=== PATIENT | female | born 1955 | race Caucasian/White ===

== ENCOUNTER 2016-07-22 10:35 | Inpatient (IN) | payer BC ==
[2016-07-22] MEDS ORDERED: FUROSEMIDE 10 MG/ML 4 ML VIAL IV STA (11:05)
[2016-07-22 11:24] LABS: Anisocytosis Slight; Aty Lym Flag Slight; HGB 11.8 gm/dL (11.4-16.0); Macrocytosis Slight
[2016-07-22 11:31] LABS: ALT 51 U/L (9-52); AST 56 U/L (14-36); Alkaline Phosphatase 90 U/L (38-126); Anion Gap 9 mmol/L; Blood Urea Nitrogen 12 mg/dL (7-17); Calcium 8.8 mg/dL (8.4-10.2); Carbon Dioxide 23 mmol/L (22-30); Chloride 110 mmol/L (98-107); Glucose 114 mg/dL (74-99); Magnesium 1.8 mg/dL (1.6-2.3); Non-African American GFR(MDRD) >60 (>60 ml/min/1.73 sqM); Potassium 4.3 mmol/L (3.5-5.1); Sodium 142 mmol/L (137-145); Total Bilirubin 2.7 mg/dL (0.2-1.3); Total Protein 6.2 g/dL (6.3-8.2)
[2016-07-22 11:39] LABS: INR 1.4 (<1.1); Partial Thromboplastin Time 23.1 sec (22.0-30.0); Prothrombin Time 13.5 sec (9.0-12.0)
[2016-07-22 11:41] LABS: CH 33.4; CHCM 34.5; HCT 34.5 % (34.0-46.0); HDW 3.15; MCH 33.3 pg (25.0-35.0); MCHC 34.1 g/dL (31.0-37.0); MCV 97.5 fL (80.0-100.0); Mean Platelet Volume 7.5; RBC 3.54 m/uL (3.80-5.40); RDW 15.9 % (11.5-15.5); WBC (Perox) 5.25
[2016-07-22 11:42] LABS: Creatine Kinase 50 U/L (30-135)
[2016-07-22] MEDS ORDERED: RX INFO: IV CONTRAST WAS GIVEN 1 EACH MISC MISCELLANE PRN (11:50)
[2016-07-22 11:53] LABS: Creatine Kinase MB 0.7 ng/mL (0.0-2.4); Troponin I <0.012 ng/mL (0.000-0.034)
[2016-07-22 12:09] LABS: Add Differential Manual Differential
[2016-07-22 12:12] LABS: Manual Review Performed; Nucleated Red Blood Cells 0 /100 WBC (0-0); Total Cells Counted 100
--- NOTE | 2016-07-22 12:26 | XR ---
EXAMINATION TYPE: XR chest 2V DATE OF EXAM: 07/22/2016 12:08 PM COMPARISON: 11/11/2015 HISTORY: 60-year-old female with shortness of breath and chest pain TECHNIQUE: AP and lateral views FINDINGS: Heart is upper limits of normal in size. Aorta within normal limits. There are small right greater th an left pleural effusions with slight elevation of the right hemidiaphragm. Mild interstitial promine nce. Cholecystectomy clips are present. IMPRESSION: Small right and trace left pleural effusions with adjacent atelectasis and/or consolidation on the ri ght. Correlate for possible mild CHF.
--- NOTE | 2016-07-22 13:18 | CT ---
EXAMINATION TYPE: CT chest angio for PE DATE OF EXAM: 07/22/2016 12:59 PM COMPARISON: Chest x-ray same day HISTORY: Chest pressure, SOB, abnormal chest x-ray CT DLP: 599 mGycm Automated exposure control for dose reduction was used. CONTRAST: CT Chest for pulmonary embolism performed with with IV Contrast, patient injected with 100 ml mL of O mnipaque 350. Three-dimensional reconstructions on the same workstation. FINDINGS: LUNGS: There are bilateral pleural effusions present. Pleural effusion on the right is greater than l eft, there is associated compressive atelectasis. Lungs show no mass. There is no interstitial edema. MEDIASTINUM: There is satisfactory enhancement of the pulmonary artery and its branches, there is no CT evidence for pulmonary embolism. There are no greater than 1 cm hilar or mediastinal lymph nodes. No pericardial effusion is seen. AORTA: No additional significant abnormality is seen. OTHER: Suspect there are varices in the subcutaneous fat over the anterior abdominal wall, correlate . The upper abdomen shows the liver to have a nodular contour and heterogeneous signal, difficult to exclude an underlying mass. Patient is postcholecystectomy. The spleen is borderline enlarged. No pne umoperitoneum or evidence of bowel obstruction. There is some ascites about the liver. IMPRESSION: No evidence of pulmonary embolism. Pleural effusions right greater than left. Correlate for cirrhosis , probable portal hypertension, difficult to exclude an underlying liver mass.
--- NOTE | 2016-07-22 13:43 | ED ---
Chest Pain HPI - General Chief Complaint: Chest Pain Stated Complaint: chest pressure, SOB Time Seen by Provider: 07/22/16 10:50 Source: patient Mode of arrival: wheelchair Limitations: no limitations - History of Present Illness Initial Comments: She presented with shortness of breath, she does have a history of liver disease. She was thoroughly evaluated by her aviation project manager attending for him a she had a cardiac cath done yesterday and she was told that her heart is fine him a she is quite short winded is hard for her to take a deep breath she been coughing for the last few days and does complain about pleuritic chest pain. Denies any fever no chills no sputum denies any nausea any vomiting or any symptoms of upper respiratory tract infection. No symptoms of TIA or CVA no neck stiffness no frequency urgency dysuria - Related Data Home Medications Medication Instructions Recorded Confirmed Atenolol/Chlorthalidone [Tenoretic 1 tab PO DAILY 11/30/13 07/22/16 50 Tablet] Cholecalciferol [Vitamin D3] 2,000 unit PO DAILY 11/11/15 07/22/16 Ferrous Sulfate [Feosol] 325 mg PO BID 11/11/15 07/22/16 metFORMIN HCL [Glucophage] 500 mg PO BID 11/11/15 07/22/16 Aspirin 81 mg PO DAILY 07/22/16 07/22/16 B Complex-Vit C-Vit E-Zinc [Z-Bec] 1 tab PO DAILY 07/22/16 07/22/16 Folic Acid 1 mg PO DAILY 07/22/16 07/22/16 Lactulose [Cephulac] 10 gm PO TID 07/22/16 07/22/16 Multivitamin Liquid 5 ml PO DAILY 07/22/16 07/22/16 Phytonadione [Vitamin K] 5 mg PO DAILY 07/22/16 07/22/16 Rifaximin [Xifaxan] 550 mg PO BID 07/22/16 07/22/16 Spironolactone [Aldactone] 25 mg PO DAILY 07/22/16 07/22/16 Thiamine [Vitamin B-1] 100 mg PO DAILY 07/22/16 07/22/16 traMADol HCl [Ultram] 50 mg PO Q6H PRN 07/22/16 07/22/16 Allergies Allergy/AdvReac Type Severity Reaction Status Date / Time No Known Allergies Allergy Verified 07/22/16 11:12 Review of Systems ROS Statement: Those systems with pertinent positive or pertinent negative responses have been documented in the HPI. ROS Other: All systems not noted in ROS Statement are negative. EKG Findings - EKG Comments: EKG Findings:: EKG was reviewed it is sinus bradycardia ventricular rate is 50 MO interval is 156 QRS duration is 78 QT/QTc is 536/488 review of this EKG reveals some T-wave inversion in V1 no ST elevation or ST depression noticed she does have a bradycardia Past Medical History Past Medical History: Blood Disorder, Diabetes Mellitus, GERD/Reflux, Hyperlipidemia, Hypertension Additional Past Medical History / Comment(s): PT'S LAST HGB 7.5 -HAD 2 IRON TRANSFUSIONS & ON IRON DAILY. TYPE 2 DIABETIC- ORAL RX ONLY liver cirrhosis unk cause on liver transplant list History of Any Multi-Drug Resistant Organisms: None Reported Past Surgical History: Cholecystectomy, Hysterectomy, Tonsillectomy Additional Past Surgical History / Comment(s): ectopic outside of uterus Past Anesthesia/Blood Transfusion Reactions: Motion Sickness Additional Past Anesthesia/Blood Transfusion Reaction / Comment(s): SOMETIMES IN CAR Past Psychological History: No Psychological Hx Reported Smoking Status: Never smoker Past Alcohol Use History: None Reported Past Drug Use History: None Reported - Past Family History Father Family Medical History: Myocardial Infarction ([place]) Additional Family Medical History / Comment(s): HAD MASSIVE [place] Mother Family Medical History: Cancer Additional Family Medical History / Comment(s): COLON CA Brother(s) Family Medical History: Cancer Additional Family Medical History / Comment(s): LEUKEMIA- AND ALSO BROTHER HAD BLOOD CLOT IN LEG AFTER FX General Exam - General Exam Comments Initial Comments: General: The patient is awake and alert, in mild distress Skin: Skin is warm and dry and no rashes or lesions are noted. Eye: Pupils are equal, round and reactive to light, extra-ocular movements are intact; there is normal conjunctiva bilaterally. Ears, nose, mouth and throat: There are moist mucous membranes and no oral lesions. Neck: The neck is supple, there is no tenderness or JVD. Cardiovascular: There is a regular rate and rhythm. No murmur, rub or gallop is appreciated. Noticed bradycardia Respiratory: To auscultation bilateral, breath sounds are decreased bilaterally Gastrointestinal: Is mild tenderness and mild erythema on the belly Back: There is no tenderness to palpation in the midline. There is no obvious deformity. Musculoskeletal: Normal ROM, no tenderness, There is no edema bilaterally Neurological: CN II-XII intact, Cranial nerves III through XII are intact. There are no obvious motor or sensory deficits. Coordination appears grossly intact. Speech is normal. Psychiatric: Cooperative, appropriate mood & affect, normal judgment. Limitations: no limitations Course Vital Signs 07/22/16 07/22/16 07/22/16 10:46 11:44 13:04 Temperature 97.0 F L 98.0 F Pulse Rate 79 51 L Pulse Rate [ 74 Healthcare Liaison ] Respiratory 18 18 Rate Blood Pressure 122/60 122/60 O2 Sat by Pulse 95 99 Oximetry 07/22/16 13:13 Temperature Pulse Rate 48 L Pulse Rate [ Healthcare Liaison ] Respiratory 16 Rate Blood Pressure 136/55 O2 Sat by Pulse 99 Oximetry Patient was reassessed 3 times last assessment was done at 1814, a CBC troponin and PE studies are negative she was given Lasix 40 mg IV in the ER that's helping her with her breathing, she does have a bradycardia heart rate dips down to 4142 and she also has a congestive heart failure considering a chance or possibility of infiltrate I offered patient took for observation she agreed she'll be admitted under 's group for further evaluation and patient agreed with Disposition Clinical Impression: Shortness of breath, Pleuritic chest pain, Bradycardia, Congestive heart failure Disposition: ADMITTED IP TO THIS [facility] Condition: Good
[2016-07-22] MEDS ORDERED: traMADol 50 MG TAB PO PRN (13:49)
[2016-07-22] MEDS: LACTULOSE 20 GM/30 ML CUP PO SCH ×2 (17:53→21:03)
[2016-07-22] MEDS: FERROUS SULFATE 325 MG TAB PO SCH (21:03)
[2016-07-22] MEDS: FUROSEMIDE 40 MG TAB PO SCH (21:03)
[2016-07-22] MEDS: RIFAXIMIN 550 MG TABLET PO SCH (21:03)
[2016-07-22 21:17] LABS: Glucose,Whole Blood 94 mg/dL (75-99)
[2016-07-23 06:27] LABS: Glucose,Whole Blood 79 mg/dL (75-99)
[2016-07-23 06:55] LABS: ALT 47 U/L (9-52); AST 48 U/L (14-36); Alkaline Phosphatase 76 U/L (38-126); Anion Gap 8 mmol/L; Blood Urea Nitrogen 12 mg/dL (7-17); Calcium 8.4 mg/dL (8.4-10.2); Carbon Dioxide 24 mmol/L (22-30); Chloride 109 mmol/L (98-107); Glucose 83 mg/dL (74-99); Magnesium 1.6 mg/dL (1.6-2.3); Non-African American GFR(MDRD) >60 (>60 ml/min/1.73 sqM); Potassium 3.9 mmol/L (3.5-5.1); Sodium 141 mmol/L (137-145); Total Bilirubin 2.1 mg/dL (0.2-1.3); Total Protein 5.4 g/dL (6.3-8.2)
[2016-07-23 06:56] LABS: Anisocytosis Slight; Aty Lym Flag Slight; CHCM 33.6; HCT 33.2 % (34.0-46.0); HDW 3.15; MCH 32.8 pg (25.0-35.0); MCHC 33.2 g/dL (31.0-37.0); MCV 98.8 fL (80.0-100.0); Macrocytosis Slight; Mean Platelet Volume 7.3; RBC 3.36 m/uL (3.80-5.40); WBC 4.9 k/uL (3.8-10.6); WBC (Perox) 5.02
[2016-07-23 07:49] LABS: Add Differential Manual Differential
[2016-07-23 07:52] LABS: Nucleated Red Blood Cells 0 /100 WBC (0-0); Polychromasia Present; Total Cells Counted 100
[2016-07-23 07:54] LABS: Large Platelets Present
[2016-07-23] MEDS ORDERED: CHLORTHALIDONE PO SCH (09:00)
[2016-07-23] MEDS ORDERED: SPIRONOLACTONE 25 MG TAB PO SCH ×2 (09:00)
[2016-07-23] MEDS ORDERED: ATENOLOL PO SCH (09:00)
[2016-07-23] MEDS ORDERED: PNEUMOCOCCAL VACC-PNEUMOVAX 23 25 MCG/0.5 ML VIAL IM ONE (09:00)
[2016-07-23] MEDS: FERROUS SULFATE 325 MG TAB PO SCH ×2 (09:23→21:00)
[2016-07-23] MEDS: CHLORTHALIDONE 25 MG TAB PO SCH (09:23)
[2016-07-23] MEDS: FUROSEMIDE 40 MG TAB PO SCH (09:23)
[2016-07-23] MEDS: RIFAXIMIN 550 MG TABLET PO SCH ×2 (09:23→21:00)
[2016-07-23] MEDS: LACTULOSE 20 GM/30 ML CUP PO SCH ×3 (09:24→21:01)
[2016-07-23] MEDS: ATENOLOL 50 MG TAB PO SCH (09:24)
[2016-07-23] MEDS: ASPIRIN 81 MG CHEW PO SCH (09:24)
[2016-07-23] MEDS: PHYTONADIONE ORAL 5 MG/5 ML ORAL.SYRG PO SCH (10:09)
--- NOTE | 2016-07-23 11:17 | P.CONS ---
History of Present Illness - Reason for Consult Consult date: 07/23/16 cirrhosis Requesting physician: Jerica Roa - History of Present Illness 60-year-old female with a history of catatonic cirrhosis hepatic encephalopathy admitted with shortness of breath and chest pressure after undergoing her Physician 2 days ago [facility] as part of a workup for liver transplantation. Phone Engineer is Dr. Barnett. Patient states after she was discharged on Tuesday she had increased chest pressure and shortness of breath. Consultation requested for cirrhosis. She is a full workup for her cirrhosis over the last few years with no clear etiology suspected cryptogenic. 2 hospitalizations a few months ago for exacerbation of hepatic encephalopathy. She is currently maintained on lactulose, Xifaxan, and diuretics. Denies fever, chills, hematemesis, hematochezia, or melena. Denies abdominal pain. Chest CTA no evidence of PE. Total bilirubin 2.1. AST 40. ALT 47. Alkaline phosphatase 76. BUN 12 creatinine 0.9. Platelet 91. Hemoglobin 11. White count 4.9. Review of Systems All systems: negative (See HPI) Past Medical History Past Medical History: Blood Disorder, Diabetes Mellitus, GERD/Reflux, Hyperlipidemia, Hypertension Additional Past Medical History / Comment(s): PT'S LAST HGB 7.5 -HAD 2 IRON TRANSFUSIONS & ON IRON DAILY, duodenal ulcer. TYPE 2 DIABETIC- ORAL RX ONLY liver cirrhosis unk cause inprocess of getting on getting on liver transplant list .pt stated takes lactulose and has loose to watery stools from that. History of Any Multi-Drug Resistant Organisms: None Reported Past Surgical History: Cholecystectomy, Heart Catheterization, Hysterectomy, Tonsillectomy Additional Past Surgical History / Comment(s): ectopic outside of uterus, dc'd from [facility] 07-21-16 after heart cath(radial approach) Past Anesthesia/Blood Transfusion Reactions: Motion Sickness Additional Past Anesthesia/Blood Transfusion Reaction / Comm: SOMETIMES IN CAR Past Psychological History: No Psychological Hx Reported Smoking Status: Never smoker Past Alcohol Use History: None Reported Past Drug Use History: None Reported - Past Family History Father Family Medical History: Myocardial Infarction ([place]) Additional Family Medical History / Comment(s): HAD MASSIVE [place] Mother Family Medical History: Cancer Additional Family Medical History / Comment(s): COLON CA Brother(s) Family Medical History: Cancer Additional Family Medical History / Comment(s): LEUKEMIA- AND ALSO BROTHER HAD BLOOD CLOT IN LEG AFTER FX Medications and Allergies Home Medications Medication Instructions Recorded Confirmed Type Atenolol/Chlorthalidone [Tenoretic 1 tab PO DAILY 11/30/13 07/22/16 History 50 Tablet] Cholecalciferol [Vitamin D3] 2,000 unit PO DAILY 11/11/15 07/22/16 History Ferrous Sulfate [Feosol] 325 mg PO BID 11/11/15 07/22/16 History metFORMIN HCL [Glucophage] 500 mg PO BID 11/11/15 07/22/16 History Aspirin 81 mg PO DAILY 07/22/16 07/22/16 History B Complex-Vit C-Vit E-Zinc [Z-Bec] 1 tab PO DAILY 07/22/16 07/22/16 History Folic Acid 1 mg PO DAILY 07/22/16 07/22/16 History Lactulose [Cephulac] 10 gm PO TID 07/22/16 07/22/16 History Multivitamin Liquid 5 ml PO DAILY 07/22/16 07/22/16 History Phytonadione [Vitamin K] 5 mg PO DAILY 07/22/16 07/22/16 History Rifaximin [Xifaxan] 550 mg PO BID 07/22/16 07/22/16 History Spironolactone [Aldactone] 25 mg PO DAILY 07/22/16 07/22/16 History Thiamine [Vitamin B-1] 100 mg PO DAILY 07/22/16 07/22/16 History traMADol HCl [Ultram] 50 mg PO Q6H PRN 07/22/16 07/22/16 History Allergies Allergy/AdvReac Type Severity Reaction Status Date / Time No Known Allergies Allergy Verified 07/22/16 11:12 Physical Exam Vitals: Vital Signs Temp Pulse Pulse Resp BP BP Pulse Ox 07/23/16 08:00 97.0 F L 52 L 18 107/51 97 07/23/16 04:00 97.1 F L 58 L 18 128/50 97 07/23/16 00:00 97.8 F 57 L 16 124/56 98 07/22/16 20:00 97.6 F 58 L 16 104/51 97 07/22/16 18:32 96.7 F L 50 L 18 130/70 96 07/22/16 17:13 97.9 F 50 L 18 112/58 100 07/22/16 16:20 48 L 18 111/55 99 07/22/16 15:00 48 L 18 104/58 99 Intake and Output 07/22/16 07/23/16 07/23/16 22:59 06:59 14:59 Intake Total 300 200 Output Total 900 300 Balance -600 -100 Intake: Oral 300 200 Output: Urine 900 300 Other: Weight 94.801 kg General appearance: The patient is alert, oriented, in no acute distress. HET: Head is normocephalic and atraumatic. Pupils are equal and reactive. Oropharynx is clear without lesions. Neck: Supple without lymphadenopathy. Trachea midline. Heart: S1 S2. Regular rate and rhythm. Lungs: Slight diminishment in bilateral bases. Abdomen: Soft, nontender, nondistended with bowel sounds. No peritoneal signs. No palpable organomegaly or masses. Extremities: Normal skin color and turgor. No cyanosis, rash, ulceration, clubbing, or edema. Radial and pedal pulses are 2/4 bilaterally. Neurological: No focal deficits. Strength and sensation are grossly intact. Results CBC & Chem 7: 07/23/16 05:40 07/23/16 05:40 Labs: Abnormal Lab Results - Last 24 Hours (Table) 07/23/16 07/23/16 Range/Units 05:40 05:40 RBC 3.36 L (3.80-5.40) m/uL Hgb 11.0 L (11.4-16.0) gm/dL Hct 33.2 L (34.0-46.0) % RDW 16.0 H (11.5-15.5) % Plt Count 91 L (150-450) k/uL Lymphocytes # (Manual) 0.9 L (1.0-4.8) k/uL Chloride 109 H (98-107) mmol/L Total Bilirubin 2.1 H (0.2-1.3) mg/dL AST 48 H (14-36) U/L Total Protein 5.4 L (6.3-8.2) g/dL Albumin 2.1 L (3.5-5.0) g/dL Assessment and Plan Plan: Impression : 60-year-old female with a history of cryptogenic cirrhosis, hepatic encephalopathy, currently being evaluated by transplant team at [facility] presents with shortness of breath and chest pressure after undergoing a heart catheterization 2 days ago at [facility]. Plan: 1. Continue supportive measures. No changes in medications. Follow-up with entertainment dancer at [facility] in August as previously directed. No further workup at this time. We'll follow as needed. Thank you for this kind referral and the opportunity to participate in the care of your patient. This consultation was discussed with Dr. Jaeger. The impression and plan of care have been directed as dictated.
--- NOTE | 2016-07-23 11:32 | HP ---
DATE OF ADMISSION: 07/22/2016 CHIEF COMPLAINT: Chest discomfort and as well as shortness of breath. HISTORY OF PRESENT ILLNESS: This 60-year-old woman with a past medical history of multiple medical problems including diabetes, hypertension, history of hyperlipidemia, history of cholecystectomy, history of cardiac catheterization, history of cirrhosis of the liver with cryptogenic cirrhosis. History of generalized anasarca, history of duodenal ulcer, history of morbid obesity, diabetes. History of gastroesophageal reflux disease, hypertension, hyperlipidemia, cholecystectomy being followed by Dr. Macedo in the outpatient setting also seen by [facility] who is currently being evaluated by Dr. Sosa at [facility] department. Patient is on transplant list at this time. Currently the patient is complaining of the patient also had cardiac catheterization done because of shortness of breath. Cardiac catheterization did not show any significant acute abnormality. results are not available at this time. The patient went home. The patient had increasing shortness of breath. The patient came to [facility] and was admitted to the hospital for further evaluation and treatment. There is no history of any fever, rigors or chills. No history of loss of consciousness or seizures. The patient's Lasix dose was stopped previously recently. Past medical history: History of cryptogenic cirrhosis, history of diabetes mellitus, GERD, hypertension, hyperlipidemia, history of cardiac catheterization, history of motion sickness, history of anemia. Medications prior to medications are home medications are: 3. Glucovance 5 mg p.o. b.i.d. 4. Tenoretic 50 mg p.o. daily. 5. Vitamin B 100 mg p.o. daily. 6. Aldactone 25 mg daily. 7. Multivitamin one p.o. daily. 8. Cephulac 10 mg t.i.d. 9. Folic acid 1 mg daily. 10. Iron sulfate 320 mg p.o. daily. 11. Vitamin D3 2000 daily. 13. Ultram 50 mg q.6h p.r.n. 14. Aspirin 81 mg p.o. daily. ALLERGIES: None. FAMILY HISTORY: History of myocardial infarction in the family. SOCIAL HISTORY: No history of smoking. No history of alcohol. REVIEW OF SYSTEMS: ENT: No dimension vision. No diminished hearing. CARDIOVASCULAR: As mentioned earlier. RESPIRATORY: As mentioned earlier. GI: No nausea or vomiting. GENITOURINARY: No dysuria. CENTRAL NERVOUS SYSTEM: No numbness, weakness. Allergy/immunology: No asthma or hayfever. MUSCULOSKELETAL: As mentioned earlier. HEMATOLOGY/ONCOLOGY: No history of anemia. ENDOCRINE: Diabetes. CONSTITUTIONAL: As mentioned earlier. DERMATOLOGY: Negative. RHEUMATOLOGY: Negative. PSYCHIATRY: As mentioned earlier. PHYSICAL EXAMINATION: Alert and oriented times three. Pulse 50, blood pressure 130/70, respirations 18, temperature 96.7, pulse ox 97% on 2 liters. HEENT: Conjunctivae normal. Oral mucosa moist. NECK: Jugular venous distention at the root. CARDIOVASCULAR: S1, S2 muffled. No S3, no S4. RESPIRATORY: Breath sounds diminished at the bases. Bilateral scattered rhonchi, expiratory wheezing and a few crackles. ABDOMEN: Soft, obese, nontender. No mass palpable. Legs: Minimal bilateral leg edema. CENTRAL NERVOUS SYSTEM: Higher functions as mentioned earlier. Moves all 4 limbs. No focal motor or sensory deficits. LYMPHATICS: No lymph nodes palpable in the neck, axillae or groin. SKIN: No ulcer, rash or bleeding. LABS: At this time show WBC 5.8, hemoglobin 11.8. INR is 1.4, total bilirubin is 2.7, AST is 50 and albumin 2.5. The chest x-ray done on admission shows small right and trace left pleural effusion with adjacent atelectasis and right side also and chest CTA showed no evidence of pulmonary embolism, pleural effusion, right greater than left, portal hypertension. ASSESSMENT: 1. Congestive heart failure acute exacerbation , possible acute on chronic diastolic dysfunction. 2. Bilateral pleural effusion secondary to possible cirrhosis liver. 3. History of anasarca. 4. History of cryptogenic cirrhosis. 5. Diabetes mellitus type 2. 6. Gastroesophageal reflux disease. 7. Hypertension. 8. History of hyperlipidemia. 9. History of anemia. 10. History of recent cardiac catheterization. 11. History of cholecystectomy. 12. History of ectopic . 13. Increased INR secondary to chronic liver dis and d-dimer with no evidence of pulmonary embolus. 14. Increased random blood sugar. 15. Increased total bilirubin. 16. Increased AST, secondary to cirrhosis of the liver. 17. Hypoalbuminemia with mild to moderate protein calorie malnutrition. 18. Obesity with body mass index of 38. 19. History of duodenal ulcer. 21. FULL CODE. RECOMMENDATIONS AND DISCUSSION: In this 60 -year-old woman who presented with multiple complex medical issues, we will monitor the patient closely. Continue the current medications. We will initiate IV diuretics. The patient potassium. Aldactone will also be started. Monitor electrolytes closely. Otherwise, cardiology has been consulted. We will also consult Dr. Jaeger. Also to continue follow-up. Guarded prognosis because of multiple complex medical issues. Further recommendations to follow. A copy of dictation will be forwarded to Dr. Macedo who is the primary care physician. MARTIN
[2016-07-23 11:51] LABS: Glucose,Whole Blood 134 mg/dL (75-99)
[2016-07-23] MEDS ORDERED: B COMPLEX-VIT C-VIT E-ZINC 1 EACH TAB PO SCH (12:00)
[2016-07-23] MEDS ORDERED: MULTIVITAMINS, THERA LIQUID 237 ML BOTTLE PO SCH (12:00)
[2016-07-23] MEDS: THIAMINE 100 MG TAB PO SCH (12:20)
[2016-07-23] MEDS: FOLIC ACID 1 MG TAB PO SCH (12:20)
[2016-07-23] MEDS: CHOLECALCIFEROL 1,000 UNIT TAB PO SCH (12:20)
[2016-07-23] MEDS: MAGNESIUM SULFATE-D5W PMX 1 GM in DEXTROSE/WATER 1 100ML.BAG IVPB SCH ×2 (13:50→15:26)
[2016-07-23] MEDS: MULTIVITAMINS, THERA 1 EACH TAB PO SCH (13:50)
[2016-07-23 14:07] VITALS: BMI 39.4
--- NOTE | 2016-07-23 15:40 | P.CRDCN ---
History of Present Illness Consult date: 07/23/16 Requesting physician: Aroldo Fishman Consult reason: congestive heart failure Chief complaint: Shortness of breath History of present illness: This is a pleasant 60-year-old female with history of hypertension, diabetes, hyperlipidemia, history of cirrhosis of the liver, cryptogenic cirrhosis, history of generalized anasarca, who recently underwent a cardiac catheterization at [facility] on Tuesday of this week. Around midnight that night, while the patient was at home, she states that she woke up suddenly unable to breathe. She had to sit up completely in bed, states that she still was short of breath however it improved significantly upon sitting. They called [facility] and were recommended to come to [facility] for admission. The pressure on arrival 122/60, heart rate 78, 95% on room air. Lab data reviewed, hemoglobin 11.0, platelet count 91, d-dimer 5.4, BUN 12, creatinine 0.9. Magnesium level I.6. Total bilirubin 2.1, AST 48, ALT 47, troponins negative 3. There was no BNP level obtained. Chest x-ray revealed small right and trace left pleural effusions with adjacent atelectasis, correlation for congestive cardiac failure suggested. CTA negative for PE, positive pleural effusions right greater than the left. EKG shows a sinus bradycardia with no acute changes. Patient was initiated on IV Lasix, diuresed well but continues to have evidence of peripheral edema. Patient had apparently been on Lasix as an outpatient, however had significant hypokalemia for this reason this had been placed on hold. Past Medical History Past Medical History: Blood Disorder, Diabetes Mellitus, GERD/Reflux, Hyperlipidemia, Hypertension Additional Past Medical History / Comment(s): PT'S LAST HGB 7.5 -HAD 2 IRON TRANSFUSIONS & ON IRON DAILY, duodenal ulcer. TYPE 2 DIABETIC- ORAL RX ONLY liver cirrhosis unk cause inprocess of getting on getting on liver transplant list .pt stated takes lactulose and has loose to watery stools from that. History of Any Multi-Drug Resistant Organisms: None Reported Past Surgical History: Cholecystectomy, Heart Catheterization, Hysterectomy, Tonsillectomy Additional Past Surgical History / Comment(s): ectopic outside of uterus, dc'd from [facility] 1--17 after heart cath(radial approach) Past Anesthesia/Blood Transfusion Reactions: Motion Sickness Additional Past Anesthesia/Blood Transfusion Reaction / Comment(s): SOMETIMES IN CAR Past Psychological History: No Psychological Hx Reported Smoking Status: Never smoker Past Alcohol Use History: None Reported Past Drug Use History: None Reported - Past Family History Father Family Medical History: Myocardial Infarction (PR) Additional Family Medical History / Comment(s): HAD MASSIVE PR Mother Family Medical History: Cancer Additional Family Medical History / Comment(s): COLON CA Brother(s) Family Medical History: Cancer Additional Family Medical History / Comment(s): LEUKEMIA- AND ALSO BROTHER HAD BLOOD CLOT IN LEG AFTER FX Medications and Allergies Home Medications Medication Instructions Recorded Confirmed Type Atenolol/Chlorthalidone [Tenoretic 1 tab PO DAILY 11/30/13 07/22/16 History 50 Tablet] Cholecalciferol [Vitamin D3] 2,000 unit PO DAILY 11/11/15 07/22/16 History Ferrous Sulfate [Feosol] 325 mg PO BID 11/11/15 07/22/16 History metFORMIN HCL [Glucophage] 500 mg PO BID 11/11/15 07/22/16 History Aspirin 81 mg PO DAILY 07/22/16 07/22/16 History B Complex-Vit C-Vit E-Zinc [Z-Bec] 1 tab PO DAILY 07/22/16 07/22/16 History Folic Acid 1 mg PO DAILY 07/22/16 07/22/16 History Lactulose [Cephulac] 10 gm PO TID 07/22/16 07/22/16 History Multivitamin Liquid 5 ml PO DAILY 07/22/16 07/22/16 History Phytonadione [Vitamin K] 5 mg PO DAILY 07/22/16 07/22/16 History Rifaximin [Xifaxan] 550 mg PO BID 07/22/16 07/22/16 History Spironolactone [Aldactone] 25 mg PO DAILY 07/22/16 07/22/16 History Thiamine [Vitamin B-1] 100 mg PO DAILY 07/22/16 07/22/16 History traMADol HCl [Ultram] 50 mg PO Q6H PRN 07/22/16 07/22/16 History Allergies Allergy/AdvReac Type Severity Reaction Status Date / Time No Known Allergies Allergy Verified 07/22/16 11:12 Physical Exam Vitals: Vital Signs Temp Pulse Pulse Resp BP BP Pulse Ox 07/23/16 12:00 97.0 F L 52 L 18 122/52 95 07/23/16 08:00 97.0 F L 52 L 18 107/51 97 07/23/16 04:00 97.1 F L 58 L 18 128/50 97 07/23/16 00:00 97.8 F 57 L 16 124/56 98 07/22/16 20:00 97.6 F 58 L 16 104/51 97 07/22/16 18:32 96.7 F L 50 L 18 130/70 96 07/22/16 17:13 97.9 F 50 L 18 112/58 100 07/22/16 16:20 48 L 18 111/55 99 Intake and Output 07/23/16 07/23/16 07/23/16 06:59 14:59 22:59 Intake Total 300 400 Output Total 900 300 Balance -600 100 Intake: Oral 300 400 Output: Urine 900 300 Other: Voiding Method Toilet Weight 94.801 kg 94.801 kg Patient Weight 07/24/16 06:59 Weight 94.801 kg PHYSICAL EXAMINATION: HEENT: Head is atraumatic, normocephalic. Pupils equal, round. Neck is supple. There is elevated jugular venous pressure. HEART EXAMINATION: Heart S1, S2 normal. No murmur or gallop heard. CHEST EXAMINATION: Lungs reveal diminished air entry to bilateral bases. ABDOMEN: Soft, nontender. Bowel sounds are heard. No organomegaly noted. EXTREMITIES: 2+ peripheral pulses with 1+ evidence of peripheral edema and no calf tenderness noted. NEUROLOGIC patient is awake, alert and oriented -3. . Results 07/23/16 05:40 07/23/16 05:40 Cardiac Enzymes 07/22/16 07/22/16 07/23/16 Range/Units 17:02 22:40 05:40 AST 48 H (14-36) U/L Troponin I <0.012 <0.012 (0.000-0.034) ng/mL CBC 07/23/16 Range/Units 05:40 WBC 4.9 (3.8-10.6) k/uL RBC 3.36 L (3.80-5.40) m/uL Hgb 11.0 L (11.4-16.0) gm/dL Hct 33.2 L (34.0-46.0) % Plt Count 91 L (150-450) k/uL Comprehensive Metabolic Panel 07/23/16 Range/Units 05:40 Sodium 141 (137-145) mmol/L Potassium 3.9 (3.5-5.1) mmol/L Chloride 109 H (98-107) mmol/L Carbon Dioxide 24 (22-30) mmol/L BUN 12 (7-17) mg/dL Creatinine 0.93 (0.52-1.04) mg/dL Glucose 83 (74-99) mg/dL Calcium 8.4 (8.4-10.2) mg/dL AST 48 H (14-36) U/L ALT 47 (9-52) U/L Alkaline Phosphatase 76 (38-126) U/L Total Protein 5.4 L (6.3-8.2) g/dL Albumin 2.1 L (3.5-5.0) g/dL Current Medications Generic Name Dose Route Start Last Admin Trade Name Freq PRN Reason Stop Dose Admin Aspirin 81 mg 07/23/16 09:00 07/23/16 09:24 Aspirin PO 81 mg DAILY [facility] Administration Atenolol 50 mg 07/23/16 09:00 07/23/16 09:24 Tenormin PO 50 mg DAILY [facility] Administration Chlorthalidone 25 mg 07/23/16 09:00 07/23/16 09:23 Hygroton PO 25 mg DAILY [facility] Administration Cholecalciferol 2,000 unit 07/23/16 12:00 07/23/16 12:20 Vitamin D3 PO 2,000 unit 1200 [facility] Administration Ferrous Sulfate 325 mg 07/22/16 21:00 07/23/16 09:23 Feosol PO 325 mg BID [facility] Administration Folic Acid 1 mg 07/23/16 12:00 07/23/16 12:20 Folic Acid PO 1 mg 1200 [facility] Administration Furosemide 40 mg 07/24/16 09:00 Lasix PO DAILY [facility] Ibuprofen 200 mg 07/23/16 15:00 Advil PO Q6HR PRN Pain Lactulose 10 gm 07/22/16 16:00 07/23/16 15:26 Cephulac PO 10 gm TID [facility] Administration Metformin HCl 500 mg 07/22/16 21:00 Glucophage PO BID [facility] Miscellaneous Information 1 each 07/22/16 11:50 Rx Info: Iv Contrast Was Given MISCELLANE 07/24/16 11:50 DAILY PRN Per Protocol Multivitamins 1 each 07/23/16 12:00 07/23/16 13:50 Theragran PO 1 each DAILY@1200 [facility] Administration Phytonadione 5 mg 07/23/16 09:00 07/23/16 10:09 Vitamin K Oral PO 5 mg DAILY [facility] Administration Rifaximin 550 mg 07/22/16 21:00 07/23/16 09:23 Xifaxan PO 550 mg BID [facility] Administration Spironolactone 100 mg 07/23/16 11:29 Aldactone PO DAILY [facility] Thiamine HCl 100 mg 07/23/16 12:00 07/23/16 12:20 Vitamin B-1 PO 100 mg 1200 [facility] Administration Intake and Output 07/23/16 07/23/16 07/23/16 06:59 14:59 22:59 Intake Total 300 400 Output Total 900 300 Balance -600 100 Intake: Oral 300 400 Output: Urine 900 300 Other: Voiding Method Toilet Weight 94.801 kg 94.801 kg Patient Weight 07/24/16 06:59 Weight 94.801 kg 07/23/16 05:40 07/23/16 05:40 EKG Interpretations (text) EKG shows sinus bradycardia with no acute changes. Assessment and Plan Plan: Assessment and plan #1 congestive cardiac failure, LV function unknown at this time. Recommend continuing diuresing with IV Lasix. We will also check BNP level. #2 hypertension #3 hyperlipidemia #4 cryptogenic cirrhosis of the liver, currently being evaluated at [facility] for the transplant list. #5 status post cardiac catheterization 2 days ago, coronaries reported to be normal Plan We will obtain an echocardiogram with Doppler study. We will also obtain a BNP level, discontinue by mouth Lasix and start the patient on IV diuretics. We will also obtain copy of recent cardiac catheterization performed at [facility]. Further recommendations to follow. DNP note has been reviewed, I agree with a documented findings and plan of care. Patient was seen and examined.
[2016-07-23] MEDS: IBUPROFEN 200 MG TAB PO PRN (16:46)
[2016-07-23 17:07] LABS: Glucose,Whole Blood 121 mg/dL (75-99)
--- NOTE | 2016-07-23 20:43 | PN ---
DATE OF SERVICE: 07/23/2016 This 60-year-old woman was admitted with CHF acute exacerbation also had some chest discomfort. Patient also had cirrhosis of the liver and bilateral pleural effusion also. Cardiology evaluating the patient as well. The patient is also seen by gastroenterology who recommended to continue follow-up at [facility]. Past medical history reviewed. REVIEW OF SYSTEMS: CARDIOVASCULAR: As mentioned earlier. RESPIRATORY: As mentioned earlier. GI: As mentioned earlier. : No dysuria. CENTRAL NERVOUS SYSTEM: No numbness, weakness. Current medications are reviewed and include: 1. Aspirin 81 mg. 2. Tenormin 50 mg. 4. Vitamin D3 1999. 5. Iron sulfate 325 mg p.o. daily. 6. Folic acid 1 mg. 7. Lasix 40 mg b.i.d. 9. Cephulac 10 mg t.i.d. 10. Glucophage. 11. Multivitamins. 13. Aldactone. 14. Vitamin B1. PHYSICAL EXAMINATION: Patient is alert and oriented times three. Pulse is 50, blood pressure 101/60, respirations 18, temperature 97 degrees. Pulse ox 94% on room air. HEENT: Conjunctivae normal. NECK: No jugular venous distention. CARDIOVASCULAR: S1, S2 Normal. RESPIRATORY: Breath sounds diminished at the bases. A few scattered rhonchi and crackles, right more than the left. ABDOMEN: Soft, nontender. Obese. LEGS: leg edema. Nervous system: No focal deficits. Labs reviewed. WBC 4.1, hemoglobin is 11, platelets are 91, glucose noted. Total protein is 2.1. The chest x-ray and chest CT noted. ASSESSMENT: 1. Congestive heart failure acute exacerbation, possible acute and chronic diastolic dysfunction. 2. Chest discomfort. 3. Bilateral pleural effusion secondary to possible cirrhosis of the liver. 4. History of anasarca. 5. History of cryptogenic cirrhosis, being followed by [facility]. 6. Diabetes mellitus, type II. 7. History of gastroesophageal reflux disease. 8. Hypertension. 9. Hyperlipidemia. 10. History of anemia. 11. History of recent cardiac catheterization. 12. History of cholecystectomy. 13. History of ectopic . 14. History of increased INR secondary to chronic liver disease. 15. Increased d-dimer with no evidence of pulmonary embolism. 16. Increased random blood sugar. 17. Increased total bilirubin. 18. Increased AST possibly secondary to cirrhosis of the liver. 19. Hypoalbuminemia with mild to moderate protein calorie malnutrition with body mass index 38. 20. History of duodenal ulcer. 21. FULL CODE. RECOMMENDATIONS AND DISCUSSION: In this 60-year-old woman who presented with multiple complex medical issues, we will monitor the patient closely. Continue the current medications. Continue symptomatic treatment. Otherwise, at this time, we will monitor the patient closely. Continue with the diuretics and Aldactone. 2-D echocardiogram. Cardiology evaluation. Gastroenterology evaluation appreciated. Prognosis guarded. Discussed with the patient. Fluid restriction, salt restriction. The family understands. Further recommendations to follow. MTDD
[2016-07-23] MEDS: FUROSEMIDE 10 MG/ML 4 ML VIAL IV SCH (21:00)
[2016-07-23 21:08] LABS: Glucose,Whole Blood 94 mg/dL (75-99)
[2016-07-23] MEDS ORDERED: traMADol 50 MG TAB PO PRN (21:43)
[2016-07-24 05:48] LABS: Glucose,Whole Blood 78 mg/dL (75-99)
[2016-07-24 06:12] LABS: Aty Lym Flag Slight; CH 33.7; CHCM 34.2; HCT 32.5 % (34.0-46.0); HDW 3.11; HGB 10.6 gm/dL (11.4-16.0); MCH 32.4 pg (25.0-35.0); MCHC 32.7 g/dL (31.0-37.0); MCV 99.3 fL (80.0-100.0); Macrocytosis Slight; Mean Platelet Volume 8.2; RBC 3.27 m/uL (3.80-5.40); RDW 15.9 % (11.5-15.5); WBC 4.2 k/uL (3.8-10.6); WBC (Perox) 4.47
[2016-07-24 06:24] LABS: ALT 48 U/L (9-52); AST 49 U/L (14-36); Alkaline Phosphatase 74 U/L (38-126); Anion Gap 7 mmol/L; Blood Urea Nitrogen 13 mg/dL (7-17); Calcium 8.6 mg/dL (8.4-10.2); Carbon Dioxide 25 mmol/L (22-30); Chloride 106 mmol/L (98-107); Glucose 81 mg/dL (74-99); Non-African American GFR(MDRD) 57 (>60 ml/min/1.73 sqM); Potassium 3.3 mmol/L (3.5-5.1); Sodium 138 mmol/L (137-145); Total Protein 5.1 g/dL (6.3-8.2)
[2016-07-24 06:53] LABS: Add Differential Manual Differential
[2016-07-24 06:56] LABS: Manual Review Performed; Nucleated Red Blood Cells 0 /100 WBC (0-0); Total Cells Counted 100
--- NOTE | 2016-07-24 08:02 | XR ---
EXAMINATION TYPE: XR chest 1V portable DATE OF EXAM: 07/24/2016 7:37 AM CLINICAL HISTORY: Difficulty breathing and CHF progress study. TECHNIQUE: Single AP portable upright view of the chest is obtained. COMPARISON: Chest x-ray and CTA chest from 2 days earlier FINDINGS: There is persistent mild cardiomegaly with small to moderate size right pleural effusion. Small left pleural effusion is likely still present though less well-seen without dedicated lateral v iew. There is associated right basilar and mid lung atelectasis and/or infiltrate. Upper lungs are cl ear without pneumothorax. Osseous structures are intact. Cholecystectomy clips are redemonstrated. IMPRESSION: Overall stable findings, CHF exacerbation is suspected as there is mild cardiomegaly wi th small to moderate-sized right greater than left pleural effusions and associated right lower lung atelectasis and/or infiltrate all redemonstrated.
[2016-07-24] MEDS ORDERED: FUROSEMIDE 40 MG TAB PO SCH (09:00)
[2016-07-24] MEDS: CHLORTHALIDONE 25 MG TAB PO SCH (09:41)
[2016-07-24] MEDS: ATENOLOL 50 MG TAB PO SCH (09:41)
[2016-07-24] MEDS: ASPIRIN 81 MG CHEW PO SCH (09:41)
[2016-07-24] MEDS: FUROSEMIDE 10 MG/ML 4 ML VIAL IV SCH ×2 (09:42→17:54)
[2016-07-24] MEDS: LACTULOSE 20 GM/30 ML CUP PO SCH ×3 (09:42→20:34)
[2016-07-24] MEDS: RIFAXIMIN 550 MG TABLET PO SCH ×2 (09:42→20:34)
[2016-07-24] MEDS: FERROUS SULFATE 325 MG TAB PO SCH ×2 (09:42→20:34)
[2016-07-24] MEDS: SPIRONOLACTONE 25 MG TAB PO SCH (09:43)
[2016-07-24] MEDS ORDERED: Magnesium Replacement Protocol 1 EACH MISC MISCELLANE PRN (09:56)
[2016-07-24] MEDS ORDERED: Potassium Replacement Protocol 1 EACH MISC MISCELLANE PRN (09:57)
[2016-07-24] MEDS: MAGNESIUM SULFATE-D5W PMX 1 GM in DEXTROSE/WATER 1 100ML.BAG IVPB SCH ×2 (11:21→12:43)
[2016-07-24] MEDS: POTASSIUM CHLORIDE ER 20 MEQ TAB.ER PO SCH ×2 (11:22→12:43)
[2016-07-24] MEDS: PHYTONADIONE ORAL 5 MG/5 ML ORAL.SYRG PO SCH (11:22)
--- NOTE | 2016-07-24 12:06 | P.PN ---
Subjective Principal diagnosis: CHF This is a pleasant 60-year-old female with history of hypertension, diabetes, hyperlipidemia, history of cirrhosis of the liver, cryptogenic cirrhosis, history of generalized anasarca, who recently underwent a cardiac catheterization at [facility] on Tuesday of this week. Around midnight that night, while the patient was at home, she states that she woke up suddenly unable to breathe. She had to sit up completely in bed, states that she still was short of breath however it improved significantly upon sitting. They called [facility] and were recommended to come to [facility] for admission. Patient was felt to be in congestive cardiac failure, was initiated on IV Lasix yesterday. Her weight is down 2 kg today. BUN 13, creatinine 1.0, potassium 3.3. Magnesium level I.7. Patient states that her breathing is mildly improved, however still feels quite short of breath. A repeat chest x- ray was performed today which revealed overall stable findings. CHF exacerbation is suspected and there is small to moderate sized right greater than left pleural effusions. Objective - Vital Signs Vital signs: Vital Signs Temp 97 F L 07/24/16 09:30 Pulse 50 L 07/24/16 11:15 Resp 16 07/24/16 11:32 BP 111/53 07/24/16 11:15 Pulse Ox 96 07/24/16 11:15 - Exam PHYSICAL EXAMINATION: HEENT: Head is atraumatic, normocephalic. Pupils equal, round. Neck is supple. There is elevated jugular venous pressure. HEART EXAMINATION: Heart S1, S2 normal. No murmur or gallop heard. CHEST EXAMINATION: Lungs reveal diminished air entry to bilateral bases. Right greater than the left. ABDOMEN: Soft, nontender. Bowel sounds are heard. No organomegaly noted. EXTREMITIES: 2+ peripheral pulses with 1+ evidence of peripheral edema and no calf tenderness noted. NEUROLOGIC patient is awake, alert and oriented -3. . - Labs CBC & Chem 7: 07/24/16 05:23 07/24/16 05:23 Assessment and Plan Plan: Assessment and plan #1 congestive cardiac failure, LV function unknown at this time. Recommend continuing diuresing with IV Lasix. #2 hypertension #3 hyperlipidemia #4 cryptogenic cirrhosis of the liver, currently being evaluated at [facility] for the transplant list. #5 status post cardiac catheterization 2 days ago, coronaries reported to be normal Plan We will await the results of echocardiogram with Doppler study. Continue current dose of IV Lasix. DNP note has been reviewed, I agree with a documented findings and plan of care. Patient was seen and examined.
[2016-07-24 12:16] LABS: Glucose,Whole Blood 139 mg/dL (75-99)
--- NOTE | 2016-07-24 15:07 | ECHOF ---
Referral Reason:chf MEASUREMENTS -------- HEIGHT: 152.4 cm WEIGHT: 94.8 kg BP: IVSd: 0.9 cm (0.6 - 1.1) LVIDd: 5.0 cm (3.9 - 5.3) LVPWd: 0.8 cm (0.6 - 1.1) IVSs: 1.2 cm LVIDs: 3.5 cm LVPWs: 1.1 cm LA Diam: 3.4 cm (2.7 - 3.8) LAESV Index (A-L): 39.13 ml/m Ao Diam: 3.4 cm (2.0 - 3.7) AV Cusp: 1.6 cm (1.5 - 2.6) LA Diam: 3.6 cm (2.7 - 3.8) MV EXCURSION: 17.701 mm (> 18.000) MV EF SLOPE: 150 mm/s (70 - 150) EPSS: 0.2 cm MV E Richy: 0.92 m/s MV DecT: 362 ms MV A Richy: 0.67 m/s MV E/A Ratio: 1.39 RAP: 5.00 mmHg RVSP: 28.02 mmHg FINDINGS -------- Sinus rhythm. This was a technically good study. LV size, wall thickness and systolic function are normal, with an EF greater than 55%. The right ventricle is normal in size. LA is moderately dilated 34-39 ml/m2 The right atrial size is normal. There is mild aortic valve sclerosis. There is no evidence of aortic regurgitation. Mild mitral annular calcification present. Mild mitral regurgitation is present. Mild tricuspid regurgitation present. There is no evidence of pulmonary hypertension. The right ventricular systolic pressure, as measured by Doppler, is 28.02mmHg. There is no pulmonic regurgitation present. There is a moderate pericardial effusion is located near the right atrium. Moderate Pleural Effusion. CONCLUSIONS -------- 1. LV size, wall thickness and systolic function are normal, with an EF greater than 55%. 2. Moderate Pleural Effusion. 3. LA is moderately dilated 34-39 ml/m2 4. There is mild aortic valve sclerosis. 5. Mild mitral annular calcification present. 6. Mild mitral regurgitation is present. 7. Mild tricuspid regurgitation present. 8. There is no evidence of pulmonary hypertension. 9. The right ventricular systolic pressure, as measured by Doppler, is 28.02mmHg. 10. There is a moderate pericardial effusion is located near the right atrium. CONTAINER MAKER: Gabi Cat RDCS
[2016-07-24] MEDS ORDERED: POTASSIUM CHLORIDE ER 20 MEQ TAB.ER PO SCH (16:00)
[2016-07-24] MEDS: CHOLECALCIFEROL 1,000 UNIT TAB PO SCH (16:37)
[2016-07-24] MEDS: THIAMINE 100 MG TAB PO SCH (16:37)
[2016-07-24] MEDS: MULTIVITAMINS, THERA 1 EACH TAB PO SCH (16:37)
[2016-07-24] MEDS: FOLIC ACID 1 MG TAB PO SCH (16:37)
[2016-07-24 17:19] LABS: Glucose,Whole Blood 83 mg/dL (75-99)
[2016-07-24 20:21] LABS: Glucose,Whole Blood 110 mg/dL (75-99)
[2016-07-24] MEDS: metFORMIN 500 MG TAB PO SCH (20:34)
[2016-07-25] MEDS: FUROSEMIDE 10 MG/ML 4 ML VIAL IV SCH ×4 (01:00→20:56)
[2016-07-25 05:44] LABS: Glucose,Whole Blood 76 mg/dL (75-99)
[2016-07-25 06:49] LABS: Anisocytosis Slight; Basophils % (A) 1 %; CH 33.9; Eosinophils # (A) 0.3 k/uL (0-0.7); Eosinophils % (A) 6 %; HCT 36.3 % (34.0-46.0); HGB 11.7 gm/dL (11.4-16.0); Luc # (Auto) 0.21; Luc % (Auto) 4; Lymphocytes # (A) 1.2 k/uL (1.0-4.8); Lymphocytes % (A) 23 %; MCH 32.4 pg (25.0-35.0); MCHC 32.3 g/dL (31.0-37.0); MCV 100.5 fL (80.0-100.0); Macrocytosis Slight; Mean Platelet Volume 8.1; Monocytes # (A) 0.7 k/uL (0-1.0); Monocytes % (A) 14 %; Neutrophils # (A) 2.7 k/uL (1.3-7.7); Neutrophils % (A) 52 %; RBC 3.61 m/uL (3.80-5.40); WBC 5.1 k/uL (3.8-10.6)
[2016-07-25 07:02] LABS: Glucose 74 mg/dL (74-99); Total Protein 6.1 g/dL (6.3-8.2)
[2016-07-25 07:03] LABS: ALT 55 U/L (9-52); AST 58 U/L (14-36); Alkaline Phosphatase 81 U/L (38-126); Anion Gap 6 mmol/L; Blood Urea Nitrogen 15 mg/dL (7-17); Carbon Dioxide 29 mmol/L (22-30); Chloride 104 mmol/L (98-107); Magnesium 1.6 mg/dL (1.6-2.3); Non-African American GFR(MDRD) 54 (>60 ml/min/1.73 sqM); Sodium 139 mmol/L (137-145); Total Bilirubin 2.5 mg/dL (0.2-1.3)
[2016-07-25] MEDS: ATENOLOL 50 MG TAB PO SCH (08:52)
[2016-07-25] MEDS: ASPIRIN 81 MG CHEW PO SCH (08:52)
[2016-07-25] MEDS: CHLORTHALIDONE 25 MG TAB PO SCH (08:53)
[2016-07-25] MEDS: metFORMIN 500 MG TAB PO SCH ×2 (08:53→20:57)
[2016-07-25] MEDS: RIFAXIMIN 550 MG TABLET PO SCH ×2 (08:53→20:57)
[2016-07-25] MEDS: FERROUS SULFATE 325 MG TAB PO SCH ×2 (08:53→20:57)
[2016-07-25] MEDS: LACTULOSE 20 GM/30 ML CUP PO SCH ×3 (08:53→20:57)
[2016-07-25] MEDS: SPIRONOLACTONE 25 MG TAB PO SCH (08:54)
[2016-07-25 09:33] LABS: Glucose,Whole Blood 147 mg/dL (75-99)
[2016-07-25] MEDS: MAGNESIUM SULFATE-D5W PMX 1 GM in DEXTROSE/WATER 1 100ML.BAG IVPB SCH ×2 (11:37→12:47)
--- NOTE | 2016-07-25 11:53 | PN ---
DATE OF SERVICE: 07/24/2016 This 60-year-old woman was admitted with CHF, acute exacerbation, also liver disease also. The patient was evaluated at [facility] and currently being followed by [facility] gastroenterology and liver team. A 2-D echo with Doppler was done today. The 2-D echo with Doppler showed ejection fraction about 55% indicating diastolic dysfunction as well as moderate pericardial effusion, mild valvular abnormalities. Otherwise, the patient is still having shortness of breath. The patient is on diuretics this time. PAST MEDICAL HISTORY: Reviewed. REVIEW OF SYSTEMS: CARDIOVASCULAR: As mentioned earlier. RESPIRATORY: As mentioned earlier. GI: No nausea. : No dysuria. Nervous system: No numbness or weakness. Current medications are reviewed and include: 1. Aspirin 81 mg. 2. Tenormin 50 mg. 3. Hygroton. 4. Vitamin D. 5. Iron sulfate. 6. Folic acid 1 mg. 7. Lasix 40 mg IV b.i.d. 9. Cephalexin. 10. Glucophage. 11. Multivitamin. 13. Aldactone. 14. Vitamin B1. 15. Ultram. PHYSICAL EXAMINATION: The patient is alert and oriented x3. Pulse is 50, blood pressure is 108/53, respirations 16, temperature 97.8, pulse ox 97% on room air. HEENT: Conjunctivae normal. Oral mucosa moist. NECK: No jugular venous distention. No carotid bruit. No lymph node enlargement. CARDIOVASCULAR: S1, S2, muffled. No murmur. No thrills. RESPIRATORY: Breath sounds diminished at the bases. A few scattered rhonchi and few crackles in the bases. ABDOMEN: Soft, obese, nontender. Legs: Bilateral leg edema. Nervous system: Higher function as mentioned earlier. Moves all 4 limbs. No focal motor or sensory deficits. LYMPHATICS: No lymph nodes palpable in the neck, axillae or groin. SKIN: No ulcer, rash or bleeding. LABS: WBC 4.8, hemoglobin is 10.6, platelets 82 and bilirubin is 2, AST is 49, which is stable. Albumin 2.1. ASSESSMENT: 1. Congestive heart failure, acute exacerbation, with acute on chronic diastolic dysfunction, ejection fraction about 55%. 2. LA moderately dilated. 3. Moderate pericardial and pleural effusion on the 2-D echo. 4. Chest discomfort, improved. 5. Bilateral pleural effusion secondary to possible cirrhosis of the liver. 6. History of anasarca. 7. History of cryptogenic cirrhosis, being followed by [facility] gastroenterology. 8. Diabetes mellitus type 2. 9. History of gastroesophageal reflux disease. 10. Hypertension. 11. Hyperlipidemia. 12. History of anemia. 13. Recent cardiac catheterization from elsewhere through radial approach. 14. History of cholecystectomy. 15. History of ectopic . 16. History of increased INR possibly secondary to chronic liver disease. 17. D-dimer with no evidence of pulmonary embolus. 18. Increased random blood sugar. 19. Increased total bilirubin. 20. Increased AST, possibly secondary cirrhosis of the liver. 21. Hypoalbuminemia with mild to moderate protein calorie malnutrition with body mass index of 38. 22. History of duodenal ulcer. 23. FULL CODE. RECOMMENDATIONS AND DISCUSSION: In this this 60-year-old woman who presented with multiple complex medical issues, we will monitor the patient closely. Continue with the diuretics and increase the diuretics to 40 milligrams q.8 at this time and closely follow with cardiology. Monitor fluid and electrolytes balance closely. No added salt diet. Otherwise, I would continue the current medications. Continue symptomatic treatment. Guarded prognosis because of multiple complex medical issues. Further recommendations to follow. See orders for further details. The patient needs to be on long-standing diuretics also. MTDD
[2016-07-25 12:31] LABS: Glucose,Whole Blood 193 mg/dL (75-99)
--- NOTE | 2016-07-25 12:46 | P.PN ---
Subjective Principal diagnosis: Congestive heart failure This is a pleasant 60-year-old female patient with a past medical history significant for cryptogenic cirrhosis of the liver, diabetes, hypertension, and dyslipidemia, was admitted to the hospital with progressive exertional dyspnea and bilateral lower extremities edema. She was diagnosed with congestive heart failure exacerbation and she was started on Lasix IV. She underwent an echocardiogram which showed preserved left ventricular systolic function without any significant valvular abnormalities. Please note that the patient underwent a heart catheterization recently at [facility] and the cath was reported as normal. On follow-up with her today, she continues to be short of breath and continues to have orthopnea. Also on physical examination she still have bilateral pedal edema. I would consider continue the patient on the Lasix IV. The kidney function continues to be normal. Objective - Vital Signs Vital signs: Vital Signs Temp 96.3 F L 07/25/16 08:50 Pulse 55 L 07/25/16 11:40 Resp 16 07/25/16 11:41 BP 105/55 07/25/16 11:40 Pulse Ox 99 07/25/16 11:40 Intake & Output 07/24/16 07/25/16 07/25/16 18:59 06:59 18:59 Intake Total 1000 200 Output Total 600 1900 350 Balance 400 -1900 -150 Weight 89.7 kg Intake: IV 200 Magnesium Sulfate-D5w Pmx 200 1 gm In Dextrose/Water 1 100ml.bag @ 100 mls/hr IVPB Q1H [facility] Rx#: [id number] Oral 1000 Output: Urine 600 1900 350 Other: Voiding Method Toilet Toilet Toilet # Voids 3 - Constitutional General appearance: Present: no acute distress - Labs CBC & Chem 7: 07/25/16 05:44 07/25/16 05:44 Labs: Abnormal Lab Results - Last 24 Hours (Table) 07/24/16 07/25/16 07/25/16 Range/Units 20:19 05:44 05:44 RBC 3.61 L (3.80-5.40) m/uL MCV 100.5 H (80.0-100.0) fL RDW 16.0 H (11.5-15.5) % Plt Count 91 L (150-450) k/uL POC Glucose (mg/dL) 110 H (75-99) mg/dL Total Bilirubin 2.5 H (0.2-1.3) mg/dL AST 58 H (14-36) U/L ALT 55 H (9-52) U/L Total Protein 6.1 L (6.3-8.2) g/dL Albumin 2.5 L (3.5-5.0) g/dL 07/25/16 07/25/16 Range/Units 09:12 12:25 RBC (3.80-5.40) m/uL MCV (80.0-100.0) fL RDW (11.5-15.5) % Plt Count (150-450) k/uL POC Glucose (mg/dL) 147 H 193 H (75-99) mg/dL Total Bilirubin (0.2-1.3) mg/dL AST (14-36) U/L ALT (9-52) U/L Total Protein (6.3-8.2) g/dL Albumin (3.5-5.0) g/dL Assessment and Plan Plan: Assessment #1 congestive heart failure exacerbation secondary to diastolic dysfunction #2 cryptogenic cirrhosis of the liver #3 multiple comorbid conditions Plan #1 continue the Lasix IV for at least additional 24 hours #2 continue monitor the kidney function and electrolytes #3 continue following up with her
[2016-07-25] MEDS: PHYTONADIONE ORAL 5 MG/5 ML ORAL.SYRG PO SCH (14:08)
[2016-07-25] MEDS: THIAMINE 100 MG TAB PO SCH (14:09)
[2016-07-25] MEDS: MULTIVITAMINS, THERA 1 EACH TAB PO SCH (14:09)
[2016-07-25] MEDS: FOLIC ACID 1 MG TAB PO SCH (14:09)
[2016-07-25] MEDS: CHOLECALCIFEROL 1,000 UNIT TAB PO SCH (14:09)
[2016-07-25] MEDS: IBUPROFEN 200 MG TAB PO PRN (16:55)
[2016-07-25 17:09] LABS: Glucose,Whole Blood 85 mg/dL (75-99)
[2016-07-25 20:20] LABS: Glucose,Whole Blood 128 mg/dL (75-99)
[2016-07-26 06:16] LABS: Magnesium 1.7 mg/dL (1.6-2.3); Potassium 3.4 mmol/L (3.5-5.1); Total Bilirubin 2.2 mg/dL (0.2-1.3); Total Protein 5.3 g/dL (6.3-8.2)
[2016-07-26 06:32] LABS: Glucose,Whole Blood 80 mg/dL (75-99)
[2016-07-26 06:39] LABS: Anisocytosis Slight; Aty Lym Flag Slight; CH 33.5; CHCM 34.3; HCT 33.3 % (34.0-46.0); HDW 3.07; HGB 10.9 gm/dL (11.4-16.0); MCH 32.4 pg (25.0-35.0); MCHC 32.9 g/dL (31.0-37.0); MCV 98.3 fL (80.0-100.0); Macrocytosis Slight; Mean Platelet Volume 7.6; RBC 3.38 m/uL (3.80-5.40); RDW 16.1 % (11.5-15.5); WBC 5.1 k/uL (3.8-10.6); WBC (Perox) 5.08
[2016-07-26] MEDS: FUROSEMIDE 10 MG/ML 4 ML VIAL IV SCH ×2 (06:51→15:49)
[2016-07-26 07:14] LABS: Add Differential Manual Differential
[2016-07-26 07:18] LABS: Manual Review Performed; Nucleated Red Blood Cells 0 /100 WBC (0-0); Total Cells Counted 100
[2016-07-26] MEDS ORDERED: POTASSIUM CHLORIDE ER 20 MEQ TAB.ER PO SCH (08:00)
[2016-07-26] MEDS: CHLORTHALIDONE 25 MG TAB PO SCH (08:50)
[2016-07-26] MEDS: LACTULOSE 20 GM/30 ML CUP PO SCH ×3 (08:51→20:41)
[2016-07-26] MEDS: ASPIRIN 81 MG CHEW PO SCH (08:51)
[2016-07-26] MEDS: RIFAXIMIN 550 MG TABLET PO SCH ×2 (08:51→20:41)
[2016-07-26] MEDS: FERROUS SULFATE 325 MG TAB PO SCH ×2 (08:51→20:41)
[2016-07-26] MEDS: ATENOLOL 50 MG TAB PO SCH (08:51)
[2016-07-26] MEDS: metFORMIN 500 MG TAB PO SCH ×2 (08:52→20:41)
[2016-07-26] MEDS: SPIRONOLACTONE 25 MG TAB PO SCH (08:53)
[2016-07-26] MEDS: PHYTONADIONE ORAL 5 MG/5 ML ORAL.SYRG PO SCH (09:49)
[2016-07-26] MEDS: FOLIC ACID 1 MG TAB PO SCH (11:34)
[2016-07-26] MEDS: MULTIVITAMINS, THERA 1 EACH TAB PO SCH (11:34)
[2016-07-26] MEDS: THIAMINE 100 MG TAB PO SCH (11:34)
[2016-07-26] MEDS: CHOLECALCIFEROL 1,000 UNIT TAB PO SCH (11:34)
[2016-07-26 12:01] LABS: Glucose,Whole Blood 112 mg/dL (75-99)
--- NOTE | 2016-07-26 15:26 | PN ---
DATE OF SERVICE: 07/25/2016 This 60-year-old woman was admitted with CHF acute exacerbation, on intravenous Lasix. The patient also had cirrhosis of the liver and multiple other medical issues. Also Cardiology is following the patient closely. Patient feeling much better. Still has some shortness of breath. On exam, alert and oriented times three. Pulse 50, blood pressure 101/55, respirations 16, temperature 97.4. Pulse ox 97% on room air. HEENT: Conjunctivae normal. Oral mucosa moist. NECK: No jugular venous distention. No carotid bruit. CARDIOVASCULAR: S1, S2. No S3, no S4. RESPIRATORY: Breath sounds diminished at the bases. Bilateral scattered rhonchi and crackles. Expiratory wheezing. ABDOMEN: Soft, obese, nontender. LEGS: No edema. No swelling. CENTRAL NERVOUS SYSTEM: No focal deficits. LABS: CBC, MCV . Total bilirubin is 2.5, AST 58, ALT is 55. Albumin 2.5. ASSESSMENT: 1. Congestive heart failure acute exacerbation with acute on chronic diastolic dysfunction, ejection fraction 50-55%. 2. LA moderate dilated. 3. Moderate pericardial and pleural effusion on the 2-D echo. 4. Chest discomfort, improved. 5. Bilateral pleural effusion secondary to possible cirrhosis of the liver. 6. History of anasarca. 7. History of cryptogenic cirrhosis being followed by [facility] gastroenterology. 8. Diabetes mellitus type 2. 9. History of gastroesophageal reflux disease. 10. Hypertension. 11. Hyperlipidemia. 12. History of anemia. 13. History of recent cardiac catheterization from elsewhere through radial approach. 14. History of cholecystectomy. 15. History of ( ). 16. Increased INR possibly secondary to chronic liver disease. 17. D. dimer with no evidence of pulmonary embolism. 18. Increased random blood sugar. 19. Increased total bilirubin. 20. Increased AST possibly secondary to cirrhosis of liver. 21. Hypoalbuminemia with mild to moderate protein calorie malnutrition with body mass index 38. 22. History of duodenal ulcer. 23. FULL CODE. RECOMMENDATIONS AND DISCUSSION: Recommend to continue current medications. Continue to monitor. Symptomatic treatment. Otherwise, at this time, continue with diuresis. Closely follow with cardiology. Guarded prognosis. Further recommendations to follow. MTDD
[2016-07-26] MEDS: FUROSEMIDE 40 MG TAB PO SCH (15:37)
[2016-07-26] MEDS: MAGNESIUM SULFATE-D5W PMX 1 GM in DEXTROSE/WATER 1 100ML.BAG IVPB SCH ×2 (15:38→16:43)
--- NOTE | 2016-07-26 15:58 | P.PN ---
Subjective Principal diagnosis: CHF This is a pleasant 60-year-old female with history of hypertension, diabetes, hyperlipidemia, history of cirrhosis of the liver, cryptogenic cirrhosis, history of generalized anasarca, who recently underwent a cardiac catheterization at [facility] on Tuesday of this week. Around midnight that night, while the patient was at home, she states that she woke up suddenly unable to breathe. She had to sit up completely in bed, states that she still was short of breath however it improved significantly upon sitting. They called [facility] and were recommended to come to [facility] for admission. Patient was felt to be in congestive cardiac failure, was initiated on IV Lasix , continues to diurese well. Her weight is down 2 kg today. BUN 18 , creatinine 1.2, potassium 3.4. Magnesium level I.7. Patient states that her breathing is mildly improving every day. Still has mild peripheral edema. We will continue the IV Lasix for 24 hours, check lytes BUN and creatinine in the morning, continue to monitor intake and output along with daily weights closely. Objective - Vital Signs Vital signs: Vital Signs Temp 97.8 F 07/26/16 15:35 Pulse 51 L 07/26/16 15:35 Resp 17 07/26/16 15:50 BP 115/55 07/26/16 15:35 Pulse Ox 96 07/26/16 15:35 Intake & Output 07/25/16 07/26/16 07/26/16 18:59 06:59 18:59 Intake Total 200 294 298 Output Total 350 1200 1000 Balance -150 -205 -061 Weight 87.2 kg Intake: IV 200 4 IV Lasix 40 mg in 4 mL 4 Magnesium Sulfate-D5w Pmx 200 1 gm In Dextrose/Water 1 100ml.bag @ 100 mls/hr IVPB Q1H CORINNE Rx#: [id number] Oral 290 298 Output: Urine 350 1200 1000 Other: Voiding Method Toilet Toilet Toilet # Voids 1 # Bowel Movements 1 - Exam PHYSICAL EXAMINATION: HEENT: Head is atraumatic, normocephalic. Pupils equal, round. Neck is supple. There is elevated jugular venous pressure. HEART EXAMINATION: Heart S1, S2 normal. No murmur or gallop heard. CHEST EXAMINATION: Lungs reveal diminished air entry to bilateral bases. Right greater than the left. ABDOMEN: Soft, nontender. Bowel sounds are heard. No organomegaly noted. EXTREMITIES: 2+ peripheral pulses with 1+ evidence of peripheral edema and no calf tenderness noted. NEUROLOGIC patient is awake, alert and oriented -3. . - Labs CBC & Chem 7: 07/26/16 05:28 07/26/16 05:26 Labs: Abnormal Lab Results - Last 24 Hours (Table) 07/25/16 07/26/16 07/26/16 Range/Units 20:17 05:26 05:28 RBC 3.38 L (3.80-5.40) m/uL Hgb 10.9 L (11.4-16.0) gm/dL Hct 33.3 L (34.0-46.0) % RDW 16.1 H (11.5-15.5) % Plt Count 83 L (150-450) k/uL Potassium 3.4 L (3.5-5.1) mmol/L BUN 18 H (7-17) mg/dL Creatinine 1.20 H (0.52-1.04) mg/dL Glucose 72 L (74-99) mg/dL POC Glucose (mg/dL) 128 H (75-99) mg/dL Total Bilirubin 2.2 H (0.2-1.3) mg/dL AST 48 H (14-36) U/L Total Protein 5.3 L (6.3-8.2) g/dL Albumin 2.2 L (3.5-5.0) g/dL 07/26/16 Range/Units 11:59 RBC (3.80-5.40) m/uL Hgb (11.4-16.0) gm/dL Hct (34.0-46.0) % RDW (11.5-15.5) % Plt Count (150-450) k/uL Potassium (3.5-5.1) mmol/L BUN (7-17) mg/dL Creatinine (0.52-1.04) mg/dL Glucose (74-99) mg/dL POC Glucose (mg/dL) 112 H (75-99) mg/dL Total Bilirubin (0.2-1.3) mg/dL AST (14-36) U/L Total Protein (6.3-8.2) g/dL Albumin (3.5-5.0) g/dL Assessment and Plan Plan: Assessment and plan #1 congestive cardiac failure, LV function unknown at this time. Recommend continuing diuresing with IV Lasix. #2 hypertension #3 hyperlipidemia #4 cryptogenic cirrhosis of the liver, currently being evaluated at [facility] for the transplant list. #5 status post cardiac catheterization 2 days ago, coronaries reported to be normal Plan Echocardiogram with Doppler study was performed which revealed an ejection fraction greater than 55%, persistent pleural effusion. We'll continue current dose of IV Lasix, we will also repeat the patient's chest x-ray, if it continues to show a significant pleural effusion we may consider an ulcer some of the chest. DNP note has been reviewed, I agree with a documented findings and plan of care. Patient was seen and examined.
[2016-07-26 16:37] LABS: Glucose,Whole Blood 125 mg/dL (75-99)
--- NOTE | 2016-07-26 17:26 | US ---
EXAMINATION TYPE: US chest DATE OF EXAM: 07/26/2016 5:14 PM COMPARISON: X-ray in pacs CLINICAL HISTORY: Right pleural effusion. EXAM MEASUREMENTS: Right Pleural Effusion fluid pocket: 8.8 cm Right skin to fluid thickness: 3.2 cm Right side marked for possible thoracentesis outside the dept. Pulmonologists are able to review the images in the patient?s EMR. IMPRESSIONS: Right-sided pleural effusion as noted above.
--- NOTE | 2016-07-26 17:26 | US ---
EXAMINATION TYPE: US abdomen limited DATE OF EXAM: 07/26/2016 5:10 PM COMPARISON: No previous CLINICAL HISTORY: Ascites. TECHNOLOGIST IMPRESSION: Scanned all 4 quadrants: no abdominal ascites seen at this time IMPRESSION: No evidence for ascites at this time.
--- NOTE | 2016-07-26 19:40 | PN ---
DATE OF SERVICE: 07/26/2016 This 60 -year-old woman who was admitted with congestive heart failure, acute exacerbation is on Lasix IV push. The patient improving significantly. No chest pain. No palpitations. No fever. The patient also has history of anasarca and multiple other complex medical issues also. On exam, alert and oriented x3. Pulse 55, blood pressure 120/55, respiratory rate 16. Temperature 98 degrees. Pulse ox 94% on room air. HEENT: Conjunctivae normal. Oral mucosa moist. NECK: No jugular venous distention. CARDIOVASCULAR: S1, S2 muffled. RESPIRATORY : Breath sounds diminished at the bases. A few scattered rhonchi in the bases. ABDOMEN: Soft. Nontender. LEGS: No edema. No swelling. CENTRAL NERVOUS SYSTEM: No focal deficits. LABS: Hemoglobin 10.9, sodium 137, potassium 3.4. Albumin is 2.2. ASSESSMENT: 1. Congestive heart failure acute exacerbation with acute on chronic diastolic dysfunction, ejection fraction 50%. 2. LA moderately dilated. 3. Moderate pericardial effusion and pleural effusion on the 2-D echo. 4. Chest discomfort improved. 5. Bilateral pleural effusion secondary to possible cirrhosis of the liver. 6. History of anasarca. 7. History of cryptogenic cirrhosis being followed at [facility] gastroenterology team. 8. Diabetes mellitus type 2. 9. History of gastroesophageal reflux disease. 10. Hypertension. 11. Hyperlipidemia. 12. History of anemia. 13. History of recent cardiac catheterization elsewhere through radial approach. 14. History of cholecystectomy. 15. History of ectopic . 16. Increased possibly secondary to chronic liver disease and coagulopathy. 17. D-dimer with no evidence of pulmonary embolus. 18. Increased random blood sugar. 19. Increased total bilirubin. 20. Increased AST, possibly secondary to cirrhosis of the liver. 21. Hypoalbuminemia with mild to moderate protein calorie malnutrition. 22. Obesity, body mass index of 38. 23. History of duodenal ulcer. 24. FULL CODE. RECOMMENDATIONS AND DISCUSSION: In this 60-year-old woman who presented multiple complex medical issues, we will monitor the patient closely. Continue the current medications. Continue symptomatic treatment. We will initiate. We will reduce the dose of change the Lasix to p.o. and continue to monitor. Otherwise, the patient is definitely feeling better. Monitor creatinine closely. Further recommendations to follow. MTDD
[2016-07-26 20:26] LABS: Glucose,Whole Blood 158 mg/dL (75-99)
[2016-07-26] MEDS: IBUPROFEN 200 MG TAB PO PRN (21:59)
[2016-07-27 05:56] LABS: Glucose,Whole Blood 90 mg/dL (75-99)
[2016-07-27 06:30] LABS: Anisocytosis Slight; Aty Lym Flag Slight; CH 33.8; CHCM 34.6; HCT 33.7 % (34.0-46.0); HDW 3.15; HGB 11.4 gm/dL (11.4-16.0); MCH 33.2 pg (25.0-35.0); MCHC 33.8 g/dL (31.0-37.0); MCV 98.2 fL (80.0-100.0); Macrocytosis Slight; Mean Platelet Volume 7.2; RBC 3.43 m/uL (3.80-5.40); WBC 4.4 k/uL (3.8-10.6); WBC (Perox) 4.67
[2016-07-27 06:44] LABS: Calcium 8.8 mg/dL (8.4-10.2); Potassium 3.6 mmol/L (3.5-5.1); Total Protein 5.3 g/dL (6.3-8.2)
[2016-07-27 06:53] LABS: Add Differential Manual Differential
[2016-07-27 06:57] LABS: Manual Review Performed; Nucleated Red Blood Cells 0 /100 WBC (0-0); Total Cells Counted 100
--- NOTE | 2016-07-27 08:16 | XR ---
EXAMINATION TYPE: XR chest 2V DATE OF EXAM: 07/26/2016 5:26 PM COMPARISON: Prior chest x-ray July HISTORY: Congestive heart failure, coronary artery disease TECHNIQUE: Frontal and lateral views of the chest are obtained. FINDINGS: Airspace disease persists at the right lower lobe. No pneumothorax, there is a right-sided pleural effusion present. Cardiomediastinal silhouette, pulmonary vascularity and glen within normal limits. There are overlying cardiac leads. Surgical clips in the right upper quadrant. IMPRESSION: Correlate for right lower lobe pneumonia versus atelectasis and associated effusion, carolyn ma not excluded.
[2016-07-27] MEDS: LACTULOSE 20 GM/30 ML CUP PO SCH ×3 (08:39→20:10)
[2016-07-27] MEDS: metFORMIN 500 MG TAB PO SCH ×2 (08:39→20:11)
[2016-07-27] MEDS: FUROSEMIDE 40 MG TAB PO SCH ×2 (08:39→15:22)
[2016-07-27] MEDS: ASPIRIN 81 MG CHEW PO SCH (08:39)
[2016-07-27] MEDS: ATENOLOL 50 MG TAB PO SCH (08:39)
[2016-07-27] MEDS: SPIRONOLACTONE 25 MG TAB PO SCH (08:40)
[2016-07-27] MEDS: RIFAXIMIN 550 MG TABLET PO SCH ×2 (08:40→20:11)
[2016-07-27] MEDS: FERROUS SULFATE 325 MG TAB PO SCH ×2 (08:40→20:11)
[2016-07-27] MEDS: CHLORTHALIDONE 25 MG TAB PO SCH (08:40)
[2016-07-27] MEDS ORDERED: POTASSIUM CHLORIDE ER 20 MEQ TAB.ER PO ONE (09:00)
[2016-07-27] MEDS: FOLIC ACID 1 MG TAB PO SCH (11:54)
[2016-07-27] MEDS: PHYTONADIONE ORAL 5 MG/5 ML ORAL.SYRG PO SCH (11:54)
[2016-07-27] MEDS: CHOLECALCIFEROL 1,000 UNIT TAB PO SCH (11:54)
[2016-07-27] MEDS: THIAMINE 100 MG TAB PO SCH (11:55)
[2016-07-27] MEDS: MULTIVITAMINS, THERA 1 EACH TAB PO SCH (11:55)
[2016-07-27 11:58] LABS: Glucose,Whole Blood 130 mg/dL (75-99)
--- NOTE | 2016-07-27 12:30 | P.PN ---
Subjective Principal diagnosis: CHF This is a pleasant 60-year-old female with history of hypertension, diabetes, hyperlipidemia, history of cirrhosis of the liver, cryptogenic cirrhosis, history of generalized anasarca, who recently underwent a cardiac catheterization at [facility] on Tuesday of this week. Around midnight that night, while the patient was at home, she states that she woke up suddenly unable to breathe. Patient was felt to be in congestive cardiac failure, was initiated on IV Lasix , continues to diurese well. Her weight is down 1 kg today. BUN 21, creatinine 1.4, potassium 3.6. Magnesium level 2.0. Patient states that her breathing is mildly improving every day. Although with certain activities continues to be short of breath. An ultrasound of the chest was ordered yesterday which revealed a right-sided pleural effusion measuring approximately 8.8 cm, this was marked for possible thoracentesis in consultation with pulmonary is going to be obtained today. Objective - Vital Signs Vital signs: Vital Signs Temp 97 F L 07/27/16 08:00 Pulse 48 L 07/27/16 11:52 Resp 17 07/27/16 11:52 BP 101/54 07/27/16 11:52 Pulse Ox 97 07/27/16 11:52 Intake & Output 07/26/16 07/27/16 07/27/16 18:59 06:59 18:59 Intake Total 898 0 100 Output Total 1650 950 Balance -752 -950 100 Weight 86 kg Intake: IV 0 IV Lasix 40 mg in 4 mL 0 Oral 898 100 Output: Urine 1650 950 Other: Voiding Method Toilet Toilet # Voids 1 - Exam PHYSICAL EXAMINATION: HEENT: Head is atraumatic, normocephalic. Pupils equal, round. Neck is supple. There is elevated jugular venous pressure. HEART EXAMINATION: Heart S1, S2 normal. No murmur or gallop heard. CHEST EXAMINATION: Lungs reveal diminished air entry to right posterior base1/[address] way up. ABDOMEN: Soft, nontender. Bowel sounds are heard. No organomegaly noted. EXTREMITIES: 2+ peripheral pulses with 1+ evidence of peripheral edema and no calf tenderness noted. NEUROLOGIC patient is awake, alert and oriented -3. . - Labs CBC & Chem 7: 07/27/16 05:51 07/27/16 05:49 Labs: Abnormal Lab Results - Last 24 Hours (Table) 07/26/16 07/26/16 07/27/16 Range/Units 16:33 20:24 05:49 RBC (3.80-5.40) m/uL Hct (34.0-46.0) % RDW (11.5-15.5) % Plt Count (150-450) k/uL Lymphocytes # (Manual) (1.0-4.8) k/uL Sodium 135 L (137-145) mmol/L BUN 21 H (7-17) mg/dL Creatinine 1.40 H (0.52-1.04) mg/dL Glucose 73 L (74-99) mg/dL POC Glucose (mg/dL) 125 H 158 H (75-99) mg/dL Total Bilirubin 2.0 H (0.2-1.3) mg/dL AST 45 H (14-36) U/L Total Protein 5.3 L (6.3-8.2) g/dL Albumin 2.2 L (3.5-5.0) g/dL 07/27/16 07/27/16 Range/Units 05:51 11:54 RBC 3.43 L (3.80-5.40) m/uL Hct 33.7 L (34.0-46.0) % RDW 16.0 H (11.5-15.5) % Plt Count 80 L (150-450) k/uL Lymphocytes # (Manual) 0.9 L (1.0-4.8) k/uL Sodium (137-145) mmol/L BUN (7-17) mg/dL Creatinine (0.52-1.04) mg/dL Glucose (74-99) mg/dL POC Glucose (mg/dL) 130 H (75-99) mg/dL Total Bilirubin (0.2-1.3) mg/dL AST (14-36) U/L Total Protein (6.3-8.2) g/dL Albumin (3.5-5.0) g/dL Assessment and Plan Plan: Assessment and plan #1 congestive cardiac failure, LV function unknown at this time. Recommend continuing diuresing with IV Lasix. Persistent right sided pleural effusion by ultrasound. #2 hypertension #3 hyperlipidemia #4 cryptogenic cirrhosis of the liver, currently being evaluated at [facility] for the transplant list. #5 status post cardiac catheterization 2 days ago, coronaries reported to be normal Plan Echocardiogram with Doppler study was performed which revealed an ejection fraction greater than 55%, persistent pleural effusion. Pulmonary evaluation for possible thoracentesis. Ultrasound of the abdomen does not suggest any ascites. DNP note has been reviewed, I agree with a documented findings and plan of care. Patient was seen and examined.
--- NOTE | 2016-07-27 15:31 | P.CNPUL ---
History of Present Illness Consult date: 07/27/16 Requesting physician: Aroldo Fishman Reason for consult: abnormal CXR/CT Chief complaint: Shortness of breath. History of present illness: This is a very pleasant 60-year-old female patient who follows with Dr. Whittington as her primary care physician. She has a history of diabetes mellitus , hypertension, hyperlipidemia, iron deficiency anemia, obesity, gastroesophageal reflux disease and cryptogenic cirrhosis of the liver. She was recently seen at [facility] by Dr. Barnett. The plan is for possible liver transplant. She had undergone cardiac catheterization there on 07/21/2016 as an outpatient. She was told she only had minimal coronary artery disease. Following that same evening and into the morning she developed significant shortness of breath, chest tightness, lower extremity edema and abdominal fullness. She presented here to the hospital on 07/22/2016 for the same. A computed tomography scan of the chest ruled out pulmonary embolism. There was noted bilateral pleural effusions right greater than left. She been treated with diuretics without significant improvement. She continues with a moderate right-sided pleural effusion and we are consulted today for the same. An ultrasound of the chest reveals 8.8 cm right-sided pleural effusion. Currently, she is seen on the selective care unit. She is awake and alert in no acute distress. She is maintaining good O2 saturations in the mid 90s on room air. She denies any worsening shortness of breath, cough or congestion. She remains in a negative balance. Review of Systems 14 point review of system was conducted. All negative other than as mentioned in HPI. Past Medical History Past Medical History: Blood Disorder, Diabetes Mellitus, GERD/Reflux, Hyperlipidemia, Hypertension Additional Past Medical History / Comment(s): PT'S LAST HGB 7.5 -HAD 2 IRON TRANSFUSIONS & ON IRON DAILY, duodenal ulcer. TYPE 2 DIABETIC- ORAL RX ONLY liver cirrhosis unk cause inprocess of getting on getting on liver transplant list .pt stated takes lactulose and has loose to watery stools from that. History of Any Multi-Drug Resistant Organisms: None Reported Past Surgical History: Cholecystectomy, Heart Catheterization, Hysterectomy, Tonsillectomy Additional Past Surgical History / Comment(s): ectopic outside of uterus, dc'd from [facility] after heart cath(radial approach) Past Anesthesia/Blood Transfusion Reactions: Motion Sickness Additional Past Anesthesia/Blood Transfusion Reaction / Comment(s): SOMETIMES IN CAR Past Psychological History: No Psychological Hx Reported Smoking Status: Never smoker Past Alcohol Use History: None Reported Past Drug Use History: None Reported - Past Family History Father Family Medical History: Myocardial Infarction (SD) Additional Family Medical History / Comment(s): HAD MASSIVE SD Mother Family Medical History: Cancer Additional Family Medical History / Comment(s): COLON CA Brother(s) Family Medical History: Cancer Additional Family Medical History / Comment(s): LEUKEMIA- AND ALSO BROTHER HAD BLOOD CLOT IN LEG AFTER FX Medications and Allergies Home Medications Medication Instructions Recorded Confirmed Type Atenolol/Chlorthalidone [Tenoretic 1 tab PO DAILY 11/30/13 07/22/16 History 50 Tablet] Cholecalciferol [Vitamin D3] 2,000 unit PO DAILY 11/11/15 07/22/16 History Ferrous Sulfate [Feosol] 325 mg PO BID 11/11/15 07/22/16 History metFORMIN HCL [Glucophage] 500 mg PO BID 11/11/15 07/22/16 History Aspirin 81 mg PO DAILY 07/22/16 07/22/16 History B Complex-Vit C-Vit E-Zinc [Z-Bec] 1 tab PO DAILY 07/22/16 07/22/16 History Folic Acid 1 mg PO DAILY 07/22/16 07/22/16 History Lactulose [Cephulac] 10 gm PO TID 07/22/16 07/22/16 History Multivitamin Liquid 5 ml PO DAILY 07/22/16 07/22/16 History Phytonadione [Vitamin K] 5 mg PO DAILY 07/22/16 07/22/16 History Rifaximin [Xifaxan] 550 mg PO BID 07/22/16 07/22/16 History Spironolactone [Aldactone] 25 mg PO DAILY 07/22/16 07/22/16 History Thiamine [Vitamin B-1] 100 mg PO DAILY 07/22/16 07/22/16 History traMADol HCl [Ultram] 50 mg PO Q6H PRN 07/22/16 07/22/16 History Allergies Allergy/AdvReac Type Severity Reaction Status Date / Time No Known Allergies Allergy Verified 07/22/16 11:12 Physical Exam Vitals: Vital Signs Temp Pulse Pulse Resp BP Pulse Ox 07/27/16 11:52 48 L 17 101/54 97 07/27/16 11:19 50 L 07/27/16 08:00 97 F L 50 L 17 111/49 95 07/27/16 04:00 50 L 18 107/59 98 07/27/16 00:00 73 17 105/63 97 07/26/16 20:06 98 07/26/16 20:00 97.5 F L 53 L 16 99/58 98 07/26/16 15:50 17 07/26/16 15:35 97.8 F 51 L 50 L 17 115/55 96 Intake and Output 07/27/16 07/27/16 07/27/16 06:59 14:59 22:59 Intake Total 0 920 Output Total 550 Balance -550 920 Intake: IV 0 IV Lasix 40 mg in 4 mL 0 Oral 220 Blood Product 700 Output: Urine 550 Other: Voiding Method Toilet # Voids 1 Weight 86 kg GENERAL EXAM: Alert, comfortable in no apparent distress. HEAD: Normocephalic. EYES: Normal reaction of pupils, equal size. NOSE: Clear with pink turbinates. THROAT: No erythema or exudates. NECK: No masses, no JVD. CHEST: No chest wall deformity. LUNGS: Equal air entry with crackles in the posterior bases more so on the right , diminished. CVS: S1 and S2 normal with no audible murmurs, regular rhythm. ABDOMEN: Bowel sounds are present. No significant fluid palpated. SPINE: No scoliosis or deformity SKIN: No rashes CENTRAL NERVOUS SYSTEM: No focal deficits, tone is normal in all 4 extremities. Extremities: There is trace peripheral edema. No clubbing, no cyanosis. Peripheral pulses are intact. Results - Laboratory Findings CBC and BMP: 07/27/16 05:51 07/27/16 05:49 PT/INR, D-dimer PT 13.5 sec (9.0-12.0) H 07/22/16 11:00 INR 1.4 (<1.1) 07/22/16 11:00 D-Dimer 5.41 mg/L FEU (<0.60) H 07/22/16 11:00 Abnormal lab findings: Abnormal Labs 07/24/16 07/24/16 07/25/16 12:04 20:19 05:44 RBC 3.61 L Hgb Hct MCV 100.5 H RDW 16.0 H Plt Count 91 L Lymphocytes # (Manual) Sodium Potassium BUN Creatinine Glucose POC Glucose (mg/dL) 139 H 110 H Total Bilirubin AST ALT Total Protein Albumin 07/25/16 07/25/16 07/25/16 05:44 09:12 12:25 RBC Hgb Hct MCV RDW Plt Count Lymphocytes # (Manual) Sodium Potassium BUN Creatinine Glucose POC Glucose (mg/dL) 147 H 193 H Total Bilirubin 2.5 H AST 58 H ALT 55 H Total Protein 6.1 L Albumin 2.5 L 07/25/16 07/26/16 07/26/16 20:17 05:26 05:28 RBC 3.38 L Hgb 10.9 L Hct 33.3 L MCV RDW 16.1 H Plt Count 83 L Lymphocytes # (Manual) Sodium Potassium 3.4 L BUN 18 H Creatinine 1.20 H Glucose 72 L POC Glucose (mg/dL) 128 H Total Bilirubin 2.2 H AST 48 H ALT Total Protein 5.3 L Albumin 2.2 L 07/26/16 07/26/16 07/26/16 11:59 16:33 20:24 RBC Hgb Hct MCV RDW Plt Count Lymphocytes # (Manual) Sodium Potassium BUN Creatinine Glucose POC Glucose (mg/dL) 112 H 125 H 158 H Total Bilirubin AST ALT Total Protein Albumin 07/27/16 07/27/16 07/27/16 05:49 05:51 11:54 RBC 3.43 L Hgb Hct 33.7 L MCV RDW 16.0 H Plt Count 80 L Lymphocytes # (Manual) 0.9 L Sodium 135 L Potassium BUN 21 H Creatinine 1.40 H Glucose 73 L POC Glucose (mg/dL) 130 H Total Bilirubin 2.0 H AST 45 H ALT Total Protein 5.3 L Albumin 2.2 L - Diagnostic Findings Chest x-ray: image reviewed CT scan - chest: image reviewed Assessment and Plan Plan: Impression: #1 Acute exacerbation of diastolic congestive heart failure, preserved left ventricular systolic function with estimated ejection fraction 55%. Recent cardiac catheterization negative for significant coronary artery disease at [facility] in 07/21/2016. #2 Moderate right-sided pleural effusion measuring 8.8 cm. No real improvement post diuretics. #3 Cardiogenic cirrhosis of the liver, under investigation for possible transplant at [facility]. #4 Diabetes mellitus. #5 Hypertension. #6 Hyperlipidemia. #7 History of iron deficiency anemia. Plan: The patient was seen and evaluated by Dr. Mckenzie. Her chest x-ray and CAT scan were reviewed. She remains stable from the pulmonary standpoint maintaining good O2 saturations in the mid 90s on room air. We'll repeat her chest x-ray in the a.m. and if there is significant fluid still we'll plan on a thoracentesis. She may develop recurrent pleural effusion secondary to the cryptogenic liver cirrhosis. We'll continue to follow make further recommendations based on her clinical status.
[2016-07-27 17:08] LABS: Glucose,Whole Blood 113 mg/dL (75-99)
[2016-07-27 19:59] LABS: Glucose,Whole Blood 142 mg/dL (75-99)
[2016-07-28 05:20] LABS: Glucose,Whole Blood 75 mg/dL (75-99)
[2016-07-28 06:08] LABS: Aty Lym Flag Slight; CH 33.8; CHCM 34.8; HCT 35.4 % (34.0-46.0); HDW 3.16; MCH 33.2 pg (25.0-35.0); MCHC 33.9 g/dL (31.0-37.0); Macrocytosis Slight; Mean Platelet Volume 7.4; RBC 3.62 m/uL (3.80-5.40); WBC 4.5 k/uL (3.8-10.6); WBC (Perox) 4.53
[2016-07-28 06:23] LABS: Calcium 9.1 mg/dL (8.4-10.2); Potassium 3.8 mmol/L (3.5-5.1); Total Bilirubin 2.3 mg/dL (0.2-1.3); Total Protein 5.9 g/dL (6.3-8.2)
[2016-07-28 07:07] LABS: Add Differential Manual Differential
[2016-07-28 07:12] LABS: Nucleated Red Blood Cells 0 /100 WBC (0-0); Total Cells Counted 100
[2016-07-28 07:18] LABS: Toxic Vacuolation Present
[2016-07-28 07:19] LABS: Polychromasia Present
--- NOTE | 2016-07-28 08:10 | XR ---
EXAMINATION TYPE: XR chest 2V DATE OF EXAM: 07/28/2016 6:30 AM COMPARISON: 07/26/2016 HISTORY: Pleural effusions TECHNIQUE: Frontal and lateral views of the chest are obtained. FINDINGS: There is mild infiltrate at the right base may be compressive atelectasis. In the lateral projection posterior right pleural effusion is present. A minimal second posterior pleural effusion i s likely present on the left. Heart size is normal. Pulmonary vasculature is normal IMPRESSION: 1. Small right and minimal left posterior pleural effusions. Compressive atelectasis may be at the ri ght base. Findings are similar to prior.
[2016-07-28] MEDS: ASPIRIN 81 MG CHEW PO SCH (08:26)
[2016-07-28] MEDS: FERROUS SULFATE 325 MG TAB PO SCH ×2 (08:27→20:42)
[2016-07-28] MEDS: CHLORTHALIDONE 25 MG TAB PO SCH (08:27)
[2016-07-28] MEDS: FUROSEMIDE 40 MG TAB PO SCH ×2 (08:27→16:29)
[2016-07-28] MEDS: ATENOLOL 50 MG TAB PO SCH (08:28)
[2016-07-28] MEDS: LACTULOSE 20 GM/30 ML CUP PO SCH ×3 (08:28→20:41)
[2016-07-28] MEDS: SPIRONOLACTONE 25 MG TAB PO SCH (08:29)
[2016-07-28] MEDS: RIFAXIMIN 550 MG TABLET PO SCH ×2 (08:29→20:42)
[2016-07-28] MEDS: metFORMIN 500 MG TAB PO SCH ×2 (08:29→20:41)
[2016-07-28] MEDS: PHYTONADIONE ORAL 5 MG/5 ML ORAL.SYRG PO SCH (11:20)
--- NOTE | 2016-07-28 11:37 | P.PN ---
Subjective This is a very pleasant 60-year-old female patient who follows with Dr. Whittington as her primary care physician. She has a history of diabetes mellitus , hypertension, hyperlipidemia, iron deficiency anemia, obesity, gastroesophageal reflux disease and cryptogenic cirrhosis of the liver. She was recently seen at [facility] by Dr. Barnett. The plan is for possible liver transplant. She had undergone cardiac catheterization there on 07/21/2016 as an outpatient. She was told she only had minimal coronary artery disease. Following that same evening and into the morning she developed significant shortness of breath, chest tightness, lower extremity edema and abdominal fullness. She presented here to the hospital on 07/22/2016 for the same. A computed tomography scan of the chest ruled out pulmonary embolism. There was noted bilateral pleural effusions right greater than left. She been treated with diuretics without significant improvement. She continues with a moderate right-sided pleural effusion and we are consulted today for the same. An ultrasound of the chest reveals 8.8 cm right-sided pleural effusion. Currently, she is seen on the selective care unit. She is awake and alert in no acute distress. She is maintaining good O2 saturations in the mid 90s on room air. She denies any worsening shortness of breath, cough or congestion. She remains in a negative balance. On 07/28/2016 the patient is being seen in follow-up. She has no major respiratory difficulties. A follow-up chest x-ray was done and showed only is very small right-sided pleural effusion. No cough or sputum production. No pleurisy. No chest pain. She remains on a combination of Lasix and Aldactone to optimize her fluid balance. She is seeking liver transportation for cryptogenic liver cirrhosis. Objective - Vital Signs Vital signs: Vital Signs Temp 97.2 F L 07/28/16 05:05 Pulse 56 L 07/28/16 05:05 Resp 16 07/28/16 05:05 BP 102/50 07/28/16 05:05 Pulse Ox 96 07/28/16 05:05 Intake & Output 07/27/16 07/28/16 07/28/16 18:59 06:59 18:59 Intake Total 920 600 100 Output Total 1120 400 Balance 920 -520 -300 Weight 86.4 kg Intake: Oral 220 600 100 Blood Product 700 Output: Urine 1120 400 Other: Voiding Method Toilet Toilet # Voids 2 - Exam The patient appeared well nourished and normally developed. Vital signs as documented. Head exam is unremarkable. No scleral icterus or corneal arcus noted. Neck is without jugular venous distension, thyromegaly, or carotid bruits. Carotid upstrokes are brisk bilaterally. Lungs are clear to auscultation and percussion. Cardiac exam reveals the PMI to be normally sized and situated. Rhythm is regular. First and second heart sounds normal. No murmurs, rubs or gallops. Abdominal exam reveals normal bowel sounds, no masses , no organomegaly and no aortic enlargement. Extremities are nonedematous and both femoral and pedal pulses are normal. - Labs CBC & Chem 7: 07/28/16 05:29 07/28/16 05:29 Labs: Abnormal Lab Results - Last 24 Hours (Table) 07/27/16 07/27/16 07/27/16 Range/Units 11:54 17:06 19:58 RBC (3.80-5.40) m/uL RDW (11.5-15.5) % Plt Count (150-450) k/uL BUN (7-17) mg/dL Creatinine (0.52-1.04) mg/dL POC Glucose (mg/dL) 130 H 113 H 142 H (75-99) mg/dL Total Bilirubin (0.2-1.3) mg/dL AST (14-36) U/L Total Protein (6.3-8.2) g/dL Albumin (3.5-5.0) g/dL 07/28/16 07/28/16 Range/Units 05:29 05:29 RBC 3.62 L (3.80-5.40) m/uL RDW 16.0 H (11.5-15.5) % Plt Count 84 L (150-450) k/uL BUN 22 H (7-17) mg/dL Creatinine 1.22 H (0.52-1.04) mg/dL POC Glucose (mg/dL) (75-99) mg/dL Total Bilirubin 2.3 H (0.2-1.3) mg/dL AST 44 H (14-36) U/L Total Protein 5.9 L (6.3-8.2) g/dL Albumin 2.4 L (3.5-5.0) g/dL Assessment and Plan Plan: Impression: #1 Acute exacerbation of diastolic congestive heart failure, preserved left ventricular systolic function with estimated ejection fraction 55%. Recent cardiac catheterization negative for significant coronary artery disease at [facility] in 07/21/2016. #2 Moderate right-sided pleural effusion measuring 8.8 cm. #3 cryptogenic cirrhosis of the liver, under investigation for possible transplant at [facility]. #4 Diabetes mellitus. #5 Hypertension. #6 Hyperlipidemia. #7 History of iron deficiency anemia. Plan The patient has responded somewhat to diuretics. I reviewed the full up chest x -ray from this morning and it shows a small right-sided pleural effusion. I would say overall is not worthwhile draining the pleural fluid based on the fact that is small and is not causing any significant respiratory compromise were distress. 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 My suggestion is to continue the diuretics. It back should there be any worsening in the size of the pleural effusion and/or if the patient becomes symptomatic.
[2016-07-28 11:49] LABS: Glucose,Whole Blood 95 mg/dL (75-99)
[2016-07-28] MEDS: CHOLECALCIFEROL 1,000 UNIT TAB PO SCH (12:18)
[2016-07-28] MEDS: MULTIVITAMINS, THERA 1 EACH TAB PO SCH (12:19)
[2016-07-28] MEDS: FOLIC ACID 1 MG TAB PO SCH (12:19)
[2016-07-28] MEDS: THIAMINE 100 MG TAB PO SCH (12:19)
--- NOTE | 2016-07-28 12:32 | P.PN ---
Subjective Principal diagnosis: CHF This is a pleasant 60-year-old female with history of hypertension, diabetes, hyperlipidemia, history of cirrhosis of the liver, cryptogenic cirrhosis, history of generalized anasarca, who recently underwent a cardiac catheterization at [facility] on Tuesday of this week. Around midnight that night, while the patient was at home, she states that she woke up suddenly unable to breathe. Patient was felt to be in congestive cardiac failure, was initiated on IV Lasix , continues to diurese well. Patient states that her breathing is mildly improving every day. She has been up ambulating in the hallway several times. Breathing is mildly improved today. Air entry to the right posterior lung improving. Patient is scheduled today to undergo a thoracentesis by Dr. Mckenzie. A repeat chest x-ray for today has been requested. Objective - Vital Signs Vital signs: Vital Signs Temp 97.2 F L 07/28/16 05:05 Pulse 56 L 07/28/16 05:05 Resp 16 07/28/16 05:05 BP 102/50 07/28/16 05:05 Pulse Ox 96 07/28/16 05:05 Intake & Output 07/27/16 07/28/16 07/28/16 18:59 06:59 18:59 Intake Total 920 600 100 Output Total 1120 400 Balance 920 -520 -300 Weight 86.4 kg Intake: Oral 220 600 100 Blood Product 700 Output: Urine 1120 400 Other: Voiding Method Toilet Toilet # Voids 2 - Exam PHYSICAL EXAMINATION: HEENT: Head is atraumatic, normocephalic. Pupils equal, round. Neck is supple. There is elevated jugular venous pressure. HEART EXAMINATION: Heart S1, S2 normal. No murmur or gallop heard. CHEST EXAMINATION: Lungs reveal diminished air entry to right posterior base1/[address] way up. ABDOMEN: Soft, nontender. Bowel sounds are heard. No organomegaly noted. EXTREMITIES: 2+ peripheral pulses with 1+ evidence of peripheral edema and no calf tenderness noted. NEUROLOGIC patient is awake, alert and oriented -3. . - Labs CBC & Chem 7: 07/28/16 05:29 07/28/16 05:29 Labs: Abnormal Lab Results - Last 24 Hours (Table) 07/27/16 07/27/16 07/28/16 Range/Units 17:06 19:58 05:29 RBC 3.62 L (3.80-5.40) m/uL RDW 16.0 H (11.5-15.5) % Plt Count 84 L (150-450) k/uL BUN (7-17) mg/dL Creatinine (0.52-1.04) mg/dL POC Glucose (mg/dL) 113 H 142 H (75-99) mg/dL Total Bilirubin (0.2-1.3) mg/dL AST (14-36) U/L Total Protein (6.3-8.2) g/dL Albumin (3.5-5.0) g/dL 07/28/16 Range/Units 05:29 RBC (3.80-5.40) m/uL RDW (11.5-15.5) % Plt Count (150-450) k/uL BUN 22 H (7-17) mg/dL Creatinine 1.22 H (0.52-1.04) mg/dL POC Glucose (mg/dL) (75-99) mg/dL Total Bilirubin 2.3 H (0.2-1.3) mg/dL AST 44 H (14-36) U/L Total Protein 5.9 L (6.3-8.2) g/dL Albumin 2.4 L (3.5-5.0) g/dL Assessment and Plan Plan: Assessment and plan #1 congestive cardiac failure, LV function unknown at this time. Recommend continuing diuresing with IV Lasix. EP chest x-ray today, patient is scheduled to undergo right-sided thoracentesis by Dr. Mckenzie today. #2 hypertension #3 hyperlipidemia #4 cryptogenic cirrhosis of the liver, currently being evaluated at [facility] for the transplant list. #5 status post cardiac catheterization 2 days ago, coronaries reported to be normal Plan Continue current dose of IV Lasix. Pulmonary has scheduled the patient today for a right-sided thoracentesis. DNP note has been reviewed, I agree with a documented findings and plan of care. Patient was seen and examined.
--- NOTE | 2016-07-28 15:12 | P.PN ---
Subjective This is a progress note for 07/27/2016 This is a 60-year-old female that is admitted to the hospital with the progressive worsening of difficulty breathing. Patient was being evaluated for a liver transplant after being diagnosed with cryptogenic cirrhosis. Patient underwent a cardiac catheterization to rule out any coronary disease a day prior to admission. In the ER patient was noted to have a right-sided pleural effusion that is 8.8 cm. Patient was started on diuretics. Thereafter patient was evaluated by the pulmonary team. Today patient denies having any chest pain however states to have Some difficulty breathing on ambulation. Denies having any abdominal pain, nausea, diarrhea at this time. 07/28/2016 States to be feeling slightly better. No new overnight events. Objective - Vital Signs Vital signs: Vital Signs Temp 97.1 F L 07/28/16 08:30 Pulse 49 L 07/28/16 12:25 Resp 16 07/28/16 12:25 BP 112/58 07/28/16 12:25 Pulse Ox 96 07/28/16 12:25 Intake & Output 07/27/16 07/28/16 07/28/16 18:59 06:59 18:59 Intake Total 920 600 200 Output Total 1120 400 Balance 920 -520 -200 Weight 86.4 kg Intake: Oral 220 600 200 Blood Product 700 Output: Urine 1120 400 Other: Voiding Method Toilet Toilet Toilet # Voids 2 - Exam Appearance oriented 3 in no distress Lungs good air entry diminished breath sounds on the right base dull to percussion Heart regular rate and rhythm no murmurs appreciated Abdomen soft nontender organomegaly Lower extremity is no edema appreciated Neurologically no focal motor or sensory deficits appreciated - Labs CBC & Chem 7: 07/28/16 05:29 07/28/16 05:29 Labs: Abnormal Lab Results - Last 24 Hours (Table) 07/27/16 07/27/16 07/28/16 Range/Units 17:06 19:58 05:29 RBC 3.62 L (3.80-5.40) m/uL RDW 16.0 H (11.5-15.5) % Plt Count 84 L (150-450) k/uL BUN (7-17) mg/dL Creatinine (0.52-1.04) mg/dL POC Glucose (mg/dL) 113 H 142 H (75-99) mg/dL Total Bilirubin (0.2-1.3) mg/dL AST (14-36) U/L Total Protein (6.3-8.2) g/dL Albumin (3.5-5.0) g/dL 07/28/16 Range/Units 05:29 RBC (3.80-5.40) m/uL RDW (11.5-15.5) % Plt Count (150-450) k/uL BUN 22 H (7-17) mg/dL Creatinine 1.22 H (0.52-1.04) mg/dL POC Glucose (mg/dL) (75-99) mg/dL Total Bilirubin 2.3 H (0.2-1.3) mg/dL AST 44 H (14-36) U/L Total Protein 5.9 L (6.3-8.2) g/dL Albumin 2.4 L (3.5-5.0) g/dL Assessment and Plan Plan: #1 acute exacerbation of diastolic congestive heart failure #2 cryptogenic liver cirrhosis currently on the liver transplant list with a meld score of 21 #3 right-sided pleural effusion that is likely secondary to liver cirrhosis and hypoalbuminemia #4 iron deficiency anemia #4 history of hypertension #5 coagulopathy secondary to liver cirrhosis F plan Continue diuretic therapy. Repeat chest x-ray in the a.m. Patient apparently did not undergo a thoracentesis as the effusion decrease in size. If patient's effusion is stable or lower will likely discharge the patient on similar medications to follow-up with Vipul Adamson
[2016-07-28 17:06] LABS: Glucose,Whole Blood 100 mg/dL (75-99)
[2016-07-28 20:55] LABS: Glucose,Whole Blood 127 mg/dL (75-99)
[2016-07-29 06:01] LABS: Glucose,Whole Blood 72 mg/dL (75-99)
[2016-07-29 06:23] LABS: Anisocytosis Slight; Aty Lym Flag Moderate; CH 33.8; CHCM 34.8; HCT 34.1 % (34.0-46.0); HDW 3.23; HGB 11.9 gm/dL (11.4-16.0); MCH 34.2 pg (25.0-35.0); MCHC 34.9 g/dL (31.0-37.0); MCV 97.8 fL (80.0-100.0); Macrocytosis Slight; Mean Platelet Volume 7.2; RBC 3.48 m/uL (3.80-5.40); WBC 4.7 k/uL (3.8-10.6); WBC (Perox) 4.98
[2016-07-29 06:35] LABS: Calcium 9.2 mg/dL (8.4-10.2); Potassium 3.8 mmol/L (3.5-5.1); Total Bilirubin 2.1 mg/dL (0.2-1.3); Total Protein 5.6 g/dL (6.3-8.2)
[2016-07-29 06:59] LABS: Add Differential Manual Differential
[2016-07-29 07:03] LABS: Manual Review Performed; Nucleated Red Blood Cells 0 /100 WBC (0-0); Total Cells Counted 100
[2016-07-29] MEDS: LACTULOSE 20 GM/30 ML CUP PO SCH (08:01)
[2016-07-29] MEDS: SPIRONOLACTONE 25 MG TAB PO SCH (08:02)
[2016-07-29] MEDS: THIAMINE 100 MG TAB PO SCH (08:02)
[2016-07-29] MEDS: RIFAXIMIN 550 MG TABLET PO SCH (08:02)
[2016-07-29] MEDS: ASPIRIN 81 MG CHEW PO SCH (08:03)
[2016-07-29] MEDS: FUROSEMIDE 40 MG TAB PO SCH (08:03)
[2016-07-29] MEDS: ATENOLOL 50 MG TAB PO SCH (08:03)
[2016-07-29] MEDS: metFORMIN 500 MG TAB PO SCH (08:03)
[2016-07-29] MEDS: CHLORTHALIDONE 25 MG TAB PO SCH (08:04)
[2016-07-29] MEDS: FERROUS SULFATE 325 MG TAB PO SCH (08:04)
[2016-07-29 08:13] VITALS: RESP 18
[2016-07-29] MEDS: PHYTONADIONE ORAL 5 MG/5 ML ORAL.SYRG PO SCH (08:34)
[2016-07-29 11:24] LABS: Glucose,Whole Blood 147 mg/dL (75-99)
[2016-07-29] MEDS: MULTIVITAMINS, THERA 1 EACH TAB PO SCH (11:47)
[2016-07-29] MEDS: CHOLECALCIFEROL 1,000 UNIT TAB PO SCH (11:47)
[2016-07-29] MEDS: FOLIC ACID 1 MG TAB PO SCH (11:47)
[2016-07-29 11:49] VITALS: BP 107/63; PULSE 49; TEMP 96.9
--- NOTE | 2016-07-29 12:59 | XR ---
EXAMINATION TYPE: XR chest 2V DATE OF EXAM: 07/29/2016 12:53 PM COMPARISON: 07/28/2016 HISTORY: Shortness of breath FINDINGS: There is a small right pleural effusion and basilar infiltrate. Left lung is clear. No pneumothorax o r overt failure. Mild hypertrophic change of the spine. Surgical clips in the right upper quadrant no milton. IMPRESSION: 1. Stable right lower lobe infiltrate and small effusion. No overt failure.
--- NOTE | 2016-07-29 14:38 | P.DS ---
Providers Date of admission: 07/24/16 10:41 Expected date of discharge: 07/29/16 Attending physician: Aroldo Fishman Consults: 07/27/16 12:48 Consult Physician Routine Consulting Provider: Mayo Mckenzie Consult Reason/Comments: Pleural effusion Do you want consulting provider notified?: Yes Primary care physician: [facility] Course: This is a 60-year-old female that is admitted to the hospital with the progressive worsening of difficulty breathing. Patient was being evaluated for a liver transplant after being diagnosed with cryptogenic cirrhosis. Patient underwent a cardiac catheterization to rule out any coronary disease a day prior to admission. In the ER patient was noted to have a right-sided pleural effusion that is 8.8 cm. Patient was started on diuretics. Thereafter patient was evaluated by the pulmonary team. Today patient denies having any chest pain however states to have Some difficulty breathing on ambulation. Denies having any abdominal pain, nausea, diarrhea at this time. 07/28/2016 States to be feeling slightly better. No new overnight events. 07/29/2016 Patient complaint of a cough that is nonproductive in nature today - Exam Appearance oriented 3 in no distress Lungs good air entry diminished breath sounds on the right base dull to percussion Heart regular rate and rhythm no murmurs appreciated Abdomen soft nontender organomegaly Lower extremity is no edema appreciated Neurologically no focal motor or sensory deficits appreciated Assessment and Plan Plan: #1 acute exacerbation of diastolic congestive heart failure #2 cryptogenic liver cirrhosis currently on the liver transplant list with a meld score of 21 #3 right-sided pleural effusion that is likely secondary to liver cirrhosis and hypoalbuminemia #4 iron deficiency anemia #4 history of hypertension #5 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 However patient was complaining of a cough that is nonproductive in nature. Patient has having any associated fevers chills. On the day of discharge x-ray was read as an infiltrate however I do not believe that the patient clinically has pneumonia. However due to the cough and patient being on the transplant list I will treat the cough as an acute bronchitis and will be given 5 day course of doxycycline on discharge. Patient is recommended to follow-up with Dr. Navarrete for repeat laboratory examination to evaluate electrolytes and patient also follow-up with [facility] transplant team. Patient Condition at Discharge: Good Plan - Discharge Summary New Discharge Prescriptions: Doxycycline Hyclate 100 mg PO BID #10 tab Furosemide [Lasix] 40 mg PO BID@0900,1600 #60 tab Spironolactone [Aldactone] 100 mg PO DAILY #30 tab Discharge Medication List Atenolol/Chlorthalidone [Tenoretic 50 Tablet] 1 tab PO DAILY 11/30/13 [History] Cholecalciferol [Vitamin D3] 2,000 unit PO DAILY 11/11/15 [History] Ferrous Sulfate [Feosol] 325 mg PO BID 11/11/15 [History] metFORMIN HCL [Glucophage] 500 mg PO BID 11/11/15 [History] Aspirin 81 mg PO DAILY 07/22/16 [History] B Complex-Vit C-Vit E-Zinc [Z-Bec] 1 tab PO DAILY 07/22/16 [History] Folic Acid 1 mg PO DAILY 07/22/16 [History] Lactulose [Cephulac] 10 gm PO TID 07/22/16 [History] Multivitamin Liquid 5 ml PO DAILY 07/22/16 [History] Phytonadione [Vitamin K] 5 mg PO DAILY 07/22/16 [History] Rifaximin [Xifaxan] 550 mg PO BID 07/22/16 [History] Thiamine [Vitamin B-1] 100 mg PO DAILY 07/22/16 [History] traMADol HCl [Ultram] 50 mg PO Q6H PRN 07/22/16 [History] Doxycycline Hyclate 100 mg PO BID #10 tab 07/29/16 [Rx] Furosemide [Lasix] 40 mg PO BID@0900,1600 #60 tab 07/29/16 [Rx] Spironolactone [Aldactone] 100 mg PO DAILY #30 tab 07/29/16 [Rx] Follow up Appointment(s)/Referral(s): Beronica Jaeger MD [STAFF PHYSICIAN] - 2 Weeks Jose Navarrete DO [Primary Care Provider] - 1-2 days Discharge Disposition: HOME SELF-CARE
--- NOTE | 2016-07-29 15:31 | P.PN ---
Subjective Principal diagnosis: CHF This is a pleasant 60-year-old female with history of hypertension, diabetes, hyperlipidemia, history of cirrhosis of the liver, cryptogenic cirrhosis, history of generalized anasarca, who recently underwent a cardiac catheterization at [facility] on Tuesday of this week. Around midnight that night, while the patient was at home, she states that she woke up suddenly unable to breathe. Patient was felt to be in congestive cardiac failure, was initiated on IV Lasix , continues to diurese well. Patient states that her breathing is mildly improving every day. She has been up ambulating in the hallway several times. Breathing is mildly improved today. Air entry to the right posterior lung improving. Patient is scheduled today to undergo a thoracentesis by Dr. Mckenzie. A repeat chest x-ray for today has been requested. 07/29/16..... Patient seen and examined this morning, thoracentesis was not performed yesterday because of significant improvement in the chest x-ray yesterday morning. Patient again had a repeat chest x-ray today which continued to show further improvement. Overall patient is feeling significantly better. IV Lasix will be discontinued today patient will be started on oral diuretics. She may be able to be discharged from cardiology's perspective. Patient has been instructed to follow-up with her academic counselor within one week.. Objective - Vital Signs Vital signs: Vital Signs Temp 96.9 F L 07/29/16 11:48 Pulse 49 L 07/29/16 11:48 Resp 18 07/29/16 11:48 BP 107/63 07/29/16 11:48 Pulse Ox 100 07/29/16 11:48 Intake & Output 07/28/16 07/29/16 07/29/16 18:59 06:59 18:59 Intake Total 700 300 240 Output Total 1100 920 200 Balance -400 -620 40 Weight 83.1 kg Intake: Oral 700 300 240 Output: Urine 1100 920 200 Other: Voiding Method Toilet Toilet # Voids 1 # Bowel Movements 0 - Exam PHYSICAL EXAMINATION: HEENT: Head is atraumatic, normocephalic. Pupils equal, round. Neck is supple. There is elevated jugular venous pressure. HEART EXAMINATION: Heart S1, S2 normal. No murmur or gallop heard. CHEST EXAMINATION: Lungs clear to auscultation. ABDOMEN: Soft, nontender. Bowel sounds are heard. No organomegaly noted. EXTREMITIES: 2+ peripheral pulses with 1+ evidence of peripheral edema and no calf tenderness noted. NEUROLOGIC patient is awake, alert and oriented -3. . - Labs CBC & Chem 7: 07/29/16 05:55 07/29/16 05:55 Labs: Abnormal Lab Results - Last 24 Hours (Table) 07/28/16 07/28/16 07/29/16 Range/Units 17:04 20:49 05:55 RBC 3.48 L (3.80-5.40) m/uL RDW 16.0 H (11.5-15.5) % Plt Count 82 L (150-450) k/uL Sodium (137-145) mmol/L BUN (7-17) mg/dL Creatinine (0.52-1.04) mg/dL Glucose (74-99) mg/dL POC Glucose (mg/dL) 100 H 127 H (75-99) mg/dL Total Bilirubin (0.2-1.3) mg/dL AST (14-36) U/L Total Protein (6.3-8.2) g/dL Albumin (3.5-5.0) g/dL 07/29/16 07/29/16 07/29/16 Range/Units 05:55 05:59 11:09 RBC (3.80-5.40) m/uL RDW (11.5-15.5) % Plt Count (150-450) k/uL Sodium 135 L (137-145) mmol/L BUN 22 H (7-17) mg/dL Creatinine 1.20 H (0.52-1.04) mg/dL Glucose 72 L (74-99) mg/dL POC Glucose (mg/dL) 72 L 147 H (75-99) mg/dL Total Bilirubin 2.1 H (0.2-1.3) mg/dL AST 46 H (14-36) U/L Total Protein 5.6 L (6.3-8.2) g/dL Albumin 2.3 L (3.5-5.0) g/dL Assessment and Plan Plan: Assessment and plan #1 congestive cardiac failure, diastolic in nature. Acute on chronic IV Lasix will be discontinued and patient will be started on oral diuretics. #2 hypertension #3 hyperlipidemia #4 cryptogenic cirrhosis of the liver, currently being evaluated at [facility] for the transplant list. #5 status post cardiac catheterization 2 days ago, coronaries reported to be normal Plan The patient may be able to be discharged home today. She will follow-up with her academic counselor [facility] in the office next week. DNP note has been reviewed, I agree with a documented findings and plan of care. Patient was seen and examined.
== END 2016-07-29 15:54 | disposition home or self-care (01) | DRG 292 ==
LOC: EC 10:35 → 6SEL 13:53 → OBSVTOIN 07-24 10:41
PROVIDERS: ADMIT Internal Medicine; ATTEND Internal Medicine
DX: I11.0 Hypertensive heart disease with heart failure (principal); D68.9 Coagulation defect, unspecified; I31.3 Pericardial effusion (noninflammatory); E44.0 Moderate protein-calorie malnutrition; Z76.82 Awaiting organ transplant status; D50.9 Iron deficiency anemia, unspecified; E11.9 Type 2 diabetes mellitus without complications; K72.90 Hepatic failure, unspecified without coma; K74.69 Other cirrhosis of liver; E78.5 Hyperlipidemia, unspecified; E87.6 Hypokalemia; I50.33 Acute on chronic diastolic (congestive) heart failure; J20.9 Acute bronchitis, unspecified; K21.9 Gastro-esophageal reflux disease without esophagitis; Z79.82 Long term (current) use of aspirin; Z79.84 Long term (current) use of oral hypoglycemic drugs; Z79.899 Other long term (current) drug therapy; Z82.49 Family history of ischemic heart disease and other diseases of the circulatory system; Z87.11 Personal history of peptic ulcer disease
CPT/HCPCS: 36415; 71010; 71020; 71275; 76604; 76705; 80053; 82550; 82553; 83735; 83880; 84132; 84484; 85025; 85379; 85610; 85730; 90732; 93005; 93306; 94760; 96365; 96366; 96374; 96375; 96376; 99285

== ENCOUNTER → 2017-07-26 | Outpatient (CLI) | payer BC ==
--- NOTE | 2017-07-27 09:59 | MM ---
Reason for exam: screening (asymptomatic). Last mammogram was performed 1 year and 1 month ago. History: Patient is postmenopausal. Physical Findings: A clinical breast exam by your physician is recommended on an annual basis and results should be correlated with mammographic findings. MG Screening Mammo w CAD Bilateral CC and MLO view(s) were taken. Prior study comparison: July 02, 2016, bilateral MG screening mammo w CAD. November 08, 2014, bilateral MG screening mammo w CAD. The breast tissue is heterogeneously dense. This may lower the sensitivity of mammography. There is chronic nodularity in the right breast. No significant changes when compared with prior studies. ASSESSMENT: Benign, BI-RAD 2 RECOMMENDATION: Routine screening mammogram of both breasts in 1 year.
== END ==
LOC: RADMAMWWP 16:21
PROVIDERS: ATTEND Family Medicine
DX: Z12.31 Encounter for screening mammogram for malignant neoplasm of breast (principal)
CPT/HCPCS: 77067

== ENCOUNTER → 2017-09-28 | Outpatient (CLI) | payer BC | END | disposition home or self-care (01) | LOC: LABWHC1 15:34 | PROVIDERS: ATTEND Internal Medicine Gastroenterology | DX: K74.60 Unspecified cirrhosis of liver (principal); K76.9 Liver disease, unspecified; Z76.82 Awaiting organ transplant status | CPT/HCPCS: 36415; 85730 ==

== ENCOUNTER → 2017-12-29 | Outpatient (CLI) | payer BC ==
--- NOTE | 2017-12-30 11:21 | BD ---
EXAMINATION TYPE: Axial Bone Density DATE OF EXAM: 12/29/2017 COMPARISON: 09.30.2010 CLINICAL HISTORY: 62 YR OLD FEMALE....ICD-10 CODE: M85.80 DISORDER OF BONE Height: 61 Weight: 215 FRAX RISK QUESTIONS: History of Fracture in Adulthood: NOT AT AGE 50 OR OVER 5. Chronic liver disease: YES, PT ON TRANSPLANT LIST RISK FACTORS HISTORY OF: History of Wrist Fracture: RT WRIST, < 50 YRS OLD Active: TRY TO BE Diet low in dairy products/other sources of calcium: NO Postmenopausal woman: HYST AT AGE AT 53 YRS OLD MEDICATIONS: Additional Medications: MULTIVITAMIN, VIT D3, REFLUX MEDS, ORAL DIABETIC MEDS Additional History: DIABETIC, EXAM MEASUREMENTS: Bone mineral densitometry was performed using the Flexenclosure System. Bone mineral density as measured about the Lumbar spine is: ----- L1-L4(G/cm2): 1.269 T Score Values are as follows: ----- L1: -0.8 ----- L2: 1.6 ----- L3: 1.6 ----- L4: 0.2 ----- L1-L4: 0.7 Bone mineral density has: Increased 3.8% since study of: 09.30.2010 Bone mineral density about the R hip (g/cm2): 0.933 Bone mineral density about the L hip (g/cm2): 0.972 T Score values are as follows: -----R Neck: -1.2 -----L Neck: -1.1 -----R Total: -0.6 -----L Total: -0.3 Bone mineral density has: Decreased -17.6% since study of: 09.30.2010 FRAX%s: THERE IS A 6.6% CHANCE OF A MAJOR OSTEOPOROTIC FX AND A 0.4% FOR HIP.....PROBABILITY OF FX IN 10 YRS TIME IMPRESSION: Osteopenia (T Score between -2.5 and -1). There is slightly increased risk of fracture and the patient may be considered for treatment. Re-Screen 2-5 years. NOTE: T-SCORE=SD OF THE YOUNG ADULT MEAN.
== END | disposition home or self-care (01) ==
LOC: RADBDWWP 15:26
PROVIDERS: ATTEND Family Medicine
DX: M85.88 Other specified disorders of bone density and structure, other site (principal)
CPT/HCPCS: 77080

== ENCOUNTER → 2018-03-17 | Outpatient (CLI) | payer BC ==
[2018-03-17 10:02] LABS: INR 1.4 (<1.2); Partial Thromboplastin Time 24.5 sec (22.0-30.0); Prothrombin Time 13.4 sec (9.0-12.0)
[2018-03-17 10:11] LABS: Albumin 3.1 g/dL (3.5-5.0); Bilirubin, Delta 0.9 mg/dL (0.0-0.2); Bilirubin,Unconjugated 2.2 mg/dL (0.0-1.1); Calcium 9.3 mg/dL (8.4-10.2); Total Bilirubin 3.1 mg/dL (0.2-1.3); Total Protein 6.6 g/dL (6.3-8.2)
== END | disposition home or self-care (01) ==
LOC: LABWHC1 09:16
PROVIDERS: ATTEND Internal Medicine Gastroenterology
DX: K74.60 Unspecified cirrhosis of liver (principal); K76.9 Liver disease, unspecified; Z76.82 Awaiting organ transplant status
CPT/HCPCS: 36415; 80048; 80076; 82105; 85610; 85730

== ENCOUNTER 2018-07-01 11:06 | Observation (INO) | payer BC ==
[2018-07-01] MEDS ORDERED: SODIUM CHLORIDE 0.9% 1,000 ML IV STA (11:45)
--- NOTE | 2018-07-01 11:54 | ED ---
General Adult HPI - General Chief complaint: Recheck/Abnormal Lab/Rx Stated complaint: High Blood Sugar Time Seen by Provider: 07/01/18 11:19 Source: patient, family, RN notes reviewed Mode of arrival: ambulatory Limitations: no limitations - History of Present Illness Initial comments: Patient is a pleasant 62-year-old female presenting to the emergency Department with high blood sugar. Blood sugar has been as high as 300 the past couple of days. Blood sugar today was up to 440. Patient otherwise feels okay. Patient does have known cirrhosis of unclear etiology. Patient is on the list for liver transplant. Patient has recently been changed from metformin secondary to concerns with liver involvement. - Related Data Home Medications Medication Instructions Recorded Confirmed Cholecalciferol [Vitamin D3] 2,000 unit PO DAILY 11/11/15 07/01/18 Ferrous Sulfate [Feosol] 325 mg PO BID 11/11/15 07/01/18 Lactulose [Cephulac] 20 gm PO TID 07/22/16 07/01/18 Dapagliflozin Propanediol [Farxiga] 5 mg PO DAILY 07/01/18 07/01/18 Ibandronate Sodium [Boniva] 150 mg PO QMONTH 07/01/18 07/01/18 Metolazone [Zaroxolyn] 5 mg PO DAILY 07/01/18 07/01/18 Multivitamins, Thera [Multivitamin 1 tab PO DAILY 07/01/18 07/01/18 (formulary)] Potassium Gluconate 99 mg PO DAILY 07/01/18 07/01/18 Spironolactone 100 mg PO DAILY 07/01/18 07/01/18 sitaGLIPtin [Januvia] 100 mg PO DAILY 07/01/18 07/01/18 Previous Rx's Medication Instructions Recorded Furosemide [Lasix] 40 mg PO BID@0900,1600 #60 tab 07/29/16 Allergies Allergy/AdvReac Type Severity Reaction Status Date / Time No Known Allergies Allergy Verified 07/01/18 11:39 Review of Systems ROS Statement: Those systems with pertinent positive or pertinent negative responses have been documented in the HPI. ROS Other: All systems not noted in ROS Statement are negative. Constitutional: Denies: fever Eyes: Denies: eye pain ENT: Denies: ear pain Respiratory: Denies: cough Cardiovascular: Denies: chest pain Endocrine: Denies: fatigue Gastrointestinal: Denies: abdominal pain Genitourinary: Denies: dysuria Musculoskeletal: Denies: back pain Skin: Denies: rash Neurological: Denies: weakness Past Medical History Past Medical History: Blood Disorder, Diabetes Mellitus, GERD/Reflux, Hyperlipidemia, Hypertension Additional Past Medical History / Comment(s): PT'S LAST HGB 7.5 -HAD 2 IRON TRANSFUSIONS & ON IRON DAILY, duodenal ulcer. TYPE 2 DIABETIC- ORAL RX ONLY liver cirrhosis unk cause inprocess of getting on getting on liver transplant list .pt stated takes lactulose and has loose to watery stools from that. History of Any Multi-Drug Resistant Organisms: None Reported Past Surgical History: Cholecystectomy, Heart Catheterization, Hysterectomy, Tonsillectomy Additional Past Surgical History / Comment(s): ectopic outside of uterus, dc'd from [facility] 07-21-16 after heart cath(radial approach) Past Anesthesia/Blood Transfusion Reactions: Motion Sickness Additional Past Anesthesia/Blood Transfusion Reaction / Comment(s): SOMETIMES IN CAR Past Psychological History: No Psychological Hx Reported Smoking Status: Never smoker Past Alcohol Use History: None Reported Past Drug Use History: None Reported - Past Family History Father Family Medical History: Myocardial Infarction (AL) Additional Family Medical History / Comment(s): HAD MASSIVE AL Mother Family Medical History: Cancer Additional Family Medical History / Comment(s): COLON CA Brother(s) Family Medical History: Cancer Additional Family Medical History / Comment(s): LEUKEMIA- AND ALSO BROTHER HAD BLOOD CLOT IN LEG AFTER FX General Exam Limitations: no limitations General appearance: alert, in no apparent distress Head exam: Present: atraumatic Eye exam: Present: scleral icterus ENT exam: Present: normal oropharynx Neck exam: Present: normal inspection Respiratory exam: Present: normal lung sounds bilaterally Cardiovascular Exam: Present: regular rate, normal rhythm GI/Abdominal exam: Present: soft, organomegaly (Mild hepatomegaly). Absent: tenderness Extremities exam: Present: normal inspection Neurological exam: Present: alert Psychiatric exam: Present: normal affect, normal mood Skin exam: Present: normal color Course Vital Signs 07/01/18 11:12 Temperature 98.0 F Pulse Rate 84 Respiratory 16 Rate Blood Pressure 136/75 O2 Sat by Pulse 96 Oximetry EKG Findings - EKG Comments: EKG Findings:: Normal sinus rhythm 83. DE 162. QRS 92. QT 44. QTC 568. Normal axis. Normal QRS. No acute ST change. Previous EKGs reviewed 07/24/16 and 11/11/15 both with long QT. Medical Decision Making - Medical Decision Making Secondary to hypokalemia and receiving insulin for hyperglycemia patient will best be served with observation. Case was discussed in detail with Dr. Roa, covering for Dr. Yoni Madison who is in agreement and will admit patient. Patient reevaluated and updated - Lab Data Result diagrams: 07/01/18 11:47 07/01/18 11:47 Lab Results 07/01/18 07/01/18 07/01/18 Range/Units 11:47 11:47 11:47 WBC 5.9 (3.8-10.6) k/uL RBC 4.07 (3.80-5.40) m/uL Hgb 13.3 (11.4-16.0) gm/dL Hct 38.8 (34.0-46.0) % MCV 95.4 (80.0-100.0) fL MCH 32.8 (25.0-35.0) pg MCHC 34.3 (31.0-37.0) g/dL RDW 14.6 (11.5-15.5) % Plt Count 87 L (150-450) k/uL Neutrophils % 66 % Lymphocytes % 14 % Monocytes % 13 % Eosinophils % 3 % Basophils % 1 % Neutrophils # 3.9 (1.3-7.7) k/uL Lymphocytes # 0.8 L (1.0-4.8) k/uL Monocytes # 0.8 (0-1.0) k/uL Eosinophils # 0.2 (0-0.7) k/uL Basophils # 0.0 (0-0.2) k/uL Manual Slide Review Performed Poikilocytosis Slight Sodium 128 L (137-145) mmol/L Potassium 2.5 L* (3.5-5.1) mmol/L Chloride 85 L (98-107) mmol/L Carbon Dioxide 30 (22-30) mmol/L Anion Gap 13 mmol/L BUN 25 H (7-17) mg/dL Creatinine 1.53 H (0.52-1.04) mg/dL Est GFR (CKD-EPI)AfAm 42 (>60 ml/min/1.73 sqM) Est GFR (CKD-EPI)NonAf 37 (>60 ml/min/1.73 sqM) Glucose 368 H (74-99) mg/dL Calcium 9.6 (8.4-10.2) mg/dL Magnesium (1.6-2.3) mg/dL Total Bilirubin 4.9 H (0.2-1.3) mg/dL AST 47 H (14-36) U/L ALT 37 (9-52) U/L Alkaline Phosphatase 98 (38-126) U/L Total Creatine Kinase 54 (30-135) U/L CK-MB (CK-2) 0.5 (0.0-2.4) ng/mL CK-MB (CK-2) Rel Index 0.9 Troponin I <0.012 (0.000-0.034) ng/mL Total Protein 6.8 (6.3-8.2) g/dL Albumin 3.0 L (3.5-5.0) g/dL Urine Color Urine Appearance (Clear) Urine pH (5.0-8.0) Ur Specific [place] (1.001-1.035) Urine Protein (Negative) Urine Glucose (UA) (Negative) Urine Ketones (Negative) Urine Blood (Negative) Urine Nitrite (Negative) Urine Bilirubin (Negative) Urine Urobilinogen (<2.0) mg/dL Ur Leukocyte Esterase (Negative) Urine RBC (0-5) /hpf Urine WBC (0-5) /hpf Ur Squamous Epith Cells (0-4) /hpf Urine Bacteria (None) /hpf Hyaline Casts (0-2) /lpf Urine Mucus (None) /hpf Acetone, Qual Negative (Negative) 07/01/18 07/01/18 Range/Units 11:47 12:30 WBC (3.8-10.6) k/uL RBC (3.80-5.40) m/uL Hgb (11.4-16.0) gm/dL Hct (34.0-46.0) % MCV (80.0-100.0) fL MCH (25.0-35.0) pg MCHC (31.0-37.0) g/dL RDW (11.5-15.5) % Plt Count (150-450) k/uL Neutrophils % % Lymphocytes % % Monocytes % % Eosinophils % % Basophils % % Neutrophils # (1.3-7.7) k/uL Lymphocytes # (1.0-4.8) k/uL Monocytes # (0-1.0) k/uL Eosinophils # (0-0.7) k/uL Basophils # (0-0.2) k/uL Manual Slide Review Poikilocytosis Sodium (137-145) mmol/L Potassium (3.5-5.1) mmol/L Chloride (98-107) mmol/L Carbon Dioxide (22-30) mmol/L Anion Gap mmol/L BUN (7-17) mg/dL Creatinine (0.52-1.04) mg/dL Est GFR (CKD-EPI)AfAm (>60 ml/min/1.73 sqM) Est GFR (CKD-EPI)NonAf (>60 ml/min/1.73 sqM) Glucose (74-99) mg/dL Calcium (8.4-10.2) mg/dL Magnesium 2.0 (1.6-2.3) mg/dL Total Bilirubin (0.2-1.3) mg/dL AST (14-36) U/L ALT (9-52) U/L Alkaline Phosphatase (38-126) U/L Total Creatine Kinase (30-135) U/L CK-MB (CK-2) (0.0-2.4) ng/mL CK-MB (CK-2) Rel Index Troponin I (0.000-0.034) ng/mL Total Protein (6.3-8.2) g/dL Albumin (3.5-5.0) g/dL Urine Color Yellow Urine Appearance Cloudy H (Clear) Urine pH 5.5 (5.0-8.0) Ur Specific [place] 1.010 (1.001-1.035) Urine Protein Negative (Negative) Urine Glucose (UA) 4+ H (Negative) Urine Ketones Negative (Negative) Urine Blood Negative (Negative) Urine Nitrite Negative (Negative) Urine Bilirubin Negative (Negative) Urine Urobilinogen <2.0 (<2.0) mg/dL Ur Leukocyte Esterase Negative (Negative) Urine RBC 1 (0-5) /hpf Urine WBC 3 (0-5) /hpf Ur Squamous Epith Cells 9 H (0-4) /hpf Urine Bacteria Few H (None) /hpf Hyaline Casts 27 H (0-2) /lpf Urine Mucus Rare H (None) /hpf Acetone, Qual (Negative) - Radiology Data Radiology results: image reviewed (Chest x-ray shows no acute process) Disposition Clinical Impression: Hypokalemia, Hyperglycemia Disposition: ADMITTED IP TO THIS HOSP Is patient prescribed a controlled substance at d/c from ED?: No Referrals: Jose Navarrete DO [Primary Care Provider] - 1-2 days Decision Time: 14:28
[2018-07-01 12:39] LABS: Appearance,Urine Cloudy (Clear); Bacteria,Urine Few /hpf; Bilirubin,Urine Negative (Negative); Blood,Urine Negative (Negative); Color,Urine Yellow; Glucose,Urine (UA) 4+ (Negative); Hyaline Casts,Urine 27 /lpf (0-2); Ketones,Urine Negative (Negative); Leukocyte Esterase,Urine Negative (Negative); Mucus,Urine Rare /hpf; Nitrite,Urine Negative (Negative); PH, Urine 5.5 (5.0-8.0); Protein,Urine Negative (Negative); RBC,Urine 1 /hpf (0-5); Squamous Epithelial Cell,Urine 9 /hpf (0-4); Urobilinogen,Urine <2.0 mg/dL (<2.0); WBC,Urine 3 /hpf (0-5)
[2018-07-01 13:04] LABS: Basophils % (A) 1 %; Eosinophils # (A) 0.2 k/uL (0-0.7); Eosinophils % (A) 3 %; HCT 38.8 % (34.0-46.0); HGB 13.3 gm/dL (11.4-16.0); Lymphocytes # (A) 0.8 k/uL (1.0-4.8); Lymphocytes % (A) 14 %; MCH 32.8 pg (25.0-35.0); MCHC 34.3 g/dL (31.0-37.0); MCV 95.4 fL (80.0-100.0); Mean Platelet Volume 7.2; Monocytes # (A) 0.8 k/uL (0-1.0); Monocytes % (A) 13 %; Neutrophils # (A) 3.9 k/uL (1.3-7.7); Neutrophils % (A) 66 %; Poikilocytosis Slight; RBC 4.07 m/uL (3.80-5.40); RDW 14.6 % (11.5-15.5); WBC 5.9 k/uL (3.8-10.6)
[2018-07-01 13:13] LABS: ALT 37 U/L (9-52); AST 47 U/L (14-36); Alkaline Phosphatase 98 U/L (38-126); Anion Gap 13 mmol/L; Blood Urea Nitrogen 25 mg/dL (7-17); Calcium 9.6 mg/dL (8.4-10.2); Carbon Dioxide 30 mmol/L (22-30); Chloride 85 mmol/L (98-107); Glucose 368 mg/dL (74-99); Sodium 128 mmol/L (137-145); Total Bilirubin 4.9 mg/dL (0.2-1.3); Total Protein 6.8 g/dL (6.3-8.2)
[2018-07-01 13:21] LABS: Platelet Count 87 k/uL (150-450)
[2018-07-01 13:26] LABS: Creatine Kinase 54 U/L (30-135)
[2018-07-01 13:30] LABS: Potassium 2.5 mmol/L (3.5-5.1)
[2018-07-01 13:38] LABS: Creatine Kinase MB 0.5 ng/mL (0.0-2.4); Troponin I <0.012 ng/mL (0.000-0.034)
--- NOTE | 2018-07-01 13:40 | XR ---
EXAMINATION TYPE: XR chest 2V DATE OF EXAM: 07/01/2018 HISTORY: Weakness. REFERENCE: Previous study dated 07/29/2016. FINDINGS: The lungs are clear. Pleural space are clear. The heart is not enlarged. IMPRESSION: NO ACTIVE INTRATHORACIC DISEASE.
[2018-07-01] MEDS ORDERED: INSULIN REGULAR 100 UNIT/ML VIAL SQ ONE (14:01)
[2018-07-01] MEDS ORDERED: POTASSIUM CHLORIDE ER 20 MEQ TAB.ER PO STA ×2 (14:01→23:34)
[2018-07-01] MEDS ORDERED: POTASSIUM CHLORIDE 2 MEQ/ML 20 ML VIAL IVPB STA (14:02)
[2018-07-01] MEDS ORDERED: POTASSIUM CHLORIDE 20 MEQ in WATER FOR INJECTION 1 100ML.BAG IVPB STA (14:04)
[2018-07-01] MEDS ORDERED: NALOXONE 0.4 MG/ML 1 ML VIAL IV PRN (14:28)
[2018-07-01] MEDS ORDERED: 0.9% NACL WITH KCL 20 MEQ/L 1,000 ML IV SCH (14:30)
[2018-07-01 16:07] LABS: Glucose,Whole Blood 328 mg/dL (75-99)
[2018-07-01 16:22] LABS: Glucose,Whole Blood 334 mg/dL (75-99)
[2018-07-01 16:37] VITALS: BMI 39.6
[2018-07-01] MEDS: INSULIN ASPART 100 UNIT/ML 1 ML 10 ML VIAL SQ SCH ×2 (17:51→22:19)
[2018-07-01 18:05] LABS: INR 1.4 (<1.2)
[2018-07-01] MEDS: LACTULOSE 20 GM/30 ML CUP PO SCH (19:36)
[2018-07-01] MEDS: FERROUS SULFATE 325 MG TAB PO SCH (19:36)
[2018-07-01 20:05] LABS: Glucose,Whole Blood 331 mg/dL (75-99)
[2018-07-01] MEDS ORDERED: INSULIN DETEMIR 100 UNIT/ML 10 ML VIAL SQ SCH (21:00)
[2018-07-01 21:15] LABS: Calcium 9.2 mg/dL (8.4-10.2)
[2018-07-01 21:21] LABS: Potassium 2.7 mmol/L (3.5-5.1)
--- NOTE | 2018-07-01 22:14 | HP ---
HISTORY AND PHYSICAL DATE OF SERVICE: 07/01/2018 CHIEF COMPLAINT: High blood sugars and hypokalemia. HISTORY OF PRESENT ILLNESS: This 62-year-old woman with a past medical history of diabetes, GERD, hypertension, hyperlipidemia, history of cryptogenic cirrhosis, being followed by Dr. Navarrete in the outpatient setting, also seeing [facility]. The patient is on transplant list apparently. The patient was taking metformin which was stopped because it apparently interferes with blood testing and currently the patient is noted to have blood sugar more than about 440 and the patient came to [facility] and admitted for evaluation and treatment. Currently the blood sugar was found to be 368, but however the potassium is 2.5. The patient admitted for further evaluation and treatment. There is no history of fever, rigors or chills. No history of headache, loss of consciousness, seizures. PAST MEDICAL HISTORY: History of diabetes, GERD, hypertension, hyperlipidemia, history of cholecystectomy. MEDICATIONS: Prior to admission, home medications are: 1. Januvia 100 mg p.o. daily. 2. Aldactone 100 mg b.i.d. 3. Potassium gluconate 90 mg p.o. daily. 4. Multivitamins 1 p.o. daily. 5. Zaroxolyn 5 mg p.o. daily. 6. Cephulac 20 mg p.o. t.i.d. 7. Boniva 150 mg q.monthly. 8. Lasix 40 mg p.o. b.i.d. 9. Iron sulfate 320 mg p.o. b.i.d. 10.Farxiga 5 mg p.o. daily. 11.Vitamin D3 2000 daily. ALLERGIES: None. FAMILY HISTORY: History of massive myocardial infarction. SOCIAL HISTORY: No history of smoking. No history of alcohol intake. REVIEW OF SYSTEMS: ENT: No diminished vision, no diminished hearing. CARDIOVASCULAR: As mentioned earlier. RESPIRATORY: As mentioned earlier. no dysuria. NERVOUS SYSTEM: No numbness or weakness. ALLERGY/IMMUNOLOGY: No asthma or hayfever. MUSCULOSKELETAL as mentioned earlier. HEMATOLOGY/ONCOLOGY: No history of anemia. ENDOCRINE: As mentioned earlier. CONSTITUTIONAL: As mentioned earlier. Dermatology: Negative. Rheumatology: Negative. Psychiatry: As mentioned earlier. GI as mentioned earlier. PHYSICAL EXAMINATION: Alert, oriented x3. Pulse 79, blood pressure 94/79, respiratory rate 21, temperature normal. Pulse ox 94% on room air. HEENT: Oral mucosa moist. Neck is no jugular venous distention. No carotid bruit. No lymph node enlargement. Cardiovascular system: S1, S2 muffled. No S3, no S4. RESPIRATORY : Breath sounds diminished in the bases. No rhonchi. No crackles. ABDOMEN: Soft, obese, nontender. No mass palpable. LEGS: No edema. No swelling. Nervous system: Higher functions as mentioned earlier. Moves all four limbs. No focal deficits. Lymphatics: No lymph nodes palpable in the neck, axillae or groin. Skin no ulcer, rash or bleeding. LABS: WBC 5.2, hemoglobin 13.3, platelets 87. Sodium is 128, potassium 2.5, glucose 368, 328, 334. ASSESSMENT: 1. Diabetes mellitus type 2 uncontrolled. 2. Hypoglycemia. 3. 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 4. Increased creatinine with chronic kidney disease stage III. 5. Hyponatremia. 6. Thrombocytopenia from chronic liver disease, possibly. 7. Gastroesophageal reflux disease. 8. Hyperlipidemia. 9. Hypertension. 10.History of cholecystectomy. RECOMMENDATIONS AND DISCUSSION: In this 62-year-old woman who presented with multiple complex medical issues, we will continue to monitor. See orders for details. Further recommendations to follow. Resume the home medications. MMODL / IJN: [id number] /
[2018-07-01 23:04] LABS: Hemoglobin A1C 8.8 % (4.0-6.0)
[2018-07-01] MEDS ORDERED: Potassium Replacement Protocol 1 EACH MISC MISCELLANE PRN (23:32)
[2018-07-02 07:12] LABS: Glucose,Whole Blood 206 mg/dL (75-99)
[2018-07-02] MEDS: LACTULOSE 20 GM/30 ML CUP PO SCH ×3 (07:57→22:09)
[2018-07-02] MEDS: FUROSEMIDE 40 MG TAB PO SCH ×2 (07:57→17:51)
[2018-07-02] MEDS: FERROUS SULFATE 325 MG TAB PO SCH ×2 (07:57→20:45)
[2018-07-02] MEDS: LINAGLIPTIN 5 MG TABLET PO SCH (07:58)
[2018-07-02] MEDS: INSULIN ASPART 100 UNIT/ML 1 ML 10 ML VIAL SQ SCH ×4 (07:58→20:45)
[2018-07-02] MEDS: DAPAGLIFLOZIN PROPANEDIOL 5 MG PO SCH (07:58)
[2018-07-02] MEDS: METOLAZONE 5 MG TAB PO SCH (07:59)
[2018-07-02] MEDS: SPIRONOLACTONE 25 MG TAB PO SCH (07:59)
[2018-07-02 08:01] LABS: Potassium 2.8 mmol/L (3.5-5.1)
[2018-07-02 08:27] LABS: Basophils % (A) 1 %; Eosinophils # (A) 0.2 k/uL (0-0.7); Eosinophils % (A) 5 %; HCT 34.8 % (34.0-46.0); HGB 12.2 gm/dL (11.4-16.0); Lymphocytes # (A) 0.8 k/uL (1.0-4.8); Lymphocytes % (A) 19 %; MCH 33.7 pg (25.0-35.0); MCHC 35.1 g/dL (31.0-37.0); MCV 95.9 fL (80.0-100.0); Mean Platelet Volume 7.5; Monocytes # (A) 0.6 k/uL (0-1.0); Monocytes % (A) 13 %; Neutrophils # (A) 2.4 k/uL (1.3-7.7); Neutrophils % (A) 59 %; RBC 3.63 m/uL (3.80-5.40); RDW 14.6 % (11.5-15.5); WBC 4.1 k/uL (3.8-10.6)
[2018-07-02 08:31] LABS: Platelet Count 62 k/uL (150-450)
[2018-07-02] MEDS ORDERED: NON-FORMULARY DRUG (Potassium Gluconate [Potassium Gluconate] 99 MG) PO SCH (09:00)
[2018-07-02] MEDS: POTASSIUM CHLORIDE ER 20 MEQ TAB.ER PO SCH ×5 (10:43→17:51)
[2018-07-02] MEDS ORDERED: IBUPROFEN 200 MG TAB PO PRN (11:49)
[2018-07-02 12:09] LABS: Glucose,Whole Blood 245 mg/dL (75-99)
[2018-07-02 12:40] LABS: INR 1.4 (<1.2); Prothrombin Time 14.1 sec (9.0-12.0)
[2018-07-02] MEDS: CHOLECALCIFEROL 1,000 UNIT TAB PO SCH (12:57)
[2018-07-02] MEDS: MULTIVITAMINS, THERA 1 EACH TAB PO SCH (12:57)
[2018-07-02] MEDS: 0.9% NACL WITH KCL 40 MEQ/L 1,000 ML IV SCH (15:51)
[2018-07-02 17:20] LABS: Glucose,Whole Blood 301 mg/dL (75-99)
[2018-07-02 20:07] LABS: Glucose,Whole Blood 309 mg/dL (75-99)
[2018-07-02] MEDS: INSULIN DETEMIR 100 UNIT/ML 10 ML VIAL SQ SCH (20:45)
--- NOTE | 2018-07-02 21:54 | PN ---
PROGRESS NOTE DATE OF SERVICE: 07/02/2018 This 62-year-old woman admitted with uncontrolled diabetes mellitus type 2, multiple medical issues, severe hypokalemia yesterday it was 2.7. After several bouts of replacement it is only 2.8, creatinine is elevated 1.27. Patient is being closely monitored. PAST MEDICAL HISTORY: Reviewed. REVIEW OF SYSTEMS: CARDIOVASCULAR: No angina or palpitations. Respirations: As mentioned earlier. GI as mentioned. no dysuria. Central nervous system: No focal deficits. Endocrine as mentioned earlier. PHYSICAL EXAM: Patient is alert, oriented x3. The pulse is 67, blood pressure 115/59, respirations 16, temperature 98.4, pulse ox 98% on room air. HEENT: Conjunctivae normal. Oral mucosa moist. Neck is no jugular venous distention. No carotid bruit. No lymph node enlargement. Cardiovascular: S1-S2. Respiratory: Breath sounds diminished in the bases. A few scattered rhonchi. No crackles. ABDOMEN: Soft, obese, nontender. No mass palpable. Legs no edema, no swelling. NERVOUS SYSTEM: Higher functions as mentioned. Moves all four extremities. No focal deficits. Lymphatics: No lymph nodes palpable in the neck, axillae or groin. Skin: No ulcer, rash or bleeding. LAB STUDIES: WBC 4.1, hemoglobin 12.2, and INR is 1.4. Sodium 132, potassium 2.8, creatinine is 1.27, glucose 301. ASSESSMENT: 1. Diabetes mellitus type 2 uncontrolled. 2. Severe hypokalemia. 3. Cirrhosis of the liver for liver transplant and cryptogenic cirrhosis. 4. Increased creatinine with chronic kidney stage 3. 5. Hyponatremia. 6. Thrombocytopenia. 7. Chronic liver disease. 8. History gastroesophageal reflux disease. 9. Hyperlipidemia. 10.Hypertension. 11.History of cholecystectomy. RECOMMENDATIONS AND DISCUSSION: Recommend to continue current medications, monitoring and symptomatic treatment. Otherwise, decrease the dose of Lantus to Lantus at night to 30 units and we will continue to monitor and I would also recommend potassium supplementation. A few more dose of p.o. with add potassium and IV fluids. Closely monitor. Prognosis guarded because of multiple complex medical issues. Further recommendations to follow. We will repeat the lytes in the evening as well. Continue rest of medications. See orders for further details. Further recommendations to follow. MMODL / IJN: [id number] / MARTIN
[2018-07-03] MEDS: 0.9% NACL WITH KCL 40 MEQ/L 1,000 ML IV SCH ×2 (03:37→16:40)
[2018-07-03 06:30] VITALS: TEMP 98.1
[2018-07-03 07:24] LABS: Glucose,Whole Blood 130 mg/dL (75-99)
[2018-07-03] MEDS: INSULIN ASPART 100 UNIT/ML 1 ML 10 ML VIAL SQ SCH ×3 (07:29→17:54)
[2018-07-03] MEDS: DAPAGLIFLOZIN PROPANEDIOL 5 MG PO SCH (07:31)
[2018-07-03 08:01] LABS: Calcium 8.9 mg/dL (8.4-10.2); Potassium 3.5 mmol/L (3.5-5.1)
[2018-07-03 08:35] LABS: HCT 35.3 % (34.0-46.0); MCH 33.5 pg (25.0-35.0); MCV 98.4 fL (80.0-100.0); Macrocytosis Slight; Mean Platelet Volume 7.5; RBC 3.59 m/uL (3.80-5.40); WBC 3.2 k/uL (3.8-10.6)
[2018-07-03] MEDS: MULTIVITAMINS, THERA 1 EACH TAB PO SCH (08:39)
[2018-07-03] MEDS: CHOLECALCIFEROL 1,000 UNIT TAB PO SCH (08:39)
[2018-07-03] MEDS: METOLAZONE 5 MG TAB PO SCH (08:39)
[2018-07-03] MEDS: FERROUS SULFATE 325 MG TAB PO SCH (08:39)
[2018-07-03] MEDS: SPIRONOLACTONE 25 MG TAB PO SCH (08:39)
[2018-07-03] MEDS: FUROSEMIDE 40 MG TAB PO SCH ×2 (08:39→16:40)
[2018-07-03] MEDS: LINAGLIPTIN 5 MG TABLET PO SCH (08:39)
[2018-07-03] MEDS: LACTULOSE 20 GM/30 ML CUP PO SCH ×2 (08:39→16:40)
[2018-07-03 08:41] LABS: Platelet Count 57 k/uL (150-450)
[2018-07-03 09:12] LABS: Eosinophils # (M) 0.19 k/uL (0-0.7); Lymphocytes # (M) 1.02 k/uL (1.0-4.8); Monocytes # (M) 0.38 k/uL (0-1.0); Neutrophils % (M) 50 %; Nucleated Red Blood Cells 0 /100 WBC (0-0); Poikilocytosis (M) Present; Total Cells Counted 100
[2018-07-03 10:55] LABS: Glucose,Whole Blood 203 mg/dL (75-99)
[2018-07-03 11:27] VITALS: BP 114/68; PULSE 68; RESP 18
[2018-07-03] MEDS ORDERED: POTASSIUM CHLORIDE ER 20 MEQ TAB.ER PO STA (11:40)
[2018-07-03 16:56] LABS: Glucose,Whole Blood 192 mg/dL (75-99)
[2018-07-03] MEDS: INSULIN DETEMIR 100 UNIT/ML 10 ML VIAL SQ SCH (18:33)
--- NOTE | 2018-07-04 00:07 | DS ---
DISCHARGE SUMMARY DATE OF SERVICE: 07/03/2018 FINAL DIAGNOSES: 1. Diabetes mellitus type 2, uncontrolled with no evidence of ketosis. 2. Severe hypokalemia. 3. Cirrhosis of liver for liver transplant and acute chronic cirrhosis. 4. Increased creatinine with chronic kidney stage 3. 5. Hyponatremia. 6. Thrombocytopenia. 7. Chronic liver disease. 8. History of gastroesophageal reflux disease. 9. Hyperlipidemia. 10.Hypertension. 11.History of cholecystectomy. DISCHARGE DISPOSITION: The patient will be discharged in stable condition with guarded prognosis. HISTORY OF PRESENT ILLNESS: This 62-year-old woman with a past medical history of multiple medical problems as mentioned earlier being followed by Dr. Navarrete in the outpatient setting was admitted to the hospital with uncontrolled diabetes type 2, treated with insulin was initiated. The patient also had multiple electrolytes abnormalities include hypokalemia which is corrected. The patient improved significantly. On exam, vitals are stable. Cardio system: S1, S2. Abdomen soft. Nervous system: No focal deficits. The patient being discharged in stable condition. Guarded prognosis. The hemoglobin A1c was 8.8. DISCHARGE ADVICE AND MEDICATIONS: 1. Discharge diet is a consistent carb. 2. Activity limited until follow up. 3. Follow up with Dr. Navarrete in 2-3 days. 4. Follow up with Accu-Cheks a.c. and q.h.s. results to Dr. Navarrete. MEDICATIONS ARE: 1. Vitamin D3 2000 daily. 2. zaroxylyn 5 mg p.o. daily. 3. Iron sulfate 320 mg p.o. b.i.d. 4. Boniva 150 mg monthly. 5. Cephulac 20 g t.i.d. 6. Zaroxolyn 5 mg p.o. daily. 7. Multivitamins 1 p.o. daily. 8. Potassium gluconate 99 mg p.o. daily. 9. Januvia 100 mg p.o. daily. 10.Aldactone 100 mg p.o. daily. 11.Lasix 40 mg p.o. b.i.d. 12.Levemir 30 units subcu q.h.s. dose to be adjusted in the outpatient setting. Once again, the patient being discharged in stable condition. Guarded prognosis. MMODL / IJN: [id number] / [facility]
== END 2018-07-03 18:45 | disposition home or self-care (01) ==
LOC: EC 11:06 → 3NMEDONC 14:28
PROVIDERS: ADMIT Hospitalist; ATTEND Hospitalist
DX: E11.65 Type 2 diabetes mellitus with hyperglycemia (principal); E87.6 Hypokalemia; K74.60 Unspecified cirrhosis of liver; I12.9 Hypertensive chronic kidney disease with stage 1 through stage 4 chronic kidney disease, or unspecified chronic kidney disease; E11.22 Type 2 diabetes mellitus with diabetic chronic kidney disease; N18.3 Chronic kidney disease, stage 3 (moderate); E87.1 Hypo-osmolality and hyponatremia; D69.6 Thrombocytopenia, unspecified; K21.9 Gastro-esophageal reflux disease without esophagitis; E78.5 Hyperlipidemia, unspecified; Z90.49 Acquired absence of other specified parts of digestive tract; K74.69 Other cirrhosis of liver; Z76.82 Awaiting organ transplant status; Z79.84 Long term (current) use of oral hypoglycemic drugs; Z79.899 Other long term (current) drug therapy; E11.649 Type 2 diabetes mellitus with hypoglycemia without coma; Z87.11 Personal history of peptic ulcer disease; Z82.49 Family history of ischemic heart disease and other diseases of the circulatory system; Z80.0 Family history of malignant neoplasm of digestive organs; Z80.6 Family history of leukemia; Z83.2 Family history of diseases of the blood and blood-forming organs and certain disorders involving the immune mechanism
CPT/HCPCS: 96361; 96365; 96366; 99284; 36415; 93005; 80053; 80048 ×3; 82550; 82553; 82009; 83735; 84132; 84484; 85025 ×3; 85610 ×2; 81001; 83036; 71046; G0378 ×3; J3480

== ENCOUNTER 2018-08-23 18:07 | Inpatient (IN) | payer BC ==
[2018-08-23] MEDS ORDERED: IPRATROPIUM-ALBUTEROL 3 ML NEB INHALATION STA (18:52)
--- NOTE | 2018-08-23 19:04 | ED ---
General Adult HPI - General Chief complaint: Upper Respiratory Infection Stated complaint: LOC Time Seen by Provider: 08/23/18 18:31 Source: patient, family, RN notes reviewed Mode of arrival: ambulatory Limitations: no limitations - History of Present Illness Initial comments: Is a 62-year-old female history of cirrhosis of unknown etiology who states she' s had a cough and shortness of breath or past several days. She states she's been coughing a lot she had bilateral rib pain. She denies any overt fevers chills sweats nausea. She also states she's had peripheral edema especially to her legs and ankles. She has no history of congestive heart failure heart disease or lung disease. She is a nonsmoker she does state that on her last admission [facility] the decrease her diuretics and medications due to renal issues patient's states he had a recent cold but has gotten better patient states she only has rhinorrhea when she uses nasal spray. She's had no rhinorrhea no headaches or other cold symptoms other than that mentioned above - Related Data Home Medications Medication Instructions Recorded Confirmed Cholecalciferol [Vitamin D3] 2,000 unit PO DAILY 11/11/15 08/23/18 Ferrous Sulfate [Feosol] 325 mg PO BID 11/11/15 08/23/18 Lactulose [Cephulac] 15 gm PO TID 07/22/16 08/23/18 Ibandronate Sodium [Boniva] 150 mg PO Q30D 07/01/18 08/23/18 Metolazone [Zaroxolyn] 5 mg PO DAILY 07/01/18 08/23/18 Multivitamins, Thera [Multivitamin 1 tab PO DAILY 07/01/18 08/23/18 (formulary)] sitaGLIPtin [Januvia] 100 mg PO DAILY 07/01/18 08/23/18 Furosemide [Lasix] 20 mg PO DAILY 08/23/18 08/23/18 Magnesium Oxide [Mag-Ox] 400 mg PO BID 08/23/18 08/23/18 Pantoprazole Sodium [Protonix] 40 mg PO DAILY 08/23/18 08/23/18 Potassium Bicarbonate/Cit AC 25 meq PO DAILY 08/23/18 08/23/18 [Klor-Con 25 (Effer. Tab)] Spironolactone [Aldactone] 50 mg PO DAILY 08/23/18 08/23/18 Previous Rx's Medication Instructions Recorded Insulin Detemir [Levemir Flextouch] 30 units SQ HS 30 Days #3 pen 07/04/18 Allergies Allergy/AdvReac Type Severity Reaction Status Date / Time No Known Allergies Allergy Verified 08/23/18 18:46 Review of Systems ROS Statement: Those systems with pertinent positive or pertinent negative responses have been documented in the HPI. ROS Other: All systems not noted in ROS Statement are negative. Past Medical History Past Medical History: Blood Disorder, Diabetes Mellitus, GERD/Reflux, Hyperlipidemia, Hypertension, Liver Disease Additional Past Medical History / Comment(s): PT'S LAST HGB 7.5 -HAD 2 IRON TRANSFUSIONS & ON IRON DAILY, duodenal ulcer. TYPE 2 DIABETIC- ORAL RX ONLY liver cirrhosis unk cause inprocess of getting on getting on liver transplant list .pt stated takes lactulose daily. History of Any Multi-Drug Resistant Organisms: None Reported Past Surgical History: Cholecystectomy, Heart Catheterization, Hysterectomy, Tonsillectomy Additional Past Surgical History / Comment(s): ectopic outside of uterus, [facility] after heart cath (radial approach) Past Anesthesia/Blood Transfusion Reactions: Motion Sickness Additional Past Anesthesia/Blood Transfusion Reaction / Comment(s): SOMETIMES IN CAR Past Psychological History: No Psychological Hx Reported Smoking Status: Never smoker Past Alcohol Use History: None Reported Past Drug Use History: None Reported - Past Family History Father Family Medical History: Myocardial Infarction ([place]) Additional Family Medical History / Comment(s): HAD MASSIVE [place] Mother Family Medical History: Cancer Additional Family Medical History / Comment(s): COLON CA Brother(s) Family Medical History: Cancer Additional Family Medical History / Comment(s): LEUKEMIA- AND ALSO BROTHER HAD BLOOD CLOT IN LEG AFTER FX General Exam - General Exam Comments Initial Comments: This is a well-developed well-nourished awake alert oriented 3 female Limitations: no limitations General appearance: alert, anxious Head exam: Present: atraumatic, normocephalic, normal inspection Eye exam: Present: normal appearance, PERRL, EOMI. Absent: scleral icterus, conjunctival injection, periorbital swelling ENT exam: Present: normal exam, mucous membranes moist Neck exam: Present: normal inspection. Absent: tenderness, meningismus, lymphadenopathy Respiratory exam: Present: normal lung sounds bilaterally. Absent: respiratory distress, wheezes, rales, rhonchi, stridor Cardiovascular Exam: Present: regular rate, normal rhythm, normal heart sounds. Absent: systolic murmur, diastolic murmur, rubs, gallop, clicks GI/Abdominal exam: Present: soft, tenderness (With epigastric discomfort palpation no guarding rebound), normal bowel sounds. Absent: distended, guarding, rebound, rigid Rectal exam: Present: deferred Extremities exam: Present: normal inspection, full ROM, normal capillary refill , pedal edema. Absent: tenderness, joint swelling, calf tenderness Back exam: Present: normal inspection Neurological exam: Present: alert, oriented X3, CN II-XII intact Psychiatric exam: Present: normal affect, normal mood Skin exam: Present: warm, dry, intact, normal color. Absent: rash Course Vital Signs 08/23/18 08/23/18 08/23/18 18:10 19:04 19:11 Temperature 98.1 F Pulse Rate 70 66 71 Respiratory 18 18 18 Rate Blood Pressure 134/79 O2 Sat by Pulse 96 Oximetry EKG Findings - EKG Results: EKG: interpreted by JESSICA, sinus rhythm (Sinus rhythm rate is 70 QRS 70 QT since QTC 462/498 low-voltage QRS nonspecific anterior changes) Medical Decision Making - Medical Decision Making I did discuss findings with the patient and her . Patient states she got minimal relief from the nebulizer treatment though she does seem to have increased aeration on auscultation. Patient does demonstrate bilateral lower lobe pneumonia. Due to her immunocompromised state she will be admitted with IV antibiotics and fluids. She has a peripheral edema but BNP as well as within reasonable limits no evidence of congestive failure at this time - Lab Data Result diagrams: 08/23/18 18:33 08/23/18 18:33 Lab Results 08/23/18 08/23/18 08/23/18 Range/Units 18:33 18:33 18:33 WBC 2.2 L (3.8-10.6) k/uL RBC 3.71 L (3.80-5.40) m/uL Hgb 12.3 (11.4-16.0) gm/dL Hct 37.9 (34.0-46.0) % MCV 102.3 H (80.0-100.0) fL MCH 33.1 (25.0-35.0) pg MCHC 32.3 (31.0-37.0) g/dL RDW 14.4 (11.5-15.5) % Plt Count 53 L (150-450) k/uL Neutrophils % (Manual) 42 % Lymphocytes % (Manual) 31 % Monocytes % (Manual) 12 % Eosinophils % (Manual) 15 % Neutrophils # (Manual) 0.92 L (1.3-7.7) k/uL Lymphocytes # (Manual) 0.68 L (1.0-4.8) k/uL Monocytes # (Manual) 0.26 (0-1.0) k/uL Eosinophils # (Manual) 0.33 (0-0.7) k/uL Nucleated RBCs 0 (0-0) /100 WBC Polychromasia Present Macrocytosis Slight PT (9.0-12.0) sec INR (<1.2) APTT (22.0-30.0) sec Sodium (137-145) mmol/L Potassium (3.5-5.1) mmol/L Chloride (98-107) mmol/L Carbon Dioxide (22-30) mmol/L Anion Gap mmol/L BUN (7-17) mg/dL Creatinine (0.52-1.04) mg/dL Est GFR (CKD-EPI)AfAm (>60 ml/min/1.73 sqM) Est GFR (CKD-EPI)NonAf (>60 ml/min/1.73 sqM) Glucose (74-99) mg/dL Calcium (8.4-10.2) mg/dL Magnesium (1.6-2.3) mg/dL Total Bilirubin (0.2-1.3) mg/dL AST (14-36) U/L ALT (9-52) U/L Alkaline Phosphatase (38-126) U/L Ammonia 47 H (<30) umol/L Total Creatine Kinase 80 (30-135) U/L CK-MB (CK-2) 0.7 (0.0-2.4) ng/mL CK-MB (CK-2) Rel Index 0.9 Troponin I <0.012 (0.000-0.034) ng/mL NT-Pro-B Natriuret Pep pg/mL Total Protein (6.3-8.2) g/dL Albumin (3.5-5.0) g/dL 08/23/18 08/23/18 08/23/18 Range/Units 18:33 18:33 18:33 WBC (3.8-10.6) k/uL RBC (3.80-5.40) m/uL Hgb (11.4-16.0) gm/dL Hct (34.0-46.0) % MCV (80.0-100.0) fL MCH (25.0-35.0) pg MCHC (31.0-37.0) g/dL RDW (11.5-15.5) % Plt Count (150-450) k/uL Neutrophils % (Manual) % Lymphocytes % (Manual) % Monocytes % (Manual) % Eosinophils % (Manual) % Neutrophils # (Manual) (1.3-7.7) k/uL Lymphocytes # (Manual) (1.0-4.8) k/uL Monocytes # (Manual) (0-1.0) k/uL Eosinophils # (Manual) (0-0.7) k/uL Nucleated RBCs (0-0) /100 WBC Polychromasia Macrocytosis PT 14.2 H (9.0-12.0) sec INR 1.4 H (<1.2) APTT 33.5 H (22.0-30.0) sec Sodium 140 (137-145) mmol/L Potassium 4.1 (3.5-5.1) mmol/L Chloride 112 H (98-107) mmol/L Carbon Dioxide 26 (22-30) mmol/L Anion Gap 2 mmol/L BUN 16 (7-17) mg/dL Creatinine 0.98 (0.52-1.04) mg/dL Est GFR (CKD-EPI)AfAm 73 (>60 ml/min/1.73 sqM) Est GFR (CKD-EPI)NonAf 63 (>60 ml/min/1.73 sqM) Glucose 134 H (74-99) mg/dL Calcium 7.9 L (8.4-10.2) mg/dL Magnesium 2.0 (1.6-2.3) mg/dL Total Bilirubin 1.8 H (0.2-1.3) mg/dL AST 80 H (14-36) U/L ALT 46 (9-52) U/L Alkaline Phosphatase 67 (38-126) U/L Ammonia (<30) umol/L Total Creatine Kinase (30-135) U/L CK-MB (CK-2) (0.0-2.4) ng/mL CK-MB (CK-2) Rel Index Troponin I (0.000-0.034) ng/mL NT-Pro-B Natriuret Pep 262 pg/mL Total Protein 5.7 L (6.3-8.2) g/dL Albumin 2.5 L (3.5-5.0) g/dL - Radiology Data Radiology results: report reviewed (I did review the imaging and report is evidence of bilateral lower lobe infiltrate/pneumonia), image reviewed Disposition Clinical Impression: Bilateral pneumonia, Dyspnea Disposition: ADMITTED IP TO THIS [facility] Condition: Serious Referrals: Jose Navarrete DO [Primary Care Provider] - 1-2 days
[2018-08-23 19:07] LABS: Albumin 2.5 g/dL (3.5-5.0); Calcium 7.9 mg/dL (8.4-10.2); Potassium 4.1 mmol/L (3.5-5.1); Total Bilirubin 1.8 mg/dL (0.2-1.3); Total Protein 5.7 g/dL (6.3-8.2)
[2018-08-23 19:10] LABS: INR 1.4 (<1.2); Partial Thromboplastin Time 33.5 sec (22.0-30.0); Prothrombin Time 14.2 sec (9.0-12.0)
[2018-08-23 19:13] LABS: HCT 37.9 % (34.0-46.0); HGB 12.3 gm/dL (11.4-16.0); MCH 33.1 pg (25.0-35.0); MCHC 32.3 g/dL (31.0-37.0); MCV 102.3 fL (80.0-100.0); Macrocytosis Slight; Mean Platelet Volume 7.2; RBC 3.71 m/uL (3.80-5.40); RDW 14.4 % (11.5-15.5); WBC 2.2 k/uL (3.8-10.6)
[2018-08-23 19:18] LABS: Creatine Kinase 80 U/L (30-135)
[2018-08-23 19:30] LABS: Creatine Kinase MB 0.7 ng/mL (0.0-2.4); Troponin I <0.012 ng/mL (0.000-0.034)
[2018-08-23 19:32] LABS: Platelet Count 53 k/uL (150-450)
[2018-08-23 19:34] LABS: Eosinophils # (M) 0.33 k/uL (0-0.7); Lymphocytes # (M) 0.68 k/uL (1.0-4.8); Monocytes # (M) 0.26 k/uL (0-1.0); Neutrophils # (M) 0.92 k/uL (1.3-7.7); Neutrophils % (M) 42 %; Nucleated Red Blood Cells 0 /100 WBC (0-0); Polychromasia Present; Total Cells Counted 100
--- NOTE | 2018-08-23 19:45 | XR ---
EXAMINATION TYPE: XR chest 2V DATE OF EXAM: 08/23/2018 COMPARISON: 07/01/2018 HISTORY: Cough short of breath TECHNIQUE: Frontal and lateral views of the chest are obtained. FINDINGS: There is no heart failure. There is some infiltrate in the left lower lobe posteriorly. Th is probably also right lower lobe posterior infiltrate. There are no hilar masses. Heart size is norm al. Bony thorax is intact.. IMPRESSION: New bilateral lower lobe pneumonia compared to old exam.
[2018-08-23] MEDS ORDERED: IPRATROPIUM-ALBUTEROL 3 ML NEB INHALATION PRN (20:19)
[2018-08-23] MEDS ORDERED: AZITHROMYCIN 500 MG in SODIUM CHLORIDE 0.9% 250 ML IVPB STA (20:19)
[2018-08-23] MEDS ORDERED: PNEUMONIA PROTOCOL UTILIZED 1 EACH MISC PO PRN (20:19)
[2018-08-23] MEDS ORDERED: NON-FORMULARY DRUG (Ibandronate Sodium [Boniva] 150 MG) PO SCH (20:30)
[2018-08-23] MEDS ORDERED: INSULIN DETEMIR (LEVEMIR) 100 UNIT/ML SYR SQ SCH (21:00)
[2018-08-23 22:20] LABS: Glucose,Whole Blood 93 mg/dL (75-99)
[2018-08-23] MEDS: INSULIN ASPART (NovoLOG) 100 UNIT/ML VIAL SQ SCH (22:38)
[2018-08-23] MEDS ORDERED: AZITHROMYCIN 500 MG in SODIUM CHLORIDE 0.9% 250 ML IVPB ONE (23:00)
[2018-08-23] MEDS: FERROUS SULFATE 325 MG TAB PO SCH (23:15)
[2018-08-23] MEDS: MAGNESIUM OXIDE 400 MG TAB PO SCH (23:15)
[2018-08-23] MEDS: HEPARIN SODIUM,PORCINE 5,000 UNIT/ML 1 ML VIAL SQ SCH (23:16)
[2018-08-23] MEDS: LACTULOSE 20 GM/30 ML CUP PO SCH (23:16)
[2018-08-24] MEDS ORDERED: SODIUM CHLORIDE 0.9% 50 ML BAG ONE (02:57)
[2018-08-24] MEDS ORDERED: IPRATROPIUM-ALBUTEROL 3 ML NEB ONE (02:57)
[2018-08-24] MEDS ORDERED: cefTRIAXone 1 GM VIAL ONE (02:57)
[2018-08-24] MEDS ORDERED: FUROSEMIDE 10 MG/ML 4 ML VIAL IV STA (05:12)
[2018-08-24] MEDS ORDERED: IPRATROPIUM-ALBUTEROL 3 ML NEB INHALATION PRN (05:16)
[2018-08-24] MEDS: guaiFENesin SYRUP 100MG/5ML 200 MG/10 ML CUP PO PRN ×2 (05:38→22:57)
[2018-08-24] MEDS: LORATADINE 10 MG TAB PO SCH ×2 (05:38→08:52)
[2018-08-24 06:59] LABS: Glucose,Whole Blood 74 mg/dL (75-99)
[2018-08-24] MEDS: IPRATROPIUM-ALBUTEROL 3 ML NEB INHALATION SCH ×4 (08:48→20:52)
[2018-08-24] MEDS: CHOLECALCIFEROL 1,000 UNIT TAB PO SCH (08:51)
[2018-08-24] MEDS: AZITHROMYCIN 500 MG TAB PO SCH (08:51)
[2018-08-24] MEDS: PANTOPRAZOLE 40 MG TABLET PO SCH (08:51)
[2018-08-24] MEDS: FERROUS SULFATE 325 MG TAB PO SCH ×2 (08:51→22:06)
[2018-08-24] MEDS: HEPARIN SODIUM,PORCINE 5,000 UNIT/ML 1 ML VIAL SQ SCH ×3 (08:51→22:34)
[2018-08-24] MEDS: MAGNESIUM OXIDE 400 MG TAB PO SCH ×2 (08:52→22:06)
[2018-08-24] MEDS: LACTULOSE 20 GM/30 ML CUP PO SCH ×3 (08:52→22:33)
[2018-08-24] MEDS: METOLAZONE 5 MG TAB PO SCH (08:53)
[2018-08-24] MEDS: OSELTAMIVIR 75 MG CAP PO SCH ×2 (08:53→22:34)
[2018-08-24] MEDS: LINAGLIPTIN 5 MG TABLET PO SCH (08:53)
[2018-08-24] MEDS: SPIRONOLACTONE 25 MG TAB PO SCH (08:54)
[2018-08-24] MEDS: POTASSIUM CHLORIDE ER 10 MEQ TAB.ER.PRT PO SCH (08:54)
[2018-08-24] MEDS ORDERED: FUROSEMIDE 20 MG TAB PO SCH (09:00)
[2018-08-24] MEDS: INSULIN ASPART (NovoLOG) 100 UNIT/ML VIAL SQ SCH ×4 (09:03→22:20)
--- NOTE | 2018-08-24 09:48 | XR ---
EXAMINATION TYPE: XR chest 2V DATE OF EXAM: 08/24/2018 COMPARISON: Prior chest x-ray 08/23/2018 HISTORY: Pneumonia TECHNIQUE: Frontal and lateral views of the chest are obtained. FINDINGS: There is blunting the posterior costophrenic angles. Heart size is stable. No pneumothorax . Interstitium may be slightly increased. Surgical clips in the right upper quadrant. IMPRESSION: Possible lower lobe atelectasis versus pneumonia and associated effusions. Correlate to exclude interstitial edema, follow-up as indicated.
[2018-08-24 11:29] LABS: Glucose,Whole Blood 98 mg/dL (75-99)
[2018-08-24] MEDS: MULTIVITAMINS, THERA 1 EACH TAB PO SCH (13:01)
[2018-08-24] MEDS ORDERED: FUROSEMIDE 10 MG/ML 4 ML VIAL IV SCH (13:30)
--- NOTE | 2018-08-24 14:42 | P.CNPUL ---
History of Present Illness Consult date: 08/24/18 Reason for consult: dyspnea History of present illness: 62-year-old female patient with known history of cryptogenic liver cirrhosis has been diagnosed having a left lower lobe pneumonia and she checked positive for influenza A and she was admitted for the same. The patient symptoms started approximately a week ago. Her has been sick with the flu. The patient started having increased cough, congestion, shortness of breath, skeletal chest wall pain especially with cough and episodes. Currently she is on room air oxygen. She also has chronic lower extremity edema. She has been on a combination of diuretics which were modified recently due to concern of renal insufficiency. Since then her weight and her lower extremity edema has gotten worse. She is known to have some degree of CHF with diastolic dysfunction. She has cryptogenic liver cirrhosis and she is in the transplant list through [facility] system. No altered mentation. Some nausea and abdominal discomfort. No other complaints otherwise for now. Review of Systems Constitutional: Reports fatigue, Reports weakness, Reports weight gain Eyes: denies as per HPI, denies blurred vision, denies bulging eye, denies decreased vision, denies diplopia, denies discharge, denies dry eye, denies irritation, denies itching, denies pain, denies photophobia, denies loss of peripheral vision, denies loss of vision, denies tunnel vision/blind spots Ears: deny: decreased hearing, ear discharge, earache, tinnitus Ears, nose, mouth and throat: Denies headache, Denies sore throat Breasts: absent: as per HPI, change in shape, gynecomastia, masses, nipple discharge, pain, skin changes, swelling Cardiovascular: Reports decreased exercise tolerance, Reports dyspnea on exertion, Reports leg edema, Reports rapid heart beat Respiratory: Reports congestion Gastrointestinal: Reports as per HPI Genitourinary: Denies dysuria, Denies hematuria Menstruation: Reports as per HPI Musculoskeletal: Reports as per HPI Musculoskeletal: bilateral: ankle swelling, absent: ankle pain, ankle stiffness Integumentary: Denies pruritus, Denies rash Neurological: Reports as per HPI Psychiatric: Reports as per HPI Endocrine: Reports as per HPI Hematologic/Lymphatic: Reports as per HPI 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 at [facility], diabetes mellitus, hypertension, hyperlipidemia, acid reflux, chronic lower extremity edema, history of iron deficiency, CHF with diastolic dysfunction History of Any Multi-Drug Resistant Organisms: None Reported Past Surgical History: Cholecystectomy, Heart Catheterization, Hysterectomy, Tonsillectomy Additional Past Surgical History / Comment(s): ectopic outside of uterus, dc[facility] 07-21[facility]16 after heart cath (radial approach) Past Anesthesia/Blood Transfusion Reactions: Motion Sickness Additional Past Anesthesia/Blood Transfusion Reaction / Comment(s): motion sickness sometimes in car. clausterphobia Smoking Status: Never smoker - Past Family History Father Family Medical History: Myocardial Infarction ([place]) Additional Family Medical History / Comment(s): HAD MASSIVE [place] Mother Family Medical History: Cancer Additional Family Medical History / Comment(s): COLON CA Brother(s) Family Medical History: Cancer Additional Family Medical History / Comment(s): LEUKEMIA- AND ALSO BROTHER HAD BLOOD CLOT IN LEG AFTER FX Medications and Allergies Home Medications Medication Instructions Recorded Confirmed Type Cholecalciferol [Vitamin D3] 2,000 unit PO DAILY 11/11/15 08/23/18 History Ferrous Sulfate [Feosol] 325 mg PO BID 11/11/15 08/23/18 History Lactulose [Cephulac] 15 gm PO TID 07/22/16 08/23/18 History Ibandronate Sodium [Boniva] 150 mg PO Q30D 07/01/18 08/23/18 History Metolazone [Zaroxolyn] 5 mg PO DAILY 07/01/18 08/23/18 History Multivitamins, Thera [Multivitamin 1 tab PO DAILY 07/01/18 08/23/18 History (formulary)] sitaGLIPtin [Januvia] 100 mg PO DAILY 07/01/18 08/23/18 History Insulin Detemir [Levemir Flextouch] 30 units SQ HS 30 Days #3 pen 07/04/1808/23 Rx Furosemide [Lasix] 20 mg PO DAILY 08/23/18 08/23/18 History Magnesium Oxide [Mag-Ox] 400 mg PO BID 08/23/18 08/23/18 History Pantoprazole Sodium [Protonix] 40 mg PO DAILY 08/23/18 08/23/18 History Potassium Bicarbonate/Cit AC 25 meq PO DAILY 08/23/18 08/23/18 History [Klor-Con 25 (Effer. Tab)] Spironolactone [Aldactone] 50 mg PO DAILY 08/23/18 08/23/18 History Allergies Allergy/AdvReac Type Severity Reaction Status Date / Time No Known Allergies Allergy Verified 08/23/18 18:46 Physical Exam Vitals: Vital Signs Temp Pulse Pulse Resp BP BP Pulse Ox 08/24/18 11:34 97.9 F 69 111/50 08/24/18 11:27 88 08/24/18 11:17 84 08/24/18 11:15 70 20 08/24/18 08:00 70 20 08/24/18 07:00 97.9 F 70 20 122/67 08/24/18 05:05 122/60 08/24/18 04:46 97.9 F 65 16 96 08/24/18 03:04 80 08/24/18 02:57 78 08/23/18 22:01 97.8 F 67 18 121/77 97 08/23/18 21:05 68 18 122/61 98 08/23/18 19:11 71 18 08/23/18 19:04 66 18 08/23/18 18:10 98.1 F 70 18 134/79 96 Intake and Output 08/23/18 08/24/18 08/24/18 22:59 06:59 14:59 Intake Total 300 800 Balance 300 800 Intake: Intake, IV Titration 300 Amount Azithromycin 500 mg In 250 Sodium Chloride 0.9% 250 ml @ 250 mls/hr IVPB ONCE ONE Rx#:[id number] cefTRIAXone 1,000 mg In 50 Sodium Chloride 0.9% 50 ml @ 100 mls/hr IVPB Q[facility] Rx#:[id number] Oral 300 500 Other: Voiding Method Toilet Toilet # Voids 1 1 Weight 95.254 kg 103.9 kg Gen. appearance obese, comfortable active distress. Head exam was generally normal. There was no scleral icterus or corneal arcus. Mucous membranes were moist. Neck was supple and without jugular venous distension, thyromegaly, or carotid bruits. Carotids were easily palpable bilaterally. There was no adenopathy. Lungs sounds are diminished bilaterally along with some scattered rhonchi. No significant wheezes. Breath sounds are equal and symmetrical. Cardiac exam revealed the PMI to be normally situated and sized. The rhythm was regular and no extrasystoles were noted during several minutes of auscultation. The first and second heart sounds were normal and physiologic splitting of the second heart sound was noted. There were no murmurs, rubs, clicks, or gallops. Abdominal exam revealed normal bowel sounds. The abdomen was soft, non-tender, and without masses, organomegaly, or appreciable enlargement of the abdominal aorta. Extremities revealed +1-2 pitting edema. There is no cyanosis or clubbing. Neurologic awake and alert and is no focaldeficits. Results - Laboratory Findings CBC and BMP: 08/23/18 18:33 08/23/18 18:33 PT/INR, D-dimer PT 14.2 sec (9.0-12.0) H 08/23/18 18:33 INR 1.4 (<1.2) H 08/23/18 18:33 Abnormal lab findings: Abnormal Labs 08/23/18 08/23/18 08/23/18 18:33 18:33 18:33 WBC 2.2 L RBC 3.71 L MCV 102.3 H Plt Count 53 L Neutrophils # (Manual) 0.92 L Lymphocytes # (Manual) 0.68 L PT INR APTT Chloride 112 H Glucose 134 H POC Glucose (mg/dL) Calcium 7.9 L Total Bilirubin 1.8 H AST 80 H Ammonia 47 H Total Protein 5.7 L Albumin 2.5 L Influenza Type A RNA 08/23/18 08/24/18 08/24/18 18:33 05:45 06:53 WBC RBC MCV Plt Count Neutrophils # (Manual) Lymphocytes # (Manual) PT 14.2 H INR 1.4 H APTT 33.5 H Chloride Glucose POC Glucose (mg/dL) 74 L Calcium Total Bilirubin AST Ammonia Total Protein Albumin Influenza Type A RNA Detected H - Diagnostic Findings Chest x-ray: image reviewed Assessment and Plan Plan: assessment 1 acute influenza pneumonia with limited infiltration of the lung bases more so on the left. 2 shortness of breath cough chest congestion and skeletal chest wall pain secondary to above 3 liver cirrhosis currently on a transplant list at [facility] 4 chronic lower extremity edema 5 diabetes mellitus type 2 6 hypertension 7 hyperlipidemia 8 obesity. 9 recent hospitalization forelectrode disturbance and acute kidney injury from which the patient recovered Plan Agree on the current treatment. Continue the Tamiflu. Droplet isolation.continue bronchodilators [id number].the patient will be started on Lasix 40 mg IV every 24 hours. Continue on Aldactone 50 mg by mouth daily. Monitor renal function. Fluid restriction. We'll continue to follow.
--- NOTE | 2018-08-24 17:11 | P.HPIM ---
History of Present Illness pleasant 62-year-old female came in with complaints of Oddi aches cough which started Tuesday patient is found to have influenza A patient does have a chest x-ray findings consistent with influenza pneumonia. Patient was started on antibiotics for bacterial pneumonia Rocephin and azithromycin and Rocephin will be discussed in patient is already in Tamiflu patient the is presently on room air patient is also complaining of bilateral pedal edema does have a significant crackles in the exam patient was comparing of cough congestion. Patient denied any chest pain. Patient does have history of cirrhosis because of which patient is volume overloaded and had her diuretic therapy was recently cut down because of worsening renal function patient was on metolazone which was discontinued patient also is receiving Lasix and the Aldactone. Patient does have bilateral lower extremity edema. Patient did have fever Review of Systems REVIEW OF SYSTEMS: CONSTITUTIONAL: As mentioned in HPI HEENT: No recent visual problems or hearing problems. Denied any sore throat. CARDIOVASCULAR: No chest pain, orthopnea, PND, no palpitations, no syncope. PULMONARY: No shortness of breath, no cough, no hemoptysis. GASTROINTESTINAL: No diarrhea, no nausea, no vomiting, no abdominal pain. NEUROLOGICAL: No headaches, no weakness, no numbness. HEMATOLOGICAL: Denies any bleeding or petechiae. GENITOURINARY: Denies any burning micturition, frequency, or urgency. MUSCULOSKELETAL/RHEUMATOLOGICAL: Denies any joint pain, swelling. ENDOCRINE: Denies any polyuria or polydipsia. The rest of the 14-point review of systems is negative. 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 at [facility], diabetes mellitus, hypertension, hyperlipidemia, acid reflux, chronic lower extremity edema, history of iron deficiency, CHF with diastolic dysfunction History of Any Multi-Drug Resistant Organisms: None Reported Past Surgical History: Cholecystectomy, Heart Catheterization, Hysterectomy, Tonsillectomy Additional Past Surgical History / Comment(s): ectopic outside of uterus, dc'd from [facility] 07-21-16 after heart cath (radial approach) Past Anesthesia/Blood Transfusion Reactions: Motion Sickness Additional Past Anesthesia/Blood Transfusion Reaction / Comment(s): motion sickness sometimes in car. clausterphobia Smoking Status: Never smoker - Past Family History Father Family Medical History: Myocardial Infarction (NH) Additional Family Medical History / Comment(s): HAD MASSIVE NH Mother Family Medical History: Cancer Additional Family Medical History / Comment(s): COLON CA Brother(s) Family Medical History: Cancer Additional Family Medical History / Comment(s): LEUKEMIA- AND ALSO BROTHER HAD BLOOD CLOT IN LEG AFTER FX Medications and Allergies Home Medications Medication Instructions Recorded Confirmed Type Cholecalciferol [Vitamin D3] 2,000 unit PO DAILY 11/11/15 08/23/18 History Ferrous Sulfate [Feosol] 325 mg PO BID 11/11/15 08/23/18 History Lactulose [Cephulac] 15 gm PO TID 07/22/16 08/23/18 History Ibandronate Sodium [Boniva] 150 mg PO Q30D 07/01/18 08/23/18 History Metolazone [Zaroxolyn] 5 mg PO DAILY 07/01/18 08/23/18 History Multivitamins, Thera [Multivitamin 1 tab PO DAILY 07/01/18 08/23/18 History (formulary)] sitaGLIPtin [Januvia] 100 mg PO DAILY 07/01/18 08/23/18 History Insulin Detemir [Levemir Flextouch] 30 units SQ HS 30 Days #3 pen 07/04/1808/23 Rx Furosemide [Lasix] 20 mg PO DAILY 08/23/18 08/23/18 History Magnesium Oxide [Mag-Ox] 400 mg PO BID 08/23/18 08/23/18 History Pantoprazole Sodium [Protonix] 40 mg PO DAILY 08/23/18 08/23/18 History Potassium Bicarbonate/Cit AC 25 meq PO DAILY 08/23/18 08/23/18 History [Klor-Con 25 (Effer. Tab)] Spironolactone [Aldactone] 50 mg PO DAILY 08/23/18 08/23/18 History Allergies Allergy/AdvReac Type Severity Reaction Status Date / Time No Known Allergies Allergy Verified 08/23/18 18:46 Physical Exam Vitals: Vital Signs Temp Pulse Pulse Resp BP BP Pulse Ox 08/24/18 16:30 69 20 08/24/18 11:34 97.9 F 69 111/50 08/24/18 11:27 88 08/24/18 11:17 84 08/24/18 11:15 70 20 08/24/18 08:00 70 20 08/24/18 07:00 97.9 F 70 20 122/67 08/24/18 05:05 122/60 08/24/18 04:46 97.9 F 65 16 96 08/24/18 03:04 80 08/24/18 02:57 78 08/23/18 22:01 97.8 F 67 18 121/77 97 08/23/18 21:05 68 18 122/61 98 08/23/18 19:11 71 18 08/23/18 19:04 66 18 08/23/18 18:10 98.1 F 70 18 134/79 96 Intake and Output 08/24/18 08/24/18 08/24/18 06:59 14:59 22:59 Intake Total 800 290 Balance 800 290 Intake: Intake, IV Titration 300 50 Amount Azithromycin 500 mg In 250 Sodium Chloride 0.9% 250 ml @ 250 mls/hr IVPB ONCE ONE Rx#:[id number] cefTRIAXone 1,000 mg In 50 Sodium Chloride 0.9% 50 ml @ 100 mls/hr IVPB ONCE STA Rx#:[id number] cefTRIAXone 1,000 mg In 50 Sodium Chloride 0.9% 50 ml @ 100 mls/hr IVPB Q24HR [facility] Rx#:[id number] Oral 500 240 Other: Voiding Method Toilet Toilet Toilet # Voids 1 2 2 Weight 103.9 kg PHYSICAL EXAMINATION: GENERAL: The patient is alert and oriented x3, not in any acute distress. Well developed, well nourished. HEENT: Pupils are round and equally reacting to light. EOMI. No scleral icterus. No conjunctival pallor. Normocephalic, atraumatic. No pharyngeal erythema. No thyromegaly. CARDIOVASCULAR: S1 and S2 present. No murmurs, rubs, or gallops. PULMONARY: Good air entry into bilateral lung manzanares and does have diffuse crackles on exam ABDOMEN: Soft, distended nontender, does have peripheral signs of cirrhosis MUSCULOSKELETAL: No joint swelling or deformity. EXTREMITIES: No cyanosis, clubbing, does have 2+ pitting pedal edema NEUROLOGICAL: Gross neurological examination did not reveal any focal deficits. SKIN: No rashes. Results CBC & Chem 7: 08/23/18 18:33 08/23/18 18:33 Labs: Abnormal Lab Results - Last 24 Hours (Table) 08/23/18 08/23/18 08/23/18 Range/Units 18:33 18:33 18:33 WBC 2.2 L (3.8-10.6) k/uL RBC 3.71 L (3.80-5.40) m/uL MCV 102.3 H (80.0-100.0) fL Plt Count 53 L (150-450) k/uL Neutrophils # (Manual) 0.92 L (1.3-7.7) k/uL Lymphocytes # (Manual) 0.68 L (1.0-4.8) k/uL PT (9.0-12.0) sec INR (<1.2) APTT (22.0-30.0) sec Chloride 112 H (98-107) mmol/L Glucose 134 H (74-99) mg/dL POC Glucose (mg/dL) (75-99) mg/dL Calcium 7.9 L (8.4-10.2) mg/dL Total Bilirubin 1.8 H (0.2-1.3) mg/dL AST 80 H (14-36) U/L Ammonia 47 H (<30) umol/L Total Protein 5.7 L (6.3-8.2) g/dL Albumin 2.5 L (3.5-5.0) g/dL Influenza Type A RNA (Not Detectd) 08/23/18 08/24/18 08/24/18 Range/Units 18:33 05:45 06:53 WBC (3.8-10.6) k/uL RBC (3.80-5.40) m/uL MCV (80.0-100.0) fL Plt Count (150-450) k/uL Neutrophils # (Manual) (1.3-7.7) k/uL Lymphocytes # (Manual) (1.0-4.8) k/uL PT 14.2 H (9.0-12.0) sec INR 1.4 H (<1.2) APTT 33.5 H (22.0-30.0) sec Chloride (98-107) mmol/L Glucose (74-99) mg/dL POC Glucose (mg/dL) 74 L (75-99) mg/dL Calcium (8.4-10.2) mg/dL Total Bilirubin (0.2-1.3) mg/dL AST (14-36) U/L Ammonia (<30) umol/L Total Protein (6.3-8.2) g/dL Albumin (3.5-5.0) g/dL Influenza Type A RNA Detected H (Not Detectd) Assessment and Plan Plan: -Acute influenza pneumonia: Continue with Tamiflu it because of volume overload patient will not be started on IV fluids -Shortness of breath and congestion secondary to influenza -Idiopathic cirrhosis patient is scheduled to have a renal transplant and patient has significant -Volume overload bilateral lower extremity edema secondary to cirrhosis patient will be started on IV Lasix 40 twice a day with the basic metabolic profile monitoring -Type 2 diabetes mellitus -Hypertension -Hyperlipidemia
[2018-08-24 17:29] LABS: Glucose,Whole Blood 87 mg/dL (75-99)
[2018-08-24] MEDS ORDERED: INSULIN DETEMIR (LEVEMIR) 100 UNIT/ML SYR SQ SCH (18:29)
[2018-08-24 20:02] LABS: Glucose,Whole Blood 121 mg/dL (75-99)
[2018-08-24] MEDS: FUROSEMIDE 10 MG/ML 4 ML VIAL IV SCH (22:05)
[2018-08-24] MEDS: INSULIN DETEMIR (LEVEMIR) 100 UNIT/ML SYR SQ SCH (23:15)
[2018-08-25] MEDS: IPRATROPIUM-ALBUTEROL 3 ML NEB INHALATION SCH ×4 (07:16→20:06)
[2018-08-25 07:17] LABS: Glucose,Whole Blood 55 mg/dL (75-99)
[2018-08-25 07:44] LABS: Glucose,Whole Blood 85 mg/dL (75-99)
[2018-08-25 08:09] LABS: Albumin 2.4 g/dL (3.5-5.0); Calcium 8.5 mg/dL (8.4-10.2); Potassium 3.8 mmol/L (3.5-5.1); Total Bilirubin 1.6 mg/dL (0.2-1.3); Total Protein 5.3 g/dL (6.3-8.2)
[2018-08-25 08:26] LABS: HCT 33.9 % (34.0-46.0); HGB 11.6 gm/dL (11.4-16.0); MCH 35.1 pg (25.0-35.0); MCHC 34.2 g/dL (31.0-37.0); MCV 102.5 fL (80.0-100.0); Macrocytosis Slight; Mean Platelet Volume 7.3; RBC 3.31 m/uL (3.80-5.40); RDW 14.6 % (11.5-15.5); WBC 2.2 k/uL (3.8-10.6)
[2018-08-25 08:46] LABS: Platelet Count 43 k/uL (150-450)
[2018-08-25] MEDS: INSULIN ASPART (NovoLOG) 100 UNIT/ML VIAL SQ SCH ×4 (09:21→20:26)
[2018-08-25] MEDS: FUROSEMIDE 10 MG/ML 4 ML VIAL IV SCH (09:29)
[2018-08-25] MEDS: HEPARIN SODIUM,PORCINE 5,000 UNIT/ML 1 ML VIAL SQ SCH ×2 (10:10→18:11)
[2018-08-25] MEDS: PANTOPRAZOLE 40 MG TABLET PO SCH (10:10)
[2018-08-25] MEDS: CHOLECALCIFEROL 1,000 UNIT TAB PO SCH (10:10)
[2018-08-25] MEDS: LORATADINE 10 MG TAB PO SCH (10:11)
[2018-08-25] MEDS: FERROUS SULFATE 325 MG TAB PO SCH ×2 (10:11→22:21)
[2018-08-25] MEDS: LACTULOSE 20 GM/30 ML CUP PO SCH ×3 (10:11→22:22)
[2018-08-25] MEDS: SPIRONOLACTONE 25 MG TAB PO SCH (10:12)
[2018-08-25] MEDS: MAGNESIUM OXIDE 400 MG TAB PO SCH ×2 (10:12→22:21)
[2018-08-25] MEDS: POTASSIUM CHLORIDE ER 10 MEQ TAB.ER.PRT PO SCH (10:12)
[2018-08-25] MEDS: OSELTAMIVIR 75 MG CAP PO SCH (10:37)
[2018-08-25] MEDS: LINAGLIPTIN 5 MG TABLET PO SCH (10:37)
[2018-08-25] MEDS: AZITHROMYCIN 500 MG TAB PO SCH (10:37)
[2018-08-25] MEDS: METOLAZONE 5 MG TAB PO SCH (10:37)
[2018-08-25] MEDS: ONDANSETRON 4 MG/2 ML VIAL IVP PRN ×2 (11:53→22:22)
[2018-08-25 11:56] LABS: Glucose,Whole Blood 63 mg/dL (75-99)
[2018-08-25 12:23] LABS: Glucose,Whole Blood 79 mg/dL (75-99)
[2018-08-25] MEDS: MULTIVITAMINS, THERA 1 EACH TAB PO SCH (13:01)
--- NOTE | 2018-08-25 14:02 | P.PN ---
Subjective pleasant 62-year-old female came in with complaints of Oddi aches cough which started Tuesday patient is found to have influenza A patient does have a chest x-ray findings consistent with influenza pneumonia. Patient was started on antibiotics for bacterial pneumonia Rocephin and azithromycin and Rocephin will be discussed in patient is already in Tamiflu patient the is presently on room air patient is also complaining of bilateral pedal edema does have a significant crackles in the exam patient was comparing of cough congestion. Patient denied any chest pain. Patient does have history of cirrhosis because of which patient is volume overloaded and had her diuretic therapy was recently cut down because of worsening renal function patient was on metolazone which was discontinued patient also is receiving Lasix and the Aldactone. Patient does have bilateral lower extremity edema. Patient did have fever 08/25/2018 Patient looks better today but still complaining of some generalized body aches still complaining of swelling in both legs although that improved and patient still has some swelling in both feet which is pitting pedal edema. His her creatinine started to climb up, IV Lasix was switched to oral Lasix and monitor her one more night and possibility of discharge tomorrow Constitutional: Denied any fatigue denied any fever. Cardio vascular: denied any chest pain, palpitations Gastrointestinal denied any nausea vomiting Pulmonary: Denied any shortness of breath cough Neurologic denied any new focal deficits All inpatient medications were reviewed and appropriate changes in these medications as dictated in the interval history and assessment and plan. Objective - Vital Signs Vital signs: Vital Signs Temp 97.8 F 08/25/18 11:28 Pulse 70 08/25/18 11:28 Resp 18 08/25/18 11:28 BP 112/65 08/25/18 11:28 Pulse Ox 95 08/25/18 05:27 Intake & Output 08/24/18 08/25/18 08/25/18 18:59 06:59 18:59 Intake Total 290 Balance 290 Weight 107 kg Intake: Intake, IV Titration 50 Amount cefTRIAXone 1,000 mg In 50 Sodium Chloride 0.9% 50 ml @ 100 mls/hr IVPB ONCE STA Rx#:[id number] Oral 240 Other: Voiding Method Toilet Toilet Toilet # Voids 2 2 - Exam PHYSICAL EXAMINATION: GENERAL: The patient is alert and oriented x3, not in any acute distress. Well developed, well nourished. HEENT: Pupils are round and equally reacting to light. EOMI. No scleral icterus. No conjunctival pallor. Normocephalic, atraumatic. No pharyngeal erythema. No thyromegaly. CARDIOVASCULAR: S1 and S2 present. No murmurs, rubs, or gallops. PULMONARY: Good air entry into bilateral lung manzanares and does have diffuse crackles on exam ABDOMEN: Soft, distended nontender, does have peripheral signs of cirrhosis MUSCULOSKELETAL: No joint swelling or deformity. EXTREMITIES: No cyanosis, clubbing, does have 2+ pitting pedal edema NEUROLOGICAL: Gross neurological examination did not reveal any focal deficits. SKIN: No rashes. - Labs CBC & Chem 7: 08/25/18 06:56 08/25/18 06:56 Labs: Abnormal Lab Results - Last 24 Hours (Table) 08/24/18 08/25/18 08/25/18 Range/Units 20:00 06:56 06:56 WBC 2.2 L (3.8-10.6) k/uL RBC 3.31 L (3.80-5.40) m/uL Hct 33.9 L (34.0-46.0) % MCV 102.5 H (80.0-100.0) fL MCH 35.1 H (25.0-35.0) pg Plt Count 43 L (150-450) k/uL Chloride 109 H (98-107) mmol/L Carbon Dioxide 31 H (22-30) mmol/L Creatinine 1.14 H (0.52-1.04) mg/dL Glucose 53 L (74-99) mg/dL POC Glucose (mg/dL) 121 H (75-99) mg/dL Total Bilirubin 1.6 H (0.2-1.3) mg/dL AST 60 H (14-36) U/L Total Protein 5.3 L (6.3-8.2) g/dL Albumin 2.4 L (3.5-5.0) g/dL 08/25/18 08/25/18 Range/Units 07:16 11:55 WBC (3.8-10.6) k/uL RBC (3.80-5.40) m/uL Hct (34.0-46.0) % MCV (80.0-100.0) fL MCH (25.0-35.0) pg Plt Count (150-450) k/uL Chloride (98-107) mmol/L Carbon Dioxide (22-30) mmol/L Creatinine (0.52-1.04) mg/dL Glucose (74-99) mg/dL POC Glucose (mg/dL) 55 L 63 L (75-99) mg/dL Total Bilirubin (0.2-1.3) mg/dL AST (14-36) U/L Total Protein (6.3-8.2) g/dL Albumin (3.5-5.0) g/dL Microbiology - Last 24 Hours (Table) 08/23/18 20:32 Blood Culture - Preliminary Blood No Growth after 24 hours Assessment and Plan Plan: -Acute influenza pneumonia: Continue with Tamiflu i, improved symptoms supportive care -Shortness of breath and congestion secondary to influenza -Idiopathic cirrhosis patient is scheduled to have a renal transplant at [facility] in near future -Volume overload bilateral lower extremity edema secondary to cirrhosis , because of the worsening creatinine patient was switched to oral Lasix will monitor her one more night possibility of discharge tomorrow -Type 2 diabetes mellitus -Hypertension -Hyperlipidemia
--- NOTE | 2018-08-25 15:55 | P.PN ---
Subjective Progress Note Date: 08/25/18 Principal diagnosis: Acute influenza pneumonia with limited infiltration in the bilateral bases more so in the left lung 62-year-old female patient with known history of cryptogenic liver cirrhosis has been diagnosed having a left lower lobe pneumonia and she checked positive for influenza A and she was admitted for the same. The patient symptoms started approximately a week ago. Her has been sick with the flu. The patient started having increased cough, congestion, shortness of breath, skeletal chest wall pain especially with cough and episodes. Currently she is on room air oxygen. She also has chronic lower extremity edema. She has been on a combination of diuretics which were modified recently due to concern of renal insufficiency. Since then her weight and her lower extremity edema has gotten worse. She is known to have some degree of CHF with diastolic dysfunction. She has cryptogenic liver cirrhosis and she is in the transplant list through [facility] system. No altered mentation. Some nausea and abdominal discomfort. No other complaints otherwise for now. The patient is seen today 08/25/2018 in follow-up on the regular medical floor. She is awake and alert in no acute distress. She continues with a loose nonproductive cough. Somewhat dyspneic on minimal exertion. 18 O2 saturations in the 90s on 3 L/m per nasal cannula. Currently afebrile. Hemodynamically stable. Culture reveals no growth to date. He count 2.2. Hemoglobin 11.6. Platelet count 43,000. Creatinine 1.14. AST 60, ALT 43. Currently on azithromycin. Continuing on Tamiflu. Objective - Vital Signs Vital signs: Vital Signs Temp 97.8 F 08/25/18 11:28 Pulse 70 08/25/18 15:00 Resp 18 08/25/18 15:00 BP 112/65 08/25/18 11:28 Pulse Ox 95 08/25/18 05:27 Intake & Output 08/24/18 08/25/18 08/25/18 18:59 06:59 18:59 Intake Total 290 240 Balance 290 240 Weight 107 kg Intake: Intake, IV Titration 50 Amount cefTRIAXone 1,000 mg In 50 Sodium Chloride 0.9% 50 ml @ 100 mls/hr IVPB ONCE STA Rx#:[id number] Oral 240 240 Other: Voiding Method Toilet Toilet Toilet # Voids 2 2 2 - Exam GENERAL EXAM: Alert, active, comfortable in no apparent distress. On 3 L nasal cannula. HEAD: Normocephalic. EYES: Normal reaction of pupils, equal size. NOSE: Clear with pink turbinates. THROAT: No erythema or exudates. NECK: No masses, no JVD. CHEST: No chest wall deformity. LUNGS: Equal air entry with scattered rhonchi more so on the left. CVS: S1 and S2 normal with no audible murmur, regular rhythm. ABDOMEN: No hepatosplenomegaly, normal bowel sounds, no guarding or rigidity. SPINE: No scoliosis or deformity SKIN: No rashes CENTRAL NERVOUS SYSTEM: No focal deficits, tone is normal in all 4 extremities. EXTREMITIES: There is no peripheral edema. No clubbing, no cyanosis. Peripheral pulses are intact. - Labs CBC & Chem 7: 08/25/18 06:56 08/25/18 06:56 Labs: Abnormal Lab Results - Last 24 Hours (Table) 08/24/18 08/25/18 08/25/18 Range/Units 20:00 06:56 06:56 WBC 2.2 L (3.8-10.6) k/uL RBC 3.31 L (3.80-5.40) m/uL Hct 33.9 L (34.0-46.0) % MCV 102.5 H (80.0-100.0) fL MCH 35.1 H (25.0-35.0) pg Plt Count 43 L (150-450) k/uL Chloride 109 H (98-107) mmol/L Carbon Dioxide 31 H (22-30) mmol/L Creatinine 1.14 H (0.52-1.04) mg/dL Glucose 53 L (74-99) mg/dL POC Glucose (mg/dL) 121 H (75-99) mg/dL Total Bilirubin 1.6 H (0.2-1.3) mg/dL AST 60 H (14-36) U/L Total Protein 5.3 L (6.3-8.2) g/dL Albumin 2.4 L (3.5-5.0) g/dL 08/25/18 08/25/18 Range/Units 07:16 11:55 WBC (3.8-10.6) k/uL RBC (3.80-5.40) m/uL Hct (34.0-46.0) % MCV (80.0-100.0) fL MCH (25.0-35.0) pg Plt Count (150-450) k/uL Chloride (98-107) mmol/L Carbon Dioxide (22-30) mmol/L Creatinine (0.52-1.04) mg/dL Glucose (74-99) mg/dL POC Glucose (mg/dL) 55 L 63 L (75-99) mg/dL Total Bilirubin (0.2-1.3) mg/dL AST (14-36) U/L Total Protein (6.3-8.2) g/dL Albumin (3.5-5.0) g/dL Microbiology - Last 24 Hours (Table) 08/23/18 20:32 Blood Culture - Preliminary Blood No Growth after 24 hours Assessment and Plan Assessment: Impression: 1 acute influenza pneumonia with limited infiltration of the lung bases more so on the left. 2 shortness of breath cough chest congestion and skeletal chest wall pain secondary to above 3 liver cirrhosis currently on a transplant list at [facility] 4 chronic lower extremity edema 5 diabetes mellitus type 2 6 hypertension 7 hyperlipidemia 8 obesity. 9 recent hospitalization forelectrode disturbance and acute kidney injury from which the patient recovered Plan The patient was seen and evaluated by Dr. Mckenzie. She is currently stable from the pulmonary standpoint. We'll continue with her current medications including azithromycin and Tamiflu. Remains on diuretics. Chest x-ray in a.m. We'll continue to follow make further recommendations based on her clinical status. I, the cosigning physician, performed a history & physical examination of the patient. Lungs sounds with few scattered rhonchi more so on the left. Maintaining good O2 saturations in the 90s on 3 L/m per nasal cannula. I discussed the assessment and plan of care with my nurse practitioner, Bouchra Barbosa. I attest to the above note as dictated by her.
[2018-08-25 16:56] LABS: Glucose,Whole Blood 84 mg/dL (75-99)
[2018-08-25] MEDS: FUROSEMIDE 40 MG TAB PO SCH (18:11)
[2018-08-25 20:22] LABS: Glucose,Whole Blood 118 mg/dL (75-99)
[2018-08-25] MEDS: OSELTAMIVIR 60 MG/10 ML ORAL SYRINGE PO SCH (22:30)
[2018-08-26] MEDS: INSULIN DETEMIR (LEVEMIR) 100 UNIT/ML SYR SQ SCH ×2 (00:04→22:42)
[2018-08-26] MEDS: HEPARIN SODIUM,PORCINE 5,000 UNIT/ML 1 ML VIAL SQ SCH ×4 (00:04→22:42)
[2018-08-26] MEDS ORDERED: DEXTROSE 50%-WATER 50 ML SYRINGE IVP ONE (03:56)
[2018-08-26 04:10] LABS: Glucose,Whole Blood 43 mg/dL (75-99)
[2018-08-26 04:19] LABS: Glucose,Whole Blood 122 mg/dL (75-99)
[2018-08-26] MEDS: ONDANSETRON 4 MG/2 ML VIAL IVP PRN (04:21)
[2018-08-26 04:45] LABS: Glucose,Whole Blood 116 mg/dL (75-99)
[2018-08-26] MEDS: IPRATROPIUM-ALBUTEROL 3 ML NEB INHALATION SCH ×4 (06:00→19:47)
--- NOTE | 2018-08-26 06:01 | XR ---
EXAM: XR Abdomen 2 Views With XR Chest CLINICAL HISTORY: ITS.REASON XR Reason: New onset abdominal pain TECHNIQUE: Frontal view of the chest, frontal view of the abdomen/pelvis and upright or decubitus view of the abdomen. COMPARISON: 09/03/2018 chest x-ray and 11/15/15 chest x-ray and abdomen x-ray. FINDINGS: Lungs: Mild retrocardiac left opacity, decreased since the prior. May represent atelectasis or infiltrate. Low lung volumes. Rest of the lungs clear. Pleural space: Unremarkable. No pneumothorax. Heart: Unremarkable. No cardiomegaly. Mediastinum: Unremarkable. Intraperitoneal space: On the semiupright view of the upper abdomen, lucency in the upper mid abdomen. Raises possibility of free air. Gastrointestinal tract: Nonspecific nonobstructive bowel gas pattern. Bones/joints: Degenerative changes of the spine IMPRESSION: 1. On the semiupright view of the upper abdomen, lucency in the upper mid abdomen. Raises possibility of free air. Correlate and consider follow-up CT if indicated. 2. Mild retrocardiac left opacity, decreased since the prior. May represent atelectasis or infiltrate. [employer] 08/26/18 06:09 Call Nurse Connected Nurse Mariela on [address] Vela on 08/26 06:09 (-05:00)
[2018-08-26 06:05] LABS: Glucose,Whole Blood 115 mg/dL (75-99)
[2018-08-26] MEDS ORDERED: IOPAMIDOL-300 CONTRAST 30 ML VIAL (ORAL USE) PO PRN ×2 (06:20→08:10)
[2018-08-26 07:06] LABS: Glucose,Whole Blood 82 mg/dL (75-99)
[2018-08-26 07:27] LABS: Albumin 2.5 g/dL (3.5-5.0); Total Protein 5.7 g/dL (6.3-8.2)
[2018-08-26 07:28] LABS: Calcium 8.6 mg/dL (8.4-10.2); Potassium 3.7 mmol/L (3.5-5.1); Total Bilirubin 1.9 mg/dL (0.2-1.3)
[2018-08-26] MEDS: INSULIN ASPART (NovoLOG) 100 UNIT/ML VIAL SQ SCH ×4 (07:47→22:38)
--- NOTE | 2018-08-26 09:16 | CT ---
EXAMINATION TYPE: CT abdomen pelvis w con DATE OF EXAM: 08/26/2018 COMPARISON: CT abdomen pelvis 11/17/2015 HISTORY: Upper abd pain, abn xray, on liver transplant list CT DLP: 1778.6 mGycm Automated exposure control for dose reduction was used. TECHNIQUE: Helical acquisition of images was performed from the lung bases through the pelvis. CONTRAST: Performed with Oral Contrast and with IV Contrast, patient injected with 80 mL of Isovue 300. FINDINGS: LUNG BASES: Small bilateral pleural effusions. LIVER/GB: The liver again has a macronodular appearance, small size with enlargement of the portal ve in. There is also free canalization of a large paraumbilical vein. No evidence of intra-abdominal brittany ices. The gallbladder is absent. PANCREAS: There is some mild peripancreatic mesenteric fat inflammation. SPLEEN: Spleen is mildly enlarged. ADRENALS: No significant abnormality is seen. KIDNEYS: No significant abnormality is seen. FREE AIR: No free air is visualized. RETROPERITONEAL ADENOPATHY: None visualized REPRODUCTIVE ORGANS: Cystic changes are again noted of the ovaries. URINARY BLADDER: No significant abnormality is seen. PELVIC ADENOPATHY: None visualized. OSSEOUS STRUCTURES: No significant abnormality is seen. BOWEL: No significant abnormality is seen. Normal appendix. No evidence of pneumoperitoneum. OTHER: There is some minimal mesenteric fat inflammation/trace amount of fluid in the right paracolic gutter. It is unclear whether this reflects a trace amount of ascites versus inflammatory changes in the abdomen. There is no adjacent wall thickening of the colon. IMPRESSION: 1. NO EVIDENCE OF PNEUMOPERITONEUM. THE SUSPECTED FREE AIR IDENTIFIED ON THE PRIOR RADIOGRAPH IS LIKE LY ARTIFACTUAL. 2. FINDINGS ARE COMPATIBLE WITH CIRRHOSIS AND SEQUELA OF PORTAL HYPERTENSION INCLUDING LARGE RECANNUL IZED PARAUMBILICAL VEIN. NO EVIDENCE OF INTRA-ABDOMINAL VARICOSITIES. 3. MILD PERIPANCREATIC AND RIGHT PARACOLIC GUTTER FLUID OR MESENTERIC INFLAMMATION. IT IS UNCLEAR WHE THER THIS REFLECTS A TRACE AMOUNT OF ASCITES OR INFLAMMATORY CHANGES WITHIN THE ABDOMEN. CORRELATION WITH LABORATORY VALUES AND PHYSICAL EXAM IS RECOMMENDED. 4. SMALL BILATERAL PLEURAL EFFUSIONS. 5. STABLE CYSTIC CHANGES OF THE OVARIES.
[2018-08-26] MEDS: POTASSIUM CHLORIDE ER 10 MEQ TAB.ER.PRT PO SCH (10:20)
[2018-08-26] MEDS: OSELTAMIVIR 60 MG/10 ML ORAL SYRINGE PO SCH ×2 (10:21→22:43)
[2018-08-26] MEDS: SPIRONOLACTONE 25 MG TAB PO SCH (10:23)
[2018-08-26] MEDS: PANTOPRAZOLE 40 MG TABLET PO SCH (10:23)
[2018-08-26] MEDS: CHOLECALCIFEROL 1,000 UNIT TAB PO SCH (10:23)
[2018-08-26] MEDS: LORATADINE 10 MG TAB PO SCH (10:24)
[2018-08-26] MEDS: MULTIVITAMINS, THERA 1 EACH TAB PO SCH (10:24)
[2018-08-26] MEDS: FERROUS SULFATE 325 MG TAB PO SCH ×2 (10:24→22:41)
[2018-08-26] MEDS: METOLAZONE 5 MG TAB PO SCH (10:24)
[2018-08-26] MEDS: FUROSEMIDE 40 MG TAB PO SCH ×2 (10:24→16:42)
[2018-08-26] MEDS: MAGNESIUM OXIDE 400 MG TAB PO SCH ×2 (10:25→22:42)
[2018-08-26] MEDS: AZITHROMYCIN 500 MG TAB PO SCH (10:25)
[2018-08-26] MEDS: LINAGLIPTIN 5 MG TABLET PO SCH (10:25)
[2018-08-26] MEDS: LACTULOSE 20 GM/30 ML CUP PO SCH ×3 (10:25→22:44)
[2018-08-26 11:20] LABS: Glucose,Whole Blood 81 mg/dL (75-99)
--- NOTE | 2018-08-26 14:04 | P.PN ---
Subjective pleasant 62-year-old female came in with complaints of Oddi aches cough which started Tuesday patient is found to have influenza A patient does have a chest x-ray findings consistent with influenza pneumonia. Patient was started on antibiotics for bacterial pneumonia Rocephin and azithromycin and Rocephin will be discussed in patient is already in Tamiflu patient the is presently on room air patient is also complaining of bilateral pedal edema does have a significant crackles in the exam patient was comparing of cough congestion. Patient denied any chest pain. Patient does have history of cirrhosis because of which patient is volume overloaded and had her diuretic therapy was recently cut down because of worsening renal function patient was on metolazone which was discontinued patient also is receiving Lasix and the Aldactone. Patient does have bilateral lower extremity edema. Patient did have fever 08/25/2018 Patient looks better today but still complaining of some generalized body aches still complaining of swelling in both legs although that improved and patient still has some swelling in both feet which is pitting pedal edema. His her creatinine started to climb up, IV Lasix was switched to oral Lasix and monitor her one more night and possibility of discharge tomorrow 08/26/2018 Patient is still complaining of some shortness of breath patient does have significant abdominal pain and tenderness CAT scan of the abdomen was done which is showing inflammation of the omentum patient may have spontaneous bacteria peritonitis are a lot ultrasound guided paracentesis, we cannot do a blind paracentesis on her and patient will be started on Rocephin empirically. Constitutional: Denied any fatigue denied any fever. Cardio vascular: denied any chest pain, palpitations Gastrointestinal denied any nausea vomiting Pulmonary: Denied any shortness of breath cough Neurologic denied any new focal deficits All inpatient medications were reviewed and appropriate changes in these medications as dictated in the interval history and assessment and plan. Objective - Vital Signs Vital signs: Vital Signs Temp 98.1 F 08/26/18 12:09 Pulse 67 08/26/18 12:09 Resp 17 08/26/18 12:09 BP 122/65 08/26/18 12:09 Pulse Ox 97 08/26/18 12:09 Intake & Output 08/25/18 08/26/18 08/26/18 18:59 06:59 18:59 Intake Total 240 200 Balance 240 200 Weight 105 kg Intake: Oral 240 200 Other: Voiding Method Toilet Toilet Toilet # Voids 2 1 2 # Bowel Movements 1 2 - Exam PHYSICAL EXAMINATION: GENERAL: The patient is alert and oriented x3, not in any acute distress. Well developed, well nourished. HEENT: Pupils are round and equally reacting to light. EOMI. No scleral icterus. No conjunctival pallor. Normocephalic, atraumatic. No pharyngeal erythema. No thyromegaly. CARDIOVASCULAR: S1 and S2 present. No murmurs, rubs, or gallops. PULMONARY: Good air entry into bilateral lung manzanares and does have diffuse crackles on exam ABDOMEN: Soft, distended does have diffuse tenderness no rebound or rigidity MUSCULOSKELETAL: No joint swelling or deformity. EXTREMITIES: No cyanosis, clubbing, does have 2+ pitting pedal edema NEUROLOGICAL: Gross neurological examination did not reveal any focal deficits. SKIN: No rashes. - Labs CBC & Chem 7: 08/25/18 06:56 08/26/18 06:42 Labs: Abnormal Lab Results - Last 24 Hours (Table) 08/25/18 08/26/18 08/26/18 Range/Units 20:10 03:42 04:18 Chloride (98-107) mmol/L Creatinine (0.52-1.04) mg/dL POC Glucose (mg/dL) 118 H 43 L 122 H (75-99) mg/dL Total Bilirubin (0.2-1.3) mg/dL AST (14-36) U/L Total Protein (6.3-8.2) g/dL Albumin (3.5-5.0) g/dL 08/26/18 08/26/18 08/26/18 Range/Units 04:43 06:04 06:42 Chloride 109 H (98-107) mmol/L Creatinine 1.17 H (0.52-1.04) mg/dL POC Glucose (mg/dL) 116 H 115 H (75-99) mg/dL Total Bilirubin 1.9 H (0.2-1.3) mg/dL AST 59 H (14-36) U/L Total Protein 5.7 L (6.3-8.2) g/dL Albumin 2.5 L (3.5-5.0) g/dL Microbiology - Last 24 Hours (Table) 08/25/18 07:30 Gram Stain - Preliminary Sputum 08/23/18 20:32 Blood Culture - Preliminary Blood No Growth after 48 hours Assessment and Plan Plan: -Acute influenza pneumonia: Continue with Tamiflu i, improved symptoms supportive care -Abdominal pain with possibility of spontaneous bacterial peritonitis, ultrasound guided paracentesis and patient will be started on Rocephin empirically for SBP -Shortness of breath and congestion secondary to influenza -Idiopathic cirrhosis patient is scheduled to have a renal transplant at [facility] in near future -Volume overload bilateral lower extremity edema secondary to cirrhosis , because of the worsening creatinine patient was switched to oral Lasix will monitor her one more night possibility of discharge tomorrow, volume overload although improved, metolazone will be discontinued -Type 2 diabetes mellitus -Hypertension -Hyperlipidemia
--- NOTE | 2018-08-26 14:04 | P.PN ---
Subjective Progress Note Date: 08/26/18 Principal diagnosis: Acute influenza pneumonia with limited infiltration in the bilateral bases more so in the left lung 62-year-old female patient with known history of cryptogenic liver cirrhosis has been diagnosed having a left lower lobe pneumonia and she checked positive for influenza A and she was admitted for the same. The patient symptoms started approximately a week ago. Her has been sick with the flu. The patient started having increased cough, congestion, shortness of breath, skeletal chest wall pain especially with cough and episodes. Currently she is on room air oxygen. She also has chronic lower extremity edema. She has been on a combination of diuretics which were modified recently due to concern of renal insufficiency. Since then her weight and her lower extremity edema has gotten worse. She is known to have some degree of CHF with diastolic dysfunction. She has cryptogenic liver cirrhosis and she is in the transplant list through [facility] system. No altered mentation. Some nausea and abdominal discomfort. No other complaints otherwise for now. The patient is seen today 08/25/2018 in follow-up on the regular medical floor. She is awake and alert in no acute distress. She continues with a loose nonproductive cough. Somewhat dyspneic on minimal exertion. 18 O2 saturations in the 90s on 3 L/m per nasal cannula. Currently afebrile. Hemodynamically stable. Culture reveals no growth to date. He count 2.2. Hemoglobin 11.6. Platelet count 43,000. Creatinine 1.14. AST 60, ALT 43. Currently on azithromycin. Continuing on Tamiflu. The patient was seen today 08/26/2018 in follow-up on the regular medical floor. She is currently resting comfortably in bed. She is still on droplet precautions. Remains on Tamiflu. She is maintaining good O2 saturations in the upper 90s on room air. She's been afebrile. Hemodynamically stable. Blood cultures and sputum cultures reveal no growth to date. Creatinine 1.7. She is having some issues with limited diarrhea. She is currently on antibiotics in the form of ceftriaxone Objective - Vital Signs Vital signs: Vital Signs Temp 98.1 F 08/26/18 12:09 Pulse 67 08/26/18 12:09 Resp 17 08/26/18 12:09 BP 122/65 08/26/18 12:09 Pulse Ox 97 08/26/18 12:09 Intake & Output 08/25/18 08/26/18 08/26/18 18:59 06:59 18:59 Intake Total 240 200 Balance 240 200 Weight 105 kg Intake: Oral 240 200 Other: Voiding Method Toilet Toilet Toilet # Voids 2 1 2 # Bowel Movements 1 2 - Exam GENERAL EXAM: Alert, fairly comfortable in no apparent distress. On room air. HEAD: Normocephalic. EYES: Normal reaction of pupils, equal size. NOSE: Clear with pink turbinates. THROAT: No erythema or exudates. NECK: No masses, no JVD. CHEST: No chest wall deformity. LUNGS: Equal air entry with scattered rhonchi more so on the left. CVS: S1 and S2 normal with no audible murmur, regular rhythm. ABDOMEN: Some abdominal tenderness and fullness, normal bowel sounds, no guarding or rigidity. SPINE: No scoliosis or deformity SKIN: No rashes CENTRAL NERVOUS SYSTEM: No focal deficits, tone is normal in all 4 extremities. EXTREMITIES: There is no peripheral edema. No clubbing, no cyanosis. Peripheral pulses are intact. - Labs CBC & Chem 7: 08/25/18 06:56 08/26/18 06:42 Labs: Abnormal Lab Results - Last 24 Hours (Table) 08/25/18 08/26/18 08/26/18 Range/Units 20:10 03:42 04:18 Chloride (98-107) mmol/L Creatinine (0.52-1.04) mg/dL POC Glucose (mg/dL) 118 H 43 L 122 H (75-99) mg/dL Total Bilirubin (0.2-1.3) mg/dL AST (14-36) U/L Total Protein (6.3-8.2) g/dL Albumin (3.5-5.0) g/dL 08/26/18 08/26/18 08/26/18 Range/Units 04:43 06:04 06:42 Chloride 109 H (98-107) mmol/L Creatinine 1.17 H (0.52-1.04) mg/dL POC Glucose (mg/dL) 116 H 115 H (75-99) mg/dL Total Bilirubin 1.9 H (0.2-1.3) mg/dL AST 59 H (14-36) U/L Total Protein 5.7 L (6.3-8.2) g/dL Albumin 2.5 L (3.5-5.0) g/dL Microbiology - Last 24 Hours (Table) 08/25/18 07:30 Gram Stain - Preliminary Sputum 08/23/18 20:32 Blood Culture - Preliminary Blood No Growth after 48 hours Assessment and Plan Assessment: Impression: 1 acute influenza pneumonia with limited infiltration of the lung bases more so on the left. 2 shortness of breath cough chest congestion and skeletal chest wall pain secondary to above 3 liver cirrhosis currently on a transplant list at [facility] 4 chronic lower extremity edema 5 diabetes mellitus type 2 6 hypertension 7 hyperlipidemia 8 obesity. 9 recent hospitalization for electrolyte disturbance and acute kidney injury from which the patient recovered Plan The patient was seen and evaluated by Dr. Mckenzie. She is having some mild abdominal discomfort and some diarrhea. We'll screen for C. diff. We'll continue with her current treatment plan. We will increase her activity as tolerated. We'll continue to follow. I, the cosigning physician, performed a history & physical examination of the patient. Lungs sounds with few scattered rhonchi more so on the left. Maintaining good O2 saturations in the 90s on room air. I discussed the assessment and plan of care with my nurse practitioner, Bouchra Barbosa. I attest to the above note as dictated by her.
[2018-08-26 17:02] LABS: Glucose,Whole Blood 127 mg/dL (75-99)
[2018-08-26 20:34] LABS: Glucose,Whole Blood 107 mg/dL (75-99)
[2018-08-27 02:13] LABS: Glucose,Whole Blood 175 mg/dL (75-99)
[2018-08-27] MEDS: IPRATROPIUM-ALBUTEROL 3 ML NEB INHALATION SCH ×4 (07:23→20:40)
[2018-08-27 07:46] LABS: Calcium 8.7 mg/dL (8.4-10.2); Potassium 3.8 mmol/L (3.5-5.1)
[2018-08-27] MEDS: INSULIN ASPART (NovoLOG) 100 UNIT/ML VIAL SQ SCH ×4 (07:47→21:19)
[2018-08-27 07:50] LABS: Glucose,Whole Blood 60 mg/dL (75-99)
[2018-08-27 08:13] LABS: Glucose,Whole Blood 76 mg/dL (75-99)
[2018-08-27] MEDS: POTASSIUM CHLORIDE ER 10 MEQ TAB.ER.PRT PO SCH (08:59)
[2018-08-27] MEDS: PANTOPRAZOLE 40 MG TABLET PO SCH (09:00)
[2018-08-27] MEDS: LORATADINE 10 MG TAB PO SCH (09:00)
[2018-08-27] MEDS: CHOLECALCIFEROL 1,000 UNIT TAB PO SCH (09:01)
[2018-08-27] MEDS: MULTIVITAMINS, THERA 1 EACH TAB PO SCH (09:01)
[2018-08-27] MEDS: SPIRONOLACTONE 25 MG TAB PO SCH (09:02)
[2018-08-27] MEDS: FUROSEMIDE 40 MG TAB PO SCH (09:02)
[2018-08-27] MEDS: OSELTAMIVIR 60 MG/10 ML ORAL SYRINGE PO SCH ×2 (09:02→21:45)
[2018-08-27] MEDS: FERROUS SULFATE 325 MG TAB PO SCH ×2 (09:02→21:12)
[2018-08-27] MEDS: MAGNESIUM OXIDE 400 MG TAB PO SCH ×2 (09:02→21:13)
[2018-08-27] MEDS: HEPARIN SODIUM,PORCINE 5,000 UNIT/ML 1 ML VIAL SQ SCH ×3 (09:03→21:45)
[2018-08-27] MEDS: LACTULOSE 20 GM/30 ML CUP PO SCH (09:03)
[2018-08-27] MEDS: LINAGLIPTIN 5 MG TABLET PO SCH (09:03)
[2018-08-27 12:18] LABS: Glucose,Whole Blood 130 mg/dL (75-99)
--- NOTE | 2018-08-27 13:25 | P.PN ---
Subjective pleasant 62-year-old female came in with complaints of Oddi aches cough which started Tuesday patient is found to have influenza A patient does have a chest x-ray findings consistent with influenza pneumonia. Patient was started on antibiotics for bacterial pneumonia Rocephin and azithromycin and Rocephin will be discussed in patient is already in Tamiflu patient the is presently on room air patient is also complaining of bilateral pedal edema does have a significant crackles in the exam patient was comparing of cough congestion. Patient denied any chest pain. Patient does have history of cirrhosis because of which patient is volume overloaded and had her diuretic therapy was recently cut down because of worsening renal function patient was on metolazone which was discontinued patient also is receiving Lasix and the Aldactone. Patient does have bilateral lower extremity edema. Patient did have fever 08/25/2018 Patient looks better today but still complaining of some generalized body aches still complaining of swelling in both legs although that improved and patient still has some swelling in both feet which is pitting pedal edema. His her creatinine started to climb up, IV Lasix was switched to oral Lasix and monitor her one more night and possibility of discharge tomorrow 08/26/2018 Patient is still complaining of some shortness of breath patient does have significant abdominal pain and tenderness CAT scan of the abdomen was done which is showing inflammation of the omentum patient may have spontaneous bacteria peritonitis are a lot ultrasound guided paracentesis, we cannot do a blind paracentesis on her and patient will be started on Rocephin empirically. 08/27/2018 Abdominal pain bit better compared to yesterday Constitutional: Denied any fatigue denied any fever. Cardio vascular: denied any chest pain, palpitations Gastrointestinal denied any nausea vomiting Pulmonary: Denied any shortness of breath cough Neurologic denied any new focal deficits All inpatient medications were reviewed and appropriate changes in these medications as dictated in the interval history and assessment and plan. Objective - Vital Signs Vital signs: Vital Signs Temp 98.1 F 08/27/18 05:00 Pulse 71 08/27/18 11:19 Resp 17 08/27/18 05:00 BP 107/56 08/27/18 05:00 Pulse Ox 99 08/27/18 07:25 Intake & Output 08/26/18 08/27/18 08/27/18 18:59 06:59 18:59 Intake Total 200 Balance 200 Intake: Oral 200 Other: Voiding Method Toilet Toilet Toilet Bedside Commode Bedside Commode # Voids 2 1 # Bowel Movements 2 - Exam PHYSICAL EXAMINATION: GENERAL: The patient is alert and oriented x3, not in any acute distress. Well developed, well nourished. HEENT: Pupils are round and equally reacting to light. EOMI. No scleral icterus. No conjunctival pallor. Normocephalic, atraumatic. No pharyngeal erythema. No thyromegaly. CARDIOVASCULAR: S1 and S2 present. No murmurs, rubs, or gallops. PULMONARY: Good air entry into bilateral lung manzanares and does have diffuse crackles on exam ABDOMEN: Soft, minimal abdominal tenderness but no rebound or rigidity MUSCULOSKELETAL: No joint swelling or deformity. EXTREMITIES: No cyanosis, clubbing, does have 2+ pitting pedal edema NEUROLOGICAL: Gross neurological examination did not reveal any focal deficits. SKIN: No rashes. - Labs CBC & Chem 7: 08/25/18 06:56 08/27/18 06:57 Labs: Abnormal Lab Results - Last 24 Hours (Table) 08/26/18 08/26/18 08/27/18 Range/Units 17:01 20:14 01:53 Chloride (98-107) mmol/L Creatinine (0.52-1.04) mg/dL Glucose (74-99) mg/dL POC Glucose (mg/dL) 127 H 107 H 175 H (75-99) mg/dL 08/27/18 08/27/18 08/27/18 Range/Units 06:57 07:47 11:58 Chloride 108 H (98-107) mmol/L Creatinine 1.20 H (0.52-1.04) mg/dL Glucose 61 L (74-99) mg/dL POC Glucose (mg/dL) 60 L 130 H (75-99) mg/dL Microbiology - Last 24 Hours (Table) 08/25/18 07:30 Gram Stain - Final Sputum Sputum Culture - Final Jessie albicans 08/23/18 20:32 Blood Culture - Preliminary Blood No Growth after 72 hours Assessment and Plan Plan: -Acute influenza pneumonia: Continue with Tamiflu i, improved symptoms supportive care -Abdominal pain with possibility of spontaneous bacterial peritonitis, ultrasound guided paracentesis and patient will be started on Rocephin empirically for SBP -Shortness of breath and congestion secondary to influenza -Idiopathic cirrhosis patient is scheduled to have a renal transplant at [facility] in near future -Volume overload bilateral lower extremity edema secondary to cirrhosis , her creatinine continued to get worse because of which I'll continue completely hold off her diuretic therapy will recheck her BMP tomorrow -Type 2 diabetes mellitus -Hypertension -Hyperlipidemia
--- NOTE | 2018-08-27 15:45 | P.PN ---
Subjective Progress Note Date: 08/27/18 62-year-old female patient with known history of cryptogenic liver cirrhosis has been diagnosed having a left lower lobe pneumonia and she checked positive for influenza A and she was admitted for the same. The patient symptoms started approximately a week ago. Her has been sick with the flu. The patient started having increased cough, congestion, shortness of breath, skeletal chest wall pain especially with cough and episodes. Currently she is on room air oxygen. She also has chronic lower extremity edema. She has been on a combination of diuretics which were modified recently due to concern of renal insufficiency. Since then her weight and her lower extremity edema has gotten worse. She is known to have some degree of CHF with diastolic dysfunction. She has cryptogenic liver cirrhosis and she is in the transplant list through [facility] system. No altered mentation. Some nausea and abdominal discomfort. No other complaints otherwise for now. The patient is seen today 08/25/2018 in follow-up on the regular medical floor. She is awake and alert in no acute distress. She continues with a loose nonproductive cough. Somewhat dyspneic on minimal exertion. 18 O2 saturations in the 90s on 3 L/m per nasal cannula. Currently afebrile. Hemodynamically stable. Culture reveals no growth to date. He count 2.2. Hemoglobin 11.6. Platelet count 43,000. Creatinine 1.14. AST 60, ALT 43. Currently on azithromycin. Continuing on Tamiflu. The patient was seen today 08/26/2018 in follow-up on the regular medical floor. She is currently resting comfortably in bed. She is still on droplet precautions. Remains on Tamiflu. She is maintaining good O2 saturations in the upper 90s on room air. She's been afebrile. Hemodynamically stable. Blood cultures and sputum cultures reveal no growth to date. Creatinine 1.7. She is having some issues with limited diarrhea. She is currently on antibiotics in the form of ceftriaxone On today's evaluation of 08/27/2018, I'm seeing this patient for a follow-up. She is feeling better. No cough sputum production chest vessel wheezing. She was having some loose bowel movements as the patient is taken lactulose. We'll for C. diff was negative. The patient is on accommodation of Rocephin and Zithromax. The patient is also on Tamiflu. She has developed some ascites and the patient will be undergoing a paracentesis tomorrow. He is on IV Rocephin and Zithromax were discontinued based on the underlying GI upset. The patient is still on Tamiflu. Renal function stable with a creatinine of 1.2. No hypoglycemic attacks since the Lantus insulin dose has been cut down. No altered mentation. No other complaints otherwise for now. Objective - Vital Signs Vital signs: Vital Signs Temp 98.1 F 08/27/18 05:00 Pulse 71 08/27/18 11:19 Resp 17 08/27/18 05:00 BP 107/56 08/27/18 05:00 Pulse Ox 99 08/27/18 07:25 Intake & Output 08/26/18 08/27/18 08/27/18 18:59 06:59 18:59 Intake Total 200 Balance 200 Intake: Oral 200 Other: Voiding Method Toilet Toilet Toilet Bedside Commode Bedside Commode # Voids 2 1 # Bowel Movements 2 - Exam GENERAL EXAM: Alert, fairly comfortable in no apparent distress. On room air. HEAD: Normocephalic. EYES: Normal reaction of pupils, equal size. NOSE: Clear with pink turbinates. THROAT: No erythema or exudates. NECK: No masses, no JVD. CHEST: No chest wall deformity. LUNGS: Equal air entry with scattered rhonchi more so on the left. CVS: S1 and S2 normal with no audible murmur, regular rhythm. ABDOMEN: Some abdominal tenderness and fullness, normal bowel sounds, no guarding or rigidity. The patient has no significant rebound tenderness or guarding. There is some ascites. SPINE: No scoliosis or deformity SKIN: No rashes CENTRAL NERVOUS SYSTEM: No focal deficits, tone is normal in all 4 extremities. EXTREMITIES: There is no peripheral edema. No clubbing, no cyanosis. Peripheral pulses are intact. - Labs CBC & Chem 7: 08/25/18 06:56 08/27/18 06:57 Labs: Abnormal Lab Results - Last 24 Hours (Table) 08/26/18 08/26/18 08/27/18 Range/Units 17:01 20:14 01:53 Chloride (98-107) mmol/L Creatinine (0.52-1.04) mg/dL Glucose (74-99) mg/dL POC Glucose (mg/dL) 127 H 107 H 175 H (75-99) mg/dL 08/27/18 08/27/18 08/27/18 Range/Units 06:57 07:47 11:58 Chloride 108 H (98-107) mmol/L Creatinine 1.20 H (0.52-1.04) mg/dL Glucose 61 L (74-99) mg/dL POC Glucose (mg/dL) 60 L 130 H (75-99) mg/dL Microbiology - Last 24 Hours (Table) 08/25/18 07:30 Gram Stain - Final Sputum Sputum Culture - Final Jessie albicans 08/23/18 20:32 Blood Culture - Preliminary Blood No Growth after 72 hours Assessment and Plan Plan: assessment 1 acute influenza pneumonia with limited infiltration of the lung bases more so on the left. The patient is on Tamiflu. Zithromax will be discontinued. 2 shortness of breath cough chest congestion and skeletal chest wall pain secondary to above 3 liver cirrhosis currently on a transplant list at [facility], the patient has ascites. 4 chronic lower extremity edema, currently inactive in stable 5 diabetes mellitus type 2 6 hypertension 7 hyperlipidemia 8 obesity. 9 recent hospitalization for lecture lites disturbance and acute kidney injury from which the patient recovered Plan Agree on the current treatment. Continue the Tamiflu. Droplet isolation. discontinue the Zithromax. Continue Aldactone. Possible paracentesis in a.m. We'll continue to follow.
[2018-08-27 17:26] LABS: Glucose,Whole Blood 115 mg/dL (75-99)
[2018-08-27 20:53] LABS: Glucose,Whole Blood 134 mg/dL (75-99)
[2018-08-27] MEDS: INSULIN DETEMIR (LEVEMIR) 100 UNIT/ML SYR SQ SCH (21:13)
[2018-08-28 02:02] LABS: Glucose,Whole Blood 100 mg/dL (75-99)
[2018-08-28 06:13] VITALS: RESP 16
[2018-08-28 07:11] LABS: Glucose,Whole Blood 50 mg/dL (75-99)
[2018-08-28 07:30] LABS: Glucose,Whole Blood 62 mg/dL (75-99)
[2018-08-28 07:42] LABS: Glucose,Whole Blood 82 mg/dL (75-99)
[2018-08-28] MEDS: INSULIN ASPART (NovoLOG) 100 UNIT/ML VIAL SQ SCH ×2 (07:53→11:17)
[2018-08-28 08:05] LABS: Calcium 8.8 mg/dL (8.4-10.2); Potassium 3.7 mmol/L (3.5-5.1)
[2018-08-28] MEDS: IPRATROPIUM-ALBUTEROL 3 ML NEB INHALATION SCH ×3 (08:24→15:52)
[2018-08-28] MEDS: HEPARIN SODIUM,PORCINE 5,000 UNIT/ML 1 ML VIAL SQ SCH ×2 (08:35→16:51)
[2018-08-28] MEDS: POTASSIUM CHLORIDE ER 10 MEQ TAB.ER.PRT PO SCH (08:36)
[2018-08-28] MEDS: MAGNESIUM OXIDE 400 MG TAB PO SCH (08:37)
[2018-08-28] MEDS: SPIRONOLACTONE 25 MG TAB PO SCH (08:37)
[2018-08-28] MEDS: LORATADINE 10 MG TAB PO SCH (08:38)
[2018-08-28] MEDS: PANTOPRAZOLE 40 MG TABLET PO SCH (08:38)
[2018-08-28] MEDS: FERROUS SULFATE 325 MG TAB PO SCH (08:38)
[2018-08-28] MEDS: CHOLECALCIFEROL 1,000 UNIT TAB PO SCH (08:38)
[2018-08-28] MEDS: LINAGLIPTIN 5 MG TABLET PO SCH (08:39)
[2018-08-28] MEDS: MULTIVITAMINS, THERA 1 EACH TAB PO SCH (08:39)
[2018-08-28] MEDS: OSELTAMIVIR 60 MG/10 ML ORAL SYRINGE PO SCH (08:46)
[2018-08-28] MEDS ORDERED: LACTULOSE 20 GM/30 ML CUP PO SCH (09:00)
[2018-08-28 09:47] LABS: INR 1.5 (<1.2); Prothrombin Time 14.8 sec (9.0-12.0)
--- NOTE | 2018-08-28 10:06 | US ---
EXAMINATION TYPE: US abdomen limited DATE OF EXAM: 08/28/2018 COMPARISON: CT CLINICAL HISTORY: diagnostic/abdominal pain.. For ascites No free fluid is seen in any abdominal quadrants. IMPRESSION: No evidence for ascites at this time.
[2018-08-28 10:12] LABS: Mean Platelet Volume 7.5
[2018-08-28 10:18] LABS: Platelet Count 46 k/uL (150-450)
[2018-08-28 11:16] LABS: Glucose,Whole Blood 121 mg/dL (75-99)
[2018-08-28 11:56] LABS: Albumin 2.5 g/dL (3.5-5.0); Bilirubin, Delta 0.4 mg/dL (0.0-0.2); Bilirubin,Unconjugated 1.2 mg/dL (0.0-1.1); Total Bilirubin 1.6 mg/dL (0.2-1.3); Total Protein 5.7 g/dL (6.3-8.2)
[2018-08-28 13:22] VITALS: BP 109/64; PULSE 74; TEMP 98.1
--- NOTE | 2018-08-28 14:00 | P.PN ---
Subjective Progress Note Date: 08/28/18 Principal diagnosis: Acute left lower lobe pneumonia and acute influenza infection. 62-year-old female patient with known history of cryptogenic liver cirrhosis has been diagnosed having a left lower lobe pneumonia and she checked positive for influenza A and she was admitted for the same. The patient symptoms started approximately a week ago. Her has been sick with the flu. The patient started having increased cough, congestion, shortness of breath, skeletal chest wall pain especially with cough and episodes. Currently she is on room air oxygen. She also has chronic lower extremity edema. She has been on a combination of diuretics which were modified recently due to concern of renal insufficiency. Since then her weight and her lower extremity edema has gotten worse. She is known to have some degree of CHF with diastolic dysfunction. She has cryptogenic liver cirrhosis and she is in the transplant list through [facility] system. No altered mentation. Some nausea and abdominal discomfort. No other complaints otherwise for now. Reevaluated today on 08/28/2018, patient is feeling much better, breathing a lot easier, remains on antibiotics, and she is on Tamiflu. She was on Rocephin and Zithromax, and now she is only on Rocephin. All labs were reviewed. Ultrasound of the abdomen showed no significant ascites. Objective - Vital Signs Vital signs: Vital Signs Temp 98.1 F 08/28/18 13:17 Pulse 74 08/28/18 13:17 Resp 16 08/28/18 13:17 BP 109/64 08/28/18 13:17 Pulse Ox 93 L 08/28/18 13:17 Intake & Output 08/27/18 08/28/18 08/28/18 18:59 06:59 18:59 Intake Total 50 710 Balance 50 710 Intake: Intake, IV Titration 50 Amount cefTRIAXone 1 gm In 50 Sodium Chloride 0.9% 50 ml @ 100 mls/hr IVPB Q24HR [facility] Rx#:[id number] Oral 710 Other: Voiding Method Toilet Toilet Toilet Bedside Commode Bedside Commode Bedside Commode # Voids 2 - Exam Physical Exam: Revealed a 62-year-old in no distress. Head: Atraumatic normocephalic. HEENT:[Neck is supple.] [No neck masses.] [No thyromegaly.] [No JVD.] Chest: [Clear throughout, no crackles, no rhonchi, no wheezes.] Cardiac Exam: [Normal S1 and S2, no S3 gallop, no murmur.] Abdomen: [Soft, nontender, no megaly, no rebound, no guarding, normal bowel sounds.] Extremities: [No clubbing, no edema, no cyanosis.] Neurological Exam: [No focal neurologic deficit. Psychiatric: Normal mood affect and mental status examination. Skin: No rashes] - Labs CBC & Chem 7: 08/28/18 09:13 08/28/18 07:03 Labs: Abnormal Lab Results - Last 24 Hours (Table) 08/27/18 08/27/18 08/28/18 Range/Units 17:24 20:52 02:01 Plt Count (150-450) k/uL PT (9.0-12.0) sec INR (<1.2) Creatinine (0.52-1.04) mg/dL Glucose (74-99) mg/dL POC Glucose (mg/dL) 115 H 134 H 100 H (75-99) mg/dL Total Bilirubin (0.2-1.3) mg/dL Unconjugated Bilirubin (0.0-1.1) mg/dL Delta Bilirubin (0.0-0.2) mg/dL AST (14-36) U/L Total Protein (6.3-8.2) g/dL Albumin (3.5-5.0) g/dL 08/28/18 08/28/18 08/28/18 Range/Units 07:03 07:03 07:26 Plt Count (150-450) k/uL PT (9.0-12.0) sec INR (<1.2) Creatinine 1.16 H (0.52-1.04) mg/dL Glucose 44 L* (74-99) mg/dL POC Glucose (mg/dL) 50 L 62 L (75-99) mg/dL Total Bilirubin 1.6 H (0.2-1.3) mg/dL Unconjugated Bilirubin 1.2 H (0.0-1.1) mg/dL Delta Bilirubin 0.4 H (0.0-0.2) mg/dL AST 57 H (14-36) U/L Total Protein 5.7 L (6.3-8.2) g/dL Albumin 2.5 L (3.5-5.0) g/dL 08/28/18 08/28/18 08/28/18 Range/Units 09:13 09:13 11:13 Plt Count 46 L (150-450) k/uL PT 14.8 H (9.0-12.0) sec INR 1.5 H (<1.2) Creatinine (0.52-1.04) mg/dL Glucose (74-99) mg/dL POC Glucose (mg/dL) 121 H (75-99) mg/dL Total Bilirubin (0.2-1.3) mg/dL Unconjugated Bilirubin (0.0-1.1) mg/dL Delta Bilirubin (0.0-0.2) mg/dL AST (14-36) U/L Total Protein (6.3-8.2) g/dL Albumin (3.5-5.0) g/dL Microbiology - Last 24 Hours (Table) 08/23/18 20:32 Blood Culture - Preliminary Blood No Growth after 96 hours 08/25/18 07:30 Gram Stain - Final Sputum Sputum Culture - Final Jessie albicans Assessment and Plan Assessment: Impression: 1 acute influenza infection complicated by pneumonia, patient is on Tamiflu and Rocephin, consider discharge planning today or in the next 24 hours. If discharged home today, suggest Ceftin 500 mg twice a day for 5 more days. Finish a total of 5 days of Tamiflu from the time it was started. 2 multiple comorbidities including cryptogenic liver cirrhosis, type 2 diabetes , hypertension, hyperlipidemia, obesity, Recommendation: Consider discharge planning in the next 24 hours, follow-up on outpatient basis with Dr. Mckenzie. Time with Patient: Less than 30
--- NOTE | 2018-08-29 17:45 | P.DS ---
Providers Date of admission: 08/23/18 20:19 Expected date of discharge: 08/28/18 Attending physician: Aroldo Fishman Consults: 08/24/18 05:13 Consult Physician Stat Consulting Provider: Mayo Mckenzie Consult Reason/Comments: pneumonia Do you want consulting provider notified?: Yes, Notify in am [facility] Course: Final Diagnoses: -Acute influenza pneumonia -Abdominal pain with possibility of spontaneous bacterial peritonitis, -Shortness of breath and congestion secondary to influenza -Idiopathic cirrhosis patient is scheduled to have a renal transplant at [facility] in near future -Volume overload bilateral lower extremity edema secondary to cirrhosis -Type 2 diabetes mellitus -Hypertension -Hyperlipidemia Hospital course: this is apleasant 62-year-old female came in with complaints of Oddi aches cough which started Tuesday patient is found to have influenza A patient does have a chest x-ray findings consistent with influenza pneumonia. Patient was started on antibiotics for bacterial pneumonia Rocephin and azithromycin and Rocephin will be discussed in patient is already in Tamiflu patient the is presently on room air patient is also complaining of bilateral pedal edema does have a significant crackles in the exam patient was comparing of cough congestion. Patient denied any chest pain. Patient does have history of cirrhosis because of which patient is volume overloaded and had her diuretic therapy was recently cut down because of worsening renal function patient was on metolazone which was discontinued patient also is receiving Lasix and the Aldactone. Patient does have bilateral lower extremity edema. Patient did have fever 08/25/2018 Patient looks better today but still complaining of some generalized body aches still complaining of swelling in both legs although that improved and patient still has some swelling in both feet which is pitting pedal edema. His her creatinine started to climb up, IV Lasix was switched to oral Lasix and monitor her one more night and possibility of discharge tomorrow 08/26/2018 Patient is still complaining of some shortness of breath patient does have significant abdominal pain and tenderness CAT scan of the abdomen was done which is showing inflammation of the omentum patient may have spontaneous bacteria peritonitis are a lot ultrasound guided paracentesis, we cannot do a blind paracentesis on her and patient will be started on Rocephin empirically. 08/27/2018 Abdominal pain bit better compared to yesterday 08/28/2018 maintained on antibiotics on Rocephin and Zithromax, Tamiflu. abdominal ultrasound reporting no evidence of ascites.paracentesis canceled. significant clinical improvement. Cleared by pulmonary for discharge. Patient is being discharged home in stable condition with Prognosis. Patient advised to follow-up with [facility] Adamson regarding renal transplant as advised. EXAMINATION: GENERAL: The patient is alert and oriented x3, not in any acute distress. Well developed, well nourished. HEENT: Pupils are round and equally reacting to light. EOMI. No scleral icterus. No conjunctival pallor. Normocephalic, atraumatic. No pharyngeal erythema. No thyromegaly. CARDIOVASCULAR: S1 and S2 present. No murmurs, rubs, or gallops. PULMONARY: Good air entry into bilateral lung manzanares and does have diffuse crackles on exam ABDOMEN: Soft, minimal abdominal tenderness but no rebound or rigidity MUSCULOSKELETAL: No joint swelling or deformity. EXTREMITIES: No cyanosis, clubbing, does have 2+ pitting pedal edema NEUROLOGICAL: Gross neurological examination did not reveal any focal deficits. SKIN: No rashes. The impression and plan of care has been dictated as directed. : I performed a history and examination of this patient, discussed the same with the dictator. I agree with the dictator's note ,documented as a scribe. Any additional findings or plans will be noted. Time taken: 35 minutes. Patient Condition at Discharge: Stable Plan - Discharge Summary Discharge Rx Participant: Yes New Discharge Prescriptions: New Cefuroxime Axetil [Ceftin] 500 mg PO BID #14 tab Loratadine [Claritin] 10 mg PO DAILY #0 tab Oseltamivir 6Mg/ml Oral Susp [Tamiflu] 30 mg PO Q12HR #4 oral.syrg Continue Cholecalciferol [Vitamin D3] 2,000 unit PO DAILY Ferrous Sulfate [Feosol] 325 mg PO BID Lactulose [Cephulac] 15 gm PO TID sitaGLIPtin [Januvia] 100 mg PO DAILY Multivitamins, Thera [Multivitamin (formulary)] 1 tab PO DAILY Ibandronate Sodium [Boniva] 150 mg PO Q30D Magnesium Oxide [Mag-Ox] 400 mg PO BID Potassium Bicarbonate/Cit AC [Klor-Con 25 (Effer. Tab)] 25 meq PO DAILY Spironolactone [Aldactone] 50 mg PO DAILY Pantoprazole Sodium [Protonix] 40 mg PO DAILY Changed Furosemide [Lasix] 40 mg PO DAILY #60 Insulin Detemir [Levemir Flextouch] 24 units SQ HS 30 Days #3 pen Discontinued Metolazone [Zaroxolyn] 5 mg PO DAILY Discharge Medication List Cholecalciferol [Vitamin D3] 2,000 unit PO DAILY 11/11/15 [History] Ferrous Sulfate [Feosol] 325 mg PO BID 11/11/15 [History] Lactulose [Cephulac] 15 gm PO TID 07/22/16 [History] Ibandronate Sodium [Boniva] 150 mg PO Q30D 07/01/18 [History] Multivitamins, Thera [Multivitamin (formulary)] 1 tab PO DAILY 07/01/18 [History ] sitaGLIPtin [Januvia] 100 mg PO DAILY 07/01/18 [History] Magnesium Oxide [Mag-Ox] 400 mg PO BID 08/23/18 [History] Pantoprazole Sodium [Protonix] 40 mg PO DAILY 08/23/18 [History] Potassium Bicarbonate/Cit AC [Klor-Con 25 (Effer. Tab)] 25 meq PO DAILY [History] Spironolactone [Aldactone] 50 mg PO DAILY 08/23/18 [History] Cefuroxime Axetil [Ceftin] 500 mg PO BID #14 tab 08/28/18 [Rx] Furosemide [Lasix] 40 mg PO DAILY #60 08/28/18 [Rx] Insulin Detemir [Levemir Flextouch] 24 units SQ HS 30 Days #3 pen 08/28/18 [Rx] Loratadine [Claritin] 10 mg PO DAILY #0 tab 08/28/18 [Rx] Oseltamivir 6Mg/ml Oral Susp [Tamiflu] 30 mg PO Q12HR #4 oral.syrg 08/28/18 [Rx] Follow up Appointment(s)/Referral(s): Jose Navarrete DO [Primary Care Provider] - 09/04/18 1:20 pm Mayo Mckenzie MD [STAFF PHYSICIAN] - 09/21/18 8:30 am Ambulatory/Diagnostic Orders: Complete Blood Count w/diff [LAB.AMB] Time Frame: 3 Days, Location: None Selected Patient Instructions/Handouts: Cefuroxime (By mouth), Oseltamivir (By mouth), Influenza (DC), Pneumonia (DC) Activity/Diet/Wound Care/Special Instructions: Follow-up with [facility] Adamson, on transplant list, as previously advised. Discharge Disposition: HOME SELF-CARE
== END 2018-08-28 18:03 | disposition home or self-care (01) | DRG 194 ==
LOC: EC 18:07 → 3NMEDONC 20:19
PROVIDERS: ADMIT Internal Medicine; ATTEND Internal Medicine
DX: J10.08 Influenza due to other identified influenza virus with other specified pneumonia (principal); Z68.41 Body mass index [BMI] 40.0-44.9, adult; I50.32 Chronic diastolic (congestive) heart failure; R18.8 Other ascites; K52.1 Toxic gastroenteritis and colitis; J15.9 Unspecified bacterial pneumonia; D89.9 Disorder involving the immune mechanism, unspecified; E66.9 Obesity, unspecified; E78.5 Hyperlipidemia, unspecified; I11.0 Hypertensive heart disease with heart failure; K21.9 Gastro-esophageal reflux disease without esophagitis; K74.69 Other cirrhosis of liver; Z79.4 Long term (current) use of insulin; Z79.899 Other long term (current) drug therapy; Z80.0 Family history of malignant neoplasm of digestive organs; Z80.6 Family history of leukemia; Z82.49 Family history of ischemic heart disease and other diseases of the circulatory system; Z87.11 Personal history of peptic ulcer disease; Z90.710 Acquired absence of both cervix and uterus; E11.649 Type 2 diabetes mellitus with hypoglycemia without coma; T38.3X5A Adverse effect of insulin and oral hypoglycemic [antidiabetic] drugs, initial encounter; Z53.8 Procedure and treatment not carried out for other reasons; Z90.49 Acquired absence of other specified parts of digestive tract; T36.95XA Adverse effect of unspecified systemic antibiotic, initial encounter
CPT/HCPCS: 36415; 71046; 74022; 74177; 76705; 80048; 80053; 80076; 82140; 82550; 82553; 83605; 83735; 83880; 84484; 85025; 85027; 85049; 85610; 85730; 87040; 87070; 87205; 87324; 87502; 93005; 94640; 99285

== ENCOUNTER 2019-02-12 16:22 | Inpatient (IN) | payer BC ==
[2019-02-12] MEDS ORDERED: HYDROmorphone 0.5 MG/0.5 ML SYRINGE IVP STA (17:14)
[2019-02-12 17:15] LABS: Anisocytosis Slight; Basophils % (A) 0 %; Eosinophils # (A) 0.1 k/uL (0-0.7); Eosinophils % (A) 1 %; HGB 14.3 gm/dL (11.4-16.0); Lymphocytes # (A) 0.4 k/uL (1.0-4.8); Lymphocytes % (A) 6 %; MCH 33.3 pg (25.0-35.0); MCHC 32.5 g/dL (31.0-37.0); MCV 102.6 fL (80.0-100.0); Macrocytosis Slight; Mean Platelet Volume 7.3; Monocytes # (A) 0.3 k/uL (0-1.0); Monocytes % (A) 4 %; Neutrophils # (A) 6.3 k/uL (1.3-7.7); Neutrophils % (A) 88 %; Platelet Count 117 k/uL (150-450); RBC 4.28 m/uL (3.80-5.40); RDW 16.1 % (11.5-15.5); WBC 7.1 k/uL (3.8-10.6)
[2019-02-12 17:18] LABS: Magnesium 1.8 mg/dL (1.6-2.3); Potassium 4.1 mmol/L (3.5-5.1); Total Bilirubin 3.1 mg/dL (0.2-1.3); Total Protein 6.8 g/dL (6.3-8.2)
--- NOTE | 2019-02-12 17:19 | ED ---
Chest Pain HPI - General Chief Complaint: Chest Pain Stated Complaint: Chest Pain & Abd Pain Time Seen by Provider: 02/12/19 16:30 Source: patient, family Mode of arrival: ambulatory Limitations: no limitations - History of Present Illness Initial Comments: This is a 63-year-old female history of pneumonia left pleural effusion hypokalemia in the past anemia chronic liver disease who presents with complaints of sudden onset about one half to 2 hours ago of right-sided chest pain and generalized abdominal pain it was 10/10 severity. She states she was in last 5 days started Lovenox he did just come back about 2 weeks ago from [place] she flew home she states she was having leg swelling bilaterally some slight calf pain. No cough no phlegm production fevers chills or sweats no palpitations no other modifying factors MD Complaint: chest pain, other - Related Data Home Medications Medication Instructions Recorded Confirmed Cholecalciferol [Vitamin D3 (25 2,000 unit PO DAILY 11/11/15 02/12/19 Mcg = 1000 Iu)] Ferrous Sulfate [Feosol] 325 mg PO BID 11/11/15 02/12/19 Lactulose [Cephulac] 10 gm PO TID 07/22/16 02/12/19 Ibandronate Sodium [Boniva] 150 mg PO Q30D 07/01/18 02/12/19 Multivitamins, Thera [Multivitamin 1 tab PO DAILY 07/01/18 02/12/19 (formulary)] sitaGLIPtin [Januvia] 100 mg PO DAILY 07/01/18 02/12/19 Magnesium Oxide [Mag-Ox] 400 mg PO BID 08/23/18 02/12/19 Pantoprazole Sodium [Protonix] 40 mg PO DAILY 08/23/18 02/12/19 Potassium Bicarbonate/Cit AC 25 meq PO HS 08/23/18 02/12/19 [Klor-Con 25 (Effer. Tab)] Spironolactone [Aldactone] 50 mg PO DAILY 08/23/18 02/12/19 Enoxaparin [Lovenox] 100 mg SQ Q12H 02/12/19 02/12/19 Previous Rx's Medication Instructions Recorded Furosemide [Lasix] 40 mg PO DAILY #60 08/28/18 Insulin Detemir [Levemir Flextouch] 24 units SQ HS 30 Days #3 pen 08/28/18 Allergies Allergy/AdvReac Type Severity Reaction Status Date / Time No Known Allergies Allergy Verified 02/12/19 18:57 Review of Systems ROS Statement: Those systems with pertinent positive or pertinent negative responses have been documented in the HPI. ROS Other: All systems not noted in ROS Statement are negative. EKG Findings - EKG Results: EKG: interpreted by JESSICA, sinus rhythm (Sinus rhythm a 74. Interval 142 QRS du ration 78 daily since QTC 450/490 9:00 QT) 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 at [facility], diabetes mellitus, hypertension, hyperlipidemia, acid reflux, chronic lower extremity edema, history of iron deficiency, CHF with diastolic dysfunction, blood clot in vein to liver History of Any Multi-Drug Resistant Organisms: None Reported Past Surgical History: Cholecystectomy, Heart Catheterization, Hysterectomy, Tonsillectomy Additional Past Surgical History / Comment(s): ectopic outside of uterus, dc'd from [facility] 07-21-16 after heart cath (radial approach) Past Anesthesia/Blood Transfusion Reactions: Motion Sickness Additional Past Anesthesia/Blood Transfusion Reaction / Comment(s): motion sickness sometimes in car. clausterphobia Past Psychological History: No Psychological Hx Reported Smoking Status: Never smoker Past Alcohol Use History: None Reported Past Drug Use History: Unable to Obtain - Past Family History Father Family Medical History: Myocardial Infarction (DC) Additional Family Medical History / Comment(s): HAD MASSIVE DC Mother Family Medical History: Cancer Additional Family Medical History / Comment(s): COLON CA Brother(s) Family Medical History: Cancer Additional Family Medical History / Comment(s): LEUKEMIA- AND ALSO BROTHER HAD BLOOD CLOT IN LEG AFTER FX General Exam - General Exam Comments Initial Comments: This is a well-developed well-nourished awake alert oriented 3 female Limitations: no limitations General appearance: alert, anxious Head exam: Present: atraumatic, normocephalic, normal inspection Eye exam: Present: normal appearance, PERRL, EOMI. Absent: scleral icterus, conjunctival injection, periorbital swelling ENT exam: Present: normal exam, mucous membranes moist Neck exam: Present: normal inspection, full ROM, other (No stridor JVD or bruits). Absent: tenderness, meningismus, lymphadenopathy Respiratory exam: Present: normal lung sounds bilaterally, chest wall tenderness (Reproducible tenderness palpation of the right costal sternal costochondral margin no step-off or crepitation). Absent: respiratory distress, wheezes, rales, rhonchi, stridor Cardiovascular Exam: Present: regular rate, normal rhythm, normal heart sounds. Absent: systolic murmur, diastolic murmur, rubs, gallop, clicks GI/Abdominal exam: Present: soft, tenderness, normal bowel sounds. Absent: distended, guarding, rebound, rigid, bruit, pulsatile mass Rectal exam: Present: deferred Extremities exam: Present: normal inspection, full ROM, normal capillary refill, pedal edema. Absent: tenderness, joint swelling, calf tenderness Back exam: Present: normal inspection Neurological exam: Present: alert, oriented X3, CN II-XII intact Psychiatric exam: Present: normal affect, normal mood Skin exam: Present: warm, dry, intact, normal color. Absent: rash Course Vital Signs 02/12/19 16:30 Temperature 98.7 F Pulse Rate 74 Respiratory 18 Rate Blood Pressure 122/81 O2 Sat by Pulse 99 Oximetry - Reevaluation(s) Reevaluation #1: 02/12/19 20:54 Evaluation patient is still having atypical chest pain. I did review the imaging and reports there is increased pleural fluid no evidence of any PE or DVT. Chest Pain MDM - MDM I did review the imaging and report no evidence of DVT or PE. I did discuss the findings with Dr. Nunn the patient be admitted with cardiology consultation. Patient is are ready on Lovenox and will continue with this. Critical Care Time Critical Care Time: Yes Disposition Clinical Impression: Atypical chest pain, Pleural effusion, Peripheral edema Disposition: ADMITTED IP TO THIS HOSP Condition: Fair Referrals: Jose Navarrete DO [Primary Care Provider] - 1-2 days
[2019-02-12 17:24] LABS: INR 1.3 (<1.2); Partial Thromboplastin Time 36.8 sec (22.0-30.0); Prothrombin Time 13.4 sec (9.0-12.0)
[2019-02-12 17:41] LABS: D-Dimer 1.68 mg/L FEU (<0.60)
--- NOTE | 2019-02-12 18:00 | XR ---
EXAMINATION TYPE: XR chest 2V DATE OF EXAM: 02/12/2019 COMPARISON: August 26, 2018 HISTORY: Pain TECHNIQUE: Frontal and lateral views of the chest are obtained. FINDINGS: Heart and mediastinum are normal. There are bilateral airspace infiltrates at the posterio r lung bases. There is bilateral pleural effusion. There is no gross heart failure. IMPRESSION: There is increasing bilateral lower lobe pneumonia and pleural fluid compared to old exa m. No gross heart failure seen.
--- NOTE | 2019-02-12 18:02 | XR ---
EXAMINATION TYPE: XR abdomen 2V DATE OF EXAM: 02/12/2019 COMPARISON: August 26, 2018 HISTORY: Right-sided pain and short of breath TECHNIQUE: Supine and upright views FINDINGS: There is no sign of intestinal obstruction or pneumoperitoneum. Fecal pattern is normal. Th ere is no evidence of a mass. There are clips from cholecystectomy. IMPRESSION: Nonacute abdomen.
--- NOTE | 2019-02-12 19:11 | US ---
EXAMINATION TYPE: US venous doppler duplex LE DATE OF EXAM: 02/12/2019 6:49 PM COMPARISON: US 2016 CLINICAL HISTORY: Pain. Pain. Pt on blood thinners. SIDE PERFORMED: Bilateral TECHNIQUE: The lower extremity deep venous system is examined utilizing real time linear array sonog henrietta with graded compression, doppler sonography and color-flow sonography. VESSELS IMAGED: External Iliac Vein (EIV) Common Femoral Vein Deep Femoral Vein Greater Saphenous Vein * Femoral Vein Popliteal Vein Small Saphenous Vein * Proximal Calf Veins (* superficial vessels) Right Leg: No evidence of DVT from prox calf veins to EIV. Left Leg: No evidence of DVT from prox calf veins to EIV. IMPRESSION: Normal bilateral leg duplex venous sonogram.
--- NOTE | 2019-02-12 19:47 | CT ---
EXAMINATION TYPE: CT angio chest DATE OF EXAM: 02/12/2019 7:32 PM COMPARISON: 07/22/2016 HISTORY: Chest pain, SOB, pain in stomach. Hx heart cath, CHF w/diastolic dysfunction, HTN CT DLP: 462.8 mGycm Automated exposure control for dose reduction was used. CONTRAST: CTA scan of the thorax is performed with IV Contrast, patient injected with 100 mL of Isovue 370, pul monary embolism protocol. There are 3-D post processed images.. FINDINGS: There are bilateral pleural effusions. There is basilar pulmonary atelectasis. There is no pericardia l effusion. There is normal contrast opacification of the pulmonary arteries. I see no definite filli ng defect. There is suboptimal contrast density in the smaller branches of the pulmonary arteries. There is no evidence of thoracic aortic aneurysm or dissection. There is no mediastinal adenopathy. T here are few peritracheal lymph nodes that measure up to 1 cm. There are no hilar masses. The bony thorax is intact. IMPRESSION: NO EVIDENCE OF PULMONARY EMBOLISM. BILATERAL PLEURAL EFFUSIONS AND BASILAR ATELECTASIS. PLEURAL FLUID INCREASED COMPARED TO OLD CT SCAN.
[2019-02-12] MEDS ORDERED: NITROGLYCERIN SL TABS 0.4 MG TAB SUBLINGUAL PRN (20:57)
[2019-02-13] MEDS: LACTULOSE 20 GM/30 ML CUP PO SCH ×4 (01:43→23:06)
[2019-02-13] MEDS: ENOXAPARIN 100 MG/ML SYRINGE SQ SCH ×3 (01:46→23:09)
[2019-02-13] MEDS: POTASSIUM BICARBONATE/CIT AC 20 MEQ TABLET.EFF PO SCH ×2 (01:48→23:09)
[2019-02-13] MEDS: NITROGLYCERIN OINT 1 INCH/GM PACKET TOPICAL SCH ×2 (01:55→14:57)
[2019-02-13] MEDS: FERROUS SULFATE 325 MG TAB PO SCH ×3 (01:55→23:06)
[2019-02-13] MEDS: MAGNESIUM OXIDE 400 MG TAB PO SCH ×3 (03:16→23:07)
[2019-02-13] MEDS: INSULIN DETEMIR (LEVEMIR) 100 UNIT/ML SYR SQ SCH ×2 (05:56→23:07)
[2019-02-13 06:19] LABS: Cholesterol 137 mg/dL (<200); HDL Cholesterol 25 mg/dL (40-60); LDL Cholesterol,Calculated 95 mg/dL (0-99); Triglycerides 84 mg/dL (<150)
[2019-02-13] MEDS ORDERED: MORPHINE SULFATE 2 MG/ML SYRINGE IVP STA ×3 (06:49→06:59)
[2019-02-13] MEDS ORDERED: FUROSEMIDE 10 MG/ML 10 ML VIAL IV STA (07:57)
[2019-02-13 08:05] LABS: Glucose,Whole Blood 123 mg/dL (75-99)
[2019-02-13] MEDS ORDERED: FUROSEMIDE 20 MG TAB PO SCH (09:00)
--- NOTE | 2019-02-13 09:55 | P.CRDCN ---
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 She denies history of coronary artery disease. We have been asked to see her in consultation for chest pain. She states she has been experiencing severe pain to the right anterior chest wall with deep inspiration or movement/positions changes for the last day or 2. She has a history of chronic pleural effusions and states she can tell her "lungs are full of fluid" she feels as if she cannot take in a deep breath or fully expand her lungs. She is fairly anxious and uncomfortable during my exam. EKG reveals sinus mechanism with no acute ST or T wave abnormalities noted with sinus arrhythmia. Heart rate is 64. Chest x-ray reveals increasing bilateral lower lobe pneumonia and pleural fluid with no overt heart failure. CTA chest no evidence of pulmonary embolism with bilateral pleural effusions and basilar atelectasis and pleural fluid increased from previous computed tomography scan. Laboratory data reviewed, WBC 7.1, hemoglobin 14.3, platelets 117, INR 1.3, d- dimer 1.68, sodium 139, potassium 4.1, creatinine 1.0, magnesium 1.8, cardiac enzymes negative 3, proBNP 496, LDL 95. Current cardiac medications include Lasix 40 mg by mouth twice a day, Aldactone 50 mg daily, Lovenox 100 mg subcu twice a day and potassium supplementation daily. Most recent echocardiogram obtained in 2017 reveals preserved LV systolic function with ejection fraction 55%, moderately dilated left atrium, mild MR and mild TR. At that time she also had a moderate pericardial effusion near the right atrium as well as a moderate pleural effusion. At the time of my exam: CONSTITUTIONAL: Denies fever. Denies chills. EYES: Denies blurred vision. Denies vision changes. Denies eye pain. EARS, NOSE, MOUTH & THROAT: Denies headache. Denies sore throat. Denies ear blanquita n. CARDIOVASCULAR: Denies chest pain. Denies shortness of breath. Denies orthopnea. Denies PND. Denies palpitations. RESPIRATORY: Denies cough. GASTROINTESTINAL: Denies abdominal pain. Denies diarrhea. Denies constipation. Denies nausea. Denies vomiting. MUSCULOSKELETAL: Denies myalgias. INTEGUMENTARY: Denies pruitis. Denies rash. NEUROLOGIC: Denies numbness. Denies tingling. Denies weakness. PSYCHIATRIC: Denies anxiety. Denies depression. ENDOCRINE: Denies fatigue. Denies weight change. Denies polydipsia. Denies polyurina. GENITOURINARY: Denies burning, hematuria or urgency with micturation. HEMATOLOGIC: Denies history of anemia. Denies bleeding. Blood pressure 120/59 heart rate 85 afebrile maintaining oxygen saturation on nasal cannula GENERAL: This is a 63-year-old female in no apparent distress at the time of my examination. HEENT: Head is atraumatic, normocephalic. Pupils are equal, round. Sclerae anicteric. Conjunctivae are clear. Mucous membranes of the mouth are moist. Neck is supple. There is no jugular venous distention. No carotid bruit is heard. LUNGS: Bibasilar rales, no wheezes or rhonchi. Significant chest wall tenderness with deep breathing. HEART: Regular rate and rhythm without murmurs, rubs or gallops. S1 and S2 heard. ABDOMEN: Soft, nontender, mild ascites. Bowel sounds are heard. No organomegaly noted. EXTREMITIES: 1+ bilateral lower extremity edema. No calf tenderness noted. VASCULAR: Radial and dorsalis pedis pulses palpated, no evidence of clubbing. NEUROLOGIC: Patient is awake, alert and oriented x3. ASSESSMENT Pneumonia Bilateral pleural effusion Chronic lower extremity edema Crypotegenic cirrhosis Hypertension Dyslipidemia Diabetes mellitus PLAN Give one dose of IV lasix 60 mg. Obtain 2D echocardiogram and doppler study to assess cardiac structure and function. Obtain bilateral chest ultrasound to measure pleural effusions for possible thoracentesis. Consult pulmonary medicine for evaluation. Chest pain is pleuritic and not suggestive of ischemia. Ongoing medical management and care per pulmonary care team. Thank you kindly for this consultation. Nurse Practitioner note has been reviewed, I agree with a documented findings and plan of care. Patient was seen and examined. Past Medical History Past Medical History: Diabetes Mellitus, GERD/Reflux, Hyperlipidemia, Hype rtension, Liver Disease Additional Past Medical History / Comment(s): Cryptogenic liver cirrhosis currently on transplantation list at [facility], diabetes mellitus, hypertension, hyperlipidemia, acid reflux, chronic lower extremity edema, history of iron deficiency, CHF with diastolic dysfunction, blood clot in vein to liver History of Any Multi-Drug Resistant Organisms: None Reported Past Surgical History: Cholecystectomy, Heart Catheterization, Hysterectomy, Tonsillectomy Additional Past Surgical History / Comment(s): ectopic outside of uterus, dc'd from [facility] 07-21-16 after heart cath (radial approach) Past Anesthesia/Blood Transfusion Reactions: Motion Sickness Additional Past Anesthesia/Blood Transfusion Reaction / Comment(s): motion sickness sometimes in car. clausterphobia Past Psychological History: No Psychological Hx Reported Smoking Status: Never smoker Past Alcohol Use History: None Reported Past Drug Use History: Unable to Obtain - Past Family History Father Family Medical History: Myocardial Infarction ([place]) Additional Family Medical History / Comment(s): HAD MASSIVE [place] Mother Family Medical History: Cancer Additional Family Medical History / Comment(s): COLON [place] Brother(s) Family Medical History: Cancer Additional Family Medical History / Comment(s): LEUKEMIA- AND ALSO BROTHER HAD BLOOD CLOT IN LEG AFTER FX Medications and Allergies Home Medications Medication Instructions Recorded Confirmed Type Cholecalciferol [Vitamin D3 (25 2,000 unit PO DAILY 11/11/15 02/12/19 History Mcg = 1000 Iu)] Ferrous Sulfate [Feosol] 325 mg PO BID 11/11/15 02/12/19 History Lactulose [Cephulac] 10 gm PO TID 07/22/16 02/12/19 History Ibandronate Sodium [Boniva] 150 mg PO Q30D 07/01/18 02/12/19 History Multivitamins, Thera [Multivitamin 1 tab PO DAILY 07/01/18 02/12/19 History (formulary)] sitaGLIPtin [Januvia] 100 mg PO DAILY 07/01/18 02/12/19 History Magnesium Oxide [Mag-Ox] 400 mg PO BID 08/23/18 02/12/19 History Pantoprazole Sodium [Protonix] 40 mg PO DAILY 08/23/18 02/12/19 History Potassium Bicarbonate/Cit AC 25 meq PO HS 08/23/18 02/12/19 History [Klor-Con 25 (Effer. Tab)] Spironolactone [Aldactone] 50 mg PO DAILY 08/23/18 02/12/19 History Furosemide [Lasix] 40 mg PO DAILY #60 02/11/19 07/29/19 Rx Insulin Detemir [Levemir Flextouch] 24 units SQ HS 30 Days #3 pen 08/28/18 02/12/19 Rx Enoxaparin [Lovenox] 100 mg SQ Q12H 02/12/19 02/12/19 History Allergies Allergy/AdvReac Type Severity Reaction Status Date / Time No Known Allergies Allergy Verified 02/12/19 18:57 Physical Exam Vitals: Vital Signs Temp Pulse Resp BP Pulse Ox 02/13/19 09:10 20 120/59 97 02/13/19 09:09 20 02/13/19 09:00 85 16 112/60 96 02/13/19 08:00 82 17 111/53 96 02/13/19 07:11 98 F 87 18 110/69 98 02/13/19 07:00 83 24 114/54 98 02/13/19 06:00 82 22 119/54 94 L 02/13/19 05:10 84 18 103/52 94 L 02/13/19 05:00 85 22 118/55 94 L 02/13/19 04:00 87 22 111/62 94 L 02/13/19 03:00 87 18 119/59 95 02/13/19 02:00 85 14 113/58 97 02/13/19 01:58 98.6 F 87 18 113/58 97 02/13/19 01:10 87 24 114/51 94 L 02/13/19 01:00 86 21 110/47 94 L 02/13/19 00:50 88 19 110/47 94 L 02/13/19 00:40 85 16 112/53 94 L 02/13/19 00:30 87 23 115/53 94 L 02/13/19 00:20 89 23 115/53 95 02/13/19 00:10 87 20 107/52 95 02/13/19 00:00 87 22 110/51 94 L 02/12/19 23:50 88 22 110/51 94 L 02/12/19 23:40 86 18 109/53 94 L 02/12/19 23:30 87 22 114/54 94 L 02/12/19 23:20 86 21 114/54 95 02/12/19 23:10 85 21 115/56 95 02/12/19 23:00 85 20 123/60 95 02/12/19 22:50 85 23 123/60 95 02/12/19 22:40 92 13 121/50 95 02/12/19 22:30 86 19 117/59 94 L 02/12/19 22:20 87 21 117/59 94 L 02/12/19 22:10 87 22 125/46 95 02/12/19 22:00 87 23 122/44 94 L 02/12/19 21:50 87 23 122/44 95 02/12/19 21:40 82 23 123/69 95 02/12/19 21:30 84 22 121/51 95 02/12/19 21:27 84 21 121/51 97 02/12/19 21:20 86 21 121/51 97 02/12/19 21:10 84 23 120/56 97 02/12/19 21:00 85 18 122/58 97 02/12/19 20:50 84 19 122/58 97 02/12/19 20:40 90 13 105/52 98 02/12/19 20:30 105/52 02/12/19 20:20 84 23 105/52 96 02/12/19 20:10 91 11 L 116/52 95 02/12/19 20:00 84 23 121/63 95 02/12/19 19:50 93 23 121/63 94 L 02/12/19 19:40 86 14 131/63 98 02/12/19 19:10 84 25 H 160/81 96 02/12/19 19:00 91 13 150/87 95 02/12/19 18:50 86 16 150/87 98 02/12/19 18:40 86 12 143/75 97 02/12/19 18:30 84 21 137/65 99 02/12/19 18:20 86 17 137/65 98 02/12/19 18:10 84 17 131/69 99 02/12/19 18:00 81 26 H 97 02/12/19 17:40 116/58 98 02/12/19 17:30 81 16 119/84 100 02/12/19 17:20 81 18 119/84 98 02/12/19 17:10 79 15 113/61 99 02/12/19 17:00 75 12 130/55 100 02/12/19 16:50 74 15 130/55 100 02/12/19 16:45 97 02/12/19 16:30 98.7 F 74 18 122/81 99 Intake and Output 02/12/19 02/13/19 02/13/19 22:59 06:59 14:59 Other: Weight 95.254 kg Results 02/12/19 16:59 02/12/19 16:59 Cardiac Enzymes 02/12/19 02/12/19 02/12/19 Range/Units 16:59 16:59 22:33 AST 34 (14-36) U/L Troponin I <0.012 <0.012 (0.000-0.034) ng/mL 02/13/19 Range/Units 05:42 AST (14-36) U/L Troponin I <0.012 (0.000-0.034) ng/mL Coagulation 02/12/19 Range/Units 16:59 PT 13.4 H (9.0-12.0) sec APTT 36.8 H (22.0-30.0) sec Lipids 02/13/19 Range/Units 05:42 Triglycerides 84 (<150) mg/dL Cholesterol 137 (<200) mg/dL HDL Cholesterol 25 L (40-60) mg/dL CBC 02/12/19 Range/Units 16:59 WBC 7.1 (3.8-10.6) k/uL RBC 4.28 (3.80-5.40) m/uL Hgb 14.3 (11.4-16.0) gm/dL Hct 44.0 (34.0-46.0) % Plt Count 117 L (150-450) k/uL Comprehensive Metabolic Panel 02/12/19 Range/Units 16:59 Sodium 139 (137-145) mmol/L Potassium 4.1 (3.5-5.1) mmol/L Chloride 106 (98-107) mmol/L Carbon Dioxide 24 (22-30) mmol/L BUN 11 (7-17) mg/dL Creatinine 1.00 (0.52-1.04) mg/dL Glucose 128 H (74-99) mg/dL Calcium 9.0 (8.4-10.2) mg/dL AST 34 (14-36) U/L ALT 21 (9-52) U/L Alkaline Phosphatase 105 (38-126) U/L Total Protein 6.8 (6.3-8.2) g/dL Albumin 3.0 L (3.5-5.0) g/dL Current Medications Generic Name Dose Route Start Last Admin Trade Name Stephon PRN Reason Stop Dose Admin Aspirin 325 mg 02/13/19 09:00 Aspirin PO DAILY COUNTS INCLUDE 234 BEDS AT THE [facility] Cholecalciferol 2,000 unit 02/13/19 09:00 Vitamin D3 (25 Mcg = 1000 Iu) PO DAILY COUNTS INCLUDE 234 BEDS AT THE [facility] Enoxaparin Sodium 100 mg 02/12/19 21:00 02/13/19 01:46 Lovenox SQ 100 mg Q12H CORINNE Administration Ferrous Sulfate 325 mg 02/12/19 21:00 02/13/19 01:55 Feosol PO 325 mg BID CORINNE Administration Insulin Detemir 24 unit 02/12/19 21:00 02/13/19 05:56 Levemir SQ Not Given HS COUNTS INCLUDE 234 BEDS AT THE [facility] Lactulose 10 gm 02/12/19 22:00 02/13/19 01:43 Cephulac PO 10 gm TID CORINNE Administration Linagliptin 5 mg 02/13/19 09:00 Tradjenta PO DAILY COUNTS INCLUDE 234 BEDS AT THE [facility] Magnesium Oxide 400 mg 02/12/19 21:00 02/13/19 03:16 Mag-Ox PO 400 mg BID COUNTS INCLUDE 234 BEDS AT THE [facility] Administration Multivitamins 1 each 02/13/19 09:00 Theragran PO DAILY COUNTS INCLUDE 234 BEDS AT THE [facility] Nitroglycerin 1 inch 02/13/19 00:00 02/13/19 01:55 Nitro-Bid Oint TOPICAL 1 inch Q6HR COUNTS INCLUDE 234 BEDS AT THE [facility] Administration Nitroglycerin 0.4 mg 02/12/19 20:57 Nitrostat SUBLINGUAL Q5M PRN Chest Pain Ibandronate Sodium [ 150 mg 02/21/19 09:00 Boniva] 150 Mg PO Q30D COUNTS INCLUDE 234 BEDS AT THE [facility] Pantoprazole Sodium 40 mg 02/13/19 09:00 Protonix PO DAILY COUNTS INCLUDE 234 BEDS AT THE [facility] Potassium Bicarbonate 20 meq 02/12/19 21:00 02/13/19 01:48 K-Lyte PO 20 meq HS CORINNE Administration Spironolactone 50 mg 02/13/19 09:00 Aldactone PO DAILY COUNTS INCLUDE 234 BEDS AT THE [facility] Intake and Output 02/12/19 02/13/19 02/13/19 22:59 06:59 14:59 Other: Weight 95.254 kg 02/12/19 16:59 02/12/19 16:59
--- NOTE | 2019-02-13 10:59 | US ---
EXAMINATION TYPE: US chest DATE OF EXAM: 02/13/2019 COMPARISON: CT CLINICAL HISTORY: pleuritic pain, recurrent pleural effusions; patient is awaiting liver transplant d ue to cryptogenic liver cirrhosis per patient TECHNIQUE: Targeted ultrasound of the posterior chest, bilaterally EXAM MEASUREMENTS: Right Pleural Effusion pocket size: 8.4 cm Right skin surface to fluid distance: 4.7 cm Left Pleural Effusion pocket size: 6.0 cm Left skin surface to fluid distance: 4.5 cm Right side was not marked due to lung tissue seen centrally within pleural effusion. Left side was marked for possible thoracentesis outside the dept. Pulmonologists are able to review the images in the patient?s EMR. IMPRESSIONS: Bilateral pleural effusions.
[2019-02-13] MEDS ORDERED: ACETAMINOPHEN TAB 325 MG TAB PO STA (12:12)
[2019-02-13] MEDS ORDERED: traMADol 50 MG TAB PO STA (12:51)
[2019-02-13] MEDS: LINAGLIPTIN 5 MG TABLET PO SCH (13:03)
[2019-02-13] MEDS ORDERED: MORPHINE SULFATE 4 MG/ML SYRINGE IVP STA (13:30)
[2019-02-13] MEDS: CHOLECALCIFEROL 1,000 UNIT TAB PO SCH (13:38)
[2019-02-13] MEDS: MULTIVITAMINS, THERA 1 EACH TAB PO SCH (13:38)
[2019-02-13] MEDS: PANTOPRAZOLE 40 MG TABLET PO SCH (13:38)
[2019-02-13] MEDS: SPIRONOLACTONE 25 MG TAB PO SCH (13:39)
[2019-02-13] MEDS: ASPIRIN 325 MG TAB PO SCH (14:56)
--- NOTE | 2019-02-13 14:57 | P.CNPUL ---
History of Present Illness Consult date: 02/13/19 Requesting physician: Nick Yuen Reason for consult: dyspnea Chief complaint: right sided chest pain History of present illness: This is a 63-year-old white female patient with history of cryptogenic liver cirrhosis, awaiting liver transplantation, chronic congestive heart failure with diastolic dysfunction, hypertension, hyperlipidemia, diabetes mellitus, chronic lower extremity edema, resent to the hospital on 02/12/2019 for evaluation of acute onset right-sided chest pain and generalized abdominal pain. She is on Lovenox 100 mg subcu twice daily for history of portal vein clot. She was experiencing severe pain to the right anterior chest that was worse with deep inspiration or movement, and she felt as if she couldn't take a deep breath. Denied any fever or chills, denied any cough or congestion or phlegm production. EKG showed normal sinus rhythm without evidence of acute ischemic changes. Chest x-ray showed bilateral airspace disease at the posterior lung bases, and b ilateral pleural effusions, D-dimer was elevated at 1.68, and CT angios of the chest was completed showing no evidence of pulmonary embolism, they showed a bilateral pleural effusions and basilar atelectasis. Chest ultrasound showed 8.4 cm fluid pocket on the right in 6.0 cm pocket on the left. Troponins have been negative 3, proBNP was within normal limits at 496. No evidence of leukocytosis, with blood cell count of 7.1, hemoglobin of 14.3, INR is 1.3, electrolytes and renal profile were unremarkable, lipase was negative, abdominal x-ray was completed showing nonacute abdomen, without evidence of intestinal obstruction or pneumoperitoneum, no evidence of a mass. Patient is on oral Las ix and Aldactone on a daily basis. Echocardiogram is pending. And we're consulted for bilateral pleural effusions for possibility of thoracentesis Review of Systems All systems: negative Constitutional: Denies chills, Denies fever Eyes: denies blurred vision, denies pain Ears, nose, mouth and throat: Denies headache, Denies sore throat Cardiovascular: Reports chest pain, Denies shortness of breath Respiratory: Denies cough Gastrointestinal: Reports abdominal pain, Denies diarrhea, Denies nausea, Denies vomiting Genitourinary: Denies dysuria, Denies hematuria Musculoskeletal: Denies myalgias Musculoskeletal: bilateral: ankle swelling, foot swelling Integumentary: Denies pruritus, Denies rash Neurological: Denies numbness, Denies weakness Psychiatric: Denies anxiety, Denies depression Endocrine: Denies fatigue, Denies weight change 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 at [facility], diabetes mellitus, hypertension, hyperlipidemia, acid reflux, chronic lower extremity edema, history of iron deficiency, CHF with diastolic dysfunction, blood clot in vein to liver History of Any Multi-Drug Resistant Organisms: None Reported Past Surgical History: Cholecystectomy, Heart Catheterization, Hysterectomy, Tonsillectomy Additional Past Surgical History / Comment(s): ectopic outside of uterus, dc'd from [facility] 07-21-16 after heart cath (radial approach) Past Anesthesia/Blood Transfusion Reactions: Motion Sickness Additional Past Anesthesia/Blood Transfusion Reaction / Comment(s): motion sickness sometimes in car. clausterphobia Past Psychological History: No Psychological Hx Reported Smoking Status: Never smoker Past Alcohol Use History: None Reported Past Drug Use History: Unable to Obtain - Past Family History Father Family Medical History: Myocardial Infarction ([place]) Additional Family Medical History / Comment(s): HAD MASSIVE [place] Mother Family Medical History: Cancer Additional Family Medical History / Comment(s): COLON [place] Brother(s) Family Medical History: Cancer Additional Family Medical History / Comment(s): LEUKEMIA- AND ALSO BROTHER HAD BLOOD CLOT IN LEG AFTER FX Medications and Allergies Home Medications Medication Instructions Recorded Confirmed Type Cholecalciferol [Vitamin D3 (25 2,000 unit PO DAILY 11/11/15 02/12/19 History Mcg = 1000 Iu)] Ferrous Sulfate [Feosol] 325 mg PO BID 11/11/15 02/12/19 History Lactulose [Cephulac] 10 gm PO TID 07/22/16 02/12/19 History Ibandronate Sodium [Boniva] 150 mg PO Q30D 07/01/18 02/12/19 History Multivitamins, Thera [Multivitamin 1 tab PO DAILY 07/01/18 02/12/19 History (formulary)] sitaGLIPtin [Januvia] 100 mg PO DAILY 07/01/18 02/12/19 History Magnesium Oxide [Mag-Ox] 400 mg PO BID 08/23/18 02/12/19 History Pantoprazole Sodium [Protonix] 40 mg PO DAILY 08/23/18 02/12/19 History Potassium Bicarbonate/Cit AC 25 meq PO HS 08/23/18 02/12/19 History [Klor-Con 25 (Effer. Tab)] Spironolactone [Aldactone] 50 mg PO DAILY 08/23/18 02/12/19 History Furosemide [Lasix] 40 mg PO DAILY #60 08/28/18 02/12/19 Rx Insulin Detemir [Levemir Flextouch] 24 units SQ HS 30 Days #3 pen 08/28/18 02/12/19 Rx Enoxaparin [Lovenox] 100 mg SQ Q12H 02/12/19 02/12/19 History Allergies Allergy/AdvReac Type Severity Reaction Status Date / Time No Known Allergies Allergy Verified 02/12/19 18:57 Physical Exam Vitals: Vital Signs Temp Pulse Resp BP Pulse Ox 02/13/19 09:10 20 120/59 97 02/13/19 09:09 20 02/13/19 09:00 85 16 112/60 96 02/13/19 08:00 82 17 111/53 96 02/13/19 07:11 98 F 87 18 110/69 98 02/13/19 07:00 83 24 114/54 98 02/13/19 06:00 82 22 119/54 94 L 02/13/19 05:10 84 18 103/52 94 L 02/13/19 05:00 85 22 118/55 94 L 02/13/19 04:00 87 22 111/62 94 L 02/13/19 03:00 87 18 119/59 95 02/13/19 02:00 85 14 113/58 97 02/13/19 01:58 98.6 F 87 18 113/58 97 02/13/19 01:10 87 24 114/51 94 L 02/13/19 01:00 86 21 110/47 94 L 02/13/19 00:50 88 19 110/47 94 L 02/13/19 00:40 85 16 112/53 94 L 02/13/19 00:30 87 23 115/53 94 L 02/13/19 00:20 89 23 115/53 95 02/13/19 00:10 87 20 107/52 95 02/13/19 00:00 87 22 110/51 94 L 02/12/19 23:50 88 22 110/51 94 L 02/12/19 23:40 86 18 109/53 94 L 02/12/19 23:30 87 22 114/54 94 L 02/12/19 23:20 86 21 114/54 95 02/12/19 23:10 85 21 115/56 95 02/12/19 23:00 85 20 123/60 95 02/12/19 22:50 85 23 123/60 95 02/12/19 22:40 92 13 121/50 95 02/12/19 22:30 86 19 117/59 94 L 02/12/19 22:20 87 21 117/59 94 L 02/12/19 22:10 87 22 125/46 95 02/12/19 22:00 87 23 122/44 94 L 02/12/19 21:50 87 23 122/44 95 02/12/19 21:40 82 23 123/69 95 02/12/19 21:30 84 22 121/51 95 02/12/19 21:27 84 21 121/51 97 02/12/19 21:20 86 21 121/51 97 02/12/19 21:10 84 23 120/56 97 02/12/19 21:00 85 18 122/58 97 02/12/19 20:50 84 19 122/58 97 02/12/19 20:40 90 13 105/52 98 02/12/19 20:30 105/52 02/12/19 20:20 84 23 105/52 96 02/12/19 20:10 91 11 L 116/52 95 02/12/19 20:00 84 23 121/63 95 02/12/19 19:50 93 23 121/63 94 L 02/12/19 19:40 86 14 131/63 98 02/12/19 19:10 84 25 H 160/81 96 02/12/19 19:00 91 13 150/87 95 02/12/19 18:50 86 16 150/87 98 02/12/19 18:40 86 12 143/75 97 02/12/19 18:30 84 21 137/65 99 02/12/19 18:20 86 17 137/65 98 02/12/19 18:10 84 17 131/69 99 02/12/19 18:00 81 26 H 97 02/12/19 17:40 116/58 98 02/12/19 17:30 81 16 119/84 100 02/12/19 17:20 81 18 119/84 98 02/12/19 17:10 79 15 113/61 99 02/12/19 17:00 75 12 130/55 100 02/12/19 16:50 74 15 130/55 100 02/12/19 16:45 97 02/12/19 16:30 98.7 F 74 18 122/81 99 Intake and Output 02/12/19 02/13/19 02/13/19 22:59 06:59 14:59 Other: Weight 95.254 kg GENERAL EXAM: Alert, pleasant, 63-year-old white female, comfortable in no apparent distress. HEAD: Normocephalic/atraumatic. EYES: Normal reaction of pupils, equal size. Conjunctiva pink, sclera white. NOSE: Clear with pink turbinates. THROAT: No erythema or exudates. NECK: No masses, no JVD, no thyroid enlargement, no adenopathy. CHEST: No chest wall deformity. Symmetrical expansion. LUNGS: Diminished breath sounds at the bases, with bibasilar rales, no wheezes, or rhonchi. CVS: Regular rate and rhythm, normal S1 and S2, no gallops, no murmurs, no rubs ABDOMEN: Soft, diffusely tender to palpation. No hepatosplenomegaly, normal bowel sounds, no guarding or rigidity. EXTREMITIES: No clubbing, 1+ edema, no cyanosis, 2+ pulses and upper and lower extremities. MUSCULOSKELETAL: Muscle strength and tone normal. SPINE: No scoliosis or deformity SKIN: No rashes CENTRAL NERVOUS SYSTEM: Alert and oriented -3. No focal deficits, tone is normal in all 4 extremities. PSYCHIATRIC: Alert and oriented -3. Appropriate affect. Intact judgment and insight. Results - Laboratory Findings CBC and BMP: 02/12/19 16:59 02/12/19 16:59 PT/INR, D-dimer PT 13.4 sec (9.0-12.0) H 02/12/19 16:59 INR 1.3 (<1.2) H 02/12/19 16:59 D-Dimer 1.68 mg/L FEU (<0.60) H 02/12/19 16:59 Abnormal lab findings: Abnormal Labs 02/12/19 02/12/19 02/12/19 16:59 16:59 16:59 MCV 102.6 H RDW 16.1 H Plt Count 117 L Lymphocytes # 0.4 L PT 13.4 H INR 1.3 H APTT 36.8 H D-Dimer 1.68 H Glucose 128 H POC Glucose (mg/dL) Total Bilirubin 3.1 H Albumin 3.0 L HDL Cholesterol 02/13/19 02/13/19 05:42 08:03 MCV RDW Plt Count Lymphocytes # PT INR APTT D-Dimer Glucose POC Glucose (mg/dL) 123 H Total Bilirubin Albumin HDL Cholesterol 25 L - Diagnostic Findings Chest x-ray: report reviewed, image reviewed CT scan - chest: report reviewed, image reviewed Additional studies: Ultrasound of the chest reviewed Assessment and Plan Plan: Assessment: #1. Bilateral pleural effusions, right greater than the left, ultrasound of the chest revealed 8.4 cm fluid pocket on the right, and 6.0 cm fluid pocket on the left #2. Chest pain in the right anterior chest, likely related to the above #3. No clear cut evidence of pneumonia #4. Chronic lower extremity edema #5. Cryptogenic liver cirrhosis, awaiting liver transplantation #6. Hypertension #7. Chronic CHF with diastolic dysfunction #8. Hyperlipidemia #9. GERD/reflux #10. History of portal vein clot, likely on Lovenox injections Plan: Continue with IV Lasix, chest x-ray, CT chest and ultrasound of the chest have been reviewed with Dr. Caal, and bilateral pleural effusions are small, and in view of her underlying chronic liver disease, are likely to quickly recur, despite the thoracentesis. Would recommend diuretics right now, medical belén atment, will obtain ultrasound of the abdomen to rule out ascites. If her breathing does not improve with diuresis, we will consult interventional radiology for bilateral thoracentesis and her anticoagulation will have to be placed on hold. We'll continue to follow I performed a history & physical examination of the patient and discussed their management with my nurse practitioner, Sydnee Stewart. I reviewed the nurse practitioner's note and agree with the documented findings and plan of care. Lung sounds are positive for diminished breath sounds. The findings and the impression was discussed with the patient. I attest to the documentation by the nurse practitioner. Time with Patient: Greater than 30
--- NOTE | 2019-02-13 15:03 | P.HPIM ---
History of Present Illness 63-year-old female with history of Prozac liver cirrhosis awaiting liver transplantation came in with compensative chest pain found to have bilateral pleural effusions patient had an ultrasound of the chest which showed moderate pleural effusions. Patient was started on IV Lasix. Patient is on Ceftin his Lovenox at this time Recently diagnosed or hepatic vein thrombosis. Patient is comparing of severe pleuritic pain and there is no evidence of pulmonary embolism on the CAT scan no evidence of pneumonia at this time. Patient was comparing of cough without any segment sputum production patient's back pain is related to her bilateral pleural effusions patient was started on IV Lasix. Patient is already on Aldactone which will be continued. She'll insert troponins are negative BNP is 496. No fever no leukocytosis no air bronchogram on the CAT scan although there is some atelectasis associated with bilateral pleural effusions, patient is comparing of abdominal pain but there is no significant tenderness patient does have some ascites no evidence of spontaneous backing peritonitis at this time. Review of Systems REVIEW OF SYSTEMS: CONSTITUTIONAL: No fever, no malaise, no fatigue. HEENT: No recent visual problems or hearing problems. Denied any sore throat. CARDIOVASCULAR: No orthopnea, PND, no palpitations, no syncope. PULMONARY: no hemoptysis. GASTROINTESTINAL: No diarrhea, no nausea, no vomiting, no abdominal pain. NEUROLOGICAL: No headaches, no weakness, no numbness. HEMATOLOGICAL: Denies any bleeding or petechiae. GENITOURINARY: Denies any burning micturition, frequency, or urgency. MUSCULOSKELETAL/RHEUMATOLOGICAL: Denies any joint pain, swelling, or any muscle pain. ENDOCRINE: Denies any polyuria or polydipsia. The rest of the 14-point review of systems is negative. 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 at [facility], diabetes mellitus, hypertension, hyperlipidemia, acid reflux, chronic lower extremity edema, history of iron deficiency, CHF with diastolic dysfunction, blood clot in vein to liver History of Any Multi-Drug Resistant Organisms: None Reported Past Surgical History: Cholecystectomy, Heart Catheterization, Hysterectomy, T onsillectomy Additional Past Surgical History / Comment(s): ectopic outside of uterus, dc'd from [facility] 07-21-16 after heart cath (radial approach) Past Anesthesia/Blood Transfusion Reactions: Motion Sickness Additional Past Anesthesia/Blood Transfusion Reaction / Comment(s): motion sickness sometimes in car. clausterphobia Past Psychological History: No Psychological Hx Reported Smoking Status: Never smoker Past Alcohol Use History: None Reported Past Drug Use History: Unable to Obtain - Past Family History Father Family Medical History: Myocardial Infarction ([place]) Additional Family Medical History / Comment(s): HAD MASSIVE [place] Mother Family Medical History: Cancer Additional Family Medical History / Comment(s): COLON CA Brother(s) Family Medical History: Cancer Additional Family Medical History / Comment(s): LEUKEMIA- AND ALSO BROTHER HAD BLOOD CLOT IN LEG AFTER FX Medications and Allergies Home Medications Medication Instructions Recorded Confirmed Type Cholecalciferol [Vitamin D3 (25 2,000 unit PO DAILY 11/11/15 02/12/19 History Mcg = 1000 Iu)] Ferrous Sulfate [Feosol] 325 mg PO BID 11/11/15 02/12/19 History Lactulose [Cephulac] 10 gm PO TID 07/22/16 02/12/19 History Ibandronate Sodium [Boniva] 150 mg PO Q30D 07/01/18 02/12/19 History Multivitamins, Thera [Multivitamin 1 tab PO DAILY 07/01/18 02/12/19 History (formulary)] sitaGLIPtin [Januvia] 100 mg PO DAILY 07/01/18 02/12/19 History Magnesium Oxide [Mag-Ox] 400 mg PO BID 08/23/18 02/12/19 History Pantoprazole Sodium [Protonix] 40 mg PO DAILY 08/23/18 02/12/19 History Potassium Bicarbonate/Cit AC 25 meq PO HS 08/23/18 02/12/19 History [Klor-Con 25 (Effer. Tab)] Spironolactone [Aldactone] 50 mg PO DAILY 08/23/18 02/12/19 History Furosemide [Lasix] 40 mg PO DAILY #60 08/28/18 02/12/19 Rx Insulin Detemir [Levemir Flextouch] 24 units SQ HS 30 Days #3 pen 08/28/18 02/12/19 Rx Enoxaparin [Lovenox] 100 mg SQ Q12H 02/12/19 02/12/19 History Allergies Allergy/AdvReac Type Severity Reaction Status Date / Time No Known Allergies Allergy Verified 02/12/19 18:57 Physical Exam Vitals: Vital Signs Temp Pulse Resp BP Pulse Ox 02/13/19 14:42 98.5 F 78 16 111/54 96 02/13/19 09:10 20 120/59 97 02/13/19 09:09 20 02/13/19 09:00 85 16 112/60 96 02/13/19 08:00 82 17 111/53 96 02/13/19 07:11 98 F 87 18 110/69 98 02/13/19 07:00 83 24 114/54 98 02/13/19 06:00 82 22 119/54 94 L 02/13/19 05:10 84 18 103/52 94 L 02/13/19 05:00 85 22 118/55 94 L 02/13/19 04:00 87 22 111/62 94 L 02/13/19 03:00 87 18 119/59 95 02/13/19 02:00 85 14 113/58 97 02/13/19 01:58 98.6 F 87 18 113/58 97 02/13/19 01:10 87 24 114/51 94 L 02/13/19 01:00 86 21 110/47 94 L 02/13/19 00:50 88 19 110/47 94 L 02/13/19 00:40 85 16 112/53 94 L 02/13/19 00:30 87 23 115/53 94 L 02/13/19 00:20 89 23 115/53 95 02/13/19 00:10 87 20 107/52 95 02/13/19 00:00 87 22 110/51 94 L 02/12/19 23:50 88 22 110/51 94 L 02/12/19 23:40 86 18 109/53 94 L 02/12/19 23:30 87 22 114/54 94 L 02/12/19 23:20 86 21 114/54 95 02/12/19 23:10 85 21 115/56 95 02/12/19 23:00 85 20 123/60 95 02/12/19 22:50 85 23 123/60 95 02/12/19 22:40 92 13 121/50 95 02/12/19 22:30 86 19 117/59 94 L 02/12/19 22:20 87 21 117/59 94 L 02/12/19 22:10 87 22 125/46 95 02/12/19 22:00 87 23 122/44 94 L 02/12/19 21:50 87 23 122/44 95 02/12/19 21:40 82 23 123/69 95 02/12/19 21:30 84 22 121/51 95 02/12/19 21:27 84 21 121/51 97 02/12/19 21:20 86 21 121/51 97 02/12/19 21:10 84 23 120/56 97 02/12/19 21:00 85 18 122/58 97 02/12/19 20:50 84 19 122/58 97 02/12/19 20:40 90 13 105/52 98 02/12/19 20:30 105/52 02/12/19 20:20 84 23 105/52 96 02/12/19 20:10 91 11 L 116/52 95 02/12/19 20:00 84 23 121/63 95 02/12/19 19:50 93 23 121/63 94 L 02/12/19 19:40 86 14 131/63 98 02/12/19 19:10 84 25 H 160/81 96 02/12/19 19:00 91 13 150/87 95 02/12/19 18:50 86 16 150/87 98 02/12/19 18:40 86 12 143/75 97 02/12/19 18:30 84 21 137/65 99 02/12/19 18:20 86 17 137/65 98 02/12/19 18:10 84 17 131/69 99 02/12/19 18:00 81 26 H 97 02/12/19 17:40 116/58 98 02/12/19 17:30 81 16 119/84 100 02/12/19 17:20 81 18 119/84 98 02/12/19 17:10 79 15 113/61 99 02/12/19 17:00 75 12 130/55 100 02/12/19 16:50 74 15 130/55 100 02/12/19 16:45 97 02/12/19 16:30 98.7 F 74 18 122/81 99 Intake and Output 02/12/19 02/13/19 02/13/19 22:59 06:59 14:59 Other: Weight 95.254 kg PHYSICAL EXAMINATION: GENERAL: The patient is alert and oriented x3, not in any acute distress. Obese HEENT: Pupils are round and equally reacting to light. EOMI. No scleral icterus. No conjunctival pallor. Normocephalic, atraumatic. No pharyngeal erythema. No thyromegaly. CARDIOVASCULAR: S1 and S2 present. No murmurs, rubs, or gallops. PULMONARY: Chest is clear to auscultation, no wheezing or crackles. ABDOMEN: Soft, mild distention with ascites and shifting dullness MUSCULOSKELETAL: No joint swelling or deformity. EXTREMITIES: No cyanosis, clubbing, or pedal edema. NEUROLOGICAL: Gross neurological examination did not reveal any focal deficits. SKIN: No rashes. Results CBC & Chem 7: 02/12/19 16:59 02/12/19 16:59 Labs: Abnormal Lab Results - Last 24 Hours (Table) 02/12/19 02/12/19 02/12/19 Range/Units 16:59 16:59 16:59 MCV 102.6 H (80.0-100.0) fL RDW 16.1 H (11.5-15.5) % Plt Count 117 L (150-450) k/uL Lymphocytes # 0.4 L (1.0-4.8) k/uL PT 13.4 H (9.0-12.0) sec INR 1.3 H (<1.2) APTT 36.8 H (22.0-30.0) sec D-Dimer 1.68 H (<0.60) mg/L FEU Glucose 128 H (74-99) mg/dL POC Glucose (mg/dL) (75-99) mg/dL Total Bilirubin 3.1 H (0.2-1.3) mg/dL Albumin 3.0 L (3.5-5.0) g/dL HDL Cholesterol (40-60) mg/dL 02/13/19 02/13/19 Range/Units 05:42 08:03 MCV (80.0-100.0) fL RDW (11.5-15.5) % Plt Count (150-450) k/uL Lymphocytes # (1.0-4.8) k/uL PT (9.0-12.0) sec INR (<1.2) APTT (22.0-30.0) sec D-Dimer (<0.60) mg/L FEU Glucose (74-99) mg/dL POC Glucose (mg/dL) 123 H (75-99) mg/dL Total Bilirubin (0.2-1.3) mg/dL Albumin (3.5-5.0) g/dL HDL Cholesterol 25 L (40-60) mg/dL Assessment and Plan Plan: -Pleuritic chest pain secondary to bilateral pleural effusion patient may need thoracocentesis was started on IV Lasix and bilateral pleural effusion is secondary to cirrhosis volume overload. Close monitoring of kidney function with IV Lasix -Hepatic vein thrombosis for which patient is on Lovenox which will be continued and his feet to be held for at least 12 hours before she can get thoracocentesis -Ruled out pulmonary embolism and we'll rule out acute current symptoms of thrombocytopenia troponin troponins are negative at this time Cryptogenic Cirrhosis and there is no evidence of spontaneous Bactrim peritonitis, will not require any antibiotics no evidence of pneumonia as per the CAT scan are clinically -Hypertension -Gases with reflux disease Type 2 diabetes mellitus For above-mentioned chronic cortical problems patient will be resumed on appropriate home medications.
[2019-02-13 15:44] VITALS: BMI 39.6
[2019-02-13] MEDS ORDERED: FUROSEMIDE 40 MG TAB PO SCH (16:00)
[2019-02-13 17:27] LABS: Glucose,Whole Blood 130 mg/dL (75-99)
--- NOTE | 2019-02-13 17:46 | US ---
EXAMINATION TYPE: US abdomen limited DATE OF EXAM: 02/13/2019 COMPARISON: NONE CLINICAL HISTORY: diffuse abdominal pain, rule out ascites;patient is awaiting liver transplant with diagnosis of cryptogenic liver cirrhosis per patient. Small amount of free fluid imaged in LLQ = 3.7cm pocket. IMPRESSION: Minimal ascites
--- NOTE | 2019-02-13 18:27 | ECHOF ---
Referral Reason:sob, assess for effusion MEASUREMENTS -------- HEIGHT: 154.9 cm WEIGHT: 95.3 kg BP: 120/59 RVIDd: 3.0 cm (< 3.3) IVSd: 1.2 cm (0.6 - 1.1) LVIDd: 4.2 cm (3.9 - 5.3) LVPWd: 1.2 cm (0.6 - 1.1) IVSs: 1.6 cm LVIDs: 2.5 cm LVPWs: 1.7 cm LA Diam: 3.3 cm (2.7 - 3.8) LAESV Index (A-L): 22.63 ml/m Ao Diam: 3.4 cm (2.0 - 3.7) AV Cusp: 2.5 cm (1.5 - 2.6) MV EXCURSION: 9.371 mm (> 18.000) MV EF SLOPE: 58 mm/s (70 - 150) MV E Irchy: 0.92 m/s MV DecT: 243 ms MV A Richy: 0.77 m/s MV E/A Ratio: 1.20 RAP: 5.00 mmHg RVSP: 25.96 mmHg FINDINGS -------- Sinus rhythm. This was a technically adequate study. The left ventricular size is normal. There is borderline concentric left ventricular hypertrophy. Overall left ventricular systolic function is normal with, an EF between 60 - 65 %. The right ventricle is normal in size. Normal LA size by volume 22+/-6 ml/m2. The right atrium is normal in size. Interatrial and interventricular septum intact. There is mild aortic valve sclerosis. The mitral valve is normal. Mild tricuspid regurgitation present. Right ventricular systolic pressure is normal at < 35 mmHg. There is no pulmonic regurgitation present. The aortic root size is normal. IVC Not well visulized. There is no pericardial effusion. CONCLUSIONS -------- 1. Sinus rhythm. 2. This was a technically adequate study. 3. The left ventricular size is normal. 4. There is borderline concentric left ventricular hypertrophy. 5. Overall left ventricular systolic function is normal with, an EF between 60 - 65 %. 6. The right ventricle is normal in size. 7. Normal LA size by volume 22+/-6 ml/m2. 8. The right atrium is normal in size. 9. Interatrial and interventricular septum intact. 10. There is mild aortic valve sclerosis. 11. The mitral valve is normal. 12. Mild tricuspid regurgitation present. 13. Right ventricular systolic pressure is normal at < 35 mmHg. 14. There is no pulmonic regurgitation present. 15. The aortic root size is normal. 16. IVC Not well visulized. 17. There is no pericardial effusion. NURSE INFORMATICS EDUCATOR: Niurka Ramirez RDCS
[2019-02-13 20:41] LABS: Glucose,Whole Blood 155 mg/dL (75-99)
[2019-02-13] MEDS: MORPHINE SULFATE 2 MG/ML SYRINGE IVP PRN (21:02)
[2019-02-13] MEDS: FUROSEMIDE 10 MG/ML 4 ML VIAL IV SCH (23:07)
[2019-02-14] MEDS: MORPHINE SULFATE 2 MG/ML SYRINGE IVP PRN ×3 (00:47→14:28)
[2019-02-14 07:21] LABS: Glucose,Whole Blood 118 mg/dL (75-99)
[2019-02-14] MEDS: LACTULOSE 20 GM/30 ML CUP PO SCH ×2 (07:32→15:17)
[2019-02-14] MEDS: ASPIRIN 325 MG TAB PO SCH (07:32)
[2019-02-14] MEDS: SPIRONOLACTONE 25 MG TAB PO SCH (07:32)
[2019-02-14] MEDS: FERROUS SULFATE 325 MG TAB PO SCH (07:32)
[2019-02-14] MEDS: MAGNESIUM OXIDE 400 MG TAB PO SCH (07:32)
[2019-02-14] MEDS: PANTOPRAZOLE 40 MG TABLET PO SCH (07:32)
[2019-02-14] MEDS: LINAGLIPTIN 5 MG TABLET PO SCH (07:32)
[2019-02-14] MEDS: MULTIVITAMINS, THERA 1 EACH TAB PO SCH (07:32)
[2019-02-14] MEDS: CHOLECALCIFEROL 1,000 UNIT TAB PO SCH (07:32)
[2019-02-14] MEDS: FUROSEMIDE 10 MG/ML 4 ML VIAL IV SCH (07:33)
[2019-02-14] MEDS: ENOXAPARIN 100 MG/ML SYRINGE SQ SCH (07:33)
[2019-02-14] MEDS ORDERED: KETOROLAC 30 MG/ML 1 ML VIAL IVP STA (08:51)
[2019-02-14 09:16] LABS: Calcium 8.4 mg/dL (8.4-10.2); Potassium 4.2 mmol/L (3.5-5.1)
[2019-02-14 12:32] LABS: Glucose,Whole Blood 121 mg/dL (75-99)
--- NOTE | 2019-02-14 13:37 | P.CONS ---
History of Present Illness - Reason for Consult Consult date: 02/14/19 Cryptogenic cirrhosis Requesting physician: Roberto Caal - Chief Complaint Chest pain - History of Present Illness 63 year old female with a history of cryptogenic cirrhosis on transplant list followed in the outpatient setting by Dr. Barnett [facility] presents with acute chest pain right shoulder pain. Chest imaging reported no evidence of pulmonary embolism, bilateral pleural effusions present receiving IV diuretics and antibiotics. Recently diagnosed with hepatic vein thrombosis placed on Lovenox. Denies hematemesis hematochezia or melena. Hemoglobin 14.3. White count 7.1. MCV 102. Platelet 117. INR 1.3. D-dimer 1.6. Total bilirubin 3.1. AST 34. ALT 21. AP 105. Lipase 144. Troponin less than 0.0123. BUN 11. Creatinine 1.0. EGD colonoscopy within the past year to her memory was unremarkable. Home medications include but not limited to lactulose, Lovenox, Feosol, Aldactone, Protonix, Lasix. Ultrasound abdomen minimal ascites. Review of Systems Constitutional: Denies fever, chills, sweats, weight gain, or loss. HEENT: Negative for migraines, blurred vision or loss, earaches, drainage, tinnitus, oral mucosal lesions, dysphagia, or odynophagia. CARDIAC: Positive for chest pain, denies arrhythmias, or palpitation. RESPIRATORY: Positive for shortness of breath, hemoptysis, cough, or sputum p roduction. GI: See HPI for pertinent findings. : Negative for hematuria, urgency, frequency, polyuria, or dysuria. GYNc: Negative vaginal discharge. MUSCULOSKELETAL: Negative for muscle aches, swelling, arthritis, and arthralgias. NEUROLOGIC: Negative for stroke or TIA. ENDOCRINE: Negative for thyroid problems. SKIN: Negative for rash or itching. 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 07-21-16 after heart cath (radial approach) Past Anesthesia/Blood Transfusion Reactions: Motion Sickness Additional Past Anesthesia/Blood Transfusion Reaction / Comm: motion sickness sometimes in car. clausterphobia Past Psychological History: No Psychological Hx Reported Smoking Status: Never smoker Past Alcohol Use History: None Reported Past Drug Use History: Unable to Obtain - Past Family History Father Family Medical History: Myocardial Infarction ([place]) Additional Family Medical History / Comment(s): HAD MASSIVE [place] Mother Family Medical History: Cancer Additional Family Medical History / Comment(s): COLON CA Brother(s) Family Medical History: Cancer Additional Family Medical History / Comment(s): LEUKEMIA- AND ALSO BROTHER HAD BLOOD CLOT IN LEG AFTER FX Medications and Allergies Home Medications Medication Instructions Recorded Confirmed Type Cholecalciferol [Vitamin D3 (25 2,000 unit PO DAILY 11/11/15 02/12/19 History Mcg = 1000 Iu)] Ferrous Sulfate [Feosol] 325 mg PO BID 11/11/15 02/12/19 History Lactulose [Cephulac] 10 gm PO TID 07/22/16 02/12/19 History Ibandronate Sodium [Boniva] 150 mg PO Q30D 07/01/18 02/12/19 History Multivitamins, Thera [Multivitamin 1 tab PO DAILY 07/01/18 02/12/19 History (formulary)] sitaGLIPtin [Januvia] 100 mg PO DAILY 07/01/18 02/12/19 History Magnesium Oxide [Mag-Ox] 400 mg PO BID 08/23/18 02/12/19 History Pantoprazole Sodium [Protonix] 40 mg PO DAILY 08/23/18 02/12/19 History Potassium Bicarbonate/Cit AC 25 meq PO HS 08/23/18 02/12/19 History [Klor-Con 25 (Effer. Tab)] Spironolactone [Aldactone] 50 mg PO DAILY 08/23/18 02/12/19 History Furosemide [Lasix] 40 mg PO DAILY #60 08/28/18 02/12/19 Rx Insulin Detemir [Levemir Flextouch] 24 units SQ HS 30 Days #3 pen 08/28/18 02/12/19 Rx Enoxaparin [Lovenox] 100 mg SQ Q12H 02/12/19 02/12/19 History Allergies Allergy/AdvReac Type Severity Reaction Status Date / Time No Known Allergies Allergy Verified 02/12/19 18:57 Physical Exam Vitals: Vital Signs Temp Pulse Pulse Resp BP BP Pulse Ox 02/14/19 08:30 96 02/14/19 04:35 97.9 F 75 20 133/70 96 02/13/19 22:35 98.4 F 75 20 119/67 92 L 02/13/19 15:15 97.4 F L 81 20 118/53 98 02/13/19 14:42 98.5 F 78 16 111/54 96 Intake and Output 02/13/19 02/14/19 02/14/19 22:59 06:59 14:59 Other: # Voids 1 3 1 General appearance: The patient is alert, oriented, in no acute distress. Facial telangiectasias. HET: Head is normocephalic and atraumatic. Pupils are equal and reactive. Oropharynx is clear without lesions. Neck: Supple without lymphadenopathy. Trachea midline. Heart: S1 S2. Regular rate and rhythm. Lungs: No crackles or wheezes are heard. Abdomen: Soft, mild tenderness to the mid epigastrium, nondistended with bowel sounds. No peritoneal signs. No palpable organomegaly or masses. Extremities: Normal skin color and turgor. No cyanosis, rash, ulceration, club roque, or edema. Radial and pedal pulses are 2/4 bilaterally. Neurological: No focal deficits. Strength and sensation are grossly intact. Results CBC & Chem 7: 02/12/19 16:59 02/14/19 08:53 Labs: Abnormal Lab Results - Last 24 Hours (Table) 02/13/19 02/13/19 02/14/19 Range/Units 17:24 20:38 07:18 Sodium (137-145) mmol/L BUN (7-17) mg/dL Glucose (74-99) mg/dL POC Glucose (mg/dL) 130 H 155 H 118 H (75-99) mg/dL 02/14/19 02/14/19 Range/Units 08:53 12:29 Sodium 136 L (137-145) mmol/L BUN 18 H (7-17) mg/dL Glucose 124 H (74-99) mg/dL POC Glucose (mg/dL) 121 H (75-99) mg/dL US - abdomen: report reviewed (Dr. Jaeger) Assessment and Plan (1) Cryptogenic cirrhosis of liver Narrative/Plan: Follow closely in outpatient setting by gastrologist Dr. Barnett at [facility] presently on transplant list. Current Visit: Yes Status: Acute Code(s): K74.69 - OTHER CIRRHOSIS OF LIVER SNOMED Code(s): 34195296 (2) Pleuritic chest pain Current Visit: No Status: Acute Code(s): R07.81 - PLEURODYNIA SNOMED Code(s): 7880690 (3) Hepatic vein thrombosis Current Visit: Yes Status: Acute Code(s): I82.0 - BUDD-CHIARI SYNDROME SNOMED Code(s): 77841516 (4) Thrombocytopenia Current Visit: Yes Status: Acute Code(s): D69.6 - THROMBOCYTOPENIA, UNSPECIFIED SNOMED Code(s): 795659218 (5) Hyperbilirubinemia Current Visit: Yes Status: Acute Code(s): E80.6 - OTHER DISORDERS OF BILIRUBIN METABOLISM SNOMED Code(s): 74891151 (6) Coagulopathy Current Visit: Yes Status: Acute Code(s): D68.9 - COAGULATION DEFECT, UNSPECIFIED SNOMED Code(s): 61276704 Plan: 1. Per nursing patient is being transferred to [facility] for further evaluation and management. From a GI standpoint continue with current present medical therapy. Thank you for this kind referral and the opportunity to participate in the care of your patient. This consultation was discussed with Dr. Jaeger. The impression and plan of care have been directed as dictated.
--- NOTE | 2019-02-14 13:50 | P.PN ---
Subjective Progress Note Date: 02/14/19 Principal diagnosis: Right-sided pleuritic chest pain This is a 63-year-old white female patient with history of cryptogenic liver cirrhosis, awaiting liver transplantation, chronic congestive heart failure with diastolic dysfunction, hypertension, hyperlipidemia, diabetes mellitus, chronic lower extremity edema, resent to the hospital on 02/12/2019 for evaluation of acute onset right-sided chest pain and generalized abdominal pain. She is on Lovenox 100 mg subcu twice daily for history of portal vein clot. She was experiencing severe pain to the right anterior chest that was worse with deep inspiration or movement, and she felt as if she couldn't take a deep breath. Denied any fever or chills, denied any cough or congestion or phlegm production. EKG showed normal sinus rhythm without evidence of acute ischemic changes. Chest x-ray showed bilateral airspace disease at the posterior lung bases, and bilateral pleural effusions, D-dimer was elevated at 1.68, and CT angios of the chest was completed showing no evidence of pulmonary embolism, they showed a bilateral pleural effusions and basilar atelectasis. Chest ultrasound showed 8.4 cm fluid pocket on the right in 6.0 cm pocket on the left. Troponins have been negative 3, proBNP was within normal limits at 496. No evidence of leukocytosis, with blood cell count of 7.1, hemoglobin of 14.3, INR is 1.3, electrolytes and renal profile were unremarkable, lipase was negative, abdominal x-ray was completed showing nonacute abdomen, without evidence of intestinal obstruction or pneumoperitoneum, no evidence of a mass. Patient is on oral Lasix and Aldactone on a daily basis. Echocardiogram is pending. And we're consulted for bilateral pleural effusions for possibility of thoracentesis On 02/14/2019 patient seen in follow-up on medical surgical floor. Still having significant right anterior chest pleuritic chest pain worse with deep inspiration. She was given some Dilaudid in the night, abdominal ultrasound was completed showing minimal ascites. Still having some diffuse abdominal pain, no nausea. Patient is on diuretics and antibiotics, she has pleural effusions, there is no plans for thoracentesis at this institution, today we offer the patient the option of stopping the Lovenox and consulting the interventional radiology for thoracentesis versus transferring to [facility] to be seen by her liver specialist Dr. Barnett. Patient was recently placed on Lovenox in regards to portal vein blood clot. Remains on Lovenox 100 mg every 12 hours, she is on IV Lasix of 40 mg every 12 hours, she is receiving oral lactulose. Considering her history with cryptogenic liver cirrhosis, patient opted to be transferred back to [facility] which will be arranged this morning. Objective - Vital Signs Vital signs: Vital Signs Temp 97.9 F 02/14/19 04:35 Pulse 75 02/14/19 04:35 Resp 20 02/14/19 04:35 BP 133/70 02/14/19 04:35 Pulse Ox 96 02/14/19 08:30 Intake & Output 02/13/19 02/14/19 02/14/19 18:59 06:59 18:59 Other: # Voids 1 3 1 - Exam GENERAL EXAM: Alert, pleasant, 63-year-old white female, in moderate amount of distress from right anterior chest pleuritic pain has just been medicated with Dilaudid HEAD: Normocephalic/atraumatic. EYES: Normal reaction of pupils, equal size. Conjunctiva pink, sclera white. NOSE: Clear with pink turbinates. THROAT: No erythema or exudates. NECK: No masses, no JVD, no thyroid enlargement, no adenopathy. CHEST: No chest wall deformity. Symmetrical expansion. LUNGS: Diminished breath sounds at the bases, with bibasilar rales, no wheezes, or rhonchi. CVS: Regular rate and rhythm, normal S1 and S2, no gallops, no murmurs, no rubs ABDOMEN: Soft, diffusely tender to palpation. No hepatosplenomegaly, normal bowel sounds, no guarding or rigidity. EXTREMITIES: No clubbing, 1+ edema, no cyanosis, 2+ pulses and upper and lower extremities. MUSCULOSKELETAL: Muscle strength and tone normal. SPINE: No scoliosis or deformity SKIN: No rashes CENTRAL NERVOUS SYSTEM: Alert and oriented -3. No focal deficits, tone is normal in all 4 extremities. PSYCHIATRIC: Alert and oriented -3. Appropriate affect. Intact judgment and insight. - Labs CBC & Chem 7: 02/12/19 16:59 02/14/19 08:53 Labs: Abnormal Lab Results - Last 24 Hours (Table) 02/13/19 02/13/19 02/14/19 Range/Units 17:24 20:38 07:18 Sodium (137-145) mmol/L BUN (7-17) mg/dL Glucose (74-99) mg/dL POC Glucose (mg/dL) 130 H 155 H 118 H (75-99) mg/dL 02/14/19 02/14/19 Range/Units 08:53 12:29 Sodium 136 L (137-145) mmol/L BUN 18 H (7-17) mg/dL Glucose 124 H (74-99) mg/dL POC Glucose (mg/dL) 121 H (75-99) mg/dL Assessment and Plan Plan: Assessment: #1. Bilateral pleural effusions, right greater than the left, ultrasound of the chest revealed 8.4 cm fluid pocket on the right, and 6.0 cm fluid pocket on the left, likely related to patient's underlying history of liver cirrhosis #2. Chest pain in the right anterior chest, likely related to the above #3. No clear cut evidence of pneumonia #4. Chronic lower extremity edema #5. Cryptogenic liver cirrhosis, awaiting liver transplantation #6. Hypertension #7. Chronic CHF with diastolic dysfunction #8. Hyperlipidemia #9. GERD/reflux #10. History of portal vein clot, likely on Lovenox injections Plan: Continue with IV diuretics, antibiotics, this morning patient is complaining of pleuritic right upper chest wall pain, possibility of thoracentesis by interventional radiology has been discussed with the patient, but patient anticoagulation will have to be placed on hold, and patient was recently placed on it for history of portal vein blood clot. The option was given to transfer the patient to [facility] to be seen by her liver specialist, and the patient and the both agreed to be transferred to [facility] under the care of Dr. Barnett. We'll discuss with attending physician and case management and we'll proceed with a transfer I performed a history & physical examination of the patient and discussed their management with my nurse practitioner, Sydnee Stewart. I reviewed the nurse practitioner's note and agree with the documented findings and plan of care. Lung sounds are positive for diminished breath sounds. The findings and the impression was discussed with the patient. I attest to the documentation by the nurse practitioner. Time with Patient: Less than 30
[2019-02-14 14:33] VITALS: BP 108/66; PULSE 70; RESP 18; TEMP 98
[2019-02-14] MEDS ORDERED: ONDANSETRON 4 MG/2 ML VIAL IVP STA (16:04)
[2019-02-21] MEDS ORDERED: Ibandronate Sodium [Boniva] 150 MG PO SCH (09:00)
== END 2019-02-14 16:14 | disposition short-term general hospital (02) | DRG 432 ==
LOC: EC 16:22 → 1SOBS 20:57 → 4MS4W 02-13 13:19 → OBSVTOIN 02-13 14:20
PROVIDERS: ADMIT Internal Medicine; ATTEND Internal Medicine
DX: K74.69 Other cirrhosis of liver (principal); I82.0 Budd-Chiari syndrome; J90 Pleural effusion, not elsewhere classified; D68.9 Coagulation defect, unspecified; I50.32 Chronic diastolic (congestive) heart failure; J98.11 Atelectasis; R18.8 Other ascites; T45.515A Adverse effect of anticoagulants, initial encounter; D69.6 Thrombocytopenia, unspecified; E11.9 Type 2 diabetes mellitus without complications; E78.5 Hyperlipidemia, unspecified; I11.0 Hypertensive heart disease with heart failure; K21.9 Gastro-esophageal reflux disease without esophagitis; Z76.82 Awaiting organ transplant status; Z79.01 Long term (current) use of anticoagulants; Z79.4 Long term (current) use of insulin; Z79.899 Other long term (current) drug therapy; Z80.0 Family history of malignant neoplasm of digestive organs; Z80.6 Family history of leukemia; Z82.49 Family history of ischemic heart disease and other diseases of the circulatory system; Z87.01 Personal history of pneumonia (recurrent); Z90.710 Acquired absence of both cervix and uterus; F40.240 Claustrophobia; Z83.2 Family history of diseases of the blood and blood-forming organs and certain disorders involving the immune mechanism; T43.225A Adverse effect of selective serotonin reuptake inhibitors, initial encounter
CPT/HCPCS: 36415; 71046; 71275; 74019; 76604; 76705; 80048; 80053; 80061; 83690; 83735; 83880; 84484; 85025; 85379; 85610; 85730; 93005; 93306; 93970; 94760; 96372; 96374; 96375; 96376; 99285

== ENCOUNTER → 2019-03-01 | Outpatient (CLI) | payer BC ==
--- NOTE | 2019-03-02 08:44 | XR ---
EXAMINATION TYPE: XR chest 2V DATE OF EXAM: 03/01/2019 COMPARISON: CT of the chest dated 02/12/2019 HISTORY: Dyspnea TECHNIQUE: Frontal and lateral views of the chest are obtained. FINDINGS: Moderate right and small left pleural effusion with associated atelectasis. Upper lungs ar e clear. Cardiac silhouette and pulmonary vasculature are within normal limits. No pneumothorax. Dege nerative changes throughout the thoracic spine. IMPRESSION: Increasing moderate right pleural effusion and small left pleural effusion with associat ed atelectasis when compared to CT dated 02/12/2019.
== END | disposition home or self-care (01) ==
LOC: RADXRYALE 16:54
PROVIDERS: ATTEND Physician Assistant Medical
DX: J90 Pleural effusion, not elsewhere classified (principal); J98.11 Atelectasis
CPT/HCPCS: 71046

== ENCOUNTER 2020-07-07 11:01 | Emergency (ER) | payer BC ==
[2020-07-07 11:09] VITALS: RESP 18; TEMP 98.3
[2020-07-07] MEDS ORDERED: MORPHINE SULFATE 2 MG/ML SYRINGE IVP ONE (11:38)
[2020-07-07] MEDS ORDERED: ONDANSETRON 4 MG/2 ML VIAL IVP STA (11:38)
--- NOTE | 2020-07-07 12:04 | ED ---
General Adult HPI - General Source: patient Mode of arrival: ambulatory Limitations: no limitations <Lucrecia Tavarez - Last Filed: 07/07/20 19:24> <Mariela Ivory - Last Filed: 07/08/20 13:31> - General Chief complaint: Recheck/Abnormal Lab/Rx Stated complaint: SOB, fluid buildup Time Seen by Provider: 07/07/20 11:27 - History of Present Illness Initial comments: Patient is a 64-year-old female, history of liver failure, currently on transplant list, presenting to the emergency Department with complaints of increased edema in her legs and abdomen over the past few days. Patient states she was recently discharged from [facility] last week secondary to a high INR and having nosebleeds. They discontinued her Coumadin. Patient has been on Coumadin secondary to blood clot in her liver. Patient states the swelling in her bilateral lower extremities has increased and she is also having some increased pressure on her right side of her abdomen. Patient is also complaining of mild shortness of breath. She denies chest pains, fever, chills. Patient states she has gained over 30 pounds in the past few weeks. She does take spironolactone 50 mg daily as well as Lasix 40 mg daily. She denies any nausea, vomiting, diarrhea. She states she is unable to get into her regular PCPs office. Patient has no further complaints at this time. Upon arrival to the ER, her vital signs are stable. (Lucrecia Tavarez) - Related Data Home Medications Medication Instructions Recorded Confirmed Ferrous Sulfate [Feosol] 325 mg PO DAILY 11/11/15 07/07/20 Lactulose [Cephulac] 13.3 gm PO TID 07/22/16 07/07/20 Ibandronate Sodium [Boniva] 150 mg PO Q30D 07/01/18 07/07/20 Multivitamins, Thera [Multivitamin 1 tab PO DAILY 07/01/18 07/07/20 (formulary)] sitaGLIPtin [Januvia] 100 mg PO DAILY 07/01/18 07/07/20 Magnesium Oxide [Mag-Ox] 400 mg PO DAILY 08/23/18 07/07/20 Pantoprazole Sodium [Protonix] 40 mg PO DAILY 08/23/18 07/07/20 Bumetanide [Bumex] 2 mg PO BID 07/07/20 07/07/20 Ergocalciferol [Vitamin D2] 50,000 unit PO Q7D 07/07/20 07/07/20 Furosemide [Lasix] 40 mg PO BID 07/07/20 07/07/20 Insulin Detemir [Levemir Flextouch] 30 units SQ HS 07/07/20 07/07/20 Methocarbamol [Robaxin-750] 750 mg PO TID PRN 07/07/20 07/07/20 Rifaximin [Xifaxan] 550 mg PO BID 07/07/20 07/07/20 Spironolactone [Aldactone] 100 mg PO BID 07/07/20 07/07/20 Allergies Allergy/AdvReac Type Severity Reaction Status Date / Time No Known Allergies Allergy Verified 07/07/20 12:56 Review of Systems ROS Other: All systems not noted in ROS Statement are negative. <Lucrecia Tavarez - Last Filed: 07/07/20 19:24> ROS Other: All systems not noted in ROS Statement are negative. <Mariela Ivory - Last Filed: 07/08/20 13:31> ROS Statement: Those systems with pertinent positive or pertinent negative responses have been documented in the HPI. Past Medical History Past Medical History: Diabetes Mellitus, GERD/Reflux, Hyperlipidemia, Liver Disease Additional Past Medical History / Comment(s): Cryptogenic liver cirrhosis cleve heatherly on transplantation list at [facility] chronic lower extremity edema, history of iron deficiency, blood clot in vein to liver History of Any Multi-Drug Resistant Organisms: None Reported Past Surgical History: Cholecystectomy, Heart Catheterization, Hysterectomy, Tonsillectomy Additional Past Surgical History / Comment(s): ectopic outside of uterus, dc'd from [facility] 07-21-16 after heart cath (radial approach) Past Anesthesia/Blood Transfusion Reactions: Motion Sickness Additional Past Anesthesia/Blood Transfusion Reaction / Comment(s): motion sickness sometimes in car. clausterphobia Past Psychological History: No Psychological Hx Reported Smoking Status: Never smoker Past Alcohol Use History: None Reported Past Drug Use History: Unable to Obtain - Past Family History Father Family Medical History: Myocardial Infarction (DC) Additional Family Medical History / Comment(s): HAD MASSIVE DC Mother Family Medical History: Cancer Additional Family Medical History / Comment(s): COLON CA Brother(s) Family Medical History: Cancer Additional Family Medical History / Comment(s): LEUKEMIA- AND ALSO BROTHER HAD BLOOD CLOT IN LEG AFTER FX <DaysiLucrecia L - Last Filed: 07/07/20 19:24> General Exam Limitations: no limitations <DaysiLucrecia Pop - Last Filed: 07/07/20 19:24> - General Exam Comments Initial Comments: GENERAL: Patient is well-developed and well-nourished. Patient is nontoxic and in no acute distress. HEAD: Atraumatic, normocephalic. EYES: Pupils equal round and reactive to light, extraocular movements intact, sclera anicteric, conjunctiva are normal. Eyelids were unremarkable. ENT: TMs normal, nares patent, oropharynx clear without exudates. Moist mucous membranes. NECK: Normal range of motion, supple without lymphadenopathy or JVD. LUNGS: Unlabored respirations. Breath sounds clear to auscultation bilaterally and equal. No wheezes rales or rhonchi. HEART: Regular rate and rhythm without murmurs, rubs or gallops. ABDOMEN: Right upper quadrant tenderness, possible mild ascites on the right side as well. Soft, normoactive bowel sounds. No guarding, no rebound. No masses appreciated. : Deferred MUSCULOSKELETAL: Normal extremities with adequate strength and normal range of motion. Patient has +2 pitting edema bilateral lower legs. She is neurovascular intact. No clubbing or cyanosis. NEUROLOGICAL: Patient is alert and oriented x 3. Motor and sensory are also intact. Cranial nerves II through XII grossly intact. Symmetrical smile. Normal speech, normal gait. PSYCH: Normal mood, normal affect. SKIN: Warm, Dry, normal turgor, no rashes or lesions noted. (Lucrecia Tavarez) Course Vital Signs 07/07/20 07/07/20 11:05 16:07 Temperature 98.3 F Pulse Rate 79 68 Respiratory 18 18 Rate Blood Pressure 116/65 O2 Sat by Pulse 100 95 Oximetry Medical Decision Making - Lab Data Result diagrams: 07/07/20 11:51 07/07/20 11:51 <Lucrecia Tavarez - Last Filed: 07/07/20 19:24> - Lab Data Result diagrams: 07/07/20 11:51 07/07/20 11:51 <Mariela Ivory - Last Filed: 07/08/20 13:31> - Medical Decision Making Patient is 64-year-old female, history of liver failure, currently on transplant list presenting with increased swelling in her bilateral lower legs as well as mild shortness of breath. Upon arrival her vital signs are stable. She does have 2+ pitting edema both legs, she is neurovascular intact. Labs show stable white count, and hemoglobin. INR is currently 1.5. Creatinine is currently 1.23, this is stable for her. Lactic acid is 1.8, liver enzymes are slightly up, total bilirubin is also 2.1. Normal lipase 148. Chest x-ray shows trace pleural effusions on the lateral view, no other acute process. Bilateral lower extremity ultrasounds reveal no evidence of DVT. I did order a CT of the abdomen which shows. Pancreatic fat stranding probable related to generalized answer se change, cirrhosis and portal vein hypertension, as well as ovarian cystic lesions that are relatively unchanged from August of last year. I was able to speak with the patient's [facility] liver doctor, Dr. Ian Barnett, and reviewed the patient's complaints, labs and scans today. He was okay with patient going home and to follow-up outpatient. He stated the findings on the computed tomography scan seems stable to her recent findings. He did not want to add IV Lasix secondary to her kidney function. They have had this talk in the past. I discussed this with the patient and she is stable for discharge. Patient did give a little pushed back and did not want to be discharged however discussed with her that she should continue with her already prescribed medications, continue with elevation of her legs above heart level and if symptoms persist to follow up with her regular doctors at [facility]. She is in agreement with this. Strict return parameters were discussed with the patient and she verbalized understanding. Case discussed with Dr. Ivory. (Lucrecia Tavarez) I was available for consultation in the emergency department. The history and physical exam were done by the midlevel provider. I was consulted for this patients care. I reviewed the case with the midlevel provider and based on their presentation of the patient, I agree with the assessment, medical decision making and plan of care as documented. Patient was evaluated in our emergency department and after all labs and imaging was obtained, we spoke with the patients transplant specialist regarding her case. He states that the patient does not need to be transferred to his facility for further care and that the patient needs to follow up with the transplant in the outpatient setting. She was recently hospitalized and cared for by them. She was taken off of coumadin and there are no plans of restarting the coumadin. Patient is made aware that her specialisy did not accept transfer to [facility] and therefore transfer can not be completed as we do have an accepting physician. If the patient has new or worsening symptoms, we instructed her to return to the ED where she can be re- evaluated and we can attempt transfer at that time. We did encourage her to call her specialists as soon as she leaves the ER for follow up appointment. Patient understood. Chart was dictated using [employer] dictation software. Attempts were made to correct any dictation errors however some typographical errors may persist. Patient was seen during a national state of emergency due to the Covid-19 pandemic. (Mariela Ivory) - Lab Data Lab Results 07/07/20 07/07/20 07/07/20 Range/Units 11:51 11:51 11:51 WBC 4.1 (3.8-10.6) k/uL RBC 3.03 L (3.80-5.40) m/uL Hgb 10.4 L (11.4-16.0) gm/dL Hct 31.1 L (34.0-46.0) % MCV 102.6 H (80.0-100.0) fL MCH 34.5 (25.0-35.0) pg MCHC 33.6 (31.0-37.0) g/dL RDW 15.9 H (11.5-15.5) % Plt Count 64 L (150-450) k/uL MPV 7.3 Neutrophils % (Manual) 64 % Lymphocytes % (Manual) 15 % Monocytes % (Manual) 17 % Eosinophils % (Manual) 4 % Neutrophils # (Manual) 2.62 (1.3-7.7) k/uL Lymphocytes # (Manual) 0.62 L (1.0-4.8) k/uL Monocytes # (Manual) 0.70 (0-1.0) k/uL Eosinophils # (Manual) 0.16 (0-0.7) k/uL Nucleated RBCs 0 (0-0) /100 WBC Manual Slide Review Performed Hypochromasia Slight Poikilocytosis Slight Anisocytosis (manual) Present Macrocytosis Moderate PT 14.4 H (9.0-12.0) sec INR 1.5 H (<1.2) APTT 25.6 (22.0-30.0) sec Sodium 137 (137-145) mmol/L Potassium 3.3 L (3.5-5.1) mmol/L Chloride 108 H (98-107) mmol/L Carbon Dioxide 28 (22-30) mmol/L Anion Gap 1 mmol/L BUN 14 (7-17) mg/dL Creatinine 1.23 H (0.52-1.04) mg/dL Est GFR (CKD-EPI)AfAm 55 (>60 ml/min/1.73 sqM) Est GFR (CKD-EPI)NonAf 47 (>60 ml/min/1.73 sqM) Glucose 155 H (74-99) mg/dL Plasma Lactic Acid Magdaleno (0.7-2.0) mmol/L Calcium 7.9 L (8.4-10.2) mg/dL Total Bilirubin 2.1 H (0.2-1.3) mg/dL AST 38 H (14-36) U/L ALT 22 (4-34) U/L Alkaline Phosphatase 98 (38-126) U/L Total Protein 5.7 L (6.3-8.2) g/dL Albumin 2.3 L (3.5-5.0) g/dL Amylase <30 L (30-110) U/L Lipase 148 (23-300) U/L 07/07/20 Range/Units 11:51 WBC (3.8-10.6) k/uL RBC (3.80-5.40) m/uL Hgb (11.4-16.0) gm/dL Hct (34.0-46.0) % MCV (80.0-100.0) fL MCH (25.0-35.0) pg MCHC (31.0-37.0) g/dL RDW (11.5-15.5) % Plt Count (150-450) k/uL MPV Neutrophils % (Manual) % Lymphocytes % (Manual) % Monocytes % (Manual) % Eosinophils % (Manual) % Neutrophils # (Manual) (1.3-7.7) k/uL Lymphocytes # (Manual) (1.0-4.8) k/uL Monocytes # (Manual) (0-1.0) k/uL Eosinophils # (Manual) (0-0.7) k/uL Nucleated RBCs (0-0) /100 WBC Manual Slide Review Hypochromasia Poikilocytosis Anisocytosis (manual) Macrocytosis PT (9.0-12.0) sec INR (<1.2) APTT (22.0-30.0) sec Sodium (137-145) mmol/L Potassium (3.5-5.1) mmol/L Chloride (98-107) mmol/L Carbon Dioxide (22-30) mmol/L Anion Gap mmol/L BUN (7-17) mg/dL Creatinine (0.52-1.04) mg/dL Est GFR (CKD-EPI)AfAm (>60 ml/min/1.73 sqM) Est GFR (CKD-EPI)NonAf (>60 ml/min/1.73 sqM) Glucose (74-99) mg/dL Plasma Lactic Acid Magdaleno 1.8 (0.7-2.0) mmol/L Calcium (8.4-10.2) mg/dL Total Bilirubin (0.2-1.3) mg/dL AST (14-36) U/L ALT (4-34) U/L Alkaline Phosphatase (38-126) U/L Total Protein (6.3-8.2) g/dL Albumin (3.5-5.0) g/dL Amylase (30-110) U/L Lipase (23-300) U/L Disposition Is patient prescribed a controlled substance at d/c from ED?: No <Lucrecia Tavarez - Last Filed: 07/07/20 19:24> <Mariela Ivory - Last Filed: 07/08/20 13:31> Clinical Impression: SOB (shortness of breath), Lower leg edema, Liver failure Disposition: HOME SELF-CARE Condition: Stable Instructions (If sedation given, give patient instructions): Leg Edema (ED) Additional Instructions: Please return to the Emergency Department if symptoms worsen or any other concerns. Continue with the already prescribed medications, continue to elevate the legs above the heart level multiple times throughout the day. Follow-up with your liver doctor, at [facility], as discussed. Referrals: Jose Navarrete DO [Primary Care Provider] - 1-2 days
[2020-07-07 12:18] LABS: ALT 22 U/L (4-34); AST 38 U/L (14-36); African American GFR (CKD) 55 (>60 ml/min/1.73 sqM); Albumin 2.3 g/dL (3.5-5.0); Alkaline Phosphatase 98 U/L (38-126); Amylase <30 U/L (30-110); Anion Gap 1 mmol/L; Blood Urea Nitrogen 14 mg/dL (7-17); Calcium 7.9 mg/dL (8.4-10.2); Carbon Dioxide 28 mmol/L (22-30); Chloride 108 mmol/L (98-107); Glucose 155 mg/dL (74-99); HCT 31.1 % (34.0-46.0); HGB 10.4 gm/dL (11.4-16.0); Hypochromasia Slight; Lipase 148 U/L (23-300); MCH 34.5 pg (25.0-35.0); MCHC 33.6 g/dL (31.0-37.0); MCV 102.6 fL (80.0-100.0); Macrocytosis Moderate; Mean Platelet Volume 7.3; Non-African American GFR(CKD) 47 (>60 ml/min/1.73 sqM); Platelet Count 64 k/uL (150-450); Poikilocytosis Slight; Potassium 3.3 mmol/L (3.5-5.1); RBC 3.03 m/uL (3.80-5.40); RDW 15.9 % (11.5-15.5); Sodium 137 mmol/L (137-145); Total Bilirubin 2.1 mg/dL (0.2-1.3); Total Protein 5.7 g/dL (6.3-8.2); WBC 4.1 k/uL (3.8-10.6)
[2020-07-07 12:19] LABS: INR 1.5 (<1.2); Partial Thromboplastin Time 25.6 sec (22.0-30.0); Prothrombin Time 14.4 sec (9.0-12.0)
--- NOTE | 2020-07-07 12:20 | XR ---
EXAMINATION TYPE: XR chest 2V DATE OF EXAM: 07/07/2020 COMPARISON: 03/01/2019 HISTORY: 64-year-old female shortness of breath, dyspnea TECHNIQUE: PA and lateral views FINDINGS: Heart normal size. Aorta and pulmonary vasculature within normal limits. Mild interstitial prominence . Trace pleural effusions on both sides. No henrik consolidation. IMPRESSION: Trace pleural effusions seen on the lateral view. Mild interstitial prominence. Correlate for possibl e mild pulmonary vascular congestion.
[2020-07-07 12:44] LABS: Eosinophils # (M) 0.16 k/uL (0-0.7); Lymphocytes # (M) 0.62 k/uL (1.0-4.8); Neutrophils # (M) 2.62 k/uL (1.3-7.7); Neutrophils % (M) 64 %; Nucleated Red Blood Cells 0 /100 WBC (0-0); Total Cells Counted 100
[2020-07-07 12:45] LABS: Anisocytosis (M) Present
--- NOTE | 2020-07-07 14:18 | CT ---
EXAMINATION TYPE: CT abdomen pelvis w con DATE OF EXAM: 07/07/2020 COMPARISON: 08/26/2018 HISTORY: 64-year-old female history of liver failure, fluid build up, RUQ pain TECHNIQUE: Contiguous axial scanning of the abdomen and pelvis following administration of 100 ml Iso vincent 300 IV contrast. Delayed images through the kidneys and coronal/sagittal reconstructions perform ed. CT DLP: 2477 mGycm Automated exposure control for dose reduction was used. FINDINGS: Heart upper limits of normal in size without pericardial effusion. Small to moderate right and small left pleural effusions. Adjacent atelectasis at the right base. Cirrhotic morphology of the liver which is shrunken and nodular contour. There is a recanalized and o pacified umbilical vein and dilated caliber to the main portal vein (associated 3.0 cm varix in the s ubcutaneous adipose, unchanged from prior) as well as splenomegaly of 15.0 cm. No focal liver lesion is seen. Cholecystectomy clips. No biliary ductal dilatation. Small 2.0 cm diverticulum of the second portion of the duodenum projecting into the pancreatic head r egion. Some circumferential wall thickening along the gastric antrum, axial image 23 could be secondary to n ondistention or gastritis. Adrenal glands and left kidney appear within normal limits. Punctate 3 mm nonobstructive right renal calculus. There is some fat stranding around the pancreatic head neck, and distal body region. There is also mild generalized anasarca change, mild perihepatic and perisplenic ascites, and mild as cites along the left paracolic gutter. No dilated small bowel or free air. No significant stool burden. No pericolonic inflammatory change. Moderate pelvic ascites. Bladder partially distended. Uterus retroverted. 5.4 cm cystic lesion in the right adnexa and 4.2 cm cystic lesion left adnexa. These appear largely unchanged from 08/26/2018. Bones: Mild to moderate degenerative change of both hips. Moderate to advanced degenerative disc dise ase L1-L2, L2-L3, and L5-S1. Hypertrophic facet arthropathy mid to lower lumbar spine. IMPRESSION: 1. PERIPANCREATIC FAT STRANDING PROBABLY RELATED TO THE GENERALIZED ANASARCA CHANGE. CORRELATE WITH A MYLASE AND LIPASE TO EXCLUDE ACUTE INTERSTITIAL PANCREATITIS. 2. CIRRHOSIS AND PORTAL VENOUS HYPERTENSION (LARGE RECANNULIZED UMBILICAL VEIN, MILD ASCITES, SMALL T O MODERATE RIGHT AND SMALL LEFT PLEURAL EFFUSIONS, AND SPLENOMEGALY AT 15.0 CM). 3. CIRCUMFERENTIAL WALL THICKENING ALONG THE GASTRIC ANTRUM COULD BE SECONDARY TO NONDISTENTION VERSU S GASTRITIS. 4. CYSTIC OVARIAN LESIONS MEASURING UP TO 5.4 CM ON THE RIGHT AND 4.2 CM ON THE LEFT LARGELY UNCHANGE D FROM 08/26/2018. CONSIDER [facility] ASSISTANT MANAGER REFERRAL FOR OUTPATIENT FOLLOW-UP.
--- NOTE | 2020-07-07 15:10 | US ---
EXAMINATION TYPE: US venous doppler duplex LE BI DATE OF EXAM: 07/07/2020 2:34 PM COMPARISON: NONE CLINICAL HISTORY: 64-year-old female increased edema, pain. Bilat. leg swelling for a few weeks, no h istory of DVT, on liver transplant list SIDE PERFORMED: Bilateral TECHNIQUE: The lower extremity deep venous system is examined utilizing real time linear array sonog henrietta with graded compression, doppler sonography and color-flow sonography. FINDINGS: VESSELS IMAGED: Common Femoral Vein Deep Femoral Vein Greater Saphenous Vein * Femoral Vein Popliteal Vein Small Saphenous Vein * Proximal Calf Veins (* superficial vessels) Right Leg: Negative for DVT Left Leg: Negative for DVT IMPRESSION: No evidence for DVT within the bilateral lower extremities imaged from the groin to the upper calves.
[2020-07-07 16:08] VITALS: BP 116/65; PULSE 68
== END 2020-07-07 16:32 | disposition home or self-care (01) ==
LOC: EC 11:01
DX: K72.90 Hepatic failure, unspecified without coma (principal); R60.0 Localized edema; R06.02 Shortness of breath; M79.89 Other specified soft tissue disorders; E11.9 Type 2 diabetes mellitus without complications; K21.9 Gastro-esophageal reflux disease without esophagitis; Z79.4 Long term (current) use of insulin; Z79.899 Other long term (current) drug therapy
CPT/HCPCS: 36415; 80053; 82150; 83605; 83690; 85025; 85610; 85730; 71046; 93970; 74177; 99285; 96374; 96375; J2405; J2270; Q9967

== ENCOUNTER 2021-03-04 21:26 | Emergency (ER) | payer BC ==
[2021-03-04 21:30] VITALS: BP 173/66; PULSE 62; RESP 18; TEMP 98.1
[2021-03-04] MEDS ORDERED: KETOROLAC 15 MG/ML 1 ML VIAL IM STA (23:27)
[2021-03-04] MEDS ORDERED: HYDROmorphone 1 MG/ML 1 ML SYRINGE IM STA (23:27)
[2021-03-04] MEDS ORDERED: ORPHENADRINE 30 MG/ML 2 ML VIAL IM STA (23:27)
--- NOTE | 2021-03-04 23:28 | ED ---
Back Pain [facility] - General Chief Complaint: Back Pain/Injury Stated Complaint: back pain Time Seen by Provider: 03/04/21 22:52 Source: patient Limitations: no limitations - History of Present Illness Initial Comments: 65-year-old female patient with past medical history significant for chronic back pain presents to the emergency department today for evaluation of left low back pain with radiation down the left leg. Patient states that she generally has issues with sciatica on the right side though did have injections recently which did improve her symptoms. States since having the injection she has been having increased pain on the. States pain has been going down the left lateral thigh to about knee level. States she has numbness and tingling over the area as well. Denies any saddle anesthesia or loss of bowel or bladder control. Denies fever or chills. Denies any abdominal pain. Patient states symptoms feel consistent with her previous sciatica symptoms. States that she does have [place] at home but does not take them patient is not like to. Has been taking ibuprofen, gabapentin, and baclofen for the last 2 days. Did to medications are not helping. Does have an appointment with her physician credentialing specialist March 16. - Related Data Home Medications Medication Instructions Recorded Confirmed Ferrous Sulfate [Feosol] 325 mg PO DAILY 11/11/15 07/07/20 Lactulose [Cephulac] 13.3 gm PO TID 07/22/16 07/07/20 Ibandronate Sodium [Boniva] 150 mg PO Q30D 07/01/18 07/07/20 Multivitamins, Thera [Multivitamin 1 tab PO DAILY 07/01/18 07/07/20 (formulary)] sitaGLIPtin [Januvia] 100 mg PO DAILY 07/01/18 07/07/20 Magnesium Oxide [Mag-Ox] 400 mg PO DAILY 08/23/18 07/07/20 Pantoprazole Sodium [Protonix] 40 mg PO DAILY 08/23/18 07/07/20 Bumetanide [Bumex] 2 mg PO BID 07/07/20 07/07/20 Ergocalciferol [Vitamin D2] 50,000 unit PO Q7D 07/07/20 07/07/20 Furosemide [Lasix] 40 mg PO BID 07/07/20 07/07/20 Insulin Detemir [Levemir Flextouch] 30 units SQ HS 07/07/20 07/07/20 Methocarbamol [Robaxin-750] 750 mg PO TID PRN 07/07/20 07/07/20 Rifaximin [Xifaxan] 550 mg PO BID 07/07/20 07/07/20 Spironolactone [Aldactone] 100 mg PO BID 07/07/20 07/07/20 Allergies Allergy/AdvReac Type Severity Reaction Status Date / Time No Known Allergies Allergy Verified 03/04/21 21:30 Review of Systems ROS Statement: Those systems with pertinent positive or pertinent negative responses have been documented in the HPI. ROS Other: All systems not noted in ROS Statement are negative. 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 clausterphobia Past Psychological History: No Psychological Hx Reported Smoking Status: Never smoker Past Alcohol Use History: None Reported Past Drug Use History: Unable to Obtain - Past Family History Father Family Medical History: Myocardial Infarction ([place]) Additional Family Medical History / Comment(s): HAD MASSIVE [place] Mother Family Medical History: Cancer Additional Family Medical History / Comment(s): COLON CA Brother(s) Family Medical History: Cancer Additional Family Medical History / Comment(s): LEUKEMIA- AND ALSO BROTHER HAD BLOOD CLOT IN LEG AFTER FX General Exam Limitations: no limitations General appearance: alert, in no apparent distress, other (This is a well- developed, well-nourished adult female patient in no acute distress. Vital signs upon presentation are temperature 98.1F, pulse 62, respirations 18, blood pressure 173/66, pulse ox 99% on room air.) ENT exam: Present: normal exam, normal oropharynx, mucous membranes moist Respiratory exam: Present: normal lung sounds bilaterally. Absent: respiratory distress, wheezes, rales, rhonchi, stridor Cardiovascular Exam: Present: regular rate, normal rhythm, normal heart sounds. Absent: systolic murmur, diastolic murmur, rubs, gallop, clicks GI/Abdominal exam: Present: soft, normal bowel sounds. Absent: distended, tenderness, guarding, rebound, rigid Extremities exam: Present: normal inspection, full ROM, normal capillary refill, other (Skin to the lower extremities are pink, warm, dry. Cap refill less than 3 seconds. Pedal and posttibial pulses 2+. Strength in the lower extremities is 5/5.). Absent: tenderness, pedal edema, joint swelling, calf tenderness Neurological exam: Present: alert, oriented X3, CN II-XII intact Psychiatric exam: Present: normal affect, normal mood Skin exam: Present: warm, dry, intact, normal color. Absent: rash Course Vital Signs 03/04/21 21:28 Temperature 98.1 F Pulse Rate 62 Respiratory 18 Rate Blood Pressure 173/66 O2 Sat by Pulse 99 Oximetry Medical Decision Making - Medical Decision Making 65-year-old female patient with past history significant for chronic back pain and sciatica presents for evaluation of left low back pain with radiation down the left leg. No concerning symptoms for cauda equina. Symptoms are consistent with sciatica. She'll be given IM doses of muscle relaxer and pain medication here. She is instructed to continue her home medications and instructed to take her [place] for further relief. She is instructed to call her specialist for a sooner appointment. Return parameters were discussed in detail. She verbalizes understanding and agrees with this plan. Case discussed with my attending Dr. Salcido. Disposition Clinical Impression: Sciatica Disposition: HOME SELF-CARE Condition: Good Instructions (If sedation given, give patient instructions): Sciatica (ED) Additional Instructions: Take medications as directed. Consider using the [place] at least for a couple of days to help improve pain relief. Follow-up with the primary care physician [facility] as soon as possible. Return to the emergency department for any new, worsening, or concerning symptoms. Is patient prescribed a controlled substance at d/c from ED?: No Referrals: Jose Navarrete DO [Primary Care Provider] - 1-2 days Time of Disposition: 23:28
== END 2021-03-05 00:05 | disposition home or self-care (01) ==
LOC: EC 21:26
DX: M54.42 Lumbago with sciatica, left side (principal); E11.9 Type 2 diabetes mellitus without complications; E78.5 Hyperlipidemia, unspecified; K21.9 Gastro-esophageal reflux disease without esophagitis; Z82.49 Family history of ischemic heart disease and other diseases of the circulatory system; Z79.4 Long term (current) use of insulin; Z79.899 Other long term (current) drug therapy
CPT/HCPCS: 96372 ×3; 99283; J2360; J1170; J1885

== ENCOUNTER → 2021-05-05 | Outpatient (CLI) | payer BC ==
--- NOTE | 2021-05-05 17:17 | BD ---
EXAMINATION TYPE: Axial Bone Density DATE OF EXAM: 05/05/2021 COMPARISON: 12/29/2017 CLINICAL HISTORY: Postmenopausal screening Height: 5 FT Weight: 195 FRAX RISK QUESTIONS: Alcohol (3 or more units per day): NO Family History (Parent hip fracture): NO Glucocorticoids (More than 3mos): NO (Ex: prednisone, prednisolone, methylprednisolone, dexamethasone, and hydrocortisone). History of Fracture in Adulthood: NO Secondary Osteoporosis: 1. Type 1 Diabetes: NO 2. Hyperthyroidism: A TEEN 3. Menopause before 45: NO 4. Malnutrition: NO 5. Chronic liver disease: YES Rheumatoid Arthritis: NO Current Tobacco Use: NO RISK FACTORS HISTORY OF: Surgery to Spine/Hip(right/left)/Wrist (right/left): SPINAL INJECTIONS FOR NERVE PAIN JANUARY AND FEBRUARY 2021 Family History of Osteoporosis: NO Active: YES Diet low in dairy products/other sources of calcium: NO Postmenopausal woman: PART HYST AGE 42 Take estrogen and/or progesterone medications: NO Lost more than 2 inches in height since high school: YES MEDICATIONS: Additional Medications: XIFAXIN, DIABETIC MEDS Additional History: EXAM MEASUREMENTS: Bone mineral densitometry was performed using the [employer] System. Bone mineral density as measured about the Lumbar spine is: ----- L1-L4(G/cm2): 1.307 T Score Values are as follows: ----- L2: 1.3 ----- L3: 1.6 ----- L4: 1.0 ----- L1-L4: 1.1 Bone mineral density has: INCREASED 1.7 % since study of: 2017 Bone mineral density about the R hip (g/cm2): 0.841 Bone mineral density about the L hip (g/cm2): 0.800 T Score values are as follows: -----R Neck: -1.4 -----L Neck: -1.7 -----R Total: -0.9 -----L Total: -0.5 Bone mineral density has: DECREASED -3.0% since study of: 2018 IMPRESSION: Osteopenia (T Score between -2.5 and -1). There is slightly increased risk of fracture and the patient may be considered for treatment. Re-Screen 2-5 years. NOTE: T-SCORE=SD OF THE YOUNG ADULT MEAN.
--- NOTE | 2021-05-06 08:47 | MM ---
Reason for exam: screening (asymptomatic). Last mammogram was performed 3 years and 9 months ago. History: Patient is postmenopausal. Physical Findings: A clinical breast exam by your physician is recommended on an annual basis and results should be correlated with mammographic findings. MG Screening Mammo w CAD Bilateral CC and MLO view(s) were taken. Prior study comparison: July 26, 2017, bilateral MG screening mammo w CAD. July 02, 2016, bilateral MG screening mammo w CAD. The breast tissue is heterogeneously dense. This may lower the sensitivity of mammography. There is no discrete abnormality. No significant changes when compared with prior studies. ASSESSMENT: Negative, BI-RAD 1 RECOMMENDATION: Routine screening mammogram of both breasts in 1 year.
== END | disposition home or self-care (01) ==
LOC: RADBDWWP 13:19
PROVIDERS: ATTEND Family Medicine
DX: Z12.31 Encounter for screening mammogram for malignant neoplasm of breast (principal); Z13.820 Encounter for screening for osteoporosis; M85.89 Other specified disorders of bone density and structure, multiple sites; Z78.0 Asymptomatic menopausal state
CPT/HCPCS: 77067; 77080

== ENCOUNTER 2021-12-12 09:31 | Inpatient (IN) | payer BC ==
[2021-12-12] MEDS ORDERED: FUROSEMIDE 10 MG/ML 4 ML VIAL IV STA (10:43)
--- NOTE | 2021-12-12 10:45 | ED ---
General Adult HPI - General Chief complaint: Shortness of Breath Stated complaint: LOC Time Seen by Provider: 12/12/21 10:32 Source: patient, RN notes reviewed Mode of arrival: ambulatory Limitations: no limitations - History of Present Illness Initial comments: Patient is a pleasant 66-year-old female presenting to the emergency Department with difficulty in breathing. Patient has history of liver problems. Secondary to Cirrhosis as well as CHF. Patient has edema, mostly in her legs. Patient has some shortness of breath. Patient has had thoracentesis done previously. No skin color change. No abdominal swelling. - Related Data Home Medications Medication Instructions Recorded Confirmed Ferrous Sulfate [Feosol] 325 mg PO DAILY 11/11/15 07/07/20 Lactulose [Cephulac] 13.3 gm PO TID 07/22/16 07/07/20 Ibandronate Sodium [Boniva] 150 mg PO Q30D 07/01/18 07/07/20 Multivitamins, Thera [Multivitamin 1 tab PO DAILY 07/01/18 07/07/20 (formulary)] sitaGLIPtin [Januvia] 100 mg PO DAILY 07/01/18 07/07/20 Magnesium Oxide [Mag-Ox] 400 mg PO DAILY 08/23/18 07/07/20 Pantoprazole Sodium [Protonix] 40 mg PO DAILY 08/23/18 07/07/20 Bumetanide [Bumex] 2 mg PO BID 07/07/20 07/07/20 Ergocalciferol [Vitamin D2] 50,000 unit PO Q7D 07/07/20 07/07/20 Furosemide [Lasix] 40 mg PO BID 07/07/20 07/07/20 Insulin Detemir [Levemir Flextouch 30 units SQ HS 07/07/20 07/07/20 Pen] Methocarbamol [Robaxin-750] 750 mg PO TID PRN 07/07/20 07/07/20 Rifaximin [Xifaxan] 550 mg PO BID 07/07/20 07/07/20 Spironolactone [Aldactone] 100 mg PO BID 07/07/20 07/07/20 Allergies Allergy/AdvReac Type Severity Reaction Status Date / Time No Known Allergies Allergy Verified 12/12/21 09:58 Review of Systems ROS Statement: Those systems with pertinent positive or pertinent negative responses have been documented in the HPI. ROS Other: All systems not noted in ROS Statement are negative. Constitutional: Denies: fever Eyes: Denies: eye pain ENT: Denies: ear pain Respiratory: Reports: as per HPI, dyspnea. Denies: cough Cardiovascular: Reports: dyspnea on exertion, edema. Denies: chest pain Endocrine: Denies: fatigue Gastrointestinal: Denies: abdominal pain Genitourinary: Denies: dysuria Musculoskeletal: Denies: back pain Skin: Denies: rash Neurological: Denies: weakness Past Medical History Past Medical History: Diabetes Mellitus, GERD/Reflux, Hyperlipidemia, Liver Disease Additional Past Medical History / Comment(s): Cryptogenic liver cirrhosis cur rently on transplantation list at [facility] chronic lower extremity edema, history of iron deficiency, blood clot in vein to liver History of Any Multi-Drug Resistant Organisms: None Reported Past Surgical History: Cholecystectomy, Heart Catheterization, Hysterectomy, Tonsillectomy Additional Past Surgical History / Comment(s): ectopic outside of uterus, dc'd from [facility] 07-21-16 after heart cath (radial approach) Past Anesthesia/Blood Transfusion Reactions: Motion Sickness Additional Past Anesthesia/Blood Transfusion Reaction / Comment(s): motion sickness sometimes in car. clausterphobia Past Psychological History: No Psychological Hx Reported Smoking Status: Never smoker Past Alcohol Use History: None Reported Past Drug Use History: Unable to Obtain - Past Family History Father Family Medical History: Myocardial Infarction ([place]) Additional Family Medical History / Comment(s): HAD MASSIVE OR Mother Family Medical History: Cancer Additional Family Medical History / Comment(s): COLON CA Brother(s) Family Medical History: Cancer Additional Family Medical History / Comment(s): LEUKEMIA- AND ALSO BROTHER HAD BLOOD CLOT IN LEG AFTER FX General Exam Limitations: no limitations General appearance: alert, in no apparent distress Head exam: Present: normocephalic Eye exam: Present: normal appearance ENT exam: Present: normal oropharynx Neck exam: Present: normal inspection Respiratory exam: Present: normal lung sounds bilaterally Cardiovascular Exam: Present: regular rate, normal rhythm GI/Abdominal exam: Present: soft. Absent: tenderness Extremities exam: Present: pedal edema. Absent: calf tenderness Neurological exam: Present: alert Psychiatric exam: Present: normal affect, normal mood Skin exam: Present: normal color Course Vital Signs 12/12/21 12/12/21 09:58 10:47 Temperature 97.8 F Pulse Rate 78 Respiratory 16 Rate Blood Pressure 179/78 166/81 O2 Sat by Pulse 97 Oximetry EKG Findings - EKG Comments: EKG Findings:: Sinus rhythm rate 68. [place] 162. QRS 90. QT 442. QTC 460. Normal axis. Normal QRS. No acute ST change. Medical Decision Making - Medical Decision Making Patient reevaluated and still feeling short of breath. Patient updated on results and plan. Case discussed with Dr. Christianson, who will admit covering for Dr. Mckeon - Lab Data Result diagrams: 12/12/21 10:43 12/12/21 10:43 Lab Results 12/12/21 12/12/21 12/12/21 Range/Units 10:43 10:43 10:43 WBC 4.9 (3.8-10.6) k/uL RBC 4.08 (3.80-5.40) m/uL Hgb 13.6 (11.4-16.0) gm/dL Hct 41.1 (34.0-46.0) % MCV 100.9 H (80.0-100.0) fL MCH 33.3 (25.0-35.0) pg MCHC 33.0 (31.0-37.0) g/dL RDW 14.7 (11.5-15.5) % Plt Count 78 L (150-450) k/uL MPV 7.8 Neutrophils % 54 % Lymphocytes % 23 % Monocytes % 12 % Eosinophils % 6 % Basophils % 1 % Neutrophils # 2.6 (1.3-7.7) k/uL Lymphocytes # 1.1 (1.0-4.8) k/uL Monocytes # 0.6 (0-1.0) k/uL Eosinophils # 0.3 (0-0.7) k/uL Basophils # 0.0 (0-0.2) k/uL Manual Slide Review Performed Macrocytosis Slight PT 13.5 H (9.0-12.0) sec INR 1.3 H (<1.2) APTT 28.2 (22.0-30.0) sec Sodium 137 (137-145) mmol/L Potassium 4.2 (3.5-5.1) mmol/L Chloride 112 H (98-107) mmol/L Carbon Dioxide 20 L (22-30) mmol/L Anion Gap 5 mmol/L BUN 13 (7-17) mg/dL Creatinine 0.74 (0.52-1.04) mg/dL Est GFR (CKD-EPI)AfAm >90 (>60 ml/min/1.73 sqM) Est GFR (CKD-EPI)NonAf 87 (>60 ml/min/1.73 sqM) Glucose 118 H (74-99) mg/dL Plasma Lactic Acid Magdal[place] (0.7-2.0) mmol/L Calcium 8.4 (8.4-10.2) mg/dL Total Bilirubin 2.7 H (0.2-1.3) mg/dL AST 44 H (14-36) U/L ALT 24 (4-34) U/L Alkaline Phosphatase 128 H (38-126) U/L Troponin I (0.000-0.034) ng/mL NT-Pro-B Natriuret Pep pg/mL Total Protein 5.8 L (6.3-8.2) g/dL Albumin 2.7 L (3.5-5.0) g/dL Urine Color Urine Appearance (Clear) Urine pH (5.0-8.0) Ur Specific [place] (1.001-1.035) Urine Protein (Negative) Urine Glucose (UA) (Negative) Urine Ketones (Negative) Urine Blood (Negative) Urine Nitrite (Negative) Urine Bilirubin (Negative) Urine Urobilinogen (<2.0) mg/dL Ur Leukocyte Esterase (Negative) Urine RBC (0-5) /hpf Urine WBC (0-5) /hpf Ur Squamous Epith Cells (0-4) /hpf Urine Bacteria (None) /hpf Hyaline Casts (0-2) /lpf Urine Mucus (None) /hpf 12/12/21 12/12/21 12/12/21 Range/Units 10:43 10:43 10:43 WBC (3.8-10.6) k/uL RBC (3.80-5.40) m/uL Hgb (11.4-16.0) gm/dL Hct (34.0-46.0) % MCV (80.0-100.0) fL MCH (25.0-35.0) pg MCHC (31.0-37.0) g/dL RDW (11.5-15.5) % Plt Count (150-450) k/uL MPV Neutrophils % % Lymphocytes % % Monocytes % % Eosinophils % % Basophils % % Neutrophils # (1.3-7.7) k/uL Lymphocytes # (1.0-4.8) k/uL Monocytes # (0-1.0) k/uL Eosinophils # (0-0.7) k/uL Basophils # (0-0.2) k/uL Manual Slide Review Macrocytosis PT (9.0-12.0) sec INR (<1.2) APTT (22.0-30.0) sec Sodium (137-145) mmol/L Potassium (3.5-5.1) mmol/L Chloride (98-107) mmol/L Carbon Dioxide (22-30) mmol/L Anion Gap mmol/L BUN (7-17) mg/dL Creatinine (0.52-1.04) mg/dL Est GFR (CKD-EPI)AfAm (>60 ml/min/1.73 sqM) Est GFR (CKD-EPI)NonAf (>60 ml/min/1.73 sqM) Glucose (74-99) mg/dL Plasma Lactic Acid Magdal[place] 1.6 (0.7-2.0) mmol/L Calcium (8.4-10.2) mg/dL Total Bilirubin (0.2-1.3) mg/dL AST (14-36) U/L ALT (4-34) U/L Alkaline Phosphatase (38-126) U/L Troponin I <0.012 (0.000-0.034) ng/mL NT-Pro-B Natriuret Pep 171 pg/mL Total Protein (6.3-8.2) g/dL Albumin (3.5-5.0) g/dL Urine Color Urine Appearance (Clear) Urine pH (5.0-8.0) Ur Specific [place] (1.001-1.035) Urine Protein (Negative) Urine Glucose (UA) (Negative) Urine Ketones (Negative) Urine Blood (Negative) Urine Nitrite (Negative) Urine Bilirubin (Negative) Urine Urobilinogen (<2.0) mg/dL Ur Leukocyte Esterase (Negative) Urine RBC (0-5) /hpf Urine WBC (0-5) /hpf Ur Squamous Epith Cells (0-4) /hpf Urine Bacteria (None) /hpf Hyaline Casts (0-2) /lpf Urine Mucus (None) /hpf 12/12/21 Range/Units 11:16 WBC (3.8-10.6) k/uL RBC (3.80-5.40) m/uL Hgb (11.4-16.0) gm/dL Hct (34.0-46.0) % MCV (80.0-100.0) fL MCH (25.0-35.0) pg MCHC (31.0-37.0) g/dL RDW (11.5-15.5) % Plt Count (150-450) k/uL MPV Neutrophils % % Lymphocytes % % Monocytes % % Eosinophils % % Basophils % % Neutrophils # (1.3-7.7) k/uL Lymphocytes # (1.0-4.8) k/uL Monocytes # (0-1.0) k/uL Eosinophils # (0-0.7) k/uL Basophils # (0-0.2) k/uL Manual Slide Review Macrocytosis PT (9.0-12.0) sec INR (<1.2) APTT (22.0-30.0) sec Sodium (137-145) mmol/L Potassium (3.5-5.1) mmol/L Chloride (98-107) mmol/L Carbon Dioxide (22-30) mmol/L Anion Gap mmol/L BUN (7-17) mg/dL Creatinine (0.52-1.04) mg/dL Est GFR (CKD-EPI)AfAm (>60 ml/min/1.73 sqM) Est GFR (CKD-EPI)NonAf (>60 ml/min/1.73 sqM) Glucose (74-99) mg/dL Plasma Lactic Acid [place] (0.7-2.0) mmol/L Calcium (8.4-10.2) mg/dL Total Bilirubin (0.2-1.3) mg/dL AST (14-36) U/L ALT (4-34) U/L Alkaline Phosphatase (38-126) U/L Troponin I (0.000-0.034) ng/mL NT-Pro-B Natriuret Pep pg/mL Total Protein (6.3-8.2) g/dL Albumin (3.5-5.0) g/dL Urine Color Yellow Urine Appearance Cloudy H (Clear) Urine pH 6.0 (5.0-8.0) Ur Specific [place] 1.022 (1.001-1.035) Urine Protein 1+ H (Negative) Urine Glucose (UA) Negative (Negative) Urine Ketones Negative (Negative) Urine Blood Moderate H (Negative) Urine Nitrite Negative (Negative) Urine Bilirubin Negative (Negative) Urine Urobilinogen 6.0 (<2.0) mg/dL Ur Leukocyte Esterase Moderate H (Negative) Urine RBC 6 H (0-5) /hpf Urine WBC 36 H (0-5) /hpf Ur Squamous Epith Cells 6 H (0-4) /hpf Urine Bacteria Many H (None) /hpf Hyaline Casts 1 (0-2) /lpf Urine Mucus Few H (None) /hpf - Radiology Data Radiology results: image reviewed (Chest x-ray shows prominent pulmonary vasculature and posterior effusion, correlate for volume overload.) Disposition Clinical Impression: Peripheral edema, Acute pulmonary edema Disposition: ADMITTED IP TO THIS HOSP Is patient prescribed a controlled substance at d/c from ED?: No Referrals: Jose Navarrete DO [Primary Care Provider] - 1-2 days Time of Disposition: 12:47
--- NOTE | 2021-12-12 11:17 | XR ---
EXAMINATION TYPE: XR chest 2V DATE OF EXAM: 12/12/2021 COMPARISON: 07/07/2020 INDICATION: 12/12/2021 TECHNIQUE: Frontal and lateral views of the chest are obtained. FINDINGS: The heart size is normal. The pulmonary vasculature is somewhat prominent. There is a meniscus on the posterior lateral projection compatible with a pleural effusion.. IMPRESSION: 1. Correlate for volume overload. 2. Small posterior pleural effusion is present.
[2021-12-12 11:50] LABS: ALT 24 U/L (4-34); AST 44 U/L (14-36); African American GFR (CKD) >90 (>60 ml/min/1.73 sqM); Albumin 2.7 g/dL (3.5-5.0); Alkaline Phosphatase 128 U/L (38-126); Anion Gap 5 mmol/L; Blood Urea Nitrogen 13 mg/dL (7-17); Calcium 8.4 mg/dL (8.4-10.2); Carbon Dioxide 20 mmol/L (22-30); Chloride 112 mmol/L (98-107); Glucose 118 mg/dL (74-99); Non-African American GFR(CKD) 87 (>60 ml/min/1.73 sqM); Potassium 4.2 mmol/L (3.5-5.1); Sodium 137 mmol/L (137-145); Total Bilirubin 2.7 mg/dL (0.2-1.3); Total Protein 5.8 g/dL (6.3-8.2)
[2021-12-12 12:14] LABS: Basophils % (A) 1 %; Eosinophils # (A) 0.3 k/uL (0-0.7); Eosinophils % (A) 6 %; HCT 41.1 % (34.0-46.0); HGB 13.6 gm/dL (11.4-16.0); Lymphocytes # (A) 1.1 k/uL (1.0-4.8); Lymphocytes % (A) 23 %; MCH 33.3 pg (25.0-35.0); MCV 100.9 fL (80.0-100.0); Macrocytosis Slight; Mean Platelet Volume 7.8; Monocytes # (A) 0.6 k/uL (0-1.0); Monocytes % (A) 12 %; Neutrophils # (A) 2.6 k/uL (1.3-7.7); Neutrophils % (A) 54 %; RBC 4.08 m/uL (3.80-5.40); RDW 14.7 % (11.5-15.5); WBC 4.9 k/uL (3.8-10.6)
[2021-12-12 12:20] LABS: INR 1.3 (<1.2); Prothrombin Time 13.5 sec (9.0-12.0)
[2021-12-12 12:21] LABS: Partial Thromboplastin Time 28.2 sec (22.0-30.0)
[2021-12-12 12:34] LABS: Appearance,Urine Cloudy (Clear); Bacteria,Urine Many /hpf; Bilirubin,Urine Negative (Negative); Blood,Urine Moderate (Negative); Color,Urine Yellow; Glucose,Urine (UA) Negative (Negative); Hyaline Casts,Urine 1 /lpf (0-2); Ketones,Urine Negative (Negative); Leukocyte Esterase,Urine Moderate (Negative); Mucus,Urine Few /hpf; Nitrite,Urine Negative (Negative); Protein,Urine 1+ (Negative); RBC,Urine 6 /hpf (0-5); Specific Gravity,Urine 1.022 (1.001-1.035); Squamous Epithelial Cell,Urine 6 /hpf (0-4); WBC,Urine 36 /hpf (0-5)
[2021-12-12 12:42] LABS: Platelet Count 78 k/uL (150-450)
[2021-12-12] MEDS ORDERED: ASPIRIN 325 MG TAB PO STA (12:48)
[2021-12-12] MEDS: ENALAPRILAT 1.25 MG/ML 1 ML VIAL IVP SCH ×2 (13:05→20:59)
--- NOTE | 2021-12-12 13:11 | P.HPIM ---
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 Barnett at [facility]. Patient presented to the emergency department with a chief complaint of worsening shortness of breath over the past 3 days accompanied by worsening lower extremity edema. Patient reports taking Bumex twice daily. Patient denies having any headache, lightheadedness, dizziness, chest pain, palpitations, or experiencing any numbness/tingling in her extremities. She underwent full evaluation in the emergency department. Troponin negative less than 0.012. ProBNP 171. CBC showing thrombocytopenia with platelet count of 78. Coags revealing elevated INR 1.3. BMP revealing elevated chloride of 112 and CO2 of 20. Liver profile revealing elevated bilirubin of 2.7, AST 44, and alkaline phosphatase of 128. EKG showing normal s inus rhythm at 68 bpm. Chest x-ray positive for fluid volume overload with small posterior pleural effusion. Patient admitted under our services with consultation to cardiology. Review of systems: Pertinent positives and negatives as discussed in HPI, a complete review of systems was performed and all other systems are negative. Physical exam: Vital signs reviewed and stable. General: Nontoxic, no distress and appears stated age. Derm: Skin warm and dry, normal coloration for ethnicity. Head: Atraumatic, normocephalic and symmetric. Eyes: EOMs intact, no lid lag, and anicteric sclera Mouth: no lip lesions, mucus membranes moist Cardiovascular: regular rate and rhythm with normal S1S2, no murmur, positive posterior tibial pulses bilaterally, and cap refill < 2 seconds. Lungs: Respirations even, regular, and unlabored on room air. Lungs CTA bilaterally, no rhonchi, no rales, no wheezing, and no accessory muscle usage. Abdominal: soft, nontender to palpation, no guarding, no appreciable or ganomegaly Ext: ROM intact. No gross muscle atrophy, no edema, no contractures Neuro: Speech clear, face symmetrical and CN II-XII grossly intact with no noted focal neuro deficits Psych: Alert and oriented to person, place, time, and situation. Appropriate and pleasant affect. Assessment and Plan of Care: Acute CHF exacerbation, unknown type Cryptogenic liver cirrhosis -MELD score 13. Patient follows with roller skates assembler at [facility], Dr. Barnett. Patient on transplant list. -Cardiology consult -Telemetry monitoring -Troponin negative less than 0.012. ProBNP 171. -Patient started on Aldactone 25 mg daily -Daily weights -Close monitoring of I's and O's -Cardiac diet -Lasix 40 mg IVP every 8 hours -Aspirin, atorvastatin, and metoprolol -Echocardiogram to be completed -Continued close monitoring of electrolytes while diuresing. The patient is admitted with an anticipated greater than 2 midnight stay for evaluation of congestive heart failure and liver cirrhosis CODE STATUS: Full code DVT prophylaxis: Heparin Discussed with: Patient and RN Anticipated discharge date: Clinical course to determine Anticipated discharge place: Home A total of 44 minutes was spent on the care of this complex patient more than 50% of the time was spent in counseling and care coordination. I reviewed the documentation as provided by the SCOOTER above, who is the original author of this note. I agree with the documented assessment and plan, with the following changes: None Past Medical History Past Medical History: Diabetes Mellitus, GERD/Reflux, Hyperlipidemia, Liver Di sease Additional Past Medical History / Comment(s): Cryptogenic liver cirrhosis currently on transplantation list at [facility] chronic lower extremity edema, history of iron deficiency, blood clot in vein to liver History of Any Multi-Drug Resistant Organisms: None Reported Past Surgical History: Cholecystectomy, Heart Catheterization, Hysterectomy, Tonsillectomy Additional Past Surgical History / Comment(s): ectopic outside of uterus, [facility] (radial approach) Past Anesthesia/Blood Transfusion Reactions: Motion Sickness Additional Past Anesthesia/Blood Transfusion Reaction / Comment(s): motion sickness sometimes in car. clausterphobia Past Psychological History: No Psychological Hx Reported Smoking Status: Never smoker Past Alcohol Use History: None Reported Past Drug Use History: Unable to Obtain - Past Family History Father Family Medical History: Myocardial Infarction ([place]) Additional Family Medical History / Comment(s): HAD MASSIVE [place] Mother Family Medical History: Cancer Additional Family Medical History / Comment(s): COLON CA Brother(s) Family Medical History: Cancer Additional Family Medical History / Comment(s): LEUKEMIA- AND ALSO BROTHER HAD BLOOD CLOT IN LEG AFTER FX Medications and Allergies Home Medications Medication Instructions Recorded Confirmed Type Lactulose [Cephulac] 20 gm PO 5XD PRN 07/22/16 12/12/21 History Ibandronate Sodium [Boniva] 150 mg PO Q30D 07/01/18 12/12/21 History Bumetanide [Bumex] 2 mg PO BID 07/07/20 12/12/21 History Insulin Detemir [Levemir Flextouch 20 units SQ HS 07/07/20 12/12/21 History Pen] Rifaximin [Xifaxan] 550 mg PO BID 07/07/20 12/12/21 History Ergocalciferol [Vitamin D2 (1250 1,250 mcg PO MO 12/12/21 12/12/21 History Mcg = 43028 Iu)] Multivitamin [Multivitamins Adult 2 tab PO DAILY 12/12/21 12/12/21 History Gummies] Allergies Allergy/AdvReac Type Severity Reaction Status Date / Time No Known Allergies Allergy Verified 12/12/21 09:58 Physical Exam Osteopathic Statement: *. No significant issues noted on an osteopathic structural exam other than those noted in the History and Physical/Consult. Vitals: Vital Signs Temp Pulse Resp BP Pulse Ox 12/12/21 10:47 166/81 12/12/21 09:58 97.8 F 78 16 179/78 97 Intake and Output 12/11/21 12/12/21 12/12/21 22:59 06:59 14:59 Other: Weight 90.718 kg Results CBC & Chem 7: 12/13/21 06:14 12/13/21 06:14 Labs: Abnormal Lab Results - Last 24 Hours (Table) 12/12/21 12/12/21 12/12/21 Range/Units 10:43 10:43 10:43 MCV 100.9 H (80.0-100.0) fL Plt Count 78 L (150-450) k/uL PT 13.5 H (9.0-12.0) sec INR 1.3 H (<1.2) Chloride 112 H (98-107) mmol/L Carbon Dioxide 20 L (22-30) mmol/L Glucose 118 H (74-99) mg/dL Total Bilirubin 2.7 H (0.2-1.3) mg/dL AST 44 H (14-36) U/L Alkaline Phosphatase 128 H (38-126) U/L Total Protein 5.8 L (6.3-8.2) g/dL Albumin 2.7 L (3.5-5.0) g/dL Urine Appearance (Clear) Urine Protein (Negative) Urine Blood (Negative) Ur Leukocyte Esterase (Negative) Urine RBC (0-5) /hpf Urine WBC (0-5) /hpf Ur Squamous Epith Cells (0-4) /hpf Urine Bacteria (None) /hpf Urine Mucus (None) /hpf 12/12/21 Range/Units 11:16 MCV (80.0-100.0) fL Plt Count (150-450) k/uL PT (9.0-12.0) sec INR (<1.2) Chloride (98-107) mmol/L Carbon Dioxide (22-30) mmol/L Glucose (74-99) mg/dL Total Bilirubin (0.2-1.3) mg/dL AST (14-36) U/L Alkaline Phosphatase (38-126) U/L Total Protein (6.3-8.2) g/dL Albumin (3.5-5.0) g/dL Urine Appearance Cloudy H (Clear) Urine Protein 1+ H (Negative) Urine Blood Moderate H (Negative) Ur Leukocyte Esterase Moderate H (Negative) Urine RBC 6 H (0-5) /hpf Urine WBC 36 H (0-5) /hpf Ur Squamous Epith Cells 6 H (0-4) /hpf Urine Bacteria Many H (None) /hpf Urine Mucus Few H (None) /hpf
[2021-12-12] MEDS: FUROSEMIDE 10 MG/ML 4 ML VIAL IV SCH ×2 (15:28→23:34)
[2021-12-12] MEDS ORDERED: LACTULOSE 20 GM/30 ML CUP PO PRN (18:57)
[2021-12-12] MEDS ORDERED: NON FORMULARY DRUG (Ibandronate Sodium [Boniva] 150 MG Tablet) PO SCH (19:00)
[2021-12-12 20:17] LABS: Glucose,Whole Blood 194 mg/dL (75-99)
[2021-12-12] MEDS: INSULIN DETEMIR (LEVEMIR) 100 UNIT/ML SYR SQ SCH (20:58)
[2021-12-12] MEDS: RIFAXIMIN 550 MG TABLET PO SCH (20:58)
[2021-12-12] MEDS: INSULIN ASPART (NovoLOG) 100 UNIT/ML VIAL SQ SCH (20:58)
[2021-12-12] MEDS: HEPARIN SODIUM,PORCINE/PF 5,000 UNIT/0.5 ML SYRINGE SQ SCH (20:58)
[2021-12-12] MEDS: SPIRONOLACTONE 25 MG TAB PO SCH (20:59)
[2021-12-13] MEDS: ENALAPRILAT 1.25 MG/ML 1 ML VIAL IVP SCH ×4 (01:22→21:11)
[2021-12-13 07:41] LABS: Glucose,Whole Blood 64 mg/dL (75-99)
[2021-12-13 07:58] LABS: Glucose,Whole Blood 82 mg/dL (75-99)
[2021-12-13] MEDS: HEPARIN SODIUM,PORCINE/PF 5,000 UNIT/0.5 ML SYRINGE SQ SCH ×2 (08:31→21:11)
[2021-12-13] MEDS: SPIRONOLACTONE 25 MG TAB PO SCH (08:32)
[2021-12-13] MEDS: FUROSEMIDE 10 MG/ML 4 ML VIAL IV SCH ×2 (08:32→17:40)
[2021-12-13] MEDS: MULTIVITAMINS, THERA 1 EACH TAB PO SCH (08:32)
[2021-12-13] MEDS: RIFAXIMIN 550 MG TABLET PO SCH ×2 (08:32→21:10)
[2021-12-13] MEDS: INSULIN ASPART (NovoLOG) 100 UNIT/ML VIAL SQ SCH ×4 (08:33→21:19)
[2021-12-13] MEDS ORDERED: ASPIRIN 325 MG TAB PO SCH (09:00)
[2021-12-13 09:28] LABS: African American GFR (CKD) 78.3 (60.0-200.0); Albumin 2.6 g/dL (3.8-4.9); Albumin/Globulin Ratio 1.08 (1.60-3.17); Anion Gap 8.4 mmol/L (10.00-18.00); BUN/Creat Ratio 14.44 Ratio (12.00-20.00); Calcium 8.4 mg/dL (8.7-10.3); Carbon Dioxide 24.6 mmol/L (20.0-27.5); Globulin 2.4 g/dL (1.6-3.3); Non-African American GFR(CKD) 67.6 (60.0-200.0); Potassium 3.4 mmol/L (3.5-5.5); Total Bilirubin 2.6 mg/dL (0.30-1.20)
[2021-12-13 09:47] LABS: INR 1.4 (<1.2); Prothrombin Time 14.2 sec (9.0-12.0)
[2021-12-13 10:19] LABS: HCT 36.8 % (37.2-46.3); HGB 12.1 g/dL (12.0-15.0); MCH 32.4 pg (27.0-32.0); MCHC 32.9 g/dL (32.0-37.0); MCV 98.7 fL (80.0-97.0); Mean Platelet Volume 10.5 fL (9.5-12.2); NRBC Per 100 WBC 0 /100 WBCS (0.0-0.0); Platelet Count 68 X 10*3/uL (140-440); RBC 3.73 X 10*6/uL (4.10-5.20); WBC 4.81 X 10*3/uL (4.50-10.00)
[2021-12-13 12:09] LABS: Glucose,Whole Blood 184 mg/dL (75-99)
--- NOTE | 2021-12-13 12:23 | CONS ---
ERIC Velazquez is a 66-year-old lady with history of cryptogenic cirrhosis who has been evaluated for liver transplant and regularly follows with them at [facility], comes in complaining of progressively worsening leg edema of several days duration and also some shortness of breath. She normally takes 2 mg of Bumex b.i.d. and there has not been any change either in her diet or her compliance with medications recently. An EKG on this admission reveals sinus rhythm and is within normal limits. She had an echocardiogram in 2019 that revealed normal LV function. There is no prior history of coronary artery disease or congestive heart failure. LABS: Labs show that potassium is 3.4. Hemoglobin is normal at 13.6, platelet count is 78. PAST MEDICAL HISTORY: Significant for cryptogenic cirrhosis, chronic liver disease, insulin-requiring diabetes. CURRENT MEDICATIONS: Include Bumex 2 mg b.i.d., insulin, Xifaxan, and vitamin D. ALLERGIES: There are no known drug allergies. FAMILY HISTORY: Negative for premature coronary artery disease. SOCIAL HISTORY: Negative for smoking, EtOH abuse or drug abuse. REVIEW OF SYSTEMS: HEENT is unremarkable. Cardiac as described above. Respiratory as described above. GI negative. Endocrine negative. Allergy none. Skin negative. Musculoskeletal negative. Endocrine negative. Derm negative. Oncological negative. BOTTLE [employer] SUPERVISOR negative. Rest of the system review is not relevant. EXAM: Comfortable at rest. Vital signs are stable. There is no jugular venous distention. Carotid upstroke is normal. There is no bruit. Chest exam reveals good air entry bilaterally. Heart exam reveals first and second heart sounds. No gallop. Abdomen is soft. Exam of extremities reveals bilateral 2+ pitting edema. Labs show that the hemoglobin is 13.6, platelet count is 78. BNP is normal at 171. Troponin is 0.012. Chest x-ray shows pulmonary congestion. EKG appears normal. ASSESSMENT: Acute on chronic diastolic heart failure, cryptogenic cirrhosis with chronic liver disease. PLAN: I will obtain a 2D echo on her. Treat the patient with IV Lasix and Aldactone and I anticipate her getting better over the next 24-48 hours. We can discharge her home and arrange followup with her own physicians at [facility]. The patient apparently had a right and left heart catheterization 5 years ago that were benign and unremarkable. MMODL / IJN: [id number] /
[2021-12-13 17:06] LABS: Glucose,Whole Blood 103 mg/dL (75-99)
[2021-12-13] MEDS ORDERED: POTASSIUM CHLORIDE ER 20 MEQ TAB.ER PO STA (17:13)
[2021-12-13] MEDS ORDERED: IBUPROFEN 800 MG TAB PO PRN (17:15)
--- NOTE | 2021-12-13 17:22 | P.PN ---
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 Barnett at [facility]. Patient presented to the emergency department with a chief complaint of worsening shortness of breath over the past 3 days accompanied by worsening lower extremity edema. Patient reports taking Bumex twice daily. Patient denies having any headache, lightheadedness, dizziness, chest pain, palpitations, or experiencing any numbness/tingling in her extremities. She underwent full evaluation in the emergency department. Troponin negative less than 0.012. ProBNP 171. CBC showing thrombocytopenia with platelet count of 78. Coags revealing elevated INR 1.3. BMP revealing elevated chloride of 112 and CO2 of 20. Liver profile revealing elevated bilirubin of 2.7, AST 44, and alkaline phosphatase of 128. EKG showing normal sinus rhythm at 68 bpm. Chest x-ray positive for fluid volume overload with small posterior pleural effusion. Patient admitted under our services with consultation to cardiology. Physical exam: Patient seen and fully evaluated at the bedside this morning. She was sitting in recliner with legs elevated comfortably. Patient denies having any complaints of pain at this time. She denies having any headache, lightheadedness, dizziness, chest pain, palpitations, or shortness of breath at rest. Patient does report significant dyspnea with any exertion. Awaiting echocardiogram to be completed. Patient to continue to receive IV Lasix 40 mg IVP every 8 hours along with Aldactone. Strict I's and O's. Vital signs reviewed and stable. General: Nontoxic, no distress and appears stated age. Derm: Skin warm and dry, normal coloration for ethnicity. Head: Atraumatic, normocephalic and symmetric. Eyes: EOMs intact, no lid lag, and anicteric sclera Mouth: no lip lesions, mucus membranes moist Cardiovascular: regular rate and rhythm with normal S1S2, no murmur, positive posterior tibial pulses bilaterally, and cap refill < 2 seconds. Lungs: Respirations even, regular, and unlabored on room air. Lungs CTA bilaterally, no rhonchi, no rales, no wheezing, and no accessory muscle usage. Abdominal: soft, nontender to palpation, no guarding, no appreciable orga nomegaly Ext: ROM intact. No gross muscle atrophy, 3+ bilateral lower extremity pitting edema, no contractures Neuro: Speech clear, face symmetrical and CN II-XII grossly intact with no noted focal neuro deficits Psych: Alert and oriented to person, place, time, and situation. Appropriate and pleasant affect. Assessment and Plan of Care: Acute CHF exacerbation, unknown type Cryptogenic liver cirrhosis -MELD score 13. Patient follows with automat car attendant at [facility], Dr. Barnett. Patient on transplant list. -Cardiology following -Telemetry monitoring -Troponin negative less than 0.012. ProBNP 171. -Patient started on Aldactone 25 mg daily -Daily weights -Close monitoring of I's and O's -Cardiac diet -Lasix 40 mg IVP every 8 hours -Aspirin, atorvastatin, and metoprolol -Echocardiogram to be completed -Continued close monitoring of electrolytes while diuresing. CODE STATUS: Full code DVT prophylaxis: Heparin Discussed with: Patient and RN Anticipated discharge date: Clinical course to determine Anticipated discharge place: Home A total of 35 minutes was spent on the care of this complex patient more than 50% of the time was spent in counseling and care coordination. I reviewed the documentation as provided by the SCOOTER above, who is the original author of this note. I agree with the documented assessment and plan, with the following changes: None Objective - Vital Signs Vital signs: Vital Signs Temp 97.9 F 12/13/21 07:00 Pulse 81 12/13/21 07:00 Resp 16 12/13/21 07:00 BP 136/66 12/13/21 07:00 Pulse Ox 96 12/13/21 07:00 FiO2 Intake & Output 12/12/21 12/13/21 12/13/21 18:59 06:59 18:59 Weight 90.718 kg 96.4 kg Other: # Voids 3 - Labs CBC & Chem 7: 12/13/21 06:14 12/13/21 06:14 Labs: Abnormal Lab Results - Last 24 Hours (Table) 12/12/21 12/12/21 12/12/21 Range/Units 10:43 10:43 10:43 MCV 100.9 H (80.0-100.0) fL Plt Count 78 L (150-450) k/uL PT 13.5 H (9.0-12.0) sec INR 1.3 H (<1.2) Chloride 112 H (98-107) mmol/L Carbon Dioxide 20 L (22-30) mmol/L Glucose 118 H (74-99) mg/dL POC Glucose (mg/dL) (75-99) mg/dL Total Bilirubin 2.7 H (0.2-1.3) mg/dL AST 44 H (14-36) U/L Alkaline Phosphatase 128 H (38-126) U/L Total Protein 5.8 L (6.3-8.2) g/dL Albumin 2.7 L (3.5-5.0) g/dL Urine Appearance (Clear) Urine Protein (Negative) Urine Blood (Negative) Ur Leukocyte Esterase (Negative) Urine RBC (0-5) /hpf Urine WBC (0-5) /hpf Ur Squamous Epith Cells (0-4) /hpf Urine Bacteria (None) /hpf Urine Mucus (None) /hpf 12/12/21 12/12/21 12/13/21 Range/Units 11:16 20:15 07:39 MCV (80.0-100.0) fL Plt Count (150-450) k/uL PT (9.0-12.0) sec INR (<1.2) Chloride (98-107) mmol/L Carbon Dioxide (22-30) mmol/L Glucose (74-99) mg/dL POC Glucose (mg/dL) 194 H 64 L (75-99) mg/dL Total Bilirubin (0.2-1.3) mg/dL AST (14-36) U/L Alkaline Phosphatase (38-126) U/L Total Protein (6.3-8.2) g/dL Albumin (3.5-5.0) g/dL Urine Appearance Cloudy H (Clear) Urine Protein 1+ H (Negative) Urine Blood Moderate H (Negative) Ur Leukocyte Esterase Moderate H (Negative) Urine RBC 6 H (0-5) /hpf Urine WBC 36 H (0-5) /hpf Ur Squamous Epith Cells 6 H (0-4) /hpf Urine Bacteria Many H (None) /hpf Urine Mucus Few H (None) /hpf Microbiology - Last 24 Hours (Table) 12/12/21 11:16 Urine Culture - Preliminary Urine,Voided
[2021-12-13] MEDS: PANTOPRAZOLE 40 MG TABLET PO SCH (17:36)
[2021-12-13 18:02] VITALS: BMI 40.1
[2021-12-13 21:18] LABS: Glucose,Whole Blood 202 mg/dL (75-99)
[2021-12-13] MEDS: INSULIN DETEMIR (LEVEMIR) 100 UNIT/ML SYR SQ SCH (21:22)
[2021-12-14] MEDS: FUROSEMIDE 10 MG/ML 4 ML VIAL IV SCH ×3 (00:36→16:03)
[2021-12-14] MEDS: ENALAPRILAT 1.25 MG/ML 1 ML VIAL IVP SCH ×2 (03:05→09:37)
[2021-12-14 07:13] LABS: Glucose,Whole Blood 65 mg/dL (75-99)
[2021-12-14 07:28] LABS: Glucose,Whole Blood 66 mg/dL (75-99)
[2021-12-14 07:43] LABS: Glucose,Whole Blood 96 mg/dL (75-99)
--- NOTE | 2021-12-14 08:20 | XR ---
EXAMINATION TYPE: XR chest 1V portable DATE OF EXAM: 12/14/2021 COMPARISON: 12/13/2019 into INDICATION: Congestive heart failure TECHNIQUE: Single frontal view of the chest is obtained. FINDINGS: The heart size is normal. The pulmonary vasculature is normal. The lungs are clear. IMPRESSION: 1. No acute pulmonary process.
[2021-12-14] MEDS ORDERED: POTASSIUM CHLORIDE ER 20 MEQ TAB.ER PO STA (08:41)
[2021-12-14] MEDS: INSULIN ASPART (NovoLOG) 100 UNIT/ML VIAL SQ SCH ×4 (08:57→20:49)
[2021-12-14] MEDS ORDERED: ERGOCALCIFEROL 1,250 MCG (50,000 IU) CAPSULE PO SCH (09:00)
[2021-12-14] MEDS: HEPARIN SODIUM,PORCINE/PF 5,000 UNIT/0.5 ML SYRINGE SQ SCH ×2 (09:37→20:57)
[2021-12-14] MEDS: SPIRONOLACTONE 25 MG TAB PO SCH (09:37)
[2021-12-14] MEDS: MULTIVITAMINS, THERA 1 EACH TAB PO SCH (09:37)
[2021-12-14] MEDS: PANTOPRAZOLE 40 MG TABLET PO SCH ×2 (09:38→17:50)
[2021-12-14] MEDS: ASPIRIN 81 MG PO SCH (09:38)
[2021-12-14] MEDS: RIFAXIMIN 550 MG TABLET PO SCH ×2 (09:38→20:57)
[2021-12-14 11:12] LABS: Magnesium 1.9 mg/dL (1.5-2.4)
--- NOTE | 2021-12-14 11:20 | P.PN ---
Subjective Progress Note Date: 12/14/21 This 66-year-old lady with a history of cryptogenic cirrhosis who has been evaluated for liver transplant who regularly follows at [facility] was initially brought in complaining of progressively worsening lower extremity edema for several days and mild shortness of breath. Patient is seen today resting comfortably in bed. Without signs of acute distress no complaints of chest pain or shortness of breath. Patient's repeat chest x-ray shows no acute process and lungs are clear. Potassium was 3.4 and supplemented yesterday. Labs for today are pending. Patient's echo is pending. Will discontinue Vasotec IV push and transition her to lisinopril 5 mg daily. Will continue patient on IV Lasix 40 mg every 8 for diuresing. Will follow kidney function and electrolyte status. Objective - Vital Signs Vital signs: Vital Signs Temp 97.6 F 12/14/21 08:00 Pulse 64 12/14/21 08:00 Resp 16 12/14/21 08:00 BP 148/73 12/14/21 08:00 Pulse Ox 100 12/14/21 08:00 FiO2 Intake & Output 12/13/21 12/14/21 12/14/21 18:59 06:59 18:59 Weight 96.4 kg 95.1 kg Other: # Voids 1 2 - Exam PHYSICAL EXAM: VITAL SIGNS: Reviewed. GENERAL: Well-developed in no acute distress. Patient is jaundice HEENT: Head is normocephalic. Pupils are equal, round. Sclerae yellow. Mucous membranes of the mouth are moist. NECK: Supple. No JVD or thyromegaly RESPIRATORY: Respirations even and unlabored. Lungs diminished to auscultation bilaterally. CARDIO: Regular rate and rhythm. S1 and S2 heard. No murmur or gallops. EXTREMITIES: Normal range of motion. No clubbing or cyanosis. Peripheral pulses intact. Negative for bilateral lower extremity edema NEURO: Orientated to person, time, mood is appropriate - Labs CBC & Chem 7: 12/13/21 06:14 12/13/21 06:14 Labs: Abnormal Lab Results - Last 24 Hours (Table) 12/13/21 12/13/21 12/13/21 Range/Units 12:03 17:04 21:16 POC Glucose (mg/dL) 184 H 103 H 202 H (75-99) mg/dL 12/14/21 12/14/21 Range/Units 07:09 07:25 POC Glucose (mg/dL) 65 L 66 L (75-99) mg/dL Microbiology - Last 24 Hours (Table) 12/12/21 11:16 Urine Culture - Preliminary Urine,Voided Gram Neg Bacilli Assessment and Plan Assessment: Acute on chronic diastolic heart failure Cryptogenic cirrhosis with chronic liver disease Plan: Echocardiogram pending Continue with current dose of IV Lasix and Aldactone. Stop IV Vasotec and start lisinopril 5 mg daily area and Continue to follow electrolytes and supplement potassium per protocol. Continue with telemetry monitoring Continue with accurate I's and O's Further recommendations based on clinical course The above impression and plan of care have been discussed and directed by the signing physician. Gill Ponce, nurse practitioner, acting as scribe for signing physician.
[2021-12-14 11:54] LABS: African American GFR (CKD) 68.9 (60.0-200.0); Albumin 2.6 g/dL (3.8-4.9); Anion Gap 7.4 mmol/L (10.00-18.00); BUN/Creat Ratio 12.8 Ratio (12.00-20.00); Blood Urea Nitrogen 12.8 mg/dL (9.0-27.0); Calcium 8.4 mg/dL (8.7-10.3); Carbon Dioxide 26.6 mmol/L (20.0-27.5); Globulin 2.6 g/dL (1.6-3.3); Non-African American GFR(CKD) 59.5 (60.0-200.0); Potassium 3.9 mmol/L (3.5-5.5); Total Bilirubin 2.4 mg/dL (0.30-1.20); Total Protein 5.2 g/dL (6.2-8.2)
[2021-12-14 11:57] LABS: Glucose,Whole Blood 229 mg/dL (75-99)
[2021-12-14 11:57] LABS: HCT 37.8 % (37.2-46.3); HGB 12.1 g/dL (12.0-15.0); Immature Platelet Fraction 2.5 % (1.1-6.1); Mean Platelet Volume 10.2 fL (9.5-12.2); NRBC Per 100 WBC 0 /100 WBCS (0.0-0.0); Platelet Count 65 X 10*3/uL (140-440); RBC 3.78 X 10*6/uL (4.10-5.20); RDW 14.8 % (11.5-14.5); WBC 3.64 X 10*3/uL (4.50-10.00)
[2021-12-14] MEDS: lisinopriL 5 MG TAB PO SCH (13:59)
--- NOTE | 2021-12-14 14:30 | CA ---
Transthoracic Echo Report Name: Caroline Barnett Age: 66 Gender: F : 1955 Exam Date: 12/14/2021 11:58 Exam Location: [facility] Ht (in): 60 Wt (lb): 209 Ordering Physician: Gill Ponce Attending/Referring Phys: Neurology Manager Gabi Cat RDCS Procedure CPT: Indications: pulmonary edema Cardiac Hx: Technical Quality: Fair Contrast 1: N/A Total Dose (mL): Contrast 2: Total Dose (mL): MEASUREMENTS (Male / Female) Normal Values 2D ECHO LV Diastolic Diameter PLAX 3.7 cm 4.2 - 5.9 / 3.9 - 5.3 cm LV Systolic Diameter PLAX 3.1 cm IVS Diastolic Thickness 1.2 cm 0.6 - 1.0 / 0.6 - 0.9 cm LVPW Diastolic Thickness 1.3 cm 0.6 - 1.0 / 0.6 - 0.9 cm LV Relative Wall Thickness 0.7 RV Internal Dim ED PLAX 2.6 cm LA Systolic Diameter LX 3.3 cm 3.0 - 4.0 / 2.7 - 3.8 cm LA Volume 63.0 cm??? 18 - 58 / 22 - 52 cm??? M-MODE Aortic Root Diameter MM 3.0 cm LA Systolic Diameter MM 3.1 cm LA Ao Ratio MM 1.0 MV E Point Septal Separation 0.2 cm AV Cusp Separation MM 2.0 cm DOPPLER MV Area PHT 3.8 cm??? Mitral E Point Velocity 70.1 cm/s Mitral A Point Velocity 67.9 cm/s Mitral E to A Ratio 1.0 MV Deceleration Time 198.5 ms MV E' Velocity 7.7 cm/s Mitral E to MV E' Ratio 9.1 TR Peak Velocity 167.2 cm/s TR Peak Gradient 11.2 mmHg Right Ventricular Systolic Press 16.2 mmHg FINDINGS Left Ventricle Normal Left ventricular size, wall thickness, systolic function with no obvious regional wall motion abnormalities. . Right Ventricle Normal right ventricular size and function. Right ventricular systolic pressure within normal limits. Right Atrium Normal right atrial size. Left Atrium Moderately increased left atrial volume. Mitral Valve Structurally normal mitral valve. Mild mitral regurgitation. Aortic Valve Trileaflet aortic valve. Tricuspid Valve Structurally normal tricuspid valve. Mild tricuspid regurgitation. Pulmonic Valve Structurally normal pulmonic valve. Pericardium Normal pericardium. Aorta Normal size aortic root and proximal ascending aorta. CONCLUSIONS Left ventricular systolic function is normal left atrium appears enlarged I mitral regurgitation and mild tricuspid regurgitation Previewed by: Dr. Matt Jaeger MD (Electronically Signed) Final Date: 14 Dec 2021 14:29
--- NOTE | 2021-12-14 14:36 | P.PN ---
Subjective Progress Note Date: 12/14/21 Hospital course: Patient is a very pleasant 66-year-old female with a past medical history of cryptogenic liver cirrhosis on transplant list and follows closely with wood craftsman Dr. Barnett at [facility]. Patient presented to the emergency department with a chief complaint of worsening shortness of breath over the past 3 days accompanied by worsening lower extremity edema. Patient reports taking Bumex twice daily. Patient denies having any headache, lightheadedness, dizziness, chest pain, palpitations, or experiencing any numbness/tingling in her extremities. She underwent full evaluation in the emergency department. Troponin negative less than 0.012. ProBNP 171. CBC showing thrombocytopenia with platelet count of 78. Coags revealing elevated INR 1.3. BMP revealing elevated chloride of 112 and CO2 of 20. Liver profile revealing elevated bilirubin of 2.7, AST 44, and alkaline phosphatase of 128. EKG showing normal sinus rhythm at 68 bpm. Chest x-ray positive for fluid volume overload with small posterior pleural effusion. Patient admitted under our services with consultation to cardiology. Physical exam: Patient seen and fully evaluated at the bedside this morning. She was sitting in recliner with legs elevated comfortably. Patient denies having any complaints of pain at this time. She denies having any headache, lightheadedness, dizziness, chest pain, palpitations, or shortness of breath at rest. Patient does report significant dyspnea with any exertion. Awaiting echocardiogram to be completed. Patient to continue to receive IV Lasix 40 mg IVP every 8 hours along with Aldactone. Strict I's and O's. Vital signs reviewed and stable. General: Nontoxic, no distress and appears stated age. Derm: Skin warm and dry, normal coloration for ethnicity. Head: Atraumatic, normocephalic and symmetric. Eyes: EOMs intact, no lid lag, and anicteric sclera Mouth: no lip lesions, mucus membranes moist Cardiovascular: regular rate and rhythm with normal S1S2, no murmur, positive posterior tibial pulses bilaterally, and cap refill < 2 seconds. Lungs: Respirations even, regular, and unlabored on room air. Lungs CTA bilaterally, no rhonchi, no rales, no wheezing, and no accessory muscle usage. Abdominal: soft, nontender to palpation, no guarding, no appreciable orga nomegaly Ext: ROM intact. No gross muscle atrophy, 3+ bilateral lower extremity pitting edema, no contractures Neuro: Speech clear, face symmetrical and CN II-XII grossly intact with no noted focal neuro deficits Psych: Alert and oriented to person, place, time, and situation. Appropriate and pleasant affect. Assessment and Plan of Care: Acute CHF exacerbation, unknown type Cryptogenic liver cirrhosis -MELD score 13. Patient follows with wood craftsman at [facility], Dr. Barnett. Patient on transplant list. -Cardiology following -Telemetry monitoring -Troponin negative less than 0.012. ProBNP 171. -Continue Aldactone and Lasix. -Patient started on lisinopril 5 mg daily and Vasotec was discontinued -Continue Daily weights -Close monitoring of I's and O's -Cardiac diet -Echocardiogram to be completed -Continued close monitoring of electrolytes while diuresing. CODE STATUS: Full code DVT prophylaxis: Heparin Discussed with: Patient and RN Anticipated discharge date: Clinical course to determine Anticipated discharge place: Home A total of 35 minutes was spent on the care of this complex patient more than 50% of the time was spent in counseling and care coordination. I reviewed the documentation as provided by the CSOOTER above, who is the original author of this note. I agree with the documented assessment and plan, with the following changes: none Objective - Vital Signs Vital signs: Vital Signs Temp 97.6 F 12/14/21 08:00 Pulse 64 12/14/21 08:00 Resp 16 12/14/21 08:00 BP 148/73 12/14/21 08:00 Pulse Ox 100 12/14/21 08:00 FiO2 Intake & Output 12/13/21 12/14/21 12/14/21 18:59 06:59 18:59 Weight 96.4 kg 95.1 kg Other: # Voids 1 2 - Labs CBC & Chem 7: 12/14/21 05:22 12/14/21 05:22 Labs: Abnormal Lab Results - Last 24 Hours (Table) 12/13/21 12/13/21 12/13/21 Range/Units 12:03 17:04 21:16 POC Glucose (mg/dL) 184 H 103 H 202 H (75-99) mg/dL 12/14/21 12/14/21 Range/Units 07:09 07:25 POC Glucose (mg/dL) 65 L 66 L (75-99) mg/dL Microbiology - Last 24 Hours (Table) 12/12/21 11:16 Urine Culture - Preliminary Urine,Voided Gram Neg Bacilli
[2021-12-14 17:23] LABS: Glucose,Whole Blood 133 mg/dL (75-99)
[2021-12-14 20:13] LABS: Glucose,Whole Blood 168 mg/dL (75-99)
[2021-12-14] MEDS: INSULIN DETEMIR (LEVEMIR) 100 UNIT/ML SYR SQ SCH (20:57)
[2021-12-15] MEDS: FUROSEMIDE 10 MG/ML 4 ML VIAL IV SCH ×4 (00:28→21:46)
[2021-12-15 02:43] LABS: Glucose,Whole Blood 66 mg/dL (75-99)
[2021-12-15 03:05] LABS: Glucose,Whole Blood 104 mg/dL (75-99)
[2021-12-15 07:36] LABS: Glucose,Whole Blood 99 mg/dL (75-99)
[2021-12-15 08:20] LABS: HCT 41.4 % (34.0-46.0); HGB 13.5 gm/dL (11.4-16.0); MCH 33.1 pg (25.0-35.0); MCHC 32.5 g/dL (31.0-37.0); MCV 101.7 fL (80.0-100.0); Macrocytosis Slight; Mean Platelet Volume 8.1; RBC 4.07 m/uL (3.80-5.40); RDW 14.6 % (11.5-15.5); WBC 4.5 k/uL (3.8-10.6)
[2021-12-15 08:32] LABS: Platelet Count 75 k/uL (150-450)
[2021-12-15 09:31] LABS: Basophils # (M) 0.05 k/uL (0-0.2); Lymphocytes # (M) 1.35 k/uL (1.0-4.8); Monocytes # (M) 0.59 k/uL (0-1.0); Neutrophils # (M) 2.03 k/uL (1.3-7.7); Neutrophils % (M) 45 %; Nucleated Red Blood Cells 0 /100 WBC (0-0); Total Cells Counted 100
[2021-12-15] MEDS: INSULIN ASPART (NovoLOG) 100 UNIT/ML VIAL SQ SCH ×4 (09:32→21:45)
[2021-12-15] MEDS: MULTIVITAMINS, THERA 1 EACH TAB PO SCH (09:34)
[2021-12-15] MEDS: PANTOPRAZOLE 40 MG TABLET PO SCH ×2 (09:34→17:59)
[2021-12-15] MEDS: HEPARIN SODIUM,PORCINE/PF 5,000 UNIT/0.5 ML SYRINGE SQ SCH ×2 (09:34→20:44)
[2021-12-15] MEDS: lisinopriL 5 MG TAB PO SCH (09:34)
[2021-12-15] MEDS: SPIRONOLACTONE 25 MG TAB PO SCH (09:34)
[2021-12-15] MEDS: ASPIRIN 81 MG PO SCH (09:34)
[2021-12-15] MEDS: RIFAXIMIN 550 MG TABLET PO SCH ×2 (09:34→20:44)
--- NOTE | 2021-12-15 11:54 | P.PN ---
Subjective Progress Note Date: 12/15/21 HISTORY OF PRESENT ILLNESS: This is a 66-year-old female with a history of cryptogenic liver cirrhosis and diastolic congestive heart failure was admitted to the hospital secondary to worsening edema and shortness of breath. The patient has been receiving IV Lasix 40 mg every 8 hours. She reports improvement in her shortness of breath. She continues to have lower extremity edema, although improved from admission per patient. Echocardiogram completed revealing preserved systolic function. PHYSICAL EXAM: VITAL SIGNS: Reviewed. GENERAL: Well-developed in no acute distress. NECK: Supple. No JVD or thyromegaly LUNGS: Respirations even and unlabored. Lungs essentially clear to auscultation bilaterally. HEART: Regular rate and rhythm. S1 and S2 heard. EXTREMITIES: Normal range of motion. No clubbing or cyanosis. Peripheral pulses intact. 2+ bilateral lower extremity edema ASSESSMENT: Acute on chronic diastolic congestive heart failure Cryptogenic liver cirrhosis PLAN: Continue current cardiac medications Continue IV Lasix Accurate I&O One more day of diuresis given increased diuresis with IV Lasix compared to at home Bumex and patient still with some LE edema. Likely DC home tomorrow. Nurse practitioner note has been reviewed by physician. Signing provider agrees with the documented findings, assessment, and plan of care. Objective - Vital Signs Vital signs: Vital Signs Temp 98.3 F 12/15/21 07:15 Pulse 63 12/15/21 07:15 Resp 15 12/15/21 07:15 BP 134/76 12/15/21 07:15 Pulse Ox 99 12/15/21 07:15 FiO2 Intake & Output 12/14/21 12/15/21 12/15/21 18:59 06:59 18:59 Intake Total 60 Output Total 1000 1200 Balance -1000 -1200 60 Weight 97.5 kg Intake: Oral 60 Output: Urine 1000 1200 Other: Voiding Method Toilet # Voids 1 - Labs CBC & Chem 7: 12/15/21 08:02 12/14/21 05:22 Labs: Abnormal Lab Results - Last 24 Hours (Table) 12/14/21 12/14/21 12/14/21 Range/Units 05: 05: 11:54 WBC 3.64 L (4.50-10.00) X 10*3/uL RBC 3.78 L (4.10-5.20) X 10*6/uL MCV 100.0 H (80.0-97.0) fL RDW 14.8 H (11.5-14.5) % Plt Count 65 L (140-440) X 10*3/uL Anion Gap 7.40 L (10.00-18.00) mmol/L Est GFR (CKD-EPI)NonAf 59.5 L (60.0-200.0) Glucose 66 L (70-110) mg/dL POC Glucose (mg/dL) 229 H (75-99) mg/dL Calcium 8.4 L (8.7-10.3) mg/dL Total Bilirubin 2.40 H (0.30-1.20) mg/dL AST 42 H (13-35) U/L Total Protein 5.2 L (6.2-8.2) g/dL Albumin 2.6 L (3.8-4.9) g/dL Albumin/Globulin Ratio 1.00 L (1.60-3.17) g/dL 12/14/21 12/14/21 12/15/21 Range/Units 17:18 20:11 02:42 WBC (4.50-10.00) X 10*3/uL RBC (4.10-5.20) X 10*6/uL MCV (80.0-97.0) fL RDW (11.5-14.5) % Plt Count (140-440) X 10*3/uL Anion Gap (10.00-18.00) mmol/L Est GFR (CKD-EPI)NonAf (60.0-200.0) Glucose (70-110) mg/dL POC Glucose (mg/dL) 133 H 168 H 66 L (75-99) mg/dL Calcium (8.7-10.3) mg/dL Total Bilirubin (0.30-1.20) mg/dL AST (13-35) U/L Total Protein (6.2-8.2) g/dL Albumin (3.8-4.9) g/dL Albumin/Globulin Ratio (1.60-3.17) g/dL 12/15/21 12/15/21 Range/Units 03:04 08:02 WBC (4.50-10.00) X 10*3/uL RBC (4.10-5.20) X 10*6/uL MCV 101.7 H (80.0-97.0) fL RDW (11.5-14.5) % Plt Count 75 L (140-440) X 10*3/uL Anion Gap (10.00-18.00) mmol/L Est GFR (CKD-EPI)NonAf (60.0-200.0) Glucose (70-110) mg/dL POC Glucose (mg/dL) 104 H (75-99) mg/dL Calcium (8.7-10.3) mg/dL Total Bilirubin (0.30-1.20) mg/dL AST (13-35) U/L Total Protein (6.2-8.2) g/dL Albumin (3.8-4.9) g/dL Albumin/Globulin Ratio (1.60-3.17) g/dL Microbiology - Last 24 Hours (Table) 12/12/21 11:16 Urine Culture - Final Urine,Voided Escherichia coli
[2021-12-15 12:45] LABS: Glucose,Whole Blood 102 mg/dL (75-99)
--- NOTE | 2021-12-15 15:04 | P.PN ---
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 Barnett at [facility]. Patient presented to the emergency department with a chief complaint of worsening shortness of breath over the past 3 days accompanied by worsening lower extremity edema. Patient reports taking Bumex twice daily. Patient denies having any headache, lightheadedness, dizziness, chest pain, palpitations, or experiencing any numbness/tingling in her extremities. She underwent full evaluation in the emergency department. Troponin negative less than 0.012. ProBNP 171. CBC showing thrombocytopenia with platelet count of 78. Coags revealing elevated INR 1.3. BMP revealing elevated chloride of 112 and CO2 of 20. Liver profile revealing elevated bilirubin of 2.7, AST 44, and alkaline phosphatase of 128. EKG showing normal sinus rhythm at 68 bpm. Chest x-ray positive for fluid volume overload with small posterior pleural effusion. Patient admitted under our services with consultation to cardiology. Echocardiogram completed revealing normal left ventricular systolic function, left atrium enlargement, as well as mitral and tricuspid regurgitation. Physical exam: Patient was seen and fully evaluated at the bedside this morning. She was again sitting in the recliner. She reports improvement of her shortness of breath although she states minimally improved lower extremity edema. She has had 2200 mL of output over the past 24 hours. She denies any headache, lightheadedness, dizziness, chest pain, palpitations, or any other complaints at this time. Urine culture did result positive for E. coli. Patient being treated with IV antibiotic Rocephin as she is currently on the liver transplant list and cannot risk having any infections at this time. Patient to continue to receive IV Lasix 40 mg IVP every 8 hours along with Aldactone. Strict I's and O's. Vital signs reviewed and stable. General: Nontoxic, no distress and appears stated age. Derm: Skin warm and dry, normal coloration for ethnicity. Head: Atraumatic, normocephalic and symmetric. Eyes: EOMs intact, no lid lag, and anicteric sclera Mouth: no lip lesions, mucus membranes moist Cardiovascular: regular rate and rhythm with normal S1S2, no murmur, positive posterior tibial pulses bilaterally, and cap refill < 2 seconds. Lungs: Respirations even, regular, and unlabored on room air. Lungs CTA bilaterally, no rhonchi, no rales, no wheezing, and no accessory muscle usage. Abdominal: soft, nontender to palpation, no guarding, no appreciable organomegaly Ext: ROM intact. No gross muscle atrophy, 2+ bilateral lower extremity pitting edema, no contractures Neuro: Speech clear, face symmetrical and CN II-XII grossly intact with no noted focal neuro deficits Psych: Alert and oriented to person, place, time, and situation. Appropriate and pleasant affect. Assessment and Plan of Care: Acute CHF exacerbation, unknown type Cryptogenic liver cirrhosis -MELD score 13. Patient follows with project controller at [facility], Dr. Barnett. Patient on transplant list. -Cardiology following -Telemetry monitoring -Troponin negative less than 0.012. ProBNP 171. -Continue Aldactone and Lasix. -Patient started on lisinopril 5 mg daily and Vasotec was discontinued -Continue Daily weights -Close monitoring of I's and O's -Cardiac diet -Echocardiogram to be completed -Continued close monitoring of electrolytes while diuresing. E. coli UTI -Continue IV antibiotic Rocephin, plan to discharge home on Keflex CODE STATUS: Full code DVT prophylaxis: Heparin Discussed with: Patient and RN Anticipated discharge date: Likely tomorrow Anticipated discharge place: Home A total of 35 minutes was spent on the care of this complex patient more than 50% of the time was spent in counseling and care coordination. Objective - Vital Signs Vital signs: Vital Signs Temp 97.9 F 12/15/21 14:00 Pulse 66 12/15/21 14:00 Resp 15 12/15/21 14:00 BP 113/72 12/15/21 14:00 Pulse Ox 98 12/15/21 14:00 FiO2 Intake & Output 12/14/21 12/15/21 12/15/21 18:59 06:59 18:59 Intake Total 160 Output Total 1000 1200 700 Balance -1000 -1200 -540 Weight 97.5 kg Intake: Oral 160 Output: Urine 1000 1200 700 Other: Voiding Method Toilet # Voids 1 - Labs CBC & Chem 7: 12/15/21 08:02 12/14/21 05:22 Labs: Abnormal Lab Results - Last 24 Hours (Table) 12/14/21 12/14/21 12/15/21 Range/Units 17:18 20:11 02:42 MCV (80.0-100.0) fL Plt Count (150-450) k/uL POC Glucose (mg/dL) 133 H 168 H 66 L (75-99) mg/dL 12/15/21 12/15/21 12/15/21 Range/Units 03:04 08:02 12:43 MCV 101.7 H (80.0-100.0) fL Plt Count 75 L (150-450) k/uL POC Glucose (mg/dL) 104 H 102 H (75-99) mg/dL Microbiology - Last 24 Hours (Table) 12/12/21 11:16 Urine Culture - Final Urine,Voided Escherichia coli
[2021-12-15 17:01] LABS: Glucose,Whole Blood 130 mg/dL (75-99)
[2021-12-15] MEDS ORDERED: INSULIN DETEMIR (LEVEMIR) 100 UNIT/ML SYR SQ SCH (21:00)
[2021-12-15 21:16] LABS: Glucose,Whole Blood 132 mg/dL (75-99)
[2021-12-16 01:27] LABS: Glucose,Whole Blood 88 mg/dL (75-99)
[2021-12-16 07:02] LABS: Glucose,Whole Blood 90 mg/dL (75-99)
[2021-12-16 07:29] VITALS: BP 136/55; PULSE 77; RESP 16; TEMP 97.6
--- NOTE | 2021-12-16 08:37 | P.PN ---
Subjective HISTORY OF PRESENT ILLNESS: This is a 66-year-old female with a history of cryptogenic liver cirrhosis and diastolic congestive heart failure was admitted to the hospital secondary to worsening edema and shortness of breath. The patient has been receiving IV Lasix 40 mg every 8 hours. She reports improvement in her shortness of breath. She continues to have lower extremity edema, although improved from admission per patient. Echocardiogram completed revealing preserved systolic function. 12/16 Patient seen and examined. Denies any chest pain or pressure. Has still been diuresing well with the IV Lasix. PHYSICAL EXAM: VITAL SIGNS: Reviewed. GENERAL: Well-developed in no acute distress. NECK: Supple. No JVD or thyromegaly LUNGS: Respirations even and unlabored. Lungs essentially clear to auscultation bilaterally. HEART: Regular rate and rhythm. S1 and S2 heard. EXTREMITIES: Normal range of motion. No clubbing or cyanosis. Peripheral pulses intact. 2+ bilateral lower extremity edema, R>L ASSESSMENT: Acute on chronic diastolic congestive heart failure Cryptogenic liver cirrhosis Chronic lower extremity edema likely some component of venous insufficiency PLAN: Patient has been diuresing well with IV Lasix and appears stable for discharge home on the home Bumex. Discussed compression stockings and has attempted h igher grade in the past however may benefit from even mild compression stockings. Much of remainder of lower extremity edema likely related to venous insufficiency. Objective - Vital Signs Vital signs: Vital Signs Temp 97.6 F 12/16/21 07:28 Pulse 77 12/16/21 07:28 Resp 16 12/16/21 07:28 BP 136/55 12/16/21 07:28 Pulse Ox 98 12/16/21 07:28 FiO2 Intake & Output 12/15/21 12/16/21 12/16/21 18:59 06:59 18:59 Intake Total 348 Output Total 1100 1300 150 Balance -752 -1300 -150 Weight 92.6 kg Intake: Oral 348 Output: Urine 1100 1300 150 Other: Voiding Method Toilet - Labs CBC & Chem 7: 12/15/21 08:02 12/14/21 05:22 Labs: Abnormal Lab Results - Last 24 Hours (Table) 12/15/21 12/15/21 12/15/21 Range/Units 12:43 16:59 21:15 POC Glucose (mg/dL) 102 H 130 H 132 H (75-99) mg/dL
[2021-12-16] MEDS: INSULIN ASPART (NovoLOG) 100 UNIT/ML VIAL SQ SCH (08:49)
[2021-12-16] MEDS: HEPARIN SODIUM,PORCINE/PF 5,000 UNIT/0.5 ML SYRINGE SQ SCH (09:07)
[2021-12-16] MEDS: FUROSEMIDE 10 MG/ML 4 ML VIAL IV SCH (09:07)
[2021-12-16] MEDS: MULTIVITAMINS, THERA 1 EACH TAB PO SCH (09:08)
[2021-12-16] MEDS: lisinopriL 5 MG TAB PO SCH (09:08)
[2021-12-16] MEDS: ASPIRIN 81 MG PO SCH (09:08)
[2021-12-16] MEDS: SPIRONOLACTONE 25 MG TAB PO SCH (09:08)
[2021-12-16] MEDS: RIFAXIMIN 550 MG TABLET PO SCH (09:08)
[2021-12-16] MEDS: PANTOPRAZOLE 40 MG TABLET PO SCH (09:08)
[2021-12-16 11:02] LABS: Magnesium 1.9 mg/dL (1.5-2.4)
[2021-12-16 11:09] LABS: Albumin 2.5 g/dL (3.8-4.9); Albumin/Globulin Ratio 0.98 (1.60-3.17); Anion Gap 7.5 mmol/L (10.00-18.00); BUN/Creat Ratio 15.43 Ratio (12.00-20.00); Blood Urea Nitrogen 16.2 mg/dL (9.0-27.0); Calcium 8.7 mg/dL (8.7-10.3); Carbon Dioxide 26.1 mmol/L (20.0-27.5); Globulin 2.6 g/dL (1.6-3.3); Non-African American GFR(CKD) 56.1 (60.0-200.0); Potassium 3.7 mmol/L (3.5-5.5); Total Bilirubin 2.1 mg/dL (0.30-1.20); Total Protein 5.1 g/dL (6.2-8.2)
[2021-12-16 11:12] LABS: HCT 37.2 % (37.2-46.3); HGB 12.4 g/dL (12.0-15.0); Immature Platelet Fraction 2.6 % (1.1-6.1); MCH 33.7 pg (27.0-32.0); MCHC 33.3 g/dL (32.0-37.0); MCV 101.1 fL (80.0-97.0); Mean Platelet Volume 10.5 fL (9.5-12.2); NRBC Per 100 WBC 0 /100 WBCS (0.0-0.0); Platelet Count 64 X 10*3/uL (140-440); RBC 3.68 X 10*6/uL (4.10-5.20); RDW 15.1 % (11.5-14.5); WBC 3.59 X 10*3/uL (4.50-10.00)
--- NOTE | 2021-12-16 12:53 | P.DS ---
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 Barnett at [facility]. Patient presented to the emergency department with a chief complaint of worsening shortness of breath over the past 3 days accompanied by worsening lower extremity edema. Patient reports taking Bumex twice daily. Patient denies having any headache, lightheadedness, dizziness, chest pain, palpitations, or experiencing any numbness/tingling in her extremities. She underwent full evaluation in the emergency department. Troponin negative less than 0.012. ProBNP 171. CBC showing thrombocytopenia with platelet count of 78. Coags revealing elevated INR 1.3. BMP revealing elevated chloride of 112 and CO2 of 20. Liver profile revealing elevated bilirubin of 2.7, AST 44, and alkaline phosphatase of 128. EKG showing normal sinus rhythm at 68 bpm. Chest x-ray positive for fluid volume overload with small posterior pleural effusion. Patient admitted under our services with consultation to cardiology. Echocardiogram completed revealing normal left ventricular systolic function, left atrium enlargement, as well as mitral and tricuspid regurgitation. Physical exam on discharge: Vital signs reviewed and stable. General: Nontoxic, no distress and appears stated age. Derm: Skin warm and dry, normal coloration for ethnicity. Head: Atraumatic, normocephalic and symmetric. Eyes: EOMs intact, no lid lag, and anicteric sclera Mouth: no lip lesions, mucus membranes moist Cardiovascular: regular rate and rhythm with normal S1S2, no murmur, positive posterior tibial pulses bilaterally, and cap refill < 2 seconds. Lungs: Respirations even, regular, and unlabored on room air. Lungs CTA bilaterally, no rhonchi, no rales, no wheezing, and no accessory muscle usage. Abdominal: soft, nontender to palpation, no guarding, no appreciable organomegaly Ext: ROM intact. No gross muscle atrophy, 2+ bilateral lower extremity pitting edema, no contractures Neuro: Speech clear, face symmetrical and CN II-XII grossly intact with no noted focal neuro deficits Psych: Alert and oriented to person, place, time, and situation. Appropriate and pleasant affect. Assessment and Plan of Care: Acute diastolic CHF exacerbation -Cardiology cleared the patient for discharge -Patient will continue oral Bumex -Aldactone prescription was given on discharge -Telemetry monitoring -Troponin negative less than 0.012. ProBNP 171. -Patient started on lisinopril 5 mg daily and Vasotec was discontinued -Continue Daily weights -Close monitoring of I's and O's -Cardiac diet E. coli UTI -Continue IV antibiotic Rocephin, plan to discharge home on Keflex Temperature dependent discharge process 33 minutes Patient Condition at Discharge: Stable Plan - Discharge Summary New Discharge Prescriptions: New Cephalexin [Keflex] 500 mg PO Q8HR 1 Days #15 cap Spironolactone [Aldactone] 25 mg PO DAILY #30 tab lisinopriL [Zestril] 5 mg PO DAILY #30 tab Continue Lactulose [Cephulac] 20 gm PO 5XD PRN PRN Reason: Constipation Ibandronate Sodium [Boniva] 150 mg PO Q30D Bumetanide [BUMEX] 2 mg PO BID Insulin Detemir [Levemir Flextouch Pen] 20 units SQ HS Rifaximin [Xifaxan] 550 mg PO BID Ergocalciferol [Vitamin D2 (1250 Mcg = 59354 Iu)] 1,250 mcg PO MO Multivitamin [Multivitamins Adult Gummies] 2 tab PO DAILY Discharge Medication List Lactulose [Cephulac] 20 gm PO 5XD PRN 07/22/16 [History] Ibandronate Sodium [Boniva] 150 mg PO Q30D 07/01/18 [History] Bumetanide [BUMEX] 2 mg PO BID 07/07/20 [History] Insulin Detemir [Levemir Flextouch Pen] 20 units SQ HS 07/07/20 [History] Rifaximin [Xifaxan] 550 mg PO BID 07/07/20 [History] Ergocalciferol [Vitamin D2 (1250 Mcg = 69441 Iu)] 1,250 mcg PO MO 12/12/21 [History] Multivitamin [Multivitamins Adult Gummies] 2 tab PO DAILY 12/12/21 [History] Cephalexin [Keflex] 500 mg PO Q8HR 1 Days #15 cap 12/16/21 [Rx] Spironolactone [Aldactone] 25 mg PO DAILY #30 tab 12/16/21 [Rx] lisinopriL [Zestril] 5 mg PO DAILY #30 tab 12/16/21 [Rx] Follow up Appointment(s)/Referral(s): Jose Navarrete DO [Primary Care Provider] - 1-2 days Patient Instructions/Handouts: Pulmonary Edema (DC), Bradycardia (DC) Discharge Disposition: HOME SELF-CARE
== END 2021-12-16 11:03 | disposition home or self-care (01) | DRG 292 ==
LOC: EC 09:31 → 6NMEDSUR 12:49 → OBSVTOIN 12-13 17:44
PROVIDERS: ADMIT Internal Medicine; ATTEND Internal Medicine
DX: I50.33 Acute on chronic diastolic (congestive) heart failure (principal); N39.0 Urinary tract infection, site not specified; I08.1 Rheumatic disorders of both mitral and tricuspid valves; I87.2 Venous insufficiency (chronic) (peripheral); K74.69 Other cirrhosis of liver; B96.20 Unspecified Escherichia coli [E. coli] as the cause of diseases classified elsewhere; K21.9 Gastro-esophageal reflux disease without esophagitis; R79.1 Abnormal coagulation profile; E78.5 Hyperlipidemia, unspecified; D50.9 Iron deficiency anemia, unspecified; E11.649 Type 2 diabetes mellitus with hypoglycemia without coma; D69.6 Thrombocytopenia, unspecified; Z79.4 Long term (current) use of insulin; Z80.0 Family history of malignant neoplasm of digestive organs; Z80.6 Family history of leukemia; Z82.49 Family history of ischemic heart disease and other diseases of the circulatory system; Z90.710 Acquired absence of both cervix and uterus; Z90.49 Acquired absence of other specified parts of digestive tract; Z76.82 Awaiting organ transplant status
CPT/HCPCS: 36415; 71045; 71046; 80053; 81001; 83605; 83735; 83880; 84484; 85025; 85027; 85610; 85730; 87077; 87086; 87186; 93005; 93306; 96374; 96375; 96376; 99285

== ENCOUNTER → 2022-05-07 | Outpatient (CLI) | payer BC ==
--- NOTE | 2022-05-07 16:40 | XR ---
EXAMINATION TYPE: XR chest 2V DATE OF EXAM: 05/07/2022 COMPARISON: 12/14/2021 HISTORY: 66-year-old female J180 bronchopneumonia TECHNIQUE: Frontal and lateral views FINDINGS: Heart upper limits of normal in size. Mild interstitial prominence is unchanged. Cholecystectomy clip s. No consolidation or pleural effusion. IMPRESSION: Borderline heart size. Chronic changes. No acute process seen.
== END | disposition home or self-care (01) ==
LOC: RADXRYALE 14:30
PROVIDERS: ATTEND Physician Assistant
DX: J18.0 Bronchopneumonia, unspecified organism (principal)
CPT/HCPCS: 71046

== ENCOUNTER → 2022-08-03 | Outpatient (CLI) | payer BC ==
--- NOTE | 2022-08-04 21:52 | MM ---
Reason for Exam: Screening (asymptomatic). Last mammogram was performed 1 year(s) and 3 month(s) ago. Patient History: Menarche at age 13. First Full-Term at age 31. Left ovary removed at age 52. Right ovary removed at age 52. Hysterectomy at age 52. Postmenopausal. Risk Values: Agnieszka 5 year model risk: 2.0%. NCI Lifetime model risk: 7.9%. Prior Study Comparison: 07/02/2016 Bilateral Screening Mammogram, [facility]. 07/26/2017 Bilateral Screening Mammogram, [facility]. 05/05/2021 Bilateral Screening Mammogram, [facility]. Tissue Density: The breast tissue is heterogeneously dense. This may lower the sensitivity of mammography. Findings: Analyzed By CAD. Chronic nodularity upper outer quadrant right breast compatible with intramammary lymph node. There is no suspicious group of microcalcifications or new suspicious mass in either breast. Overall Assessment: Benign, BI-RAD 2 Management: Screening Mammogram of both breasts in 1 year. 1. Patient should continue monthly self breast exams. 2. A clinical breast exam by your physician is recommended on an annual basis. 3. This exam should not preclude additional follow-up of suspicious palpable abnormalities. Electronically signed and approved by: Renea Clemens M.D. Radiologist
== END | disposition home or self-care (01) ==
LOC: RADMAMWWP 14:03
PROVIDERS: ATTEND Family Medicine
DX: Z12.31 Encounter for screening mammogram for malignant neoplasm of breast (principal); Z78.0 Asymptomatic menopausal state
CPT/HCPCS: 77063; 77067

== ENCOUNTER 2023-09-09 13:56 | Emergency (ER) | payer MEDICARE ==
--- NOTE | 2023-09-09 14:32 | ED ---
SOB HPI - General Source: patient, RN notes reviewed Mode of arrival: ambulatory Limitations: no limitations - History of Present Illness MD Complaint: shortness of breath <Shelly Jean - Last Filed: 09/09/23 14:34> <Bradley Salcido - Last Filed: 09/21/23 05:44> - General Chief Complaint: Shortness of Breath Stated Complaint: SOB Time Seen by Provider: 09/09/23 14:29 - History of Present Illness Initial Comments: This is a 68-year-old female who presents to the emergency department for shortness of breath. Symptoms started 3 days ago. She has a history of liver cirrhosis with ascites and reports increasing fluid buildup in her abdomen over the last 3 days as well. She states that when the fluid build up becomes severe, it tends to make her short of breath. Denies a history of congestive heart failure. (Shelly Jean) - Related Data Home Medications Medication Instructions Recorded Confirmed Lactulose [Cephulac] 20 gm PO 5XD PRN 07/22/16 12/12/21 Ibandronate Sodium [Boniva] 150 mg PO Q30D 07/01/18 12/12/21 Bumetanide [BUMEX] 2 mg PO BID 07/07/20 12/12/21 Insulin Detemir [Levemir Flextouch 20 units SQ HS 07/07/20 12/12/21 Pen] Rifaximin [Xifaxan] 550 mg PO BID 07/07/20 12/12/21 Ergocalciferol [Vitamin D2 (1250 1,250 mcg PO MO 12/12/21 12/12/21 Mcg = 16732 Iu)] Multivitamin [Multivitamins Adult 2 tab PO DAILY 12/12/21 12/12/21 Gummies] Previous Rx's Medication Instructions Recorded Cephalexin [Keflex] 500 mg PO Q8HR 1 Days #15 cap 12/16/21 Spironolactone [Aldactone] 25 mg PO DAILY #30 tab 12/16/21 lisinopriL [Zestril] 5 mg PO DAILY #30 tab 12/16/21 Furosemide [Lasix] 40 mg PO BID #10 tablet 09/09/23 Potassium Chloride ER [K-Dur 20] 20 meq PO DAILY #7 tab 09/09/23 Allergies Allergy/AdvReac Type Severity Reaction Status Date / Time No Known Allergies Allergy Verified 09/09/23 14:25 Review of Systems ROS Other: All systems not noted in ROS Statement are negative. <Shelly Jean - Last Filed: 09/09/23 14:34> ROS Other: All systems not noted in ROS Statement are negative. <Bradley Salcido - Last Filed: 09/21/23 05:44> ROS Statement: Those systems with pertinent positive or pertinent negative responses have been documented in the HPI. 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 [facility] chronic lower extremity edema, history of iron deficiency, blood clot in vein to liver History of Any Multi-Drug Resistant Organisms: None Reported Past Surgical History: Cholecystectomy, Heart Catheterization, Hysterectomy, Tonsillectomy Additional Past Surgical History / Comment(s): ectopic outside of uterus, dc'd from [facility] [place] 07-21-16 after heart cath (radial approach) Past Anesthesia/Blood Transfusion Reactions: Motion Sickness Additional Past Anesthesia/Blood Transfusion Reaction / Comment(s): motion sickness sometimes in car. clausterphobia Past Psychological History: No Psychological Hx Reported Smoking Status: Never smoker Past Alcohol Use History: None Reported Past Drug Use History: Unable to Obtain - Past Family History Father Family Medical History: Myocardial Infarction (ND) Additional Family Medical History / Comment(s): HAD MASSIVE ND Mother Family Medical History: Cancer Additional Family Medical History / Comment(s): COLON CA Brother(s) Family Medical History: Cancer Additional Family Medical History / Comment(s): LEUKEMIA- AND ALSO BROTHER HAD BLOOD CLOT IN LEG AFTER FX <Shelly Jean - Last Filed: 09/09/23 14:34> General Exam Limitations: no limitations <Shelly Jean - Last Filed: 09/09/23 14:34> Limitations: no limitations General appearance: alert, in no apparent distress Head exam: Present: atraumatic, normocephalic Eye exam: Present: normal appearance Neck exam: Present: normal inspection Respiratory exam: Present: normal lung sounds bilaterally. Absent: respiratory distress, wheezes, rales, rhonchi, stridor, accessory muscle use Cardiovascular Exam: Present: regular rate, normal rhythm, normal heart sounds. Absent: systolic murmur, diastolic murmur, rubs, gallop GI/Abdominal exam: Present: soft. Absent: distended, tenderness, guarding, rebound, rigid, mass Extremities exam: Present: full ROM, normal capillary refill, pedal edema (B ilateral lower leg edema). Absent: calf tenderness Back exam: Present: normal inspection Neurological exam: Present: alert Skin exam: Present: warm, dry, intact, normal color. Absent: rash <Bradley Salcido - Last Filed: 09/21/23 05:44> - General Exam Comments Initial Comments: Visual Physical Exam Vital signs reviewed General: Well-appearing, nontoxic, no acute distress. Head: Normocephalic, atraumatic Eyes: PERRLA, EOMI ENT: Airway patent Chest: Nonlabored breathing Skin: No visual rash, normal skin tone Neuro: Alert and oriented 3 Musculoskeletal: No gross abnormalities (Shelly Jean) Course Vital Signs 09/09/23 09/09/23 09/09/23 14:22 15:58 17:51 Temperature 97.6 F Pulse Rate 77 73 67 Respiratory 20 16 14 Rate Blood Pressure 173/76 164/83 155/70 O2 Sat by Pulse 96 98 96 Oximetry 09/09/23 09/09/23 19:47 21:59 Temperature Pulse Rate 82 71 Respiratory 16 Rate Blood Pressure 155/70 156/78 O2 Sat by Pulse 96 97 Oximetry Medical Decision Making <Shelly Jean - Last Filed: 09/09/23 14:34> - Lab Data Result diagrams: 09/09/23 15:52 09/09/23 15:52 - EKG Data -: EKG Interpreted by Ri EKG shows normal: sinus rhythm, axis (Normal), intervals (Normal), QRS complexes (Normal), ST-T waves (Normal) Rate: normal (Rate 74 bpm) Interpretation: normal EKG <Bradley Salcido - Last Filed: 09/21/23 05:44> - Medical Decision Making I performed the QuickNote portion of this chart. Signed Shelly Jean PA-C. (Shelly Jean) The patient had chest x-ray that I interpreted as negative for acute infiltrate, pneumothorax, congestive heart failure Was pt. sent in by a medical professional or institution ([facility], REWINDER, urgent care, hospital, or senior living...) When possible be specific @ -[No] Did you speak to anyone other than the patient for history (EMS, parent, family, police, friend...)? What history was obtained from this source @ -[No] Did you review nursing and triage notes (agree or disagree)? Why? @ -[I reviewed and agree with nursing and triage notes] Were old charts reviewed (outside hosp., previous admission, EMS record, old EKG, old radiological studies, urgent care reports/EKG's, senior living records)? Report findings @ -[No old charts were reviewed] Differential Diagnosis (chest pain, altered mental status, abdominal pain women, abdominal pain men, vaginal bleeding, weakness, fever, dyspnea, syncope, h eadache, dizziness, GI bleed, back pain, seizure, CVA, palpatations, mental health, musculoskeletal)? @ -[Differential Dyspnea: Coronary syndrome, arrhythmia, tamponade, asthma, COPD, pulmonary embolism, pneumonia, pneumothorax, pulmonary effusion, anaphylaxis, diabetic ketoacidosis, flailed chest, pulmonary contusion, diaphragmatic rupture, anemia, neuromuscular, this is not meant to be an all-inclusive list. EKG interpreted by me (3pts min.). @ -[I interpreted as above] X-rays interpreted by me (1pt min.). @ -[I interpreted as above CT interpreted by me (1pt min.). @ -[None done] U/S interpreted by me (1pt. min.). @ -[None done] What testing was considered but not performed or refused? (CT, X-rays, U/S, labs)? Why? @ -[None] What meds were considered but not given or refused? Why? @ -[None] Did you discuss the management of the patient with other professionals (professionals i.e. [facility], REWINDER, lab, RT, psych nurse, nursing home social worker, exhibits manager, teacher, diplomatic officer, case management social worker)? Give summary @ -[No] Was smoking cessation discussed for >3mins.? @ -[No] Was critical care preformed (if so, how long)? @ -[No] Were there social determinants of health that impacted care today? How? (Homelessness, low income, unemployed, alcoholism, drug addiction, transportation, low edu. Level, literacy, decrease access to med. care, half-way, rehab)? @ -[No] Was there de-escalation of care discussed even if they declined (Discuss DNR or withdrawal of care, Hospice)? DNR status @ -[No] What co-morbidities impacted this encounter? (DM, HTN, Smoking, COPD, CAD, Cancer, CVA, ARF, Chemo, Hep., AIDS, mental health diagnosis, sleep apnea, morbid obesity)? @ -[Chronic liver disease Was patient admitted / discharged? Hospital course, mention meds given and route, prescriptions, significant lab abnormalities, going to OR and other pertinent info. @ -[Patient is a 68-year-old woman with history of chronic liver disease who presented for evaluation of bilateral leg edema. Following evaluation this does appear to be due to the underlying liver disease. Patient is given course of diuretics and will have follow-up. We discussed the appropriate further care as well as return parameters Undiagnosed new problem with uncertain prognosis? @ -[No] Drug Therapy requiring intensive monitoring for toxicity (Heparin, Nitro, Insulin, Cardizem)? @ -[No] Were any procedures done? @ -[No] Diagnosis/symptom? @ -[Acute on chronic bilateral leg edema Acute, or Chronic, or Acute on Chronic? @ -[default] Uncomplicated (without systemic symptoms) or Complicated (systemic symptoms)? @ -[Uncomplicated Side effects of treatment? @ -[No] Exacerbation, Progression, or Severe Exacerbation? @ -[No] Poses a threat to life or bodily function? How? (Chest pain, USA, ND, pneumonia, PE, COPD, DKA, ARF, appy, cholecystitis, CVA, Diverticulitis, Homicidal, Suicidal, threat to staff... and all critical care pts) @ -[No] (Bradley Salcido) - Lab Data Lab Results 09/09/23 09/09/23 09/09/23 Range/Units 15:52 15:52 15:52 WBC 4.4 (3.8-10.6) k/uL RBC 3.78 L (3.80-5.40) m/uL Hgb 12.6 (11.4-16.0) gm/dL Hct 37.4 (34.0-46.0) % MCV 99.1 (80.0-100.0) fL MCH 33.4 (25.0-35.0) pg MCHC 33.8 (31.0-37.0) g/dL RDW 15.1 (11.5-15.5) % Plt Count 74 L (150-450) k/uL MPV 7.9 Neutrophils % 57 % Lymphocytes % 23 % Monocytes % 11 % Eosinophils % 4 % Basophils % 1 % Neutrophils # 2.5 (1.3-7.7) k/uL Lymphocytes # 1.0 (1.0-4.8) k/uL Monocytes # 0.5 (0-1.0) k/uL Eosinophils # 0.2 (0-0.7) k/uL Basophils # 0.0 (0-0.2) k/uL Manual Slide Review Performed Poikilocytosis Slight Macrocytosis Slight PT 17.1 H (10.0-12.5) sec INR 1.7 H (<1.2) APTT 31.6 H (22.0-30.0) sec Sodium 137 (137-145) mmol/L Potassium 4.1 (3.5-5.1) mmol/L Chloride 114 H (98-107) mmol/L Carbon Dioxide 20 L (22-30) mmol/L Anion Gap 3 mmol/L BUN 13 (7-17) mg/dL Creatinine 0.71 (0.52-1.04) mg/dL Est GFR (CKD-EPI)AfAm >90 (>60 ml/min/1.73 sqM) Est GFR (CKD-EPI)NonAf 89 (>60 ml/min/1.73 sqM) Glucose 90 (74-99) mg/dL Calcium 8.3 L (8.4-10.2) mg/dL Total Bilirubin 4.0 H (0.2-1.3) mg/dL AST 42 H (14-36) U/L ALT 21 (4-34) U/L Alkaline Phosphatase 96 (38-126) U/L Troponin I (0.000-0.034) ng/mL NT-Pro-B Natriuret Pep 125 pg/mL Total Protein 5.4 L (6.3-8.2) g/dL Albumin 2.3 L (3.5-5.0) g/dL 09/09/23 Range/Units 15:52 WBC (3.8-10.6) k/uL RBC (3.80-5.40) m/uL Hgb (11.4-16.0) gm/dL Hct (34.0-46.0) % MCV (80.0-100.0) fL MCH (25.0-35.0) pg MCHC (31.0-37.0) g/dL RDW (11.5-15.5) % Plt Count (150-450) k/uL MPV Neutrophils % % Lymphocytes % % Monocytes % % Eosinophils % % Basophils % % Neutrophils # (1.3-7.7) k/uL Lymphocytes # (1.0-4.8) k/uL Monocytes # (0-1.0) k/uL Eosinophils # (0-0.7) k/uL Basophils # (0-0.2) k/uL Manual Slide Review Poikilocytosis Macrocytosis PT (10.0-12.5) sec INR (<1.2) APTT (22.0-30.0) sec Sodium (137-145) mmol/L Potassium (3.5-5.1) mmol/L Chloride (98-107) mmol/L Carbon Dioxide (22-30) mmol/L Anion Gap mmol/L BUN (7-17) mg/dL Creatinine (0.52-1.04) mg/dL Est GFR (CKD-EPI)AfAm (>60 ml/min/1.73 sqM) Est GFR (CKD-EPI)NonAf (>60 ml/min/1.73 sqM) Glucose (74-99) mg/dL Calcium (8.4-10.2) mg/dL Total Bilirubin (0.2-1.3) mg/dL AST (14-36) U/L ALT (4-34) U/L Alkaline Phosphatase (38-126) U/L Troponin I <0.012 (0.000-0.034) ng/mL NT-Pro-B Natriuret Pep pg/mL Total Protein (6.3-8.2) g/dL Albumin (3.5-5.0) g/dL Disposition <Shelly Jean - Last Filed: 09/09/23 14:34> Is patient prescribed a controlled substance at d/c from ED?: No <ChenashleyBradley - Last Filed: 09/21/23 05:44> Clinical Impression: Bilateral leg edema Disposition: HOME SELF-CARE Condition: Good Instructions (If sedation given, give patient instructions): Leg Edema (ED) Prescriptions: Potassium Chloride ER [K-Dur 20] 20 meq PO DAILY #7 tab Furosemide [Lasix] 40 mg PO BID #10 tablet Referrals: Jose Navarrete DO [Primary Care Provider] - 1-2 days
[2023-09-09 14:42] VITALS: TEMP 97.6
--- NOTE | 2023-09-09 15:38 | XR ---
EXAMINATION TYPE: XR chest 2V DATE OF EXAM: 09/09/2023 COMPARISON: 05/07/2022 HISTORY: 68 year-old female shortness of breath, difficulty breathing, fluid buildup TECHNIQUE: PA and lateral views FINDINGS: Heart normal size. Aorta within normal limits. Mild perihilar prominence. Small bilateral pleural eff usions. IMPRESSION: Small bilateral pleural effusions. Possible early central pulmonary vascular congestion.
[2023-09-09 16:46] LABS: ALT 21 U/L (4-34); AST 42 U/L (14-36); African American GFR (CKD) >90 (>60 ml/min/1.73 sqM); Albumin 2.3 g/dL (3.5-5.0); Alkaline Phosphatase 96 U/L (38-126); Anion Gap 3 mmol/L; Blood Urea Nitrogen 13 mg/dL (7-17); Calcium 8.3 mg/dL (8.4-10.2); Carbon Dioxide 20 mmol/L (22-30); Chloride 114 mmol/L (98-107); Glucose 90 mg/dL (74-99); Non-African American GFR(CKD) 89 (>60 ml/min/1.73 sqM); Potassium 4.1 mmol/L (3.5-5.1); Sodium 137 mmol/L (137-145); Total Protein 5.4 g/dL (6.3-8.2)
[2023-09-09 16:54] LABS: INR 1.7 (<1.2); Partial Thromboplastin Time 31.6 sec (22.0-30.0); Prothrombin Time 17.1 sec (10.0-12.5)
[2023-09-09 16:55] LABS: NT-Pro-B-Type Natriuretic Pept 125 pg/mL
[2023-09-09 17:02] LABS: Basophils % (A) 1 %; Eosinophils # (A) 0.2 k/uL (0-0.7); Eosinophils % (A) 4 %; HCT 37.4 % (34.0-46.0); HGB 12.6 gm/dL (11.4-16.0); Lymphocytes % (A) 23 %; MCH 33.4 pg (25.0-35.0); MCHC 33.8 g/dL (31.0-37.0); MCV 99.1 fL (80.0-100.0); Macrocytosis Slight; Mean Platelet Volume 7.9; Monocytes # (A) 0.5 k/uL (0-1.0); Monocytes % (A) 11 %; Neutrophils # (A) 2.5 k/uL (1.3-7.7); Neutrophils % (A) 57 %; Poikilocytosis Slight; RBC 3.78 m/uL (3.80-5.40); RDW 15.1 % (11.5-15.5); WBC 4.4 k/uL (3.8-10.6)
--- NOTE | 2023-09-09 17:14 | XR ---
EXAMINATION TYPE: XR chest 2V DATE OF EXAM: 09/09/2023 4:52 PM CLINICAL INDICATION:Female, 68 years old with history of dyspnea; H COMPARISON: Chest radiographs from 09/09/2023 TECHNIQUE: XR chest 2V Frontal and lateral views of the chest. FINDINGS: Lungs/Pleura: There is no evidence of pleural effusion, focal consolidation, or pneumothorax. Pulmonary vascularity: Unremarkable. Heart/mediastinum: Cardiomediastinal silhouette is unremarkable. Musculoskeletal: No acute osseous pathology. Other findings: None IMPRESSION: No acute cardiopulmonary disease/process.
[2023-09-09 17:25] LABS: Platelet Count 74 k/uL (150-450)
[2023-09-09] MEDS: FUROSEMIDE 10 MG/ML 4 ML VIAL IV STA (18:46)
[2023-09-09 22:28] VITALS: BP 156/78; PULSE 71; RESP 16
== END 2023-09-09 22:04 | disposition home or self-care (01) ==
LOC: EC 13:56
DX: R60.0 Localized edema (principal); E11.9 Type 2 diabetes mellitus without complications; Z79.4 Long term (current) use of insulin
CPT/HCPCS: 36415; 93005; 83880; 80053; 84484; 85025; 85610; 85730; 71046; 99285; 96374; J1940